=== PATIENT | female | born 1930 ===

== ENCOUNTER 2017-04-09 08:13 | Inpatient (IN) | payer MEDICARE, MEDICAID ==
--- NOTE | 2017-04-09 08:40 | ED PDOC ---
Arrival/HPI - General Historian: Patient, Family - History of Present Illness Time/Duration: 4-6 hours Symptom Course: Unchanged Quality: Aching, Throbbing Severity Level: 7 Activities at Onset: Rest Context: Home <Rocío Abdalla - Last Filed: 04/09/17 11:19> <Haritha Gutierres - Last Filed: 04/23/17 11:28> - General Chief Complaint: Trauma Time Seen by Provider: 04/09/17 08:14 - History of Present Illness Narrative History of Present Illness (Text): 04/09/17 08:38 This is an 86Y F with PMH of HTN, HLD, NIDDM, cardiac pacemaker, gastric ulcer and osteoporosis here for fall. She is accompanied by her daughter. The patient reports at 4am this morning she was walking between the tv and chair when she fell backwards on her head. She reports feeling lightheaded this morning, but denies new vision changes, CP, SOB, n/v/d, numbness/tingling. She complains of bilateral shoulder and hip pain. She is able to raise her arms above her head, but cannot sit up. Her daughter reports she was on the floor for about 3-4 hours. Patient report she was not able to take her morning medications. Patient denies LOC or tongue biting. (Rocío Abdalla) Past Medical History - Provider Review Nursing Documentation Reviewed: Yes - Infectious Disease Hx of Infectious Diseases: None - Tetanus Immunization Tetanus Immunization: Unknown - Cardiac Hx Cardiac Disorders: Yes Hx OR: Yes Hx Hypertension: Yes Hx Pacemaker: Yes - Pulmonary Hx Respiratory Disorders: No - Neurological Hx Neurological Disorder: No Hx Transient Ischemic Attacks (TIA): No - HEENT Hx HEENT Disorder: Yes Hx Cataracts: Yes (bilateral sx) Hx Glaucoma: Yes (laser sx bilateral) - Renal Hx Renal Disorder: No - Endocrine/Metabolic Hx Endocrine Disorders: Yes Hx Diabetes Mellitus Type 2: Yes - Hematological/Oncological Hx Blood Disorders: No - Integumentary Hx Dermatological Disorder: No - Musculoskeletal/Rheumatological Hx Musculoskeletal Disorders: Yes Hx Falls: No Hx Osteoporosis: Yes - Gastrointestinal Hx Gastrointestinal Disorders: Yes (gi bleed) Hx Gastrointestinal Ulcer: Yes - Genitourinary/Gynecological Hx Genitourinary Disorders: Yes Hx Urinary Tract Infection: Yes - Psychiatric Hx Psychophysiologic Disorder: No Hx Depression: No Hx Emotional Abuse: No Hx Physical Abuse: No Hx Substance Use: No - Surgical History Hx Hysterectomy: Yes (partial) Hx Joint Replacement: Yes (bilateral knee) - Anesthesia Hx Anesthesia Reactions: No Hx Malignant Hyperthermia: No - Suicidal Assessment Feels Threatened In Home Enviroment: No <Rocío Abdalla - Last Filed: 04/09/17 11:19> Family/Social History - Physician Review Nursing Documentation Reviewed: Yes Family/Social History: Hypertension Smoking Status: Never Smoked Hx Alcohol Use: No Hx Substance Use: No Hx Substance Use Treatment: No <Rocío Abdalla - Last Filed: 04/09/17 11:19> Allergies/Home Meds <Rocío Abdalla - Last Filed: 04/09/17 11:19> <Haritha Gutierres - Last Filed: 04/23/17 11:28> Allergies/Adverse Reactions: Allergies No Known Allergies Allergy (Verified 04/09/17 08:23) Home Medications: Home Meds Medication Instructions Recorded Confirmed Sitagliptin Phos/Metformin HCl 1 tab PO BID 04/27/16 04/09/17 [Janumet 50-1,000 mg Tablet] Cyanocobalamin [Vitamin B12 1000 1 tab PO DAILY 09/28/16 04/09/17 mcg Tab] Glimepiride 0.5 tab PO BID 09/28/16 04/09/17 Multivitamin [Multivitamins] 1 tab PO DAILY 09/28/16 04/09/17 Vitamin B Complex [Ultra B-100 1 tab PO DAILY 09/28/16 04/09/17 Complex] Vitamin E Acid Succinate [Vitamin 400 units PO DAILY 09/28/16 04/09/17 E] Latanoprost 0.005% Opht [Xalatan 1 drp OU HS 04/09/17 04/09/17 Opht] Levothyroxine [Synthroid] 50 mcg PO DAILY 04/11/17 04/11/17 Pantoprazole Sodium [Protonix] 40 mg PO DAILY 04/11/17 04/11/17 Review of Systems - Physician Review All systems were reviewed & negative as marked: Yes - Review of Systems Constitutional: Normal. absent: Fatigue, Weight Change, Fevers Eyes: Normal. absent: Vision Changes ENT: Normal. absent: Hearing Changes Respiratory: Normal. absent: SOB, Cough Cardiovascular: Normal. absent: Chest Pain, Palpitations, Edema Gastrointestinal: Normal. absent: Abdominal Pain, Diarrhea, Nausea, Vomiting Genitourinary Female: Normal. absent: Dysuria, Frequency, Hematuria Musculoskeletal: Arthralgias, Back Pain Skin: Normal. absent: Rash Neurological: Dizziness, Gait Changes. absent: Headache, Focal Weakness, Speech Changes, Facial Droop Psychiatric: Normal. absent: Anxiety, Depression <SeandoreneRocío - Last Filed: 04/09/17 11:19> Physical Exam Vital Signs Reviewed: Yes Temperature: Afebrile Blood Pressure: Hypertensive Pulse: Tachycardic Respiratory Rate: Normal Appearance: Positive for: Well-Appearing, Non-Toxic, Comfortable Pain Distress: None Mental Status: Positive for: Alert and Oriented X 3 - Systems Exam Head: Present: Atraumatic, Normocephalic. No: Tenderness, Ecchymosis Pupils: Present: PERRL Extroacular Muscles: Present: EOMI Conjunctiva: Present: Normal Mouth: Present: Moist Mucous Membranes Neck: Present: Normal Range of Motion Respiratory/Chest: Present: Clear to Auscultation, Good Air Exchange. No: Respiratory Distress, Accessory Muscle Use Cardiovascular: Present: Regular Rate and Rhythm, Normal S1, S2. No: Murmurs Abdomen: Present: Normal Bowel Sounds. No: Tenderness, Distention, Peritoneal Signs Back: Present: Normal Inspection Upper Extremity: Present: Normal Inspection, Tenderness (to bilateral shoulders ). No: Cyanosis, Edema, Normal ROM (decreased range of motion ) Lower Extremity: Present: Normal Inspection, Tenderness (to bilateral hips ). No: Edema Neurological: Present: GCS=15, CN II-XII Intact, Speech Normal Skin: Present: Warm, Dry, Normal Color. No: Rashes Psychiatric: Present: Alert, Oriented x 3, Normal Insight, Normal Concentration <Rocío Abdalla - Last Filed: 04/09/17 11:19> <Haritha Gutierres - Last Filed: 04/23/17 11:28> Vital Signs Temp Pulse Resp BP Pulse Ox 04/09/17 14:26 85 16 151/65 H 96 04/09/17 13:08 65 18 146/75 96 04/09/17 10:42 83 16 127/86 98 04/09/17 08:13 98.1 F 104 H 18 148/80 96 Medical Decision Making Re-evaluation Time: 10:09 Reassessment Condition: Unchanged - Lab Interpretations I have reviewed the lab results: Yes Interpretation: Abnormal lab values (elevated troponin and elevated glucose) - RAD Interpretation Rn Examiner: Radiologist - EKG Interpretation Interpreted by ED Physician: Yes Type: 12 lead EKG <Rocío Abdalla - Last Filed: 04/09/17 11:19> - EKG Interpretation Interpreted by ED Physician: Yes Type: 12 lead EKG <NenitaHaritha - Last Filed: 04/23/17 11:28> ED Course and Treatment: 04/09/17 08:42 Impression: This is an 86Y F with PMH of HTN, HLD, NIDDM, cardiac pacemaker, gastric ulcer and osteoporosis here for fall. She hit her head, shoulders and hips. DDX: Syncope, CVA, arrhythmia, mechanical fall Plan: -- CT head, CXR, shoulder XR bilateral, Bilateral Hip XR -- CBC, CMP, cardiac iso, pt/ptt -- ASA --Reassess Prior Visits: Notes and results from previous visits were reviewed. Progress Note: Troponin noted to be elevated. CT head showed chronic lacunar infarct with no evidence of acute intracranial abnormalities. Bilateral shoulder and Hip/pelvis XR showed no evidence of fracture. Patient planned to be admitted to telemetry for further monitoring. Patient does have history of GI bleed, but Hgb stable. Spoke with Dr. Hameed who is aware of patient and the consult. Spoke with Dr. Hill who accepts patient. (Rocío Abdalla) Patient seen and examined with resident. Came up with treatment and disposition plan with resident. A 86 year old female with head trauma, bilateral shoulder and hip pain after fall. In agreement with resident note, which includes further HPI details. I interviewed patient with family present. Patient is noted to have no focal neuro deficits on exam. Patient states she believes she slipped and fell. She was unable to get up on her own for several hours reportedly stating she was too weak to stand up and had knee pain. Family states she is uncertain whether she slipped or fell. With multiple questioning she denies any chest pain or shortness of breath. Denies pleuritic pain. Denies back pain or upper back pain. She is not hypoxic. On monitor, patient noted to be in sinus rhythm rate of 90 although she is noted to intermittently to have pauses with rate in 60s associated with PVCs. Patient re-examined during this time and noted to be asymptomatic. Patient with POSITIVE TROPONIN. She continues to deny any history of chest pain or shortness of breath or calf pain or swelling. I discussed troponin and history with Dr. Hameed, her paper rewinder. As she is without any chest pain or shortness of breath with no EKG changes, after discussion with paper rewinder will not anticoagulate as she has history of GI bleeds and anemia in past. No hip fracture noted. Serial exams reveals that she is able to ambulated. Cannot exclude arrhythmia as patient noted to have intermittent rhythm change on monitor, continues to deny any pain or sob or discomfort. (Haritha Gutierres) - Lab Interpretations Lab Results: 04/09/17 08:31 04/09/17 08:31 Lab Results 04/09/17 08:34: APTT 25.5 04/09/17 08:31: Sodium 137, Potassium 4.2, Chloride 101, Carbon Dioxide 24, Anion Gap 16, BUN 22 H, Creatinine 0.8, Est GFR ( Amer) > 60, Est GFR ( Non-Af Amer) > 60, Random Glucose 303 H* D, Calcium 9.9, Total Bilirubin 0.6, AST 24, ALT 27, Alkaline Phosphatase 88, Lactate Dehydrogenase 433, Total Creatine Kinase 147, Troponin I 0.17 H* D, Total Protein 7.5, Albumin 4.2, Globulin 3.4, Albumin/Globulin Ratio 1.2 04/09/17 08:31: WBC 11.2 H D, RBC 4.48, Hgb 12.5, Hct 37.9, MCV 84.6, MCH 27.9, MCHC 33.0, RDW 14.2, Plt Count 254, MPV 10.3 - RAD Interpretation Narrative RAD Interpretations (Text): 04/09/17 10:09 CXR showed no active disease Head CT showed no acute intracranial abnormalities. Old lacunar infarcts. Please see full report for more detail. Bilateral shoulder XR showed no evidence of fracture. Please see full report for more detail. Hip/Pelvis XR showed no evidence of fracture. Please see full report for more detail. (Rocío Abdalla) Radiology Orders: 04/09/17 08:30 HEAD W/O CONTRAST [CT] Stat HIP MIN 2V W/ PELVIS DICK [RAD] Stat SHOULDER LEFT [RAD] Stat SHOULDER RIGHT [RAD] Stat 04/09/17 08:44 CXR [CHEST PORTABLE] [RAD] Stat - EKG Interpretation EKG Interpretation (Text): 04/09/17 08:52 HR 103. intervals within normal limits. Sinus tachycardia with occasional PVCs (Bortcosh,Rocío) - Medication Orders Current Medication Orders: Discontinued Medications Amlodipine Besylate (Norvasc) 5 mg PO DAILY [facility] Last Admin: 04/11/17 10:19 Dose: 5 mg Amlodipine Besylate (Norvasc) 10 mg PO DAILY [facility] Aspirin (Aspirin Chewable) 81 mg PO STAT [facility] Stop: 04/09/17 10:39 Last Admin: 04/09/17 11:00 Dose: Atorvastatin Calcium (Lipitor) 40 mg PO DIN [facility] Last Admin: 04/10/17 16:18 Dose: 40 mg Hydrochlorothiazide (Microzide) 12.5 mg PO DAILY [facility] Last Admin: 04/11/17 10:19 Dose: 12.5 mg Ceftriaxone Sodium (Rocephin 1 Gram Ivpb) 1 gm in 100 mls @ 200 mls/hr IVPB STAT [facility] PRN Reason: Protocol Stop: 04/09/17 12:55 Last Admin: 04/09/17 13:38 Dose: 200 mls/hr Ceftriaxone Sodium (Rocephin 1 Gram Ivpb) 1 gm in 100 mls @ 100 mls/hr IVPB DAILY [facility] PRN Reason: Protocol Last Admin: 04/10/17 23:39 Dose: 100 mls/hr Magnesium Sulfate 2 gm/ Sodium (Chloride) 104 mls @ 102 mls/hr IVPB ONCE ONE Stop: 04/11/17 11:16 Insulin Human Regular (Humulin R Med) 0 units SC ACHS [facility] PRN Reason: Protocol Last Admin: 04/11/17 08:04 Dose: 5 units Latanoprost (Xalatan Opht) 0 ml OU HS [facility] Last Admin: 04/10/17 22:18 Dose: 2.5 ml Levothyroxine Sodium (Synthroid) 50 mcg PO ACB [facility] Last Admin: 04/11/17 08:05 Dose: 50 mcg Losartan Potassium (Cozaar) 50 mg PO DAILY [facility] Last Admin: 04/11/17 10:19 Dose: 50 mg Magnesium Oxide (Mag-Ox) 400 mg PO BID [facility] Tramadol HCl (Ultram) 50 mg PO TID PRN PRN Reason: Pain, moderate (4-7) Last Admin: 04/10/17 16:18 Dose: 50 mg <Rocío Abdalla - Last Filed: 04/09/17 11:19> - PA / TATTOO DESIGNER / Resident Statement MD/DO has reviewed & agrees with the documentation as recorded. MD/DO has examined the patient and agrees with the treatment plan. - Scribe Statement The provider has reviewed the documentation as recorded by the Scribe <Haritha Gutierres - Last Filed: 04/23/17 11:28> - Scribe Statement Sudha Adams Provider Scribe Attestation: All medical record entries made by the Scribe were at my direction and personally dictated by me. I have reviewed the chart and agree that the record accurately reflects my personal performance of the history, physical exam, medical decision making, and the department course for this patient. I have also personally directed, reviewed, and agree with the discharge instructions and disposition. (Haritha Gutierres) Disposition/Present on Arrival - Present on Arrival Any Indicators Present on Arrival: No History of DVT/PE: No History of Uncontrolled Diabetes: No Urinary Catheter: No History of Decub. Ulcer: No History Surgical Site Infection Following: None - Disposition Have Diagnosis and Disposition been Completed?: Yes Disposition Time: 10:40 Patient Plan: Admission <Rocío Abdalla - Last Filed: 04/09/17 11:19> <Haritha Gutierres - Last Filed: 04/23/17 11:28> - Disposition Diagnosis: Elevated troponin, Fall, Dizziness, Arrhythmia, Syncope Disposition: HOSPITALIZED Condition: FAIR
[2017-04-09 09:10] LABS: HEMATOCRIT 37.9 % (36.0-48.0); MEAN CELL VOLUME 84.6 fL (80.0-105.0); MEAN CORPUSCULAR HEMOGLOBIN 27.9 pg (25.0-35.0); MEAN PLATELET VOLUME 10.3 fl (7.0-11.0); RED CELL DISTRIBUTION WIDTH 14.2 % (11.5-14.5); WHITE BLOOD COUNT 11.2 10^3/ul (4.5-11.0)
--- NOTE | 2017-04-09 09:14 | RAD ---
HISTORY: fall COMPARISON: 06/10/2016 FINDINGS: LUNGS: No active pulmonary disease. PLEURA: No significant pleural effusion identified, no pneumothorax apparent. CARDIOVASCULAR: Permanent pacemaker. Normal heart size. OSSEOUS STRUCTURES: No significant abnormalities. VISUALIZED UPPER ABDOMEN: Normal. OTHER FINDINGS: None. IMPRESSION: No active disease.
[2017-04-09 09:16] LABS: ALB/GLOB RATIO 1.2 (1.1-1.8); ALKALINE PHOSPHATASE 88 U/L (38-133); ALT/SGPT 27 U/L (7-56); AST/SGOT 24 U/L (15-39); BILIRUBIN,TOTAL 0.6 mg/dL (0.2-1.3); BLOOD UREA NITROGEN 22 mg/dL (7-21); CALCIUM 9.9 mg/dL (8.4-10.5); CARBON DIOXIDE 24 mmol/L (21-33); CHLORIDE 101 mmol/L (98-107); GFR AFRICAN-AMERICAN > 60; POTASSIUM 4.2 mmol/L (3.6-5.0); SODIUM 137 mmol/L (132-148); TOTAL PROTEIN 7.5 g/dL (5.8-8.3)
--- NOTE | 2017-04-09 09:20 | CT ---
PROCEDURE: CT HEAD WITHOUT CONTRAST. HISTORY: fall COMPARISON: 03/06/2015 TECHNIQUE: Axial computed tomography images were obtained through the head/brain without intravenous contrast. Radiation dose: Total exam DLP = 780.29 mGy-cm. This CT exam was performed using one or more of the following dose reduction techniques: Automated exposure control, adjustment of the mA and/or kV according to patient size, and/or use of iterative reconstruction technique. FINDINGS: HEMORRHAGE: No intracranial hemorrhage. BRAIN: No mass effect or edema. Chronic microvascular ischemic change. Small old lacunar infarct right basal ganglia and left cerebellar hemisphere. No evidence of acute infarct. VENTRICLES: Unremarkable. No hydrocephalus. CALVARIUM: Unremarkable. PARANASAL SINUSES: Unremarkable as visualized. No significant inflammatory changes. MASTOID AIR CELLS: Unremarkable as visualized. No inflammatory changes. OTHER FINDINGS: None. IMPRESSION: No intracranial mass, hemorrhage or evidence of acute infarct. Chronic white matter ischemic change. Old right basal ganglia and left cerebellar hemispheric lacunar infarcts.
[2017-04-09 09:23] LABS: GLUCOSE,RANDOM 303 mg/dL (70-110)
[2017-04-09 10:01] LABS: TROPONIN I 0.17 ng/mL
--- NOTE | 2017-04-09 10:17 | RAD ---
PROCEDURE: Radiographs of the Left Shoulder HISTORY: fall COMPARISON: No prior. FINDINGS: BONES: Normal. No fracture. JOINTS: Minimal acromioclavicular degenerative arthritis. Glenohumeral articulation is intact. SOFT TISSUES: Globular calcification adjacent to greater tuberosity consistent with calcific tendinitis. OTHER FINDINGS: None. 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 No acute fracture.
--- NOTE | 2017-04-09 10:17 | RAD ---
PROCEDURE: Radiographs of the Right Shoulder HISTORY: fall COMPARISON: No prior. FINDINGS: BONES: Normal. No fracture. JOINTS: Mild acromioclavicular degenerative arthritis. Glenohumeral articulation is intact. SOFT TISSUES: Normal. OTHER FINDINGS: None. IMPRESSION: Mild acromioclavicular degenerative arthritis.
--- NOTE | 2017-04-09 10:18 | RAD ---
PROCEDURE: Radiographs of the pelvis and bilateral hips HISTORY: fall COMPARISON: None. FINDINGS: BONES: Pelvis: Unremarkable. Right hip:Unremarkable. Left hip:Unremarkable. JOINTS: Right hip: Unremarkable. Left hip: Unremarkable. Sacroiliac Joints: Unremarkable. Pubic symphysis: Unremarkable. SOFT TISSUES: Normal. OTHER FINDINGS: None. IMPRESSION: Unremarkable radiographs of the hips and pelvis.
[2017-04-09] MEDS ORDERED: Enoxaparin 80 mg Syringe SC STA (10:37)
[2017-04-09 12:08] LABS: URINE BILIRUBIN NEGATIVE (NEGATIVE); URINE BLOOD TRACE-INTACT (NEGATIVE); URINE GLUCOSE (UA) 500 mg/dL (NEGATIVE); URINE KETONE NEGATIVE (NEGATIVE); URINE LEUKOCYTE ESTERASE NEGATIVE Leu/uL (NEGATIVE); URINE PROTEIN TRACE mg/dL (<30 mg/dL); URINE UROBILINOGEN 0.2 E.U./dL (<1 E.U./dL)
[2017-04-09 12:10] LABS: URINE APPEARANCE CLEAR (CLEAR); URINE COLOR YELLOW (YELLOW)
[2017-04-09 12:19] LABS: URINE BACTERIA LARGE (NEG); URINE RBC 0 - 2 /hpf (0-2); URINE WBC 0 - 2 /hpf (0-6)
[2017-04-09] MEDS ORDERED: cefTRIAXone 1 gm 1 GM/100 ML BAG IVPB STA (12:26)
--- NOTE | 2017-04-09 12:27 | CARD ---
APPROVED REPORT EKG Measurement Heart [id number] AR 168P16 [id number] <Conclusion> Normal sinus rhythm Voltage criteria for left ventricular hypertrophy Prolonged QT Abnormal ECG
--- NOTE | 2017-04-09 12:37 | CARD ---
APPROVED REPORT EKG Measurement Heart [id number] PA [id number] [id number] <Conclusion> Sinus tachycardia with occasional premature ventricular complexes Moderate voltage criteria for LVH, may be normal variant Nonspecific ST and T wave abnormality Abnormal ECG
[2017-04-09 13:27] LABS: INR 0.96 (0.93-1.08)
[2017-04-09 15:59] VITALS: BMI 32.2
[2017-04-09] MEDS: Insulin Reg-MEDIUM-Coverage SC SCH ×2 (17:45→23:21)
[2017-04-09] MEDS ORDERED: GLIMEPIRIDE PO SCH (18:00)
[2017-04-09] MEDS ORDERED: Non Formulary Medication (Losartan/Hydrochlorothiazide [Losartan-Hctz 50-12.5 Mg Tab] 1 TA PO SCH (18:00)
[2017-04-09] MEDS: Latanoprost 2.5 ml Opht Soln OU SCH (21:55)
[2017-04-10] MEDS: Insulin Reg-MEDIUM-Coverage SC SCH ×4 (08:09→22:17)
[2017-04-10] MEDS: Levothyroxine 50 MCG TAB PO SCH (10:07)
--- NOTE | 2017-04-10 19:13 | CON ---
DATE: 04/10/2017 REQUESTING PHYSICIAN: Dr. Bowie REASON FOR CONSULTATION: Fall and elevated troponin. HISTORY OF PRESENT ILLNESS: This is an 86-year-old woman, known to us with a history of coronary art fara disease and remote myocardial infarction, who suffered a fall at home yesterday. She was reporte dly on the floor for several hours and was brought to the Emergency Room by her daughter. Radiograph s have shown no evidence of fracture and CT of the head showed no acute abnormalities. She denied an y palpitations or chest pain on admission. She has chronic exertional dyspnea. She does have known coronary disease and suffered a myocardial infarction 5 years ago and underwent PCI of her LAD at [facility] t time. She also has a history of hypertension, hyperlipidemia and diabetes. She has undergone prio r permanent pacemaker implant as well. She has a history of a gastric ulcer, osteoporosis. She has underwent prior colon resection. PAST MEDICAL HISTORY: Notable for the problems mentioned above. She has a history of glaucoma and c ataracts. She has undergone bilateral knee replacement as well as a partial hysterectomy. CURRENT MEDICATIONS: Include Cozaar 50 mg daily, insulin coverage, Lipitor 40 mg daily, hydrochlorot hiazide 12.5 mg daily, Norvasc 5 mg daily, Synthroid 50 mcg daily, tramadol and Xalatan eye drops. ALLERGIES: She has no reported allergies. SOCIAL HISTORY: She does not smoke or drink. FAMILY HISTORY: Both parents are from age-related illness. REVIEW OF SYSTEMS: A 10-point is notable mainly for the problems mentioned above. PHYSICAL EXAMINATION: GENERAL: She is a very elderly woman who appears comfortable at rest. VITAL SIGNS: Her blood pressure is 140/76 with a pulse of 84, in sinus, respirations are 16. She is afebrile. HEENT: Normocephalic, atraumatic. NECK: Supple, no JVD. CHEST: Bilateral scattered rhonchi are heard. HEART: PMI displaced laterally with a systolic murmur at the left sternal border. ABDOMEN: Soft, nontender, normoactive bowel sounds. EXTREMITIES: No edema. SKIN: Warm and dry. PSYCHIATRIC: Normal mood and affect. NEUROLOGIC: Alert and oriented x 3. No gross motor or sensory deficits appreciable. DIAGNOSTIC DATA: White count 11.2, hemoglobin and hematocrit are 12.5 and 37.9 with a platelet count of 254,000. Potassium is 4.2, BUN and creatinine are 22 and 0.8, glucose is 303. Troponin 0.17, re peat 1.33 and followup 0.96. CK is 147. Chest x-ray reveals normal cardiac silhouette with clear austin ng tanner and a pacing system in place. Electrocardiogram reveals sinus tachycardia with PVCs, volta ge criteria for LVH, nonspecific ST-T abnormalities. IMPRESSION: 1. Borderline troponin with no evidence of chest pain and a normal CK, doubt any clinical significan ce. 2. Known coronary artery disease, status post remote myocardial infarction and percutaneous coronary intervention, stable at present. 3. Bradycardia-tachycardia syndrome with permanent pacemaker, stable. 4. Rest of problems as noted. RECOMMENDATIONS: At this time, 24-hour observation on telemetry is reasonable. Assuming no signific ant abnormalities are found, discharge home would be appropriate. Conservative cardiac medication is advised. Thank you for this consultation. Caleb Marti MD cc: [id number] TT: 04/10/2017 19:13:02 Confirmation # [id number] Dictation # [id number]
[2017-04-10] MEDS ORDERED: cefTRIAXone 1 gm 1 GM/100 ML BAG IVPB SCH (22:00)
[2017-04-10] MEDS: Latanoprost 2.5 ml Opht Soln OU SCH (22:18)
--- NOTE | 2017-04-10 23:02 | HP ---
HISTORY OF PRESENT ILLNESS: The patient is an 86-year-old female with past medical history of diabet es mellitus type 2, cardiac pacemaker, gastric ulcer, osteoporosis, hypertension. She fell at home a nd complaining of right shoulder pain. She was lightheaded. No nausea, no vomiting, no tingling. X -ray of the right shoulder did not show any fracture or dislocation. She is unable to raise the arm above the shoulder. As per the daughter, she was on the floor for 3-4 hours. She has a cardiac pace maker. She also has history of myocardial infarction in remote past. Denies any weakness, fatigue n ow. No fever, no dizziness. No headaches. PAST MEDICAL HISTORY: Myocardial infarction, coronary artery disease, hypertension, pacemaker, histo ry of glaucoma, cataracts, diabetes mellitus type 2, osteoporosis, gastric ulcer, history of GI bleed , history of UTI. PAST SURGICAL HISTORY: Hysterectomy, bilateral knee replacement. PERSONAL HISTORY: Nonsmoker. No history of alcohol abuse. SOCIAL HISTORY: Lives at home. FAMILY HISTORY: Noncontributory. No positive history in mother and father. ALLERGIES: No known drug allergies. HOME MEDICATIONS: Losartan 1 tablet p.o. b.i.d., Janumet 1 tablet p.o. b.i.d., B12 one tablet daily, glimepiride 0.5 mg p.o. b.i.d., Protonix 40 mg daily, B12 one tablet daily, vitamin E daily, Norvasc 5 mg daily. REVIEW OF SYSTEMS: As per HPI. Rest of 12-point review of systems reviewed and negative. PHYSICAL EXAMINATION: GENERAL: Comfortable, sitting in chair, in no acute distress. VITAL SIGNS: Temperature 98.1, heart rate 83 per minute, respiratory 18 per minute, blood pressure 1 48/80, pulse ox is 96 per minute on room air. HEENT: Normal. NECK: No lymphadenopathy. CHEST: Air entry present, equal bilateral. No added sound. CARDIOVASCULAR: S1, S2 normal. No murmur, no gallop. ABDOMEN: Soft, nontender, no hepatosplenomegaly. SKIN: No petechia, no rash. CENTRAL NERVOUS SYSTEM: Alert, oriented x 3, no focal sensorimotor deficit. LYMPHADENOPATHY: None. SPINE: Nontender. EXTREMITIES: Unable to raise the right arm above the head. LABORATORY DATA: White count 11.2, hemoglobin 12.5, hematocrit 37.9, platelet count 254. INR 0.96. PT 10.4, PTT is 25.5. Sodium 137, potassium 4.2, BUN 22, creatinine 0.8, glucose 303. Troponin 0.1 7. is 0.96. UA positive. ASSESSMENT: 1. Syncope, status post fall. 2. Elevated troponin. 3. Leukocytosis. 4. Urinary tract infection, urinalysis positive. 5. Pacemaker. PLAN: She will be admitted to tele monitoring. Cardiology consultation with Dr. Hameed requested. Cardiology assessment reviewed. We will monitor troponins serially. Tele monitoring for the next 24 hours. No problem with pacemaker as per Dr. Hameed's note. UA positive with leukocytosis. We will wait for urine culture. I will give ceftriaxone 1 gram daily, antibiotic for presumed UTI. We will continue antihypertensive, Norvasc 5 mg daily. We will continue Cozaar 50 mg daily. Continue Lipit or 40 mg daily, sliding scale insulin, hydrochlorothiazide 12.5 mg daily, tramadol 50 mg p.o. t.i.d. for right shoulder pain, Synthroid 50 mcg daily. Orthopedic consult with Dr. Llamas for right shoulder pain. Discussed with the daughter at bedside. Discussed with the patient. She is franniei brenda orthopedic consultation for right shoulder pain. Discussed with the staff nurse. Neelima Carbajal MD cc: [id number] TT: 04/10/2017 23:02:03 ut
[2017-04-11 03:59] VITALS: RESP 20
[2017-04-11 06:38] VITALS: O2SAT 93
[2017-04-11 06:55] LABS: MEAN CELL VOLUME 83.7 fL (80.0-105.0); MEAN CORPUSCULAR HEMOGLOBIN 27.6 pg (25.0-35.0); MEAN PLATELET VOLUME 10.6 fl (7.0-11.0); RED CELL DISTRIBUTION WIDTH 14.5 % (11.5-14.5); WHITE BLOOD COUNT 8.4 10^3/ul (4.5-11.0)
[2017-04-11 07:20] LABS: ALB/GLOB RATIO 1.1 (1.1-1.8); ALKALINE PHOSPHATASE 74 U/L (38-133); ALT/SGPT 32 U/L (7-56); AST/SGOT 32 U/L (15-39); BILIRUBIN,TOTAL 0.6 mg/dL (0.2-1.3); BLOOD UREA NITROGEN 21 mg/dL (7-21); CALCIUM 9.2 mg/dL (8.4-10.5); CARBON DIOXIDE 26 mmol/L (21-33); CHLORIDE 94 mmol/L (98-107); GFR AFRICAN-AMERICAN > 60; GLUCOSE,RANDOM 239 mg/dL (70-110); MAGNESIUM 1.4 mg/dL (1.7-2.2); POTASSIUM 4.1 mmol/L (3.6-5.0); SODIUM 130 mmol/L (132-148); TOTAL PROTEIN 7.4 g/dL (5.8-8.3)
[2017-04-11] MEDS: Insulin Reg-MEDIUM-Coverage SC SCH (08:04)
[2017-04-11] MEDS: Levothyroxine 50 MCG TAB PO SCH (08:05)
--- NOTE | 2017-04-11 08:22 | CP.PCM.PN ---
Subjective - Date & Time of Evaluation Date of Evaluation: 04/11/17 Time of Evaluation: 07:00 - Subjective Subjective: Stable on 2R. No CP or SOB. V/S noted. RSR. Non captures noted last night. PE: Lungs: clear cor.: S1S2 Abd.: soft Ext.: no edema Neuro.: alert Labs noted: + trops. Infinit: down this AM. Objective - Vital Signs/Intake and Output Vital Signs (last 24 hours): Temp Pulse Resp BP Pulse Ox 97.2 F L 78 20 139/82 93 L 04/11/17 06:00 04/11/17 06:00 04/11/17 06:00 04/11/17 06:00 04/11/17 06:00 Intake and Output: 04/11/17 04/11/17 06:59 18:59 Output Total 600 Balance -600 - Medications Medications: Current Medications Amlodipine Besylate (Norvasc) 5 mg PO DAILY [facility] Last Admin: 04/10/17 10:05 Dose: 5 mg Atorvastatin Calcium (Lipitor) 40 mg PO DIN [facility] Last Admin: 04/10/17 16:18 Dose: 40 mg Hydrochlorothiazide (Microzide) 12.5 mg PO DAILY [facility] Last Admin: 04/10/17 10:05 Dose: 12.5 mg Ceftriaxone Sodium (Rocephin 1 Gram Ivpb) 1 gm in 100 mls @ 100 mls/hr IVPB DAILY [facility] PRN Reason: Protocol Last Admin: 04/10/17 23:39 Dose: 100 mls/hr Insulin Human Regular (Humulin R Med) 0 units SC ACHS [facility] PRN Reason: Protocol Last Admin: 04/11/17 08:04 Dose: 5 units Latanoprost (Xalatan Opht) 0 ml OU HS [facility] Last Admin: 04/10/17 22:18 Dose: 2.5 ml Levothyroxine Sodium (Synthroid) 50 mcg PO ACB [facility] Last Admin: 04/11/17 08:05 Dose: 50 mcg Losartan Potassium (Cozaar) 50 mg PO DAILY [facility] Last Admin: 04/10/17 10:05 Dose: 50 mg Tramadol HCl (Ultram) 50 mg PO TID PRN PRN Reason: Pain, moderate (4-7) Last Admin: 04/10/17 16:18 Dose: 50 mg - Labs Labs: 04/11/17 05:30 04/11/17 05:30 PT 10.4 Seconds (9.9-11.8) 04/09/17 13:13 INR 0.96 (0.93-1.08) 04/09/17 13:13 APTT 25.5 Seconds (23.7-30.8) 04/09/17 08:34 Assessment and Plan - Assessment and Plan (Free Text) Plan: Assessment: Fall at home R/O PPM malfunction. + trops. CAD/Remote AL and PCI LAD Diabetes HB HLD PPM Lacune Hypothyroidism Osteoporosis Colon resection. Plan: Will interrogate PPM.
--- NOTE | 2017-04-11 09:06 | PN ---
DATE: 04/11/2017 SUBJECTIVE: The patient has no complaints of any chest pain. No shortness of breath, no headaches. PHYSICAL EXAMINATION: VITAL SIGNS: Temperature is 97.2, pulse is 78, blood pressure 139/82, respirations 20, O2 saturation 93%. GENERAL: The patient comfortable, in no acute distress. HEENT: Anicteric sclerae. Moist mucosa. NECK: No JVD or adenopathy. CARDIAC: S1/S2. No murmurs. No rubs. Regular. RESPIRATORY: Clear to auscultation bilaterally. No wheezes, rales, or rhonchi. Good air entry. ABDOMEN: Bowel sounds are positive, soft, nontender, and nondistended. EXTREMITIES: No edema. Has 1+ pulses. ASSESSMENT: 1. Syncope. 2. Coronary artery disease. 3. Hypertension. 4. Pacemaker. 5. Diabetes type 2. 6. Osteoporosis. 7. Hypothyroidism. PLAN: The patient is currently comfortable. She is waiting for an interrogation of her pacemaker. The patient is on Lipitor for dyslipidemia. She is on Norvasc for hypertension as well as hydrochlor othiazide is receiving Rocephin for antibiotics. The patient has multiple species in her urine, unli demetra that the patient has an infection. She has no fevers. This morning, her white count is normal. She denies any dysuria. I will discontinue her Rocephin. The patient is on tramadol for pain, is on insulin sliding scale. She is on latanoprost 0.05% for her eyes. She is on a heart healthy diet. She had an x-ray done of her shoulder that shows mild acromioclavicular degenerative arthritis. Judd Bowie MD cc: [phone] TT: 04/11/2017 09:06:02 Confirmation # [id number] Dictation # [id number]
--- NOTE | 2017-04-11 09:12 | CP.PCM.PN ---
Subjective - Date & Time of Evaluation Date of Evaluation: 04/11/17 Time of Evaluation: 09:00 - Subjective Subjective: Pacemaker Interrogation done: Normal Pacemaker Function. Objective - Vital Signs/Intake and Output Vital Signs (last 24 hours): Temp Pulse Resp BP Pulse Ox 97.2 F L 78 20 139/82 93 L 04/11/17 06:00 04/11/17 06:00 04/11/17 06:00 04/11/17 06:00 04/11/17 06:00 Intake and Output: 04/11/17 04/11/17 06:59 18:59 Output Total 600 Balance -600 - Medications Medications: Current Medications Amlodipine Besylate (Norvasc) 5 mg PO DAILY [facility] Last Admin: 04/10/17 10:05 Dose: 5 mg Atorvastatin Calcium (Lipitor) 40 mg PO DIN [facility] Last Admin: 04/10/17 16:18 Dose: 40 mg Hydrochlorothiazide (Microzide) 12.5 mg PO DAILY [facility] Last Admin: 04/10/17 10:05 Dose: 12.5 mg Insulin Human Regular (Humulin R Med) 0 units SC ACHS [facility] PRN Reason: Protocol Last Admin: 04/11/17 08:04 Dose: 5 units Latanoprost (Xalatan Opht) 0 ml OU HS [facility] Last Admin: 04/10/17 22:18 Dose: 2.5 ml Levothyroxine Sodium (Synthroid) 50 mcg PO ACB [facility] Last Admin: 04/11/17 08:05 Dose: 50 mcg Losartan Potassium (Cozaar) 50 mg PO DAILY [facility] Last Admin: 04/10/17 10:05 Dose: 50 mg Tramadol HCl (Ultram) 50 mg PO TID PRN PRN Reason: Pain, moderate (4-7) Last Admin: 04/10/17 16:18 Dose: 50 mg - Labs Labs: 04/11/17 05:30 04/11/17 05:30 PT 10.4 Seconds (9.9-11.8) 04/09/17 13:13 INR 0.96 (0.93-1.08) 04/09/17 13:13 APTT 25.5 Seconds (23.7-30.8) 04/09/17 08:34
[2017-04-11] MEDS ORDERED: Magnesium Sulfate 2 GM in Sodium Chloride 0.9% 100 ML IVPB ONE (10:15)
[2017-04-11] MEDS ORDERED: Magnesium Oxide 400 mg Tab UD PO SCH (10:15)
--- NOTE | 2017-04-11 10:58 | PQF GENQUE ---
This form is a permanent part of the medical record Clarification of your documentation is requested to better reflect the severity of illness and intensity of treatment of your patient. Indicators present Syncope should not be used as principle DX if a related definitive dx has been established. Pacemaker interrogation was normal. Can you identify as possible reason? Pt c/o lightheadness the morning of fall, no LOC. unable to identify the cause of the episode [] Specify: [] [] Specify: [] [] Specify: [] [] Specify: [] Location in the medical record that reflects the above clinical findings: [] Treatment Provided: [] PHYSICIAN'S RESPONSE Based on your medical judgment of the clinical indicators outlined above please clarify the following: [] Practitioner response [] If unable to determine, please check the box, sign and date. Present On Admission (POA) Indicator: [] Present at the time of admission [] Not present at the time of admission [] Clinically Undetermined In responding to this query, please exercise your independent professional judgment. The fact that a question is asked does not imply that any particular answer is desired or expected. Thank you for your clarification on this documentation. If you have any questions please call:[ ] * Thank you, [ ]Juana Villagomez RN CDS oxyacetylene cutter [facility]
[2017-04-11 14:15] VITALS: BP 133/70; TEMP 98
[2017-04-11 20:54] VITALS: PULSE 62
--- NOTE | 2017-06-13 09:01 | DS ---
NOTE: This is an 86-year-old female who came to the hospital with syncopal episode. She was evaluated and she had interrogation of her pacemaker. She was discharged home. Please see the note that was dictated on 04/11/2017 for details. Judd Bowie MD
== END 2017-04-11 17:00 | disposition home or self-care (01) | DRG 312 ==
LOC: ED 08:13 → ERH 11:29 → 2RNO 14:48
PROVIDERS: ADMIT Internal Medicine Nephrology; ATTEND Internal Medicine Nephrology
DX: R55 Syncope and collapse (principal); I49.5 Sick sinus syndrome; N39.0 Urinary tract infection, site not specified; E11.9 Type 2 diabetes mellitus without complications; D72.829 Elevated white blood cell count, unspecified; I10 Essential (primary) hypertension; W19.XXXA Unspecified fall, initial encounter; E03.9 Hypothyroidism, unspecified; E78.5 Hyperlipidemia, unspecified; H40.9 Unspecified glaucoma; I25.10 Atherosclerotic heart disease of native coronary artery without angina pectoris; I25.2 Old myocardial infarction; M81.0 Age-related osteoporosis without current pathological fracture; Y92.009 Unspecified place in unspecified non-institutional (private) residence as the place of occurrence of the external cause; Z79.899 Other long term (current) drug therapy; Z87.11 Personal history of peptic ulcer disease; Z87.440 Personal history of urinary (tract) infections; Z90.49 Acquired absence of other specified parts of digestive tract; Z90.710 Acquired absence of both cervix and uterus; Z95.0 Presence of cardiac pacemaker; Z96.653 Presence of artificial knee joint, bilateral

== ENCOUNTER 2017-06-11 12:15 | Inpatient (IN) | payer MEDICARE, MEDICAID ==
[2017-06-11 12:19] VITALS: BMI 33.3
--- NOTE | 2017-06-11 12:48 | ED PDOC ---
Arrival/HPI - General Historian: Patient, Family - History of Present Illness Time/Duration: Other (1 day) Context: Home - General Chief Complaint: Dizziness/Lightheaded Time Seen by Provider: 06/11/17 12:48 - History of Present Illness Narrative History of Present Illness (Text): 06/11/17 12:48 This 86 yo female with pmh htn, hyperlipedemia, dm, presents to this ED c/o unsteady gait, dizziness, and urinary symptoms x 1 day. Patient feels she is about to faint. Patient is feeling nauseous, but denies vomiting. Patient denies fever, sob, cp, hearing loss, weakness, paresthesias, rash, recent travel , sick contact, calf pain, leg swelling, or abnormal gait. (Chris Eric) Past Medical History - Provider Review Nursing Documentation Reviewed: Yes - Infectious Disease Hx of Infectious Diseases: None - Tetanus Immunization Tetanus Immunization: Unknown - Cardiac Hx Cardiac Disorders: Yes Hx Angina: Yes Hx Cardiac Arrhythmia: Yes Hx Hypertension: Yes Hx Pacemaker: Yes - Pulmonary Hx Respiratory Disorders: No - Neurological Hx Dizziness: Yes - HEENT Hx Cataracts: Yes (B/L repair) Hx Glaucoma: Yes - Renal Hx Renal Disorder: No - Endocrine/Metabolic Hx Diabetes Mellitus Type 2: Yes Hx Hypothyroidism: Yes - Hematological/Oncological Hx Blood Disorders: No - Integumentary Hx Dermatological Disorder: No - Musculoskeletal/Rheumatological Hx Musculoskeletal Disorders: Yes Hx Arthritis: Yes Hx Falls: Yes Hx Fractures: Yes Hx Osteoporosis: Yes Hx Unsteady Gait: Yes (cane) Other/Comment: bilateral knee replacements - Gastrointestinal Hx Diverticulitis: Yes - Genitourinary/Gynecological Hx Urinary Tract Infection: Yes Other/Comment: hysterectomy - Psychiatric Hx Psychophysiologic Disorder: No Hx Depression: No Hx Emotional Abuse: No Hx Physical Abuse: No Hx Substance Use: No - Surgical History Hx Appendectomy: Yes Hx Cardiac Catheterization: Yes Hx Coronary Stent: Yes Hx Joint Replacement: Yes (b/l knee replacements) Hx Musculoskeletal Surgery: Yes Hx Orthopedic Surgery: Yes - Anesthesia Hx Anesthesia: Yes Hx Anesthesia Reactions: No Hx Malignant Hyperthermia: No - Suicidal Assessment Feels Threatened In Home Enviroment: No Family/Social History - Physician Review Nursing Documentation Reviewed: Yes Family/Social History: No Known Family HX Smoking Status: Never Smoked Hx Alcohol Use: No Hx Substance Use: No Hx Substance Use Treatment: No Allergies/Home Meds Allergies/Adverse Reactions: Allergies No Known Allergies Allergy (Verified 04/09/17 08:23) Home Medications: Home Meds Medication Instructions Recorded Confirmed Sitagliptin Phos/Metformin HCl 1 tab PO BID 04/27/16 06/11/17 [Janumet 50-1,000 mg Tablet] Cyanocobalamin [Vitamin B12 1000 1 tab PO DAILY 09/28/16 06/11/17 mcg Tab] Glimepiride 0.5 tab PO BID 09/28/16 06/11/17 Multivitamin [Multivitamins] 1 tab PO DAILY 09/28/16 06/11/17 Vitamin B Complex [Ultra B-100 1 tab PO DAILY 09/28/16 06/11/17 Complex] Vitamin E Acid Succinate [Vitamin 400 units PO DAILY 09/28/16 06/11/17 E] Latanoprost 0.005% Opht [Xalatan 1 drp OU HS 04/09/17 06/11/17 Opht] Levothyroxine [Synthroid] 50 mcg PO DAILY 04/11/17 06/11/17 Pantoprazole Sodium [Protonix] 40 mg PO DAILY 04/11/17 06/11/17 Bimatoprost [Lumigan] 1 drop BOTHEYES DAILY 06/11/17 06/11/17 Losartan/Hydrochlorothiazide 1 tab PO BID 06/11/17 06/11/17 [Losartan-Hctz 50-12.5 mg Tab] Uyfam-3-Osbu Ethyl Esters [OMEGA 3] 1 tab PO DAILY 06/11/17 06/11/17 amLODIPine [Norvasc] 5 mg PO DAILY 06/11/17 06/11/17 Review of Systems - Review of Systems Constitutional: Normal. absent: Fatigue, Weight Change, Fevers Eyes: Normal. absent: Vision Changes ENT: Normal. absent: Hearing Changes Respiratory: Normal. absent: SOB, Cough, Sputum, Wheezing Cardiovascular: Syncope (near syncope). absent: Chest Pain, Palpitations Gastrointestinal: Nausea. absent: Abdominal Pain, Vomiting Genitourinary Female: Frequency. absent: Vaginal Bleeding, Vaginal Discharge Musculoskeletal: Normal. absent: Back Pain Skin: Normal. absent: Rash Neurological: Dizziness. absent: Headache, Focal Weakness, Gait Changes, Speech Changes, Facial Droop, Disequilibrium, Seizure Endocrine: Normal Hemo/Lymphatic: Normal Psychiatric: Normal Physical Exam Temperature: Afebrile Blood Pressure: Normal Pulse: Regular Respiratory Rate: Normal Appearance: Positive for: Well-Appearing, Non-Toxic, Comfortable Pain Distress: None Mental Status: Positive for: Alert and Oriented X 3 Finger Stick Blood Glucose: 117 - Systems Exam Head: Present: Atraumatic, Normocephalic Pupils: Present: PERRL Extroacular Muscles: Present: EOMI Conjunctiva: Present: Normal Mouth: Present: Moist Mucous Membranes Neck: Present: Normal Range of Motion Respiratory/Chest: Present: Clear to Auscultation, Good Air Exchange. No: Respiratory Distress, Accessory Muscle Use, Wheezes, Retracting, Rhonchi Cardiovascular: Present: Regular Rate and Rhythm, Normal S1, S2. No: Murmurs Abdomen: Present: Normal Bowel Sounds. No: Tenderness, Distention, Peritoneal Signs, Rebound, Guarding Back: Present: Normal Inspection. No: CVA Tenderness, Paraspinal Tenderness, Pain with Leg Raise Upper Extremity: Present: Normal Inspection, Normal ROM, NORMAL PULSES, Neurovascularly Intact, Capillary Refill < 2s. No: Cyanosis, Edema Lower Extremity: Present: Normal Inspection, NORMAL PULSES, Normal ROM, Neurovascularly Intact, Capillary Refill < 2 s. No: Edema Neurological: Present: GCS=15, CN II-XII Intact, Speech Normal, Motor Func Grossly Intact, Normal Sensory Function, Normal Cerebellar Funct, Memory Normal Skin: Present: Warm, Dry, Normal Color. No: Rashes Psychiatric: Present: Alert, Oriented x 3, Normal Insight, Normal Concentration Vital Signs Temp Pulse Resp BP Pulse Ox 06/11/17 16:47 67 18 155/79 H 98 06/11/17 15:14 69 18 158/89 H 98 06/11/17 12:30 165/97 H 06/11/17 12:20 97.8 F 73 18 178/82 H 98 Medical Decision Making Re-evaluation Time: 16:55 Reassessment Condition: Re-examined, Improved ED Course and Treatment: I was available for consultation during PA evaluation. The chart was reviewed by me, and I agree with disposition. The documented history was done by the physician campus ambassador. The documented physical exam was done by the physician campus ambassador. The documented procedures were done by the physician campus ambassador. (Raj Brandt) 06/11/17 16:[address] Thompson regarding patient symptoms, and he agrees with observation (Chris Eric) - Lab Interpretations Lab Results: 06/11/17 13:15 06/11/17 13:15 Lab Results 06/11/17 13:15: Sodium 141, Chloride 99, Potassium 3.9, Carbon Dioxide 28, Anion Gap 18, BUN 24 H, Creatinine 0.7, Est GFR ( Amer) > 60, Est GFR ( Non-Af Amer) > 60, Random Glucose 106, Calcium 10.7 H, Total Bilirubin 0.6, AST 27, ALT 26, Alkaline Phosphatase 88, Lactate Dehydrogenase 428, Total Creatine Kinase 45, Troponin I < 0.01 D, NT-Pro-B Natriuret Pep 240, Total Protein 8.5 H , Albumin 4.6, Globulin 3.9, Albumin/Globulin Ratio 1.2 06/11/17 13:15: pO2 33, VBG pH 7.35, VBG pCO2 54.0, VBG HCO3 29.8 H, VBG Total CO2 31.5 H, VBG O2 Sat (Calc) 68.4 H, VBG Base Excess 3.0 H, VBG Potassium 3.9, Sodium 139.0, Chloride 103.0, Glucose 110 H, Lactate 2.2 H, FiO2 21.0, Venous Blood Potassium 3.9 06/11/17 13:15: PT 10.7, INR 0.99, APTT 25.4 06/11/17 13:15: WBC 8.8, RBC 4.52, Hgb 12.8, Hct 38.6, MCV 85.4, MCH 28.3, MCHC 33.2, RDW 14.5, Plt Count 249, MPV 10.3, Gran % 62.8, Lymph % (Auto) 28.8, Payette % (Auto) 6.7 H, Eos % (Auto) 1.5, Baso % (Auto) 0.2, Gran # 5.53, Lymph # 2.5, Payette # 0.6, Eos # 0.1, Baso # 0.02 06/11/17 13:00: Urine Color Yellow, Urine Appearance Clear, Urine pH 8.0, Ur Specific [place] 1.015, Urine Protein Negative, Urine Glucose (UA) Negative, Urine Ketones Negative, Urine Blood Negative, Urine Nitrate Negative, Urine Bilirubin Negative, Urine Urobilinogen 0.2, Ur Leukocyte Esterase Negative - RAD Interpretation Narrative RAD Interpretations (Text): 06/11/17 14:17 Accession No. : [id number] Patient Name / ID : LUIS ANTONIO GUADALUPE / [id number] Exam Date : 06/11/2017 13:20:33 ( Approved ) Study Comment : Sex / Age : F / 86Y Creator : Radha Tyler MD Dictator : Radha Tyler MD Curriculum Assistant Principal : Senior Talent Acquisition Specialist : Radha Tyler MD Approver2 : Report Date : 06/11/2017 13:49:08 My Comment : PROCEDURE: CT HEAD WITHOUT CONTRAST. HISTORY: Dizziness COMPARISON: 04/09/2017. TECHNIQUE: Axial computed tomography images were obtained through the head/brain without intravenous contrast. This CT exam was performed using one or more of the following dose reduction techniques: Automated exposure control, adjustment of the mA and/or kV according to patient size, and/or use of iterative reconstruction technique. FINDINGS: HEMORRHAGE: No intracranial hemorrhage. BRAIN: There are severe chronic microangiopathic changes. There is an old lacunar infarction in the right basal ganglia. Also noted is old infarction in the left cerebellar hemisphere. There is no mass, mass effect or abnormal extra-axial fluid collection. There are coarse atherosclerotic calcifications in the right vertebral artery. VENTRICLES: There is moderate age-related global parenchymal volume loss and proportionate enlargement of the ventricles and cortical sulci. CALVARIUM: The skull base and calvarium are normal. PARANASAL SINUSES: Predominantly clear. MASTOID AIR CELLS: Predominantly clear. OTHER FINDINGS: None. IMPRESSION: No acute intracranial abnormality. 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 Moderate chronic microangiopathic changes and mild age-related global parenchymal volume loss. 06/11/17 14:18 Accession No. : [id number] Patient Name / ID : LUIS ANTONIO GUADALUPE / [id number] Exam Date : 06/11/2017 13:30:48 ( Approved ) Study Comment : Sex / Age : F / 86Y Creator : Radha Tyler MD Dictator : Radha Tyler MD Curriculum Assistant Principal : Senior Talent Acquisition Specialist : Radha Tyler MD Approver2 : Report Date : 06/11/2017 13:50:30 My Comment : PROCEDURE: CHEST RADIOGRAPH, 1 VIEW HISTORY: Dizziness COMPARISON: 04/09/2017. FINDINGS: LUNGS: The lungs are clear. There is bibasilar atelectasis. PLEURA: No pneumothorax or pleural fluid seen. CARDIOVASCULAR: The heart is normal in size. There is stable position of a left-sided dual lead transvenous permanent pacing device. OSSEOUS STRUCTURES: Within normal limits for the patient's age. VISUALIZED UPPER ABDOMEN: Normal. OTHER FINDINGS: None. IMPRESSION: No active pulmonary disease. (Chris Eric) Radiology Orders: 06/11/17 12:49 CHEST ONE VIEW [RAD] Stat 06/11/17 12:50 HEAD W/O CONTRAST [CT] Stat - Medication Orders Current Medication Orders: Discontinued Medications Sodium Chloride (Sodium Chloride 0.9%) 500 mls @ 500 mls/hr IV .Q1H STA Stop: 06/11/17 15:17 Last Admin: 06/11/17 14:30 Dose: 500 mls/hr Ceftriaxone Sodium (Rocephin 1 Gram Ivpb) 1 gm in 100 mls @ 200 mls/hr IVPB STAT [facility] PRN Reason: Protocol Stop: 06/11/17 15:54 Last Admin: 06/11/17 16:30 Dose: 200 mls/hr Disposition/Present on Arrival - Present on Arrival Any Indicators Present on Arrival: No History of DVT/PE: No History of Uncontrolled Diabetes: No Urinary Catheter: No History of Decub. Ulcer: No History Surgical Site Infection Following: None - Disposition Have Diagnosis and Disposition been Completed?: Yes Disposition Time: 16:26 Patient Plan: Admission - Disposition Diagnosis: Unsteady, Bradycardia, General weakness, Near syncope Disposition: HOSPITALIZED Condition: STABLE Discharge Instructions (ExitCare): Weakness (ED) Referrals: Larissa Melton MD [Primary Care Provider] - Follow up with primary
[2017-06-11 13:30] LABS: URINE BILIRUBIN NEGATIVE (NEGATIVE); URINE BLOOD NEGATIVE (NEGATIVE); URINE GLUCOSE (UA) NEGATIVE (NEGATIVE); URINE LEUKOCYTE ESTERASE NEGATIVE Leu/uL (NEGATIVE); URINE NITRATE NEGATIVE (NEGATIVE); URINE PROTEIN NEGATIVE mg/dL (<30 mg/dL); URINE UROBILINOGEN 0.2 E.U./dL (<1 E.U./dL)
[2017-06-11 13:32] LABS: URINE APPEARANCE CLEAR (CLEAR); URINE COLOR YELLOW (YELLOW)
[2017-06-11 13:43] LABS: VENOUS BLOOD GAS PO2 33 mm/Hg (30-55); VENOUS BLOOD PH 7.35 (7.32-7.43)
[2017-06-11 13:46] LABS: BASO # 0.02 K/mm3 (0.0-2.0); BASO % 0.2 % (0.0-3.0); EOS # 0.1 (0.0-0.7); EOS % 1.5 % (1.5-5.0); GRAN # 5.53 (1.4-6.5); GRAN % 62.8 % (50.0-68.0); HEMOGLOBIN 12.8 gm/dL (12.0-16.0); LYMPH # 2.5 (1.2-3.4); LYMPH % 28.8 % (22.0-35.0); MEAN CELL VOLUME 85.4 fL (80.0-105.0); MEAN CORPUSCULAR HEMOGLOBIN 28.3 pg (25.0-35.0); MEAN CORPUSCULAR HGB CONC 33.2 g/dl (31.0-37.0); MEAN PLATELET VOLUME 10.3 fl (7.0-11.0); MONO # 0.6 (0.1-0.6); MONO % 6.7 % (1.0-6.0); PLATELET COUNT 249 10^3/uL (120.0-450.0); RBC 4.52 10^6/uL (3.5-6.1); RED CELL DISTRIBUTION WIDTH 14.5 % (11.5-14.5); WHITE BLOOD COUNT 8.8 10^3/ul (4.5-11.0)
[2017-06-11 13:47] LABS: ALB/GLOB RATIO 1.2 (1.1-1.8); ALBUMIN 4.6 g/dL (3.0-4.8); BLOOD UREA NITROGEN 24 mg/dL (7-21); GFR AFRICAN-AMERICAN > 60; GFR NON-AFRICAN AMERICAN > 60
[2017-06-11 13:49] LABS: INR 0.99 (0.93-1.08); PARTIAL THROMBOPLASTIN TIME 25.4 Seconds (23.7-30.8); PROTHROMBIN TIME 10.7 Seconds (9.9-11.8)
[2017-06-11 13:50] LABS: ALT/SGPT 26 U/L (7-56); AST/SGOT 27 U/L (15-39); CALCIUM 10.7 mg/dL (8.4-10.5)
--- NOTE | 2017-06-11 13:51 | CT ---
PROCEDURE: CT HEAD WITHOUT CONTRAST. HISTORY: Dizziness COMPARISON: 04/09/2017. TECHNIQUE: Axial computed tomography images were obtained through the head/brain without intravenous contrast. This CT exam was performed using one or more of the following dose reduction techniques: Automated exposure control, adjustment of the mA and/or kV according to patient size, and/or use of iterative reconstruction technique. FINDINGS: HEMORRHAGE: No intracranial hemorrhage. BRAIN: There are severe chronic microangiopathic changes. There is an old lacunar infarction in the right basal ganglia. Also noted is old infarction in the left cerebellar hemisphere. There is no mass, mass effect or abnormal extra-axial fluid collection. There are coarse atherosclerotic calcifications in the right vertebral artery. VENTRICLES: There is moderate age-related global parenchymal volume loss and proportionate enlargement of the ventricles and cortical sulci. CALVARIUM: The skull base and calvarium are normal. PARANASAL SINUSES: Predominantly clear. MASTOID AIR CELLS: Predominantly clear. OTHER FINDINGS: None. IMPRESSION: No acute intracranial abnormality. 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 Moderate chronic microangiopathic changes and mild age-related global parenchymal volume loss.
--- NOTE | 2017-06-11 13:52 | RAD ---
PROCEDURE: CHEST RADIOGRAPH, 1 VIEW HISTORY: Dizziness COMPARISON: 04/09/2017. FINDINGS: LUNGS: The lungs are clear. There is bibasilar atelectasis. PLEURA: No pneumothorax or pleural fluid seen. CARDIOVASCULAR: The heart is normal in size. There is stable position of a left-sided dual lead transvenous permanent pacing device. OSSEOUS STRUCTURES: Within normal limits for the patient's age. VISUALIZED UPPER ABDOMEN: Normal. OTHER FINDINGS: None. IMPRESSION: No active pulmonary disease.
[2017-06-11 13:59] LABS: B-TYPE NATRIURETIC PEPTIDE 240 pg/mL (0-450)
[2017-06-11 14:02] LABS: TROPONIN I < 0.01 ng/mL
[2017-06-11] MEDS ORDERED: Sodium Chloride 0.9% 500 ML IV STA (14:18)
[2017-06-11] MEDS ORDERED: cefTRIAXone 1 gm 1 GM/100 ML BAG IVPB STA (15:25)
--- NOTE | 2017-06-11 16:27 | CARD ---
APPROVED REPORT EKG Measurement Heart [id number] <Conclusion> Electronic atrial pacemaker Left ventricular hypertrophy with repolarization abnormality Abnormal ECG
[2017-06-11 17:08] LABS: VENOUS BLOOD GAS BASE EXCESS 0.5 mmol/L (0.0-2.0); VENOUS BLOOD GAS PO2 43 mm/Hg (30-55); VENOUS BLOOD PH 7.31 (7.32-7.43)
--- NOTE | 2017-06-11 18:33 | CP.PCM.HP ---
<Mary Pond - Last Filed: 06/11/17 18:30> History of Present Illness - History of Present Illness History of Present Illness: This is 86 year old female with a past medical history of DM II, cardiac pacemaker, gastric ulcer, osteoporosis, and hypertension who presented to the ED due to a near-syncopal episode. Patient states that this morning while she was getting up from a seated position, she began to feel dizzy and felt herself beginning to lose her balance. She was able sit back down down before falling. This event was after she took her medications. ROS Denies: Headache, changes in vision, vomiting, difficulty breathing, palpitations, abdominal pain, diarrhea, dysuria, polydipsia, muscle weakness, or constipation Complains of: Urinary frequency (began last night) and Nausea. PMHx: [place], CAD, HTN, pacemaker, Glaucoma, cataracts, DMII, osteoporosis, gastric ulcers, hx of GI bleed, and hx of UTI. PSHx: Hysterectomy, B/L knee replacement Allergies: NKDA Social: Lives at home. Denies, smoking, alcohol use, illicit drug use. Drinks Coffee in the mornings. FamHx: Denies Present on Admission - Present on Admission Any Indicators Present on Admission: No Review of Systems - Constitutional Constitutional: As Per HPI - EENT Eyes: As Per HPI - Breasts Breasts: As Per HPI - Cardiovascular Cardiovascular: As Per HPI - Respiratory Respiratory: As Per HPI - Gastrointestinal Gastrointestinal: As Per HPI - Genitourinary Genitourinary: As Per HPI - Musculoskeletal Musculoskeletal: As Per HPI - Neurological Neurological: As Per HPI - Psychiatric Psychiatric: As Per HPI - Endocrine Endocrine: As Per HPI Past Patient History - Infectious Disease Hx of Infectious Diseases: None - Tetanus Immunizations Tetanus Immunization: Unknown - Past Social History Smoking Status: Never Smoked - CARDIAC Hx Cardiac Disorders: Yes Hx Angina: Yes Hx Cardia Arrhythmia: Yes Hx Hypertension: Yes Hx Pacemaker: Yes - PULMONARY Hx Respiratory Disorders: No - NEUROLOGICAL Hx Dizziness: Yes - HEENT Hx Cataracts: Yes (B/L repair) Hx Glaucoma: Yes - RENAL Hx Chronic Kidney Disease: No - ENDOCRINE/METABOLIC Hx Diabetes Mellitus Type 2: Yes Hx Hypothyroidism: Yes - HEMATOLOGICAL/ONCOLOGICAL Hx Blood Disorders: No - INTEGUMENTARY Hx Dermatological Problems: No - MUSCULOSKELETAL/RHEUMATOLOGICAL Hx Musculoskeletal Disorders: Yes Hx Arthritis: Yes Hx Falls: Yes Hx Fractures: Yes Hx Osteoporosis: Yes Hx Unsteady Gait: Yes (cane) Other/Comment: bilateral knee replacements - GASTROINTESTINAL Hx Diverticulitis: Yes - GENITOURINARY/GYNECOLOGICAL Hx Urinary Tract Infection: Yes Other/Comment: hysterectomy - PSYCHIATRIC Hx Psychophysiologic Disorder: No Hx Depression: No Hx Emotional Abuse: No Hx Physical Abuse: No Hx Substance Use: No - SURGICAL HISTORY Hx Appendectomy: Yes Hx Cardiac Catheterization: Yes Hx Coronary Stent: Yes Hx Joint Replacement: Yes (b/l knee replacements) Hx Musculoskeletal Surgery: Yes Hx Orthopedic Surgery: Yes - ANESTHESIA Hx Anesthesia: Yes Hx Anesthesia Reactions: No Hx Malignant Hyperthermia: No Meds Allergies/Adverse Reactions: Allergies Allergy/AdvReac Type Severity Reaction Status Date / Time No Known Allergies Allergy Verified 04/09/17 08:23 Physical Exam - Constitutional Appears: No Acute Distress - Head Exam Head Exam: ATRAUMATIC, NORMOCEPHALIC - Eye Exam Eye Exam: EOMI, Normal appearance - ENT Exam Additional comments: Negative Kell-hallpike - Neck Exam Neck exam: Positive for: Normal Inspection. Negative for: Thyromegaly - Respiratory Exam Respiratory Exam: Clear to Auscultation Bilateral. absent: Rales, Rhonchi, Wheezes, Stridor - Cardiovascular Exam Cardiovascular Exam: REGULAR RHYTHM, +S1, +S2, Systolic Murmur. absent: Bradycardia, Tachycardia, JVD Additional comments: No Carotid Bruit, No KVD Orthostatic Pressures: Laying - 164/94, Sitting 160/87 , Standing, 170/101 - GI/Abdominal Exam GI & Abdominal Exam: Normal Bowel Sounds, Soft. absent: Organomegaly, Tenderness - Extremities Exam Extremities exam: Negative for: pedal edema - Neurological Exam Neurological exam: Alert, CN II-XII Intact, Oriented x3 - Psychiatric Exam Psychiatric exam: Normal Affect, Normal Mood - Skin Skin Exam: Dry, Intact, Normal Color, Warm Results - Vital Signs Recent Vital Signs: Last Vital Signs Temp 97.8 F 06/11/17 12:20 Pulse 69 06/11/17 17:50 Resp 18 06/11/17 17:50 BP 152/75 H 06/11/17 17:50 Pulse Ox 98 06/11/17 17:50 - Labs Result Diagrams: 06/11/17 13:15 06/11/17 13:15 Labs: Laboratory Results - last 24 hr 06/11/17 16:55 pO2 43 VBG pH 7.31 L VBG pCO2 55.0 VBG HCO3 27.7 VBG Total CO2 29.4 H VBG O2 Sat (Calc) 80.7 H VBG Base Excess 0.5 VBG Potassium 4.4 Sodium 140.0 Chloride 108.0 H Glucose 136 H Lactate 2.8 H FiO2 21.0 Venous Blood Potassium 4.4 Assessment & Plan - Assessment and Plan (Free Text) Assessment: 86 year old admitted to OBS for near syncopal episode 2/2 to Orthostatic Hypotension vs Hypovolemia vs hypoglycemia vs infectious etiology. Head CT showed no Acute findings. Unlikely infectious etiology due to negative UA. EKG read electronic pacemaker, and LVH. Patient on multiple medications that could potentially cause orthostatic hypotension. We will hold her HCTZ today, and her antidiabetic mediation and put her on ISS. Orthostatics were negative on exam but this was post 600ml of fluids. 500ml from bolus and 100mg from Rocephin. Hypovolemia is likely due to increase in urinary frequency which is new per patient's daughter. Plan: 1. Near Syncopal Episode. Likely Hypovolemia vs orthostatic hypotension ( possibly medication induced) -UA (negative) -EKG - no arrhythmia or heart block -Head CT (no acute findings) -Troponins x 3 -Tele monitoring -High Fall risk protocol -Neuro Checks Q4 -Hold Diuretics. -CBC w/ diff & CMP -Urine/Blood Cultures -We will not continue ABs. Patient is afebrile with no leukocytosis. -High Fall Risk Protocol 2. Urinary frequency 2/2 Urinary incontinence (Stress vs Urge vs Mixed vs functional vs neuropathic Bladder) -UA (negative) -Urine Culture pending -Bladder Scan -HgbA1C -Consider Uro consult post Bladder Scan results. 3. DMII -Lispro low ISS -Hold home antidiabetic medications. -HgbAIC 4. HTN -Cont. Home medications of Losartan, and amlodipine -Hold HCTZ 5. HLD -Cont. home medications of [place] 3, Lipitor 6. Glaucoma -Cont. Home medication of lantaprost 7. Hypothyroidism -Cont. Home Medication of Synthroid. 8. GI prophylaxis -protonix Patient seen, reviewed, and discussed with Attending Mary Pond PGY-1 - Date & Time Date: 06/11/17 Time: 19:19 <Tiffanie Vera MD - Last Filed: 06/12/17 12:23> Results - Vital Signs Recent Vital Signs: Last Vital Signs Temp 98 F 06/12/17 07:36 Pulse 80 06/12/17 09:07 Resp 20 06/12/17 07:36 BP 162/97 H 06/12/17 09:07 Pulse Ox 98 06/12/17 07:36 - Labs Result Diagrams: 06/12/17 06:00 06/12/17 06:00 Labs: Laboratory Results - last 24 hr 06/11/17 06/11/17 06/11/17 16:55 19:38 21:09 WBC RBC Hgb Hct MCV MCH MCHC RDW Plt Count MPV Gran % Lymph % (Auto) [place] % (Auto) Eos % (Auto) Baso % (Auto) Gran # Lymph # [place] # Eos # Baso # pO2 43 VBG pH 7.31 L VBG pCO2 55.0 VBG HCO3 27.7 VBG Total CO2 29.4 H VBG O2 Sat (Calc) 80.7 H VBG Base Excess 0.5 VBG Potassium 4.4 Sodium 140.0 Chloride 108.0 H Glucose 136 H Lactate 2.8 H FiO2 21.0 Potassium Carbon Dioxide Anion Gap BUN Creatinine Est GFR ( Amer) Est GFR (Non-Af Amer) POC Glucose (mg/dL) 275 H 282 H Random Glucose Hemoglobin A1c Calcium Phosphorus Magnesium Total Bilirubin AST ALT Alkaline Phosphatase Total Protein Albumin Globulin Albumin/Globulin Ratio Venous Blood Potassium 4.4 06/12/17 06/12/17 06/12/17 06:00 06:00 06:00 WBC 7.2 RBC 4.08 Hgb 11.4 L Hct 34.9 L MCV 85.5 MCH 27.9 MCHC 32.7 RDW 14.7 H Plt Count 233 MPV 10.2 Gran % 52.9 Lymph % (Auto) 36.6 H [place] % (Auto) 8.2 H Eos % (Auto) 1.9 Baso % (Auto) 0.4 Gran # 3.79 Lymph # 2.6 [place] # 0.6 Eos # 0.1 Baso # 0.03 pO2 VBG pH VBG pCO2 VBG HCO3 VBG Total CO2 VBG O2 Sat (Calc) VBG Base Excess VBG Potassium Sodium 139 Chloride 103 Glucose Lactate FiO2 Potassium 4.1 Carbon Dioxide 28 Anion Gap 12 BUN 21 Creatinine 0.8 Est GFR ( Amer) > 60 Est GFR (Non-Af Amer) > 60 POC Glucose (mg/dL) Random Glucose 149 H Hemoglobin A1c 8.2 H Calcium 9.3 Phosphorus 4.1 Magnesium 1.6 L Total Bilirubin 0.4 AST 24 ALT 22 Alkaline Phosphatase 70 Total Protein 7.2 Albumin 3.8 Globulin 3.5 Albumin/Globulin Ratio 1.1 Venous Blood Potassium 06/12/17 07:30 WBC RBC Hgb Hct MCV MCH MCHC RDW Plt Count MPV Gran % Lymph % (Auto) [place] % (Auto) Eos % (Auto) Baso % (Auto) Gran # Lymph # [place] # Eos # Baso # pO2 VBG pH VBG pCO2 VBG HCO3 VBG Total CO2 VBG O2 Sat (Calc) VBG Base Excess VBG Potassium Sodium Chloride Glucose Lactate FiO2 Potassium Carbon Dioxide Anion Gap BUN Creatinine Est GFR ( Amer) Est GFR (Non-Af Amer) POC Glucose (mg/dL) 185 H Random Glucose Hemoglobin A1c Calcium Phosphorus Magnesium Total Bilirubin AST ALT Alkaline Phosphatase Total Protein Albumin Globulin Albumin/Globulin Ratio Venous Blood Potassium Attending/Attestation - Attestation I have personally seen and examined this patient.: Yes I have fully participated in the care of the patient.: Yes I have reviewed all pertinent clinical information: Yes Notes (Text): 06/12/17 12:16 Patient was seen and examined with medical apparatus model maker. 86 year old female with PMH of CAD, sp pacemekaer, DM II, HTN, and osteoporosis , is admitted with history of dizziness and pre syncope while standing from sitting position, there is no focal deficit.There is no history of fall, there is no chest pain or palpitation.We will monitor orthostatic, discontinue HCTZ and monitor patient in telemetry.We will also get PT evaluation. Patient also gave history of dribbling of urine likely due to over floow incontinence in setting of possible diabetic autonomic neuropathy and HCTZ.Patient also has mild hypercalcemia likely due to dehydration,HCTZ and calcium supplement.We will discontinue HCTZ, we will give IV hydration and repeat calcium level. Management plan was discussed in detail with patient and family who was at bed side. Education was provided.
[2017-06-11] MEDS: Magnesium Oxide 400 mg Tab UD PO SCH (19:04)
[2017-06-11] MEDS ORDERED: Pneumococcal 23-Valent Vaccine IM ONE (20:54)
[2017-06-11] MEDS: Insulin Lispro (humaLOG) LOW Coverage SC SCH (21:13)
[2017-06-11] MEDS: Latanoprost 2.5 ml Opht Soln OU SCH (21:26)
[2017-06-12 06:45] LABS: BASO # 0.03 K/mm3 (0.0-2.0); BASO % 0.4 % (0.0-3.0); EOS # 0.1 (0.0-0.7); EOS % 1.9 % (1.5-5.0); GRAN # 3.79 (1.4-6.5); GRAN % 52.9 % (50.0-68.0); HEMOGLOBIN 11.4 gm/dL (12.0-16.0); LYMPH # 2.6 (1.2-3.4); LYMPH % 36.6 % (22.0-35.0); MEAN CELL VOLUME 85.5 fL (80.0-105.0); MEAN CORPUSCULAR HEMOGLOBIN 27.9 pg (25.0-35.0); MEAN CORPUSCULAR HGB CONC 32.7 g/dl (31.0-37.0); MEAN PLATELET VOLUME 10.2 fl (7.0-11.0); MONO # 0.6 (0.1-0.6); MONO % 8.2 % (1.0-6.0); PLATELET COUNT 233 10^3/uL (120.0-450.0); RBC 4.08 10^6/uL (3.5-6.1); RED CELL DISTRIBUTION WIDTH 14.7 % (11.5-14.5); WHITE BLOOD COUNT 7.2 10^3/ul (4.5-11.0)
[2017-06-12 06:56] LABS: ALB/GLOB RATIO 1.1 (1.1-1.8); ALBUMIN 3.8 g/dL (3.0-4.8); ALT/SGPT 22 U/L (7-56); AST/SGOT 24 U/L (15-39); BLOOD UREA NITROGEN 21 mg/dL (7-21); CALCIUM 9.3 mg/dL (8.4-10.5); GFR AFRICAN-AMERICAN > 60; GFR NON-AFRICAN AMERICAN > 60; MAGNESIUM 1.6 mg/dL (1.7-2.2)
[2017-06-12] MEDS: Insulin Lispro (humaLOG) LOW Coverage SC SCH ×4 (08:41→22:06)
--- NOTE | 2017-06-12 08:59 | US ---
PROCEDURE: HISTORY: assess for retention vs distention/overflow incont COMPARISON: None TECHNIQUE: Transabdominal scanning of the bladder FINDINGS: Prevoid urine volume 168 mL. No bladder wall thickening or intraluminal mass seen. Bilateral ureteral jets noted. The uterus not visualize consistent with its prior surgical removal Postvoid residual urine by 168 mL IMPRESSION: Large postvoid residual urine volume. Status post hysterectomy
[2017-06-12] MEDS: Omega-3-Acid Ethyl Esters 1 GM Cap PO SCH ×2 (09:06→17:44)
[2017-06-12] MEDS: Multivitamin Vitamin B Complex (Nephro-Vite) Tab PO SCH (09:06)
[2017-06-12] MEDS: Levothyroxine 50 MCG TAB PO SCH (09:07)
[2017-06-12] MEDS: Multivitamin Therapeutic Tab PO SCH (09:07)
[2017-06-12] MEDS: Pantoprazole 40 mg EC Tab PO SCH (09:07)
[2017-06-12] MEDS: Magnesium Oxide 400 mg Tab UD PO SCH ×2 (09:09→17:33)
[2017-06-12] MEDS ORDERED: Non Formulary Medication (Bimatoprost [Lumigan] 1 DROP) BOTHEYES SCH (10:00)
--- NOTE | 2017-06-12 16:14 | CP.PCM.PN ---
<JorgenildaEveyg - Last Filed: 06/12/17 16:11> Subjective - Date & Time of Evaluation Date of Evaluation: 06/12/17 Time of Evaluation: 16:11 - Subjective Subjective: Patient has been seen and examined. She stated that she has had to urinate every 3 hours overnight. She states that her dizziness has completely resolved. She denies any Lightheadedness, Chest Pain, Headache, palpitations, Abd Pain, N/V/D Constipation, or SOB. Objective - Vital Signs/Intake and Output Vital Signs (last 24 hours): Temp Pulse Resp BP Pulse Ox 98 F 80 20 162/97 H 98 06/12/17 07:36 06/12/17 13:01 06/12/17 07:36 06/12/17 13:01 06/12/17 07:36 - Medications Medications: Current Medications Amlodipine Besylate (Norvasc) 10 mg PO DAILY [facility] Atorvastatin Calcium (Lipitor) 40 mg PO DIN [facility] Cyanocobalamin (Vitamin B12 1000 Mcg Tab) 1,000 mcg PO DAILY [facility] Last Admin: 06/12/17 09:09 Dose: 1,000 mcg Insulin Human Lispro (Humalog Low) 0 units SC ACHS [facility] PRN Reason: Protocol Last Admin: 06/12/17 11:30 Dose: 1 units Latanoprost (Xalatan Opht) 0 ml OU HS [facility] Last Admin: 06/11/17 21:26 Dose: 2.5 ml Levothyroxine Sodium (Synthroid) 50 mcg PO DAILY [facility] Last Admin: 06/12/17 09:07 Dose: 50 mcg Losartan Potassium (Cozaar) 50 mg PO DAILY [facility] Last Admin: 06/12/17 09:09 Dose: 50 mg Magnesium Oxide (Mag-Ox) 400 mg PO BID [facility] Last Admin: 06/12/17 09:09 Dose: 400 mg Multivitamins (Thera Tab) 1 tab PO DAILY [facility] Last Admin: 06/12/17 09:07 Dose: 1 tab [id number]-3-[id number] Ethyl Esters (Lovaza) 1 gm PO BID [facility] Last Admin: 06/12/17 09:06 Dose: 1 gm Pantoprazole Sodium (Protonix Ec Tab) 40 mg PO DAILY [facility] Last Admin: 06/12/17 09:07 Dose: 40 mg Vitamin B Complex/Vit C/Folic Acid (Nephro-Dada) 1 tab PO DAILY [facility] Last Admin: 06/12/17 09:06 Dose: 1 tab Vitamin E (Vitamin E 400 Units Cap) 400 intlu PO DAILY [facility] Last Admin: 06/12/17 09:07 Dose: 400 intlu - Labs Labs: PT 10.7 Seconds (9.9-11.8) 06/11/17 13:15 INR 0.99 (0.93-1.08) 06/11/17 13:15 APTT 25.4 Seconds (23.7-30.8) 06/11/17 13:15 - Constitutional Appears: Well, No Acute Distress - Head Exam Head Exam: ATRAUMATIC, NORMAL INSPECTION, NORMOCEPHALIC - Eye Exam Eye Exam: EOMI, Normal appearance - Respiratory Exam Respiratory Exam: Clear to Ausculation Bilateral. absent: Rales, Rhonchi, Wheezes, Respiratory Distress, Stridor - Cardiovascular Exam Cardiovascular Exam: +S1, +S2, Murmur - GI/Abdominal Exam GI & Abdominal Exam: Soft, Normal Bowel Sounds. absent: Tenderness - Exam Additional comments: NO suprapubic tenderness - Extremities Exam Extremities Exam: absent: Pedal Edema - Neurological Exam Neurological Exam: Alert, Awake, Oriented x3 - Psychiatric Exam Psychiatric exam: Normal Affect, Normal Mood Assessment and Plan - Assessment and Plan (Free Text) Assessment: 86 year old admitted for near syncopal episode and mixed vs overflow incontinence. Head CT showed no Acute findings. Unlikely infectious etiology due to negative UA. Urine culture pending. EKG read electronic pacemaker, and LVH. Patient on multiple medications that could potentially cause orthostatic hypotension. Plan: 1. Overflow vs Mixed inconstinence Bladder 2/2 HCTZ vs Diabetic nueropathic bladder or both. -Brambila catheter placed. Drained over 500ml of urine. -Urology Consult. -UA (negative) -Urine Culture pending -Bladder Scan on Admission - large post void urine volume (168ml) -Repeat bladder scan showed 59ml pre and post void; Results Questionable. -HgbA1C -8.2 2. Near Syncopal Episode likely 2/2 to Plan 1 -UA (negative) -EKG - no arrhythmia or heart block -Head CT (no acute findings) -Troponins x 3 (negative) -Tele monitoring -High Fall risk protocol -Neuro Checks Q4 -Hold HCTZ -Urine/Blood Cultures (pending) -High Fall Risk Protocol 3. DMII -Lispro low ISS -Hold home antidiabetic medications. -HgbAIC - 8.2 4. HTN -Cont. Home medication of Losartan -Changed from Norvasc 5 to Norvasc 10 -Hold HCTZ 5. HLD -Cont. home medications of [place] 3, Lipitor 6. Glaucoma -Cont. Home medication of lantaprost 7. Hypothyroidism -Cont. Home Medication of Synthroid. 8. GI prophylaxis -protonix Patient seen, reviewed, and discussed with Attending Mary Pond PGY-1 <Kulwinder Mijares B - Last Filed: 06/12/17 16:37> Objective - Vital Signs/Intake and Output Vital Signs (last 24 hours): Temp Pulse Resp BP Pulse Ox 98 F 80 20 162/97 H 98 06/12/17 07:36 06/12/17 13:01 06/12/17 07:36 06/12/17 13:01 06/12/17 07:36 - Medications Medications: Current Medications Amlodipine Besylate (Norvasc) 10 mg PO DAILY [facility] Atorvastatin Calcium (Lipitor) 40 mg PO DIN [facility] Cyanocobalamin (Vitamin B12 1000 Mcg Tab) 1,000 mcg PO DAILY [facility] Last Admin: 06/12/17 09:09 Dose: 1,000 mcg Insulin Human Lispro (Humalog Low) 0 units SC ACHS [facility] PRN Reason: Protocol Last Admin: 06/12/17 11:30 Dose: 1 units Latanoprost (Xalatan Opht) 0 ml OU HS [facility] Last Admin: 06/11/17 21:26 Dose: 2.5 ml Levothyroxine Sodium (Synthroid) 50 mcg PO DAILY [facility] Last Admin: 06/12/17 09:07 Dose: 50 mcg Losartan Potassium (Cozaar) 50 mg PO DAILY [facility] Last Admin: 06/12/17 09:09 Dose: 50 mg Magnesium Oxide (Mag-Ox) 400 mg PO BID [facility] Last Admin: 06/12/17 09:09 Dose: 400 mg Multivitamins (Thera Tab) 1 tab PO DAILY [facility] Last Admin: 06/12/17 09:07 Dose: 1 tab Sykok-5-Ekoc Ethyl Esters (Lovaza) 1 gm PO BID [facility] Last Admin: 06/12/17 09:06 Dose: 1 gm Pantoprazole Sodium (Protonix Ec Tab) 40 mg PO DAILY [facility] Last Admin: 06/12/17 09:07 Dose: 40 mg Vitamin B Complex/Vit C/Folic Acid (Nephro-Dada) 1 tab PO DAILY [facility] Last Admin: 06/12/17 09:06 Dose: 1 tab Vitamin E (Vitamin E 400 Units Cap) 400 intlu PO DAILY [facility] Last Admin: 06/12/17 09:07 Dose: 400 intlu - Labs Labs: PT 10.7 Seconds (9.9-11.8) 06/11/17 13:15 INR 0.99 (0.93-1.08) 06/11/17 13:15 APTT 25.4 Seconds (23.7-30.8) 06/11/17 13:15 Attending/Attestation - Attestation I have personally seen and examined this patient.: Yes I have fully participated in the care of the patient.: Yes I have reviewed all pertinent clinical information, including history, physical exam and plan: Yes Notes (Text): I have seen and examined patient at bedside. Agree with the above note with the following additions/ exceptions: Briefly this is 86 year old female with history of DM-2, HTN, dyslipidemia, HTN, glaucoma, hypothyroidism who was admitted for near syncope most likely secondary to orthostatic hypotension. HCTZ was stopped. She also complains of urinary retention. Her pre and post void urine volume was about the same. Barmbila catheter was placed and 500 cc was drained. Discussed with Dr Bruce who will see the patient. Possible dc tomorrow after urology evaluation. Upon discharge patient will follow up with Dr Larissa Melton. Dr Kulwinder Mijares
[2017-06-12] MEDS: Latanoprost 2.5 ml Opht Soln OU SCH (22:06)
[2017-06-13 07:11] LABS: HEMOGLOBIN 12.1 gm/dL (12.0-16.0); MEAN CELL VOLUME 85.1 fL (80.0-105.0); MEAN CORPUSCULAR HEMOGLOBIN 27.7 pg (25.0-35.0); MEAN CORPUSCULAR HGB CONC 32.5 g/dl (31.0-37.0); MEAN PLATELET VOLUME 10.1 fl (7.0-11.0); RBC 4.37 10^6/uL (3.5-6.1); RED CELL DISTRIBUTION WIDTH 14.5 % (11.5-14.5); WHITE BLOOD COUNT 8.4 10^3/ul (4.5-11.0)
[2017-06-13 07:42] LABS: ALB/GLOB RATIO 1.2 (1.1-1.8); ALBUMIN 4.1 g/dL (3.0-4.8); ALT/SGPT 21 U/L (7-56); AST/SGOT 22 U/L (15-39); BLOOD UREA NITROGEN 21 mg/dL (7-21); CALCIUM 9.8 mg/dL (8.4-10.5); GFR AFRICAN-AMERICAN > 60; GFR NON-AFRICAN AMERICAN > 60
[2017-06-13 08:27] VITALS: RESP 18
[2017-06-13] MEDS: Magnesium Oxide 400 mg Tab UD PO SCH (09:52)
[2017-06-13] MEDS: Pantoprazole 40 mg EC Tab PO SCH (09:53)
[2017-06-13] MEDS: Multivitamin Therapeutic Tab PO SCH (09:53)
[2017-06-13] MEDS: Levothyroxine 50 MCG TAB PO SCH (09:53)
[2017-06-13] MEDS: Multivitamin Vitamin B Complex (Nephro-Vite) Tab PO SCH (09:53)
[2017-06-13] MEDS: Omega-3-Acid Ethyl Esters 1 GM Cap PO SCH (09:53)
[2017-06-13] MEDS: Insulin Lispro (humaLOG) LOW Coverage SC SCH ×2 (10:12→13:41)
[2017-06-13 15:35] VITALS: BP 163/74; PULSE 55; TEMP 98.4
[2017-06-13 16:27] VITALS: O2SAT 97
--- NOTE | 2017-06-13 17:47 | CP.PCM.DIS ---
<JorgenildaMary - Last Filed: 06/13/17 17:58> Provider - Provider Date of Admission: 06/12/17 13:47 Attending physician: Marci Mercedes MD Primary care physician: Larissa Melton MD Consults: Urology - Dr. Bruce Time Spent in preparation of Discharge (in minutes): 40 Hospital Course - Lab Results Lab Results: Most Recent Lab Values WBC 8.4 10^3/ul (4.5-11.0) 06/13/17 06:30 RBC 4.37 10^6/uL (3.5-6.1) 06/13/17 06:30 Hgb 12.1 gm/dL (12.0-16.0) 06/13/17 06:30 Hct 37.2 % (36.0-48.0) 06/13/17 06:30 MCV 85.1 fL (80.0-105.0) 06/13/17 06:30 MCH 27.7 pg (25.0-35.0) 06/13/17 06:30 MCHC 32.5 g/dl (31.0-37.0) 06/13/17 06:30 RDW 14.5 % (11.5-14.5) 06/13/17 06:30 Plt Count 266 10^3/uL (120.0-450.0) 06/13/17 06:30 MPV 10.1 fl (7.0-11.0) 06/13/17 06:30 Gran % 52.9 % (50.0-68.0) 06/12/17 06:00 Lymph % (Auto) 36.6 % (22.0-35.0) H 06/12/17 06:00 [place] % (Auto) 8.2 % (1.0-6.0) H 06/12/17 06:00 Eos % (Auto) 1.9 % (1.5-5.0) 06/12/17 06:00 Baso % (Auto) 0.4 % (0.0-3.0) 06/12/17 06:00 Gran # 3.79 (1.4-6.5) 06/12/17 06:00 Lymph # 2.6 (1.2-3.4) 06/12/17 06:00 [place] # 0.6 (0.1-0.6) 06/12/17 06:00 Eos # 0.1 (0.0-0.7) 06/12/17 06:00 Baso # 0.03 K/mm3 (0.0-2.0) 06/12/17 06:00 PT 10.7 Seconds (9.9-11.8) 06/11/17 13:15 INR 0.99 (0.93-1.08) 06/11/17 13:15 APTT 25.4 Seconds (23.7-30.8) 06/11/17 13:15 pO2 43 mm/Hg (30-55) 06/11/17 16:55 VBG pH 7.31 (7.32-7.43) L 06/11/17 16:55 VBG pCO2 55.0 (40-60) 06/11/17 16:55 VBG HCO3 27.7 mmol/l (21-28) 06/11/17 16:55 VBG Total CO2 29.4 mmol.L (22-28) H 06/11/17 16:55 VBG O2 Sat (Calc) 80.7 % (40-65) H 06/11/17 16:55 VBG Base Excess 0.5 mmol/L (0.0-2.0) 06/11/17 16:55 VBG Potassium 4.4 mmol/L (3.6-5.2) 06/11/17 16:55 Sodium 140.0 mmol/L (132-148) 06/11/17 16:55 Chloride 108.0 mmol/L (98-107) H 06/11/17 16:55 Glucose 136 mg/dl (65-105) H 06/11/17 16:55 Lactate 2.8 mmol/L (0.7-2.1) H 06/11/17 16:55 FiO2 21.0 % 06/11/17 16:55 Sodium 138 mmol/L (132-148) 06/13/17 06:30 Potassium 4.4 mmol/L (3.6-5.0) 06/13/17 06:30 Chloride 100 mmol/L (95-110) 06/13/17 06:30 Carbon Dioxide 25 mmol/L (21-33) 06/13/17 06:30 Anion Gap 17 (10-20) 06/13/17 06:30 BUN 21 mg/dL (7-21) 06/13/17 06:30 Creatinine 0.8 mg/dL (0.5-1.4) 06/13/17 06:30 Est GFR ( Amer) > 60 06/13/17 06:30 Est GFR (Non-Af Amer) > 60 06/13/17 06:30 POC Glucose (mg/dL) 228 mg/dL (65-110) H 06/13/17 11:38 Random Glucose 223 mg/dL (70-110) H 06/13/17 06:30 Hemoglobin A1c 8.2 % (4.2-6.5) H 06/12/17 06:00 Calcium 9.8 mg/dL (8.4-10.5) 06/13/17 06:30 Phosphorus 4.1 mg/dL (2.5-4.5) 06/12/17 06:00 Magnesium 1.6 mg/dL (1.7-2.2) L 06/12/17 06:00 Total Bilirubin 0.5 mg/dL (0.2-1.3) 06/13/17 06:30 AST 22 U/L (15-39) 06/13/17 06:30 ALT 21 U/L (7-56) 06/13/17 06:30 Alkaline Phosphatase 75 U/L (38-133) 06/13/17 06:30 Lactate Dehydrogenase 428 U/L (333-699) 06/11/17 13:15 Total Creatine Kinase 45 U/L (35-230) 06/11/17 13:15 Troponin I < 0.01 ng/mL D 06/11/17 13:15 NT-Pro-B Natriuret Pep 240 pg/mL (0-450) 06/11/17 13:15 Total Protein 7.5 g/dL (5.8-8.3) 06/13/17 06:30 Albumin 4.1 g/dL (3.0-4.8) 06/13/17 06:30 Globulin 3.4 gm/dL 06/13/17 06:30 Albumin/Globulin Ratio 1.2 (1.1-1.8) 06/13/17 06:30 Venous Blood Potassium 4.4 mmol/L (3.6-5.2) 06/11/17 16:55 Urine Color Yellow (YELLOW) 06/11/17 13:00 Urine Appearance Clear (CLEAR) 06/11/17 13:00 Urine pH 8.0 (4.7-8.0) 06/11/17 13:00 Ur Specific [place] 1.015 (1.005-1.035) 06/11/17 13:00 Urine Protein Negative mg/dL (<30 mg/dL) 06/11/17 13:00 Urine Glucose (UA) Negative mg/dL (NEGATIVE) 06/11/17 13:00 Urine Ketones Negative mg/dL (NEGATIVE) 06/11/17 13:00 Urine Blood Negative (NEGATIVE) 06/11/17 13:00 Urine Nitrate Negative (NEGATIVE) 06/11/17 13:00 Urine Bilirubin Negative (NEGATIVE) 06/11/17 13:00 Urine Urobilinogen 0.2 E.U./dL (<1 E.U./dL) 06/11/17 13:00 Ur Leukocyte Esterase Negative Santos/uL (NEGATIVE) 06/11/17 13:00 - Hospital Course Hospital Course: Patient is an 86 year old female with history of DM-2, HTN, dyslipidemia, HTN, glaucoma, hypothyroidism who was admitted for near syncope most likely secondary to orthostatic hypotension. HCTZ was stopped. She also complains of urinary retention. Her pre and post void urine volume was about the same. Brambila catheter was placed and 500 cc was drained. Urology was consulted on the case. Patient has had resolution of all symptoms. She passed 2nd voiding trial and was cleared by PT. Upon discharge patient will follow up with Dr Larissa Melton ( PMD) and Dr. Bruce (Urology) within 1 week. Relevant studies below. Patient is agreeable to plan. We will make no changes to medication. UA Negative Head CT No Acute intracranial abnormality EKG Left Ventricular Hypertrophy with repolarization abnormality; Pacemaker Troponins Negative x 3 Discharge Exam - Head Exam Head Exam: ATRAUMATIC, NORMAL INSPECTION, NORMOCEPHALIC - Eye Exam Eye Exam: EOMI, Normal appearance - ENT Exam ENT Exam: Mucous Membranes Moist - Respiratory Exam Respiratory Exam: Clear to PA & Lateral. absent: Rales, Rhonchi, Wheezes, Stridor - Cardiovascular Exam Cardiovascular Exam: +S1, +S2. absent: Bradycardia, Tachycardia - GI/Abdominal Exam GI & Abdominal Exam: Normal Bowel Sounds, Soft. absent: Tenderness - Extremities Exam Additional comments: NO Pedal Edema - Neurological Exam Neurological exam: Alert, Oriented x3 - Psychiatric Exam Psychiatric exam: Normal Affect, Normal Mood - Skin Skin Exam: Dry, Intact, Normal Color, Warm Discharge Plan - Follow Up Plan Condition: STABLE Disposition: HOME/ ROUTINE Instructions: Acute Urinary Retention in Women (GEN) Additional Instructions: If you experience difficulty urinating, fever, chills, shortness of breath or chest pain contact your doctor or come back to the emergency room. Continue to take your medications as usual. Follow up with your Primary Physician within 1 week. Follow up with Dr. Italo Bruce (Urologist) within one week. Dr Italo Bruce Referrals: Larissa Melton MD [Primary Care Provider] - Jacky Bruce MD [Staff Provider] - <Marci Mercedes - Last Filed: 06/14/17 15:50> Provider - Provider Date of Admission: 06/12/17 13:47 Attending physician: Marci Mercedes MD Primary care physician: Larissa Melton MD Hospital Course - Lab Results Lab Results: Most Recent Lab Values WBC 8.4 10^3/ul (4.5-11.0) 06/13/17 06:30 RBC 4.37 10^6/uL (3.5-6.1) 06/13/17 06:30 Hgb 12.1 gm/dL (12.0-16.0) 06/13/17 06:30 Hct 37.2 % (36.0-48.0) 06/13/17 06:30 MCV 85.1 fL (80.0-105.0) 06/13/17 06:30 MCH 27.7 pg (25.0-35.0) 06/13/17 06:30 MCHC 32.5 g/dl (31.0-37.0) 06/13/17 06:30 RDW 14.5 % (11.5-14.5) 06/13/17 06:30 Plt Count 266 10^3/uL (120.0-450.0) 06/13/17 06:30 MPV 10.1 fl (7.0-11.0) 06/13/17 06:30 Gran % 52.9 % (50.0-68.0) 06/12/17 06:00 Lymph % (Auto) 36.6 % (22.0-35.0) H 06/12/17 06:00 [place] % (Auto) 8.2 % (1.0-6.0) H 06/12/17 06:00 Eos % (Auto) 1.9 % (1.5-5.0) 06/12/17 06:00 Baso % (Auto) 0.4 % (0.0-3.0) 06/12/17 06:00 Gran # 3.79 (1.4-6.5) 06/12/17 06:00 Lymph # 2.6 (1.2-3.4) 06/12/17 06:00 [place] # 0.6 (0.1-0.6) 06/12/17 06:00 Eos # 0.1 (0.0-0.7) 06/12/17 06:00 Baso # 0.03 K/mm3 (0.0-2.0) 06/12/17 06:00 PT 10.7 Seconds (9.9-11.8) 06/11/17 13:15 INR 0.99 (0.93-1.08) 06/11/17 13:15 APTT 25.4 Seconds (23.7-30.8) 06/11/17 13:15 pO2 43 mm/Hg (30-55) 06/11/17 16:55 VBG pH 7.31 (7.32-7.43) L 06/11/17 16:55 VBG pCO2 55.0 (40-60) 06/11/17 16:55 VBG HCO3 27.7 mmol/l (21-28) 06/11/17 16:55 VBG Total CO2 29.4 mmol.L (22-28) H 06/11/17 16:55 VBG O2 Sat (Calc) 80.7 % (40-65) H 06/11/17 16:55 VBG Base Excess 0.5 mmol/L (0.0-2.0) 06/11/17 16:55 VBG Potassium 4.4 mmol/L (3.6-5.2) 06/11/17 16:55 Sodium 140.0 mmol/L (132-148) 06/11/17 16:55 Chloride 108.0 mmol/L (98-107) H 06/11/17 16:55 Glucose 136 mg/dl (65-105) H 06/11/17 16:55 Lactate 2.8 mmol/L (0.7-2.1) H 06/11/17 16:55 FiO2 21.0 % 06/11/17 16:55 Sodium 138 mmol/L (132-148) 06/13/17 06:30 Potassium 4.4 mmol/L (3.6-5.0) 06/13/17 06:30 Chloride 100 mmol/L (95-110) 06/13/17 06:30 Carbon Dioxide 25 mmol/L (21-33) 06/13/17 06:30 Anion Gap 17 (10-20) 06/13/17 06:30 BUN 21 mg/dL (7-21) 06/13/17 06:30 Creatinine 0.8 mg/dL (0.5-1.4) 06/13/17 06:30 Est GFR ( Amer) > 60 06/13/17 06:30 Est GFR (Non-Af Amer) > 60 06/13/17 06:30 POC Glucose (mg/dL) 228 mg/dL (65-110) H 06/13/17 11:38 Random Glucose 223 mg/dL (70-110) H 06/13/17 06:30 Hemoglobin A1c 8.2 % (4.2-6.5) H 06/12/17 06:00 Calcium 9.8 mg/dL (8.4-10.5) 06/13/17 06:30 Phosphorus 4.1 mg/dL (2.5-4.5) 06/12/17 06:00 Magnesium 1.6 mg/dL (1.7-2.2) L 06/12/17 06:00 Total Bilirubin 0.5 mg/dL (0.2-1.3) 06/13/17 06:30 AST 22 U/L (15-39) 06/13/17 06:30 ALT 21 U/L (7-56) 06/13/17 06:30 Alkaline Phosphatase 75 U/L (38-133) 06/13/17 06:30 Lactate Dehydrogenase 428 U/L (333-699) 06/11/17 13:15 Total Creatine Kinase 45 U/L (35-230) 06/11/17 13:15 Troponin I < 0.01 ng/mL D 06/11/17 13:15 NT-Pro-B Natriuret Pep 240 pg/mL (0-450) 06/11/17 13:15 Total Protein 7.5 g/dL (5.8-8.3) 06/13/17 06:30 Albumin 4.1 g/dL (3.0-4.8) 06/13/17 06:30 Globulin 3.4 gm/dL 06/13/17 06:30 Albumin/Globulin Ratio 1.2 (1.1-1.8) 06/13/17 06:30 Venous Blood Potassium 4.4 mmol/L (3.6-5.2) 06/11/17 16:55 Urine Color Yellow (YELLOW) 06/11/17 13:00 Urine Appearance Clear (CLEAR) 06/11/17 13:00 Urine pH 8.0 (4.7-8.0) 06/11/17 13:00 Ur Specific [place] 1.015 (1.005-1.035) 06/11/17 13:00 Urine Protein Negative mg/dL (<30 mg/dL) 06/11/17 13:00 Urine Glucose (UA) Negative mg/dL (NEGATIVE) 06/11/17 13:00 Urine Ketones Negative mg/dL (NEGATIVE) 06/11/17 13:00 Urine Blood Negative (NEGATIVE) 06/11/17 13:00 Urine Nitrate Negative (NEGATIVE) 06/11/17 13:00 Urine Bilirubin Negative (NEGATIVE) 06/11/17 13:00 Urine Urobilinogen 0.2 E.U./dL (<1 E.U./dL) 06/11/17 13:00 Ur Leukocyte Esterase Negative Santos/uL (NEGATIVE) 06/11/17 13:00 Attending/Attestation - Attestation I have personally seen and examined this patient.: Yes I have fully participated in the care of the patient.: Yes I have reviewed all pertinent clinical information, including history, physical exam and plan: Yes Notes (Text): 06/14/17 15:48 attending note; Patient seen and examined with resident. Patient is a 86 year old female with history of DM-2, HTN, dyslipidemia, HTN, glaucoma, hypothyroidism who was admitted for near syncope most likely secondary to orthostatic hypotension. HCTZ was stopped. She also complains of urinary retention. Had a Brambila catheter placed. Voiding trial completed. Patient was able to void today without any residual urine. Patient will be discharged home today. Upon discharge patient will follow up with Dr Larissa Melton. Diagnosis; Near syncope Dehydration Urinary retention Status post Brambila removal
== END 2017-06-13 17:29 | disposition home or self-care (01) | DRG 312 ==
LOC: ED 12:15 → ERH 16:20 → 3RNO 19:22 → OBSVTOIN 06-12 13:47
PROVIDERS: ADMIT Hospitalist; ATTEND Internal Medicine
DX: I95.1 Orthostatic hypotension (principal); E11.43 Type 2 diabetes mellitus with diabetic autonomic (poly)neuropathy; I11.9 Hypertensive heart disease without heart failure; R00.1 Bradycardia, unspecified; N31.9 Neuromuscular dysfunction of bladder, unspecified; E86.1 Hypovolemia; E03.9 Hypothyroidism, unspecified; R33.9 Retention of urine, unspecified; Z95.0 Presence of cardiac pacemaker; E78.5 Hyperlipidemia, unspecified; H40.9 Unspecified glaucoma; M81.0 Age-related osteoporosis without current pathological fracture; Z79.899 Other long term (current) drug therapy; Z86.73 Personal history of transient ischemic attack (TIA), and cerebral infarction without residual deficits; Z87.11 Personal history of peptic ulcer disease; Z87.440 Personal history of urinary (tract) infections; Z90.49 Acquired absence of other specified parts of digestive tract; Z95.5 Presence of coronary angioplasty implant and graft; Z96.653 Presence of artificial knee joint, bilateral; I25.119 Atherosclerotic heart disease of native coronary artery with unspecified angina pectoris; Z98.42 Cataract extraction status, left eye; Z98.41 Cataract extraction status, right eye; R26.81 Unsteadiness on feet; M19.90 Unspecified osteoarthritis, unspecified site; Z87.19 Personal history of other diseases of the digestive system; Z90.710 Acquired absence of both cervix and uterus; Z87.81 Personal history of (healed) traumatic fracture; R35.0 Frequency of micturition; N39.3 Stress incontinence (female) (male); N39.46 Mixed incontinence; N39.41 Urge incontinence; E83.52 Hypercalcemia; E86.0 Dehydration

== ENCOUNTER 2017-09-25 15:42 | Inpatient (IN) | payer OTHER, MEDICAID ==
[2017-09-25] MEDS: Insulin Reg-MEDIUM-Coverage SC SCH ×2 (17:26→22:25)
[2017-09-25] MEDS: Pantoprazole 40 mg EC Tab PO SCH (17:28)
[2017-09-25 20:02] VITALS: BMI 31.1
[2017-09-25] MEDS: Latanoprost 2.5 ml Opht Soln OD SCH (22:01)
[2017-09-26] MEDS: Pantoprazole 40 mg EC Tab PO SCH ×2 (05:29→17:00)
[2017-09-26] MEDS: Levothyroxine 50 MCG TAB PO SCH (05:29)
[2017-09-26] MEDS: Insulin Reg-MEDIUM-Coverage SC SCH ×4 (06:48→21:34)
--- NOTE | 2017-09-26 11:12 | CP.PCM.HP ---
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 Patient was evaluated in the ED on admission and noted to have a blood glucose of 30. Patient was given D50 with improvement of symptoms. In the ED, labs and imaging were obtained. After receiving D50, blood glucose was 390. Lipids were elevated. BP was elevated. Pt was admitted for evaluation and treatment due to symptomatic hypoglycemia. During hospital course, hypoglycemia resolved. Home DM meds were held and patient was placed on insulin sliding scale and D50 prn for hypoglycemia. HTN was managed with home medications. On second day of admission, pt complained of dizziness and blurred vision. Neuro was consulted. Further studies revealed: negative carotid US, negative head CT, and negative orthostatics. 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 Persistent orgin distal left vertebral artery is favored over congenital absence. MRI was not performed due to patient's pacemaker. Due to these findings, the patient was cleared by neurology and recommended statin, ASA, and consistent hydration to avoid vertebrobasilar insufficiency. Patient was discharged to the TCU for which she will continue to work with physical therapy for reconditioing. PMH: Other than mentioned in HPI, osteoporosis, gastric ulcers PSH: bilateral knee replacement SH: Denies tobacco, etoh, illicit drug usage ALL: NKDA Meds: See JAN Pharmacy: [facility] in [facility] PMD: Larissa Melton Crotch Breaker: Dr. Hameed Present on Admission - Present on Admission Any Indicators Present on Admission: No Review of Systems - Constitutional Constitutional: absent: Anorexia, Chills, Fever - EENT Eyes: absent: Blind Spots, Blurred Vision, Diplopia Ears: absent: Decreased Hearing Nose/Mouth/Throat: absent: Nasal Congestion, Nasal Discharge - Cardiovascular Cardiovascular: absent: Chest Pain, Chest Pain at Rest, Dyspnea, Edema, Leg Edema - Respiratory Respiratory: absent: Cough, Dyspnea, Hemoptysis, Wheezing - Gastrointestinal Gastrointestinal: absent: Bloating, Dysphagia, Nausea, Vomiting - Genitourinary Genitourinary: absent: Change in Urinary Stream, Difficulty Urinating, Dysuria - Musculoskeletal Musculoskeletal: absent: Arthralgias, Numbness - Integumentary Integumentary: absent: Rash, Sores, Wounds - Neurological Neurological: Dizziness. absent: Abnormal Gait, Abnormal Hearing, Confusion, Numbness, Focal Weakness, Headaches - Psychiatric Psychiatric: absent: Anxiety, Depression - Endocrine Endocrine: absent: Cold Intolorance, Fatigue - Hematologic/Lymphatic Hematologic: absent: Easy Bleeding, Easy Bruising Past Patient History - Infectious Disease Hx of Infectious Diseases: None - Tetanus Immunizations Tetanus Immunization: Unknown - Past Social History Smoking Status: Never Smoked Alcohol: None Drugs: Denies - CARDIAC Hx Cardiac Disorders: Yes (AR) Hx Hypertension: Yes - PULMONARY Hx Respiratory Disorders: No - NEUROLOGICAL Hx Dizziness: Yes - HEENT Hx Cataracts: Yes (B/L repair) Hx Glaucoma: Yes - RENAL Hx Chronic Kidney Disease: No - ENDOCRINE/METABOLIC Hx Diabetes Mellitus Type 2: Yes Hx Hypothyroidism: Yes - HEMATOLOGICAL/ONCOLOGICAL Hx Blood Disorders: No - INTEGUMENTARY Hx Dermatological Problems: No - MUSCULOSKELETAL/RHEUMATOLOGICAL Hx Falls: Yes (past) - GASTROINTESTINAL Hx Gastrointestinal Disorders: (hx esophageal ulcer/diverticulitis/no bm x 6 days) - GENITOURINARY/GYNECOLOGICAL Hx Reproductive Disorders: Yes (hx partial hyst) - PSYCHIATRIC Hx Psychophysiologic Disorder: No Hx Depression: No Hx Emotional Abuse: No Hx Physical Abuse: No - SURGICAL HISTORY Hx Appendectomy: Yes Hx Cardiac Catheterization: Yes Hx Coronary Stent: Yes (x2) Hx Joint Replacement: Yes (b/l knee replacements) Hx Musculoskeletal Surgery: Yes Hx Orthopedic Surgery: Yes Other/Comment: b/l knee replacements - ANESTHESIA Hx Anesthesia: Yes Hx Anesthesia Reactions: No Hx Malignant Hyperthermia: No Meds Allergies/Adverse Reactions: Allergies Allergy/AdvReac Type Severity Reaction Status Date / Time No Known Allergies Allergy Verified 09/26/17 08:36 Physical Exam - Constitutional Appears: Well, No Acute Distress - Head Exam Head Exam: ATRAUMATIC, NORMAL INSPECTION, NORMOCEPHALIC - Eye Exam Eye Exam: EOMI, PERRL Pupil Exam: PERRL - ENT Exam ENT Exam: Mucous Membranes Moist - Neck Exam Neck exam: Positive for: Full Rom. Negative for: Lymphadenopathy, Thyromegaly - Respiratory Exam Respiratory Exam: Clear to Auscultation Bilateral, NORMAL BREATHING PATTERN. absent: Rales, Wheezes - Cardiovascular Exam Cardiovascular Exam: REGULAR RHYTHM, +S1, +S2 - GI/Abdominal Exam GI & Abdominal Exam: Normal Bowel Sounds, Soft. absent: Tenderness - Extremities Exam Extremities exam: Positive for: calf tenderness. Negative for: normal inspection - Back Exam Back exam: NORMAL INSPECTION. absent: CVA tenderness (L), CVA tenderness (R) - Neurological Exam Neurological exam: Alert, Normal Gait, Oriented x3 - Psychiatric Exam Psychiatric exam: Normal Affect, Normal Mood - Skin Skin Exam: Dry, Intact, Normal Color, Warm Results - Vital Signs Recent Vital Signs: Last Vital Signs Temp 97.9 F 09/26/17 10:00 Pulse 61 09/26/17 10:27 Resp 14 09/26/17 10:00 BP 140/76 09/26/17 10:27 Pulse Ox 99 09/26/17 10:00 - Labs Labs: Laboratory Results - last 24 hr 09/26/17 04:41 POC Glucose (mg/dL) 260 H Assessment & Plan - Assessment and Plan (Free Text) Assessment: Pt is a 87 year old female with PMH of DM2, HTN, 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 Patient initially admitted for hypoglycemia, which as resolved. Patient is currently in TCU for continued physical therapy secondary to symptoms of dizziness and blurry vision. Plan: 1. Potential vertebrobasilar Insufficiency - Patient reportedly with slurred speech and blurred vision by daughter during admission - PE today showing no focal deficits - CTA head/neck showed mod b/l ICA atherosclerotic changes, no occlusion. 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 Persistent origin distal left vertebral artery is favored over congenital absence. - CT head negative - F/u orthostatics and carotid US - Cont ASA, recommend with food and PPI due to h/o gastric ulcers and esophagitis - Recommend outpatient vascular follow up - Neuro recommendations Rec statin, ASA, hydration - Patient currently in TCU receiving continued work with Physical therapy 2. Hypoglycemia - resolved - Etiology: Infectious process vs. medications vs. poor oral intake secondary to GI ulcer history, most likely secondary to poor oral intake in account of D50 resolving hypoglycemia and symptoms - No sick contacts reported, afebrile, UA nml, CXR nml - No recent changes in medication, compliant with regiment - 2 amp D50 given in ED with correction of hypoglycemia - cover with ISS, holding anti-glycemic meds, plan to restart tomorrow - ACHS - Carb consistent diet - Weakness and fatigue, hx of bilateral knee replacement, ambulates at home with walker, PT/OT - In case of hypoglycemia D50 prn 3. HTN - Continue losartan 50 mg and amlodipine 5mg 4. DM2 - Elevated bg during admission - Patient noted to have bg of 150s at home - holding current DM2 medication, will plan to restart home Janumet tomorrow - On ISS - Carb consistent diet 5. Pacemaker for Bradyarrhthymia - HR stable 6. Hypothyroidism - Continue home medications - TSH WNL 7. HLD - Continue Atorvastatin 20mg 8. Glaucoma - Lantoprost 9. Hypomagnesium - MagOx 400 mg BID GI PPX: Protonix DVT PPX: SCDS Case and plan discussed with attending - Date & Time Date: 09/26/17 Time: 11:13 <Alcides Mccoy - Last Filed: 09/26/17 15:13> Results - Vital Signs Recent Vital Signs: Last Vital Signs Temp 97.9 F 09/26/17 10:00 Pulse 61 09/26/17 10:27 Resp 14 09/26/17 10:00 BP 140/76 09/26/17 10:27 Pulse Ox 99 09/26/17 10:00 - Labs Labs: Laboratory Results - last 24 hr 09/26/17 04:41 POC Glucose (mg/dL) 260 H Attending/Attestation - Attestation I have personally seen and examined this patient.: Yes I have fully participated in the care of the patient.: Yes I have reviewed all pertinent clinical information: Yes Notes (Text): 09/26/17 15:03 86 year old female with past medical history of CAD s/p pacemaker, diabetes, hypertension and ?TIA/CVA who was admitted for symptomatic hypoglycemia which improved with D50 without any further hypoglycemic episodes. Continue with insulin ss. Can resume janumet tomorrow. During hospital stay she complained of episodes of dizziness, blurred vision and ?slurred speech prior as well. CT head was negative for acute findings. 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 MRI was not performed due to history of pacemaker. Patient was seen by neurology who recommended aspirin and statin and outpatient IR or vascular evaluation. Patient is now in TCU for physical therapy rehabilitation. Alcides Mccoy MD Hospitalist.
[2017-09-26] MEDS: Latanoprost 2.5 ml Opht Soln OD SCH (21:07)
[2017-09-27] MEDS: Levothyroxine 50 MCG TAB PO SCH (06:10)
[2017-09-27] MEDS: Pantoprazole 40 mg EC Tab PO SCH ×2 (06:10→18:14)
[2017-09-27] MEDS: Insulin Reg-MEDIUM-Coverage SC SCH ×4 (06:43→21:46)
[2017-09-27] MEDS ORDERED: Non Formulary Medication (Sitagliptin Phos/Metformin Hcl [Janumet 50-1,000 Mg Tablet] 1 EA PO SCH ×2 (10:00)
[2017-09-27] MEDS: Latanoprost 2.5 ml Opht Soln OD SCH (21:47)
[2017-09-28] MEDS: Pantoprazole 40 mg EC Tab PO SCH ×2 (05:09→17:13)
[2017-09-28] MEDS: Levothyroxine 50 MCG TAB PO SCH (05:31)
[2017-09-28] MEDS: Insulin Reg-MEDIUM-Coverage SC SCH ×4 (06:30→22:07)
[2017-09-28 09:20] LABS: BASO # 0.04 K/mm3 (0.0-2.0); BASO % 0.4 % (0.0-3.0); EOS # 0.2 (0.0-0.7); EOS % 2.1 % (1.5-5.0); GRAN # 5.41 (1.4-6.5); GRAN % 60.6 % (50.0-68.0); HEMATOCRIT 38.4 % (36.0-48.0); LYMPH # 2.6 (1.2-3.4); LYMPH % 28.9 % (22.0-35.0); MEAN CELL VOLUME 87.3 fl (80.0-105.0); MEAN CORPUSCULAR HEMOGLOBIN 28.4 pg (25.0-35.0); MEAN CORPUSCULAR HGB CONC 32.6 g/dl (31.0-37.0); MEAN PLATELET VOLUME 10.4 fl (7.0-11.0); MONO # 0.7 (0.1-0.6); RED CELL DISTRIBUTION WIDTH 14.5 % (11.5-14.5)
[2017-09-28 09:30] LABS: ALB/GLOB RATIO 1.1 (1.1-1.8); ALKALINE PHOSPHATASE 77 U/L (38-126); ALT/SGPT 30 U/L (7-56); AST/SGOT 20 U/L (14-36); BILIRUBIN,TOTAL 0.8 mg/dL (0.2-1.3); BLOOD UREA NITROGEN 24 mg/dL (7-21); CALCIUM 9.5 mg/dL (8.4-10.5); CARBON DIOXIDE 23 mmol/L (21-33); CHLORIDE 102 mmol/L (98-107); GFR AFRICAN-AMERICAN > 60; POTASSIUM 4.9 mmol/L (3.6-5.0); SODIUM 135 mmol/L (132-148); TOTAL PROTEIN 7.6 g/dL (5.8-8.3)
[2017-09-28 09:38] LABS: GLUCOSE,RANDOM 438 mg/dL (70-110)
[2017-09-28] MEDS ORDERED: GLIMEPIRIDE 1 MG PO SCH (10:45)
--- NOTE | 2017-09-28 12:44 | CP.PCM.PN ---
<Rajinder Marrero - Last Filed: 09/28/17 12:38> Subjective - Date & Time of Evaluation Date of Evaluation: 09/28/17 Time of Evaluation: 12:38 - Subjective Subjective: Medicine Progress Note: Pt seen and examined at bedside. Pt denied any acute overnight events. Pt states that she tolerates PT well. Pt states that she still feels dizzy. Pt denied CP, SOB, nausea, vomiting, abdominal pain, constipation, diarrhea, PALACIO, fatigue, or dysuria. Objective - Vital Signs/Intake and Output Vital Signs (last 24 hours): Temp Pulse Resp BP Pulse Ox 97.1 F L 94 H 20 133/79 96 09/28/17 10:05 09/28/17 10:29 09/28/17 10:05 09/28/17 10:29 09/28/17 10:05 - Medications Medications: Current Medications Acetaminophen (Tylenol 325mg Tab) 325 mg PO Q6H PRN PRN Reason: Pain, moderate (4-7) Last Admin: 09/26/17 19:48 Dose: 325 mg Amlodipine Besylate (Norvasc) 5 mg PO DAILY [facility] PRN Reason: Protocol Last Admin: 09/28/17 10:29 Dose: 5 mg Aspirin (Ecotrin) 81 mg PO 0800 [facility] PRN Reason: Protocol Last Admin: 09/28/17 08:06 Dose: 81 mg Atorvastatin Calcium (Lipitor) 40 mg PO HS [facility] PRN Reason: Protocol Last Admin: 09/27/17 21:46 Dose: 40 mg Glimepiride (Amaryl) 1 mg PO BRK [facility] Insulin Human Regular (Humulin R Med) 0 units SC ACHS [facility] PRN Reason: Protocol Last Admin: 09/28/17 11:22 Dose: 7 units Latanoprost (Xalatan Opht) 0 ml OD HS [facility] PRN Reason: Protocol Last Admin: 09/27/17 21:47 Dose: 2.5 ml Levothyroxine Sodium (Synthroid) 50 mcg PO 0630 [facility] PRN Reason: Protocol Last Admin: 09/28/17 05:31 Dose: 50 mcg Losartan Potassium (Cozaar) 50 mg PO DAILY [facility] PRN Reason: Protocol Last Admin: 09/28/17 10:28 Dose: 50 mg Meclizine HCl (Antivert) 25 mg PO BID PRN; Protocol PRN Reason: Dizziness Metformin HCl (Glucophage) 1,000 mg PO BID [facility] Last Admin: 09/28/17 10:29 Dose: 1,000 mg Pantoprazole Sodium (Protonix Ec Tab) 40 mg PO 0600,1600 [facility] PRN Reason: Protocol Last Admin: 09/28/17 05:09 Dose: 40 mg Sitagliptin Phosphate (Januvia) 50 mg PO BID [facility] Last Admin: 09/28/17 10:29 Dose: 50 mg - Labs Labs: 09/28/17 09:00 09/28/17 09:00 - Constitutional Appears: No Acute Distress - Head Exam Head Exam: ATRAUMATIC, NORMOCEPHALIC - Eye Exam Eye Exam: EOMI, Normal appearance, PERRL - ENT Exam ENT Exam: Mucous Membranes Moist - Neck Exam Neck Exam: Full ROM. absent: Lymphadenopathy, Tenderness, Thyromegaly - Respiratory Exam Respiratory Exam: Clear to Ausculation Bilateral. absent: Accessory Muscle Use , Rales, Rhonchi, Wheezes, Respiratory Distress - Cardiovascular Exam Cardiovascular Exam: RRR, +S1, +S2. absent: Diastolic murmur, Gallop, Rubs, Murmur - GI/Abdominal Exam GI & Abdominal Exam: Soft, Normal Bowel Sounds. 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 Patient initially admitted for hypoglycemia, which as resolved. Patient is currently in TCU for continued physical therapy secondary to symptoms of dizziness and blurry vision. Plan: 1. Potential vertebrobasilar Insufficiency - Changed Meclizine to prn as it can cause dizziness - PE today showing no focal deficits - CTA head/neck showed mod b/l ICA atherosclerotic changes, no occlusion. 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 Persistent origin distal left vertebral artery is favored over congenital absence. - CT head negative - F/u orthostatics and carotid US - Cont ASA, recommend with food and PPI due to h/o gastric ulcers and esophagitis - Recommend outpatient vascular follow up - Neuro recommendations Rec statin, ASA, hydration - Patient currently in TCU receiving continued work with Physical therapy 2. Hypoglycemia - resolved - Etiology: Infectious process vs. medications vs. poor oral intake secondary to GI ulcer history, most likely secondary to poor oral intake in account of D50 resolving hypoglycemia and symptoms - No sick contacts reported, afebrile, UA nml, CXR nml - No recent changes in medication, compliant with regiment - 2 amp D50 given in ED with correction of hypoglycemia - cover with ISS, holding anti-glycemic meds, plan to restart tomorrow - ACHS - Carb consistent diet - Weakness and fatigue, hx of bilateral knee replacement, ambulates at home with walker, PT/OT - In case of hypoglycemia D50 prn 3. HTN - Continue losartan 50 mg and amlodipine 5mg 4. DM2 - Cont home med: Janumet - Cont home med: Amaryl, started pt on 1 mg daily (instead of BID) - On ISS - Carb consistent diet 5. Pacemaker for Bradyarrhthymia - HR stable 6. Hypothyroidism - Continue home medications - TSH WNL 7. HLD - Continue Atorvastatin 20mg 8. Glaucoma - Lantoprost 9. Hypomagnesium - MagOx 400 mg BID GI PPX: Protonix DVT PPX: SCDS Case and plan discussed with attending <Alcides Mccoy - Last Filed: 09/28/17 13:37> Objective - Vital Signs/Intake and Output Vital Signs (last 24 hours): Temp Pulse Resp BP Pulse Ox 97.1 F L 94 H 20 133/79 96 09/28/17 10:05 09/28/17 10:29 09/28/17 10:05 09/28/17 10:29 09/28/17 10:05 - Medications Medications: Current Medications Acetaminophen (Tylenol 325mg Tab) 325 mg PO Q6H PRN PRN Reason: Pain, moderate (4-7) Last Admin: 09/26/17 19:48 Dose: 325 mg Amlodipine Besylate (Norvasc) 5 mg PO DAILY [facility] PRN Reason: Protocol Last Admin: 09/28/17 10:29 Dose: 5 mg Aspirin (Ecotrin) 81 mg PO 0800 [facility] PRN Reason: Protocol Last Admin: 09/28/17 08:06 Dose: 81 mg Atorvastatin Calcium (Lipitor) 40 mg PO HS [facility] PRN Reason: Protocol Last Admin: 09/27/17 21:46 Dose: 40 mg Glimepiride (Amaryl) 1 mg PO BRK [facility] Insulin Human Regular (Humulin R Med) 0 units SC ACHS [facility] PRN Reason: Protocol Last Admin: 09/28/17 11:22 Dose: 7 units Latanoprost (Xalatan Opht) 0 ml OD HS [facility] PRN Reason: Protocol Last Admin: 09/27/17 21:47 Dose: 2.5 ml Levothyroxine Sodium (Synthroid) 50 mcg PO 0630 [facility] PRN Reason: Protocol Last Admin: 09/28/17 05:31 Dose: 50 mcg Losartan Potassium (Cozaar) 50 mg PO DAILY [facility] PRN Reason: Protocol Last Admin: 09/28/17 10:28 Dose: 50 mg Meclizine HCl (Antivert) 25 mg PO BID PRN; Protocol PRN Reason: Dizziness Metformin HCl (Glucophage) 1,000 mg PO BID [facility] Last Admin: 09/28/17 10:29 Dose: 1,000 mg Pantoprazole Sodium (Protonix Ec Tab) 40 mg PO 0600,1600 [facility] PRN Reason: Protocol Last Admin: 09/28/17 05:09 Dose: 40 mg Sitagliptin Phosphate (Januvia) 50 mg PO BID [facility] Last Admin: 09/28/17 10:29 Dose: 50 mg - Labs Labs: 09/28/17 09:00 09/28/17 09:00 Attending/Attestation - Attestation I have personally seen and examined this patient.: Yes I have fully participated in the care of the patient.: Yes I have reviewed all pertinent clinical information, including history, physical exam and plan: Yes Notes (Text): 09/28/17 13:34 86 year old female with past medical history of CAD s/p pacemaker, diabetes, hypertension and ?TIA/CVA who was admitted for symptomatic hypoglycemia which improved with D50 without any further hypoglycemic episodes. Continue with insulin ss, metformin and januvia. She is hyperglycemic this morning and amaryl will be resumed. During hospital stay she complained of episodes of dizziness, blurred vision and ?slurred speech prior as well. CT head was negative for acute findings. 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 MRI was not performed due to history of pacemaker. Patient was seen by neurology who recommended aspirin and statin and outpatient IR or vascular evaluation. Continue with physical therapy while in TCU. She is on meclizine prn for dizziness. Daughter is at bedside this morning and questions were answered. Alcides Mccoy MD Hospitalist.
[2017-09-28] MEDS: Latanoprost 2.5 ml Opht Soln OD SCH (21:36)
[2017-09-29] MEDS: Levothyroxine 50 MCG TAB PO SCH (06:00)
[2017-09-29] MEDS: Pantoprazole 40 mg EC Tab PO SCH ×2 (06:00→16:42)
[2017-09-29] MEDS: Insulin Reg-MEDIUM-Coverage SC SCH ×4 (06:43→22:32)
[2017-09-29] MEDS: Latanoprost 2.5 ml Opht Soln OD SCH (22:33)
[2017-09-30] MEDS: Levothyroxine 50 MCG TAB PO SCH (05:32)
[2017-09-30] MEDS: Pantoprazole 40 mg EC Tab PO SCH ×2 (05:32→17:00)
[2017-09-30 06:50] LABS: BASO # 0.04 K/mm3 (0.0-2.0); BASO % 0.5 % (0.0-3.0); EOS # 0.2 (0.0-0.7); GRAN # 4.57 (1.4-6.5); GRAN % 57.7 % (50.0-68.0); HEMATOCRIT 35.7 % (36.0-48.0); LYMPH # 2.4 (1.2-3.4); LYMPH % 30.6 % (22.0-35.0); MEAN CELL VOLUME 86.2 fl (80.0-105.0); MEAN CORPUSCULAR HEMOGLOBIN 27.8 pg (25.0-35.0); MEAN CORPUSCULAR HGB CONC 32.2 g/dl (31.0-37.0); MEAN PLATELET VOLUME 10.5 fl (7.0-11.0); MONO # 0.7 (0.1-0.6); MONO % 8.2 % (1.0-6.0); RED CELL DISTRIBUTION WIDTH 14.4 % (11.5-14.5); WHITE BLOOD COUNT 7.9 10^3/ul (4.5-11.0)
[2017-09-30] MEDS: Insulin Reg-MEDIUM-Coverage SC SCH ×4 (06:58→22:31)
[2017-09-30 07:17] LABS: ALB/GLOB RATIO 1.1 (1.1-1.8); ALKALINE PHOSPHATASE 79 U/L (38-126); ALT/SGPT 26 U/L (7-56); AST/SGOT 23 U/L (14-36); BILIRUBIN,TOTAL 0.8 mg/dL (0.2-1.3); BLOOD UREA NITROGEN 21 mg/dL (7-21); CALCIUM 9.8 mg/dL (8.4-10.5); CARBON DIOXIDE 26 mmol/L (21-33); CHLORIDE 105 mmol/L (98-107); GFR AFRICAN-AMERICAN > 60; GLUCOSE,RANDOM 178 mg/dL (70-110); POTASSIUM 4.6 mmol/L (3.6-5.0); SODIUM 139 mmol/L (132-148); TOTAL PROTEIN 7.1 g/dL (5.8-8.3)
--- NOTE | 2017-09-30 10:32 | CP.PCM.PN ---
<Rajinder Jay - Last Filed: 09/30/17 15:09> Subjective - Date & Time of Evaluation Date of Evaluation: 09/30/17 Time of Evaluation: 09:25 - Subjective Subjective: Patient seen and examined in TCU resting comfortably in chair. No acute events overnight. Patient complains of dizziness, fatigue and weakness. Patient reports working with PT has proven to be difficult due to her dizziness and fatigue. Patient denies any falls during stay. Patient is tolerating diet and denies chest pain, shortness of breath, abdominal discomfort, fever, chills, nausea, vomiting. Patient continues to be in TCU for rehabilitation. Objective - Vital Signs/Intake and Output Vital Signs (last 24 hours): Temp Pulse Resp BP Pulse Ox 98.2 F 81 18 138/79 98 09/30/17 05:54 09/30/17 05:54 09/30/17 05:54 09/30/17 05:54 09/30/17 05:54 - Medications Medications: Current Medications Acetaminophen (Tylenol 325mg Tab) 325 mg PO Q6H PRN PRN Reason: Pain, moderate (4-7) Last Admin: 09/28/17 14:13 Dose: 325 mg Amlodipine Besylate (Norvasc) 5 mg PO DAILY [facility] PRN Reason: Protocol Last Admin: 09/30/17 10:25 Dose: 5 mg Aspirin (Ecotrin) 81 mg PO 0800 [facility] PRN Reason: Protocol Last Admin: 09/30/17 08:09 Dose: 81 mg Atorvastatin Calcium (Lipitor) 40 mg PO HS [facility] PRN Reason: Protocol Last Admin: 09/29/17 22:33 Dose: 40 mg Glimepiride (Amaryl) 1 mg PO BRK [facility] Last Admin: 09/30/17 08:09 Dose: 1 mg Insulin Human Regular (Humulin R Med) 0 units SC ACHS [facility] PRN Reason: Protocol Last Admin: 09/30/17 06:58 Dose: 1 units Latanoprost (Xalatan Opht) 0 ml OD HS [facility] PRN Reason: Protocol Last Admin: 09/29/17 22:33 Dose: 2.5 ml Levothyroxine Sodium (Synthroid) 50 mcg PO 0630 [facility] PRN Reason: Protocol Last Admin: 09/30/17 05:32 Dose: 50 mcg Losartan Potassium (Cozaar) 50 mg PO DAILY [facility] PRN Reason: Protocol Last Admin: 09/30/17 10:25 Dose: 50 mg Meclizine HCl (Antivert) 25 mg PO BID PRN; Protocol PRN Reason: Dizziness Last Admin: 09/28/17 21:36 Dose: 25 mg Metformin HCl (Glucophage) 1,000 mg PO BID [facility] Last Admin: 09/30/17 10:25 Dose: 1,000 mg Pantoprazole Sodium (Protonix Ec Tab) 40 mg PO 0600,1600 [facility] PRN Reason: Protocol Last Admin: 09/30/17 05:32 Dose: 40 mg Sitagliptin Phosphate (Januvia) 50 mg PO BID [facility] Last Admin: 09/30/17 10:26 Dose: 50 mg - Labs Labs: 09/30/17 06:40 09/30/17 06:40 - Constitutional Appears: Well, No Acute Distress - Head Exam Head Exam: ATRAUMATIC, NORMAL INSPECTION, NORMOCEPHALIC - Eye Exam Eye Exam: EOMI, PERRL Pupil Exam: PERRL - ENT Exam ENT Exam: Mucous Membranes Moist - Neck Exam Neck Exam: Full ROM. absent: Lymphadenopathy, Tenderness - Respiratory Exam Respiratory Exam: Clear to Ausculation Bilateral, NORMAL BREATHING PATTERN. absent: Accessory Muscle Use, Rales, Rhonchi, Wheezes - Cardiovascular Exam Cardiovascular Exam: REGULAR RHYTHM, +S1, +S2 - GI/Abdominal Exam GI & Abdominal Exam: Soft, Normal Bowel Sounds. absent: Guarding, Tenderness - Extremities Exam Extremities Exam: Full ROM, Normal Inspection. absent: Calf Tenderness, Pedal Edema - Back Exam Back Exam: NORMAL INSPECTION. absent: CVA tenderness (L), CVA tenderness (R) - Neurological Exam Neurological Exam: Alert, Awake, CN II-XII Intact, Oriented x3 Additional comments: motor and sensory grossly intact - Psychiatric Exam Psychiatric exam: Normal Affect, Normal Mood - Skin Skin Exam: Dry, Normal Color, Warm. 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 Patient initially admitted for hypoglycemia, which as resolved. Patient continues to work with PT for rehabilitation in TCU. Plan: 1. Potential vertebrobasilar Insufficiency - Meclizine PRN - PE today showing no focal deficits - CTA head/neck showed mod b/l ICA atherosclerotic changes, no occlusion. 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 Persistent origin distal left vertebral artery is favored over congenital absence. - CT head negative - Cont ASA, recommend with food and PPI due to h/o gastric ulcers and esophagitis - Recommend outpatient vascular follow up - Neuro recommendations, statin, ASA, hydration, adequate blood glucose control - Patient currently in TCU receiving continued work with Physical therapy 2. Hypoglycemia - resolved - Etiology: Infectious process vs. medications vs. poor oral intake secondary to GI ulcer history, most likely secondary to poor oral intake in account of D50 resolving hypoglycemia and symptoms - No sick contacts reported, afebrile, UA nml, CXR nml - No recent changes in medication, compliant with regiment - 2 amp D50 given in ED with correction of hypoglycemia - cover with ISS, holding anti-glycemic meds, plan to restart tomorrow - ACHS - Carb consistent diet - Weakness and fatigue, hx of bilateral knee replacement, ambulates at home with walker, PT/OT - In case of hypoglycemia D50 prn 3. HTN - Continue losartan 50 mg and amlodipine 5mg 4. DM2 - Cont home med: Janumet - Cont home med: Amaryl to BID - On ISS - Carb consistent diet 5. Pacemaker for Bradyarrhthymia - HR stable 6. Hypothyroidism - Continue home medications - TSH WNL 7. HLD - Continue Atorvastatin 20mg 8. Glaucoma - Lantoprost 9. Hypomagnesium - MagOx 400 mg BID GI PPX: Protonix DVT PPX: SCDS Case and plan discussed with attending <Tiffanie Vera - Last Filed: 09/30/17 16:37> Objective - Vital Signs/Intake and Output Vital Signs (last 24 hours): Temp Pulse Resp BP Pulse Ox 98.2 F 88 18 138/79 97 09/30/17 05:54 09/30/17 11:43 09/30/17 05:54 09/30/17 05:54 09/30/17 11:43 - Medications Medications: Current Medications Acetaminophen (Tylenol 325mg Tab) 325 mg PO Q6H PRN PRN Reason: Pain, moderate (4-7) Last Admin: 09/28/17 14:13 Dose: 325 mg Amlodipine Besylate (Norvasc) 5 mg PO DAILY [facility] PRN Reason: Protocol Last Admin: 09/30/17 10:25 Dose: 5 mg Aspirin (Ecotrin) 81 mg PO 0800 [facility] PRN Reason: Protocol Last Admin: 09/30/17 08:09 Dose: 81 mg Atorvastatin Calcium (Lipitor) 40 mg PO HS [facility] PRN Reason: Protocol Last Admin: 09/29/17 22:33 Dose: 40 mg Glimepiride (Amaryl) 1 mg PO BID [facility] Insulin Human Regular (Humulin R Med) 0 units SC ACHS [facility] PRN Reason: Protocol Last Admin: 09/30/17 12:30 Dose: 5 units Latanoprost (Xalatan Opht) 0 ml OD HS [facility] PRN Reason: Protocol Last Admin: 09/29/17 22:33 Dose: 2.5 ml Levothyroxine Sodium (Synthroid) 50 mcg PO 0630 [facility] PRN Reason: Protocol Last Admin: 09/30/17 05:32 Dose: 50 mcg Losartan Potassium (Cozaar) 50 mg PO DAILY [facility] PRN Reason: Protocol Last Admin: 09/30/17 10:25 Dose: 50 mg Meclizine HCl (Antivert) 25 mg PO BID PRN; Protocol PRN Reason: Dizziness Last Admin: 09/30/17 14:53 Dose: 25 mg Metformin HCl (Glucophage) 1,000 mg PO BID [facility] Last Admin: 09/30/17 10:25 Dose: 1,000 mg Pantoprazole Sodium (Protonix Ec Tab) 40 mg PO 0600,1600 [facility] PRN Reason: Protocol Last Admin: 09/30/17 05:32 Dose: 40 mg Sitagliptin Phosphate (Januvia) 50 mg PO BID [facility] Last Admin: 09/30/17 10:26 Dose: 50 mg - Labs Labs: 09/30/17 06:40 09/30/17 06:40 Attending/Attestation - Attestation I have personally seen and examined this patient.: Yes I have fully participated in the care of the patient.: Yes I have reviewed all pertinent clinical information, including history, physical exam and plan: Yes Notes (Text): 09/30/17 16:37 Patient was seen and examined with director medical economics. Agreed with resident assessment and plan. Management plan was discussed in detail with patient Education was provided.
[2017-09-30] MEDS: Latanoprost 2.5 ml Opht Soln OD SCH (21:38)
[2017-10-01] MEDS: Pantoprazole 40 mg EC Tab PO SCH ×2 (06:25→17:02)
[2017-10-01] MEDS: Levothyroxine 50 MCG TAB PO SCH (06:25)
[2017-10-01] MEDS: Insulin Reg-MEDIUM-Coverage SC SCH ×4 (06:55→22:34)
[2017-10-01] MEDS: Latanoprost 2.5 ml Opht Soln OD SCH (21:37)
[2017-10-02] MEDS: Levothyroxine 50 MCG TAB PO SCH (05:40)
[2017-10-02] MEDS: Pantoprazole 40 mg EC Tab PO SCH ×2 (05:40→17:04)
[2017-10-02 06:45] LABS: BASO # 0.05 K/mm3 (0.0-2.0); BASO % 0.5 % (0.0-3.0); EOS # 0.3 (0.0-0.7); EOS % 2.7 % (1.5-5.0); GRAN # 5.11 (1.4-6.5); GRAN % 53.9 % (50.0-68.0); HEMATOCRIT 39.6 % (36.0-48.0); LYMPH # 3.2 (1.2-3.4); MEAN CELL VOLUME 86.5 fl (80.0-105.0); MEAN CORPUSCULAR HEMOGLOBIN 27.9 pg (25.0-35.0); MEAN CORPUSCULAR HGB CONC 32.3 g/dl (31.0-37.0); MEAN PLATELET VOLUME 10.5 fl (7.0-11.0); MONO # 0.8 (0.1-0.6); MONO % 8.9 % (1.0-6.0); RED CELL DISTRIBUTION WIDTH 14.5 % (11.5-14.5); WHITE BLOOD COUNT 9.5 10^3/ul (4.5-11.0)
[2017-10-02 07:04] LABS: ALB/GLOB RATIO 1.1 (1.1-1.8); ALKALINE PHOSPHATASE 85 U/L (38-126); ALT/SGPT 29 U/L (7-56); AST/SGOT 22 U/L (14-36); BILIRUBIN,TOTAL 0.6 mg/dL (0.2-1.3); BLOOD UREA NITROGEN 15 mg/dL (7-21); CALCIUM 10.3 mg/dL (8.4-10.5); CARBON DIOXIDE 28 mmol/L (21-33); CHLORIDE 102 mmol/L (98-107); GFR AFRICAN-AMERICAN > 60; GLUCOSE,RANDOM 151 mg/dL (70-110); POTASSIUM 5.2 mmol/L (3.6-5.0); SODIUM 140 mmol/L (132-148); TOTAL PROTEIN 8.3 g/dL (5.8-8.3)
[2017-10-02] MEDS: Insulin Reg-MEDIUM-Coverage SC SCH ×4 (07:07→21:27)
--- NOTE | 2017-10-02 13:49 | CP.PCM.PN ---
<Rajinder Jay - Last Filed: 10/02/17 13:46> Subjective - Date & Time of Evaluation Date of Evaluation: 10/02/17 Time of Evaluation: 07:00 - Subjective Subjective: Patient seen and examined at bedside in TCU. Patient resting comfortably. No acute events reported overnight. Patient indicates she is feeling better. She reports continued intermittent dizzy symptoms and headache. She denies chest pain, shortness of breath, syncope, falls, fever, chills, nausea, focal weakness , or numbness. Objective - Vital Signs/Intake and Output Vital Signs (last 24 hours): Temp Pulse Resp BP Pulse Ox 97.4 F L 50 L 20 169/89 H 99 10/01/17 17:16 10/02/17 13:10 10/01/17 17:16 10/02/17 10:45 10/01/17 17:16 - Medications Medications: Current Medications Acetaminophen (Tylenol 325mg Tab) 325 mg PO Q6H PRN PRN Reason: Pain, moderate (4-7) Last Admin: 09/28/17 14:13 Dose: 325 mg Amlodipine Besylate (Norvasc) 10 mg PO DAILY [facility] PRN Reason: Protocol Aspirin (Ecotrin) 81 mg PO 0800 [facility] PRN Reason: Protocol Last Admin: 10/02/17 08:17 Dose: 81 mg Atorvastatin Calcium (Lipitor) 40 mg PO HS [facility] PRN Reason: Protocol Last Admin: 10/01/17 21:37 Dose: 40 mg Glimepiride (Amaryl) 1 mg PO BID [facility] Last Admin: 10/02/17 10:43 Dose: 1 mg Insulin Human Regular (Humulin R Med) 0 units SC ACHS [facility] PRN Reason: Protocol Last Admin: 10/02/17 12:18 Dose: 1 units Latanoprost (Xalatan Opht) 0 ml OD HS [facility] PRN Reason: Protocol Last Admin: 10/01/17 21:37 Dose: 2.5 ml Levothyroxine Sodium (Synthroid) 50 mcg PO 0630 [facility] PRN Reason: Protocol Last Admin: 10/02/17 05:40 Dose: 50 mcg Losartan Potassium (Cozaar) 50 mg PO DAILY [facility] PRN Reason: Protocol Last Admin: 10/02/17 10:44 Dose: 50 mg Meclizine HCl (Antivert) 25 mg PO BID PRN; Protocol PRN Reason: Dizziness Last Admin: 09/30/17 14:53 Dose: 25 mg Metformin HCl (Glucophage) 1,000 mg PO BID [facility] Last Admin: 10/02/17 10:44 Dose: 1,000 mg Pantoprazole Sodium (Protonix Ec Tab) 40 mg PO 0600,1600 [facility] PRN Reason: Protocol Last Admin: 10/02/17 05:40 Dose: 40 mg Sitagliptin Phosphate (Januvia) 50 mg PO BID [facility] Last Admin: 10/02/17 10:44 Dose: 50 mg - Labs Labs: 10/02/17 06:30 10/02/17 06:30 - Constitutional Appears: Well, No Acute Distress - Head Exam Head Exam: ATRAUMATIC, NORMAL INSPECTION, NORMOCEPHALIC - Eye Exam Eye Exam: EOMI, PERRL Pupil Exam: PERRL - ENT Exam ENT Exam: Mucous Membranes Moist - Neck Exam Neck Exam: Full ROM. absent: Lymphadenopathy - Respiratory Exam Respiratory Exam: Clear to Ausculation Bilateral, NORMAL BREATHING PATTERN. absent: Rhonchi, Wheezes - Cardiovascular Exam Cardiovascular Exam: REGULAR RHYTHM, +S1, +S2 - GI/Abdominal Exam GI & Abdominal Exam: Soft, Normal Bowel Sounds - Extremities Exam Extremities Exam: Full ROM, Normal Inspection. absent: Calf Tenderness, Tenderness - Back Exam Back Exam: NORMAL INSPECTION. 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 Patient initially admitted for hypoglycemia, which as resolved. Patient continues to work with PT for rehabilitation in TCU. Plan: 1. Potential vertebrobasilar Insufficiency - Meclizine PRN - PE today showing no focal deficits - CTA head/neck showed mod b/l ICA atherosclerotic changes, no occlusion. 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 Persistent origin distal left vertebral artery is favored over congenital absence. - CT head negative - Cont ASA, recommend with food and PPI due to h/o gastric ulcers and esophagitis - Neuro recommendations, - Statin, ASA, hydration, adequate blood glucose control - Patient currently in TCU receiving continued work with Physical therapy, continued work recommended 2. Hypoglycemia - resolved - Etiology: Infectious process vs. medications vs. poor oral intake secondary to GI ulcer history, most likely secondary to poor oral intake in account of D50 resolving hypoglycemia and symptoms - No recent changes in medication, compliant with regiment - cover with ISS, ACHS - Carb consistent diet - Weakness and fatigue, hx of bilateral knee replacement, ambulates at home with walker, PT/OT - In case of hypoglycemia D50 prn 3. HTN - Continue losartan 50 mg and amlodipine 10mg 4. DM2 - Cont home med: Janumet - Cont home med: Amaryl to BID - On ISS - Carb consistent diet 5. Pacemaker for Bradyarrhthymia - HR stable 6. Hypothyroidism - Continue home medications - TSH WNL 7. HLD - Continue Atorvastatin 20mg 8. Glaucoma - Lantoprost GI PPX: Protonix DVT PPX: SCDS Case and plan discussed with attending <Tiffanie Vera - Last Filed: 10/03/17 15:42> Objective - Vital Signs/Intake and Output Vital Signs (last 24 hours): Temp Pulse Resp BP Pulse Ox 97.8 F 60 18 143/67 98 10/03/17 10:00 10/03/17 10:58 10/03/17 10:00 10/03/17 10:59 10/03/17 10:00 - Labs Labs: 10/02/17 06:30 10/02/17 06:30 Attending/Attestation - Attestation I have personally seen and examined this patient.: Yes I have fully participated in the care of the patient.: Yes I have reviewed all pertinent clinical information, including history, physical exam and plan: Yes Notes (Text): 10/03/17 15:40 Patient was seen and examined with biomedical service engineer. Agreed with resident assessment and plan. Patient is feeling better.Dizziness has improved.Patient is participating in physical therapy. Blood pressure is running on higher side, we will increase dose of Amlodipine to 10 mg po daily. and will monitor blood pressure. Management plan was discussed in detail with patient Education was provided.
[2017-10-02 16:46] VITALS: RESP 18
[2017-10-02] MEDS: Latanoprost 2.5 ml Opht Soln OD SCH ×2 (20:13→21:29)
[2017-10-03] MEDS: Pantoprazole 40 mg EC Tab PO SCH (05:09)
[2017-10-03] MEDS: Levothyroxine 50 MCG TAB PO SCH (05:37)
[2017-10-03] MEDS: Insulin Reg-MEDIUM-Coverage SC SCH ×2 (06:59→11:58)
[2017-10-03 11:05] VITALS: BP 143/67; PULSE 60
[2017-10-03 12:17] VITALS: TEMP 97.8; O2SAT 98
--- NOTE | 2017-10-03 12:31 | CP.PCM.DIS ---
Provider - Provider Date of Admission: 09/25/17 15:42 Attending physician: Tiffanie Vera MD Primary care physician: MARY BETHD: Larissa Melton Time Spent in preparation of Discharge (in minutes): 25 Diagnosis - Discharge Diagnosis (1) Physical deconditioning Status: Acute (2) Dizziness Status: Acute Hospital Course - Lab Results Lab Results: Most Recent Lab Values WBC 9.5 10^3/ul (4.5-11.0) D 10/02/17 06:30 RBC 4.58 10^6/uL (3.5-6.1) 10/02/17 06:30 Hgb 12.8 g/dL (12.0-16.0) 10/02/17 06:30 Hct 39.6 % (36.0-48.0) 10/02/17 06:30 MCV 86.5 fl (80.0-105.0) 10/02/17 06:30 MCH 27.9 pg (25.0-35.0) 10/02/17 06:30 MCHC 32.3 g/dl (31.0-37.0) 10/02/17 06:30 RDW 14.5 % (11.5-14.5) 10/02/17 06:30 Plt Count 288 10^3/uL (120.0-450.0) 10/02/17 06:30 MPV 10.5 fl (7.0-11.0) 10/02/17 06:30 Gran % 53.9 % (50.0-68.0) 10/02/17 06:30 Lymph % (Auto) 34.0 % (22.0-35.0) 10/02/17 06:30 [place] % (Auto) 8.9 % (1.0-6.0) H 10/02/17 06:30 Eos % (Auto) 2.7 % (1.5-5.0) 10/02/17 06:30 Baso % (Auto) 0.5 % (0.0-3.0) 10/02/17 06:30 Gran # 5.11 (1.4-6.5) 10/02/17 06:30 Lymph # 3.2 (1.2-3.4) 10/02/17 06:30 [place] # 0.8 (0.1-0.6) H 10/02/17 06:30 Eos # 0.3 (0.0-0.7) 10/02/17 06:30 Baso # 0.05 K/mm3 (0.0-2.0) 10/02/17 06:30 Sodium 140 mmol/L (132-148) 10/02/17 06:30 Potassium 5.2 mmol/L (3.6-5.0) H 10/02/17 06:30 Chloride 102 mmol/L (98-107) 10/02/17 06:30 Carbon Dioxide 28 mmol/L (21-33) 10/02/17 06:30 Anion Gap 15 (10-20) 10/02/17 06:30 BUN 15 mg/dL (7-21) 10/02/17 06:30 Creatinine 0.8 mg/dl (0.7-1.2) 10/02/17 06:30 Est GFR ( Amer) > 60 10/02/17 06:30 Est GFR (Non-Af Amer) > 60 10/02/17 06:30 POC Glucose (mg/dL) 110 mg/dL (65-110) 10/02/17 16:46 Random Glucose 151 mg/dL (70-110) H 10/02/17 06:30 Calcium 10.3 mg/dL (8.4-10.5) 10/02/17 06:30 Total Bilirubin 0.6 mg/dL (0.2-1.3) 10/02/17 06:30 AST 22 U/L (14-36) 10/02/17 06:30 ALT 29 U/L (7-56) 10/02/17 06:30 Alkaline Phosphatase 85 U/L (38-126) 10/02/17 06:30 Total Protein 8.3 g/dL (5.8-8.3) 10/02/17 06:30 Albumin 4.4 g/dL (3.0-4.8) 10/02/17 06:30 Globulin 3.9 gm/dL 10/02/17 06:30 Albumin/Globulin Ratio 1.1 (1.1-1.8) 10/02/17 06:30 - Hospital Course Hospital Course: Patient is an 87 year old female with past medical history of DM2, HTN, hypothyroidism, HLD, CAD s/p stents, 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 Patient was evaluated in the ED on admission and noted to have a blood glucose of 30. Patient was given D50 with improvement of symptoms. In the ED, labs and imaging were obtained. After receiving D50, blood glucose was 390. Lipids were elevated. BP was elevated. Pt was admitted for evaluation and treatment due to symptomatic hypoglycemia. During most recent hospital course, hypoglycemia resolved. Home DM meds were held and patient was placed on insulin sliding scale and D50 prn for hypoglycemia. HTN was managed with home medications. On second day of said admission, pt complained of dizziness and blurred vision. Neuro was consulted. Further studies revealed: negative carotid US, negative head CT, and negative orthostatics. 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 Persistent orgin distal left vertebral artery is favored over congenital absence. MRI was not performed due to patient's pacemaker. Due to these findings, the patient was cleared by neurology and recommended statin, ASA, and consistent hydration to avoid vertebrobasilar insufficiency. Patient was evaluated at discharge to show signs of physical deconditioning and recommended for discharge to TCU for physical therapy and re-conditioning. The patient received physical therapy while in TCU and was assessed by PT to be suitable for home discharge with continued at home exercises and at home services. The patient reported improvement in her dizziness symptoms and strength during her stay. Discharge Exam - Head Exam Head Exam: ATRAUMATIC, NORMAL INSPECTION, NORMOCEPHALIC Discharge Plan - Discharge Medications Prescriptions: amLODIPine [Norvasc] 10 mg PO DAILY 30 Days #30 tab Atorvastatin [Lipitor] 40 mg PO HS 30 Days #30 tab Latanoprost 0.005% Opht [Xalatan Opht] 1 p GOVIND HS #1 bottle Meclizine [Meclizine*] 25 mg PO PRN PRN #14 tab PRN Reason: Dizziness - Follow Up Plan Condition: GOOD Disposition: HOME/ ROUTINE Instructions: Diabetic Hypoglycemia (DC), Dizziness (GEN), Fall Prevention (DC) Additional Instructions: - Follow up with PMD with in one week of discharge from TCU - Follow up with neurology outpatient within 1-2 weeks after being discharged - Follow a heart healthy and carb consistent diet - Return to the hospital or nearest emergency room if your symptoms worsen or return - Make sure to have glucose tabs or snacks on hand when feeling symptoms of hypoglycemia - Keep a log of Blood pressure AM and PM to bring to your PMD at next office visit - Keep a log of blood glucose levels before meals and at night to bring to your PMD - Take medications as follows: - Meclizine 25mg PO PRN for dizziness - Lipitor 40mg PO at night - Losartan 50mg PO Daily - Amlodipine 10mg PO Daily - Janumet 50-1000mg PO BID - Aspirin 81 mg PO Daily - Glimepiride 1mg PO Twice Daily - Lantoprost 0.005% Opth drops - Levothyroxine 50 mcg PO 0630am Daily Referrals: Wayne Dubon MD [Staff Provider] - Larissa Melton MD [Medical Doctor] -
== END 2017-10-03 14:25 | disposition home or self-care (01) | DRG 946 ==
LOC: TRCU 15:42
PROVIDERS: ADMIT Internal Medicine; ATTEND Internal Medicine
PROC: F07Z9FZ Gait Training/Functional Ambulation Treatment using Assistive, Adaptive, Supportive or Protective Equipment (ICD-10-PCS; principal; 2017-09-26)
PROC: F08Z4FZ Home Management Treatment using Assistive, Adaptive, Supportive or Protective Equipment (ICD-10-PCS; 2017-09-26)
DX: R53.1 Weakness (principal); E11.649 Type 2 diabetes mellitus with hypoglycemia without coma; E11.65 Type 2 diabetes mellitus with hyperglycemia; I10 Essential (primary) hypertension; I25.10 Atherosclerotic heart disease of native coronary artery without angina pectoris; H40.9 Unspecified glaucoma; E78.5 Hyperlipidemia, unspecified; M81.0 Age-related osteoporosis without current pathological fracture; Z96.653 Presence of artificial knee joint, bilateral; E03.9 Hypothyroidism, unspecified; E83.42 Hypomagnesemia; R42 Dizziness and giddiness; Z95.0 Presence of cardiac pacemaker; Z87.11 Personal history of peptic ulcer disease; Z95.5 Presence of coronary angioplasty implant and graft

== ENCOUNTER 2018-01-04 10:37 | Inpatient (IN) | payer MEDICARE, MEDICAID ==
[2018-01-04] MEDS ORDERED: Albuterol-Ipratrop 3 mg / 0.5 (3 ml) UD IH STA ×2 (11:34→13:53)
--- NOTE | 2018-01-04 12:24 | ED PDOC ---
Arrival/HPI - General Chief Complaint: Shortness Of Breath Time Seen by Provider: 01/04/18 11:33 Historian: Patient - History of Present Illness Narrative History of Present Illness (Text): 01/04/18 12:21 Patient is an 87 yo female presents with family with history of cough for three weeks. Patient sent by PMD as she has had persistent symptoms, has had decreased appetite, and has been vomiting after coughing episodes. Denies fever. Denies chest pain or leg swelling. Denies abdominal pain. Past Medical History - Provider Review Nursing Documentation Reviewed: Yes - Infectious Disease Hx of Infectious Diseases: None - Tetanus Immunization Tetanus Immunization: Unknown - Reproductive Menopause: Yes - Cardiac Hx Cardiac Disorders: Yes ([place]) Hx Hypertension: Yes - Pulmonary Hx Respiratory Disorders: No - Neurological Hx Dizziness: Yes - HEENT Hx Cataracts: Yes (B/L repair) Hx Glaucoma: Yes - Renal Hx Renal Disorder: No - Endocrine/Metabolic Hx Diabetes Mellitus Type 2: Yes Hx Hypothyroidism: Yes - Hematological/Oncological Hx Blood Disorders: No - Integumentary Hx Dermatological Disorder: No - Musculoskeletal/Rheumatological Hx Arthritis: Yes - Gastrointestinal Hx Gastrointestinal Disorders: (hx esophageal ulcer/diverticulitis/no bm x 6 days) - Genitourinary/Gynecological Hx Genitourinary Disorders: (frequency) Hx Incontinence: Yes (at times) Hx Urinary Tract Infection: Yes Other/Comment: hysterectomy - Psychiatric Hx Psychophysiologic Disorder: No Hx Depression: No Hx Emotional Abuse: No Hx Physical Abuse: No Hx Substance Use: No - Surgical History Hx Appendectomy: Yes Hx Cardiac Catheterization: Yes Hx Coronary Stent: Yes (x2) Hx Joint Replacement: Yes (b/l knee replacements) Hx Musculoskeletal Surgery: Yes Hx Orthopedic Surgery: Yes Other/Comment: b/l knee replacements - Anesthesia Hx Anesthesia: Yes Hx Anesthesia Reactions: No Hx Malignant Hyperthermia: No - Suicidal Assessment Feels Threatened In Home Enviroment: No Family/Social History - Physician Review Nursing Documentation Reviewed: Yes Family/Social History: No Known Family HX Smoking Status: Never Smoked Hx Alcohol Use: No Hx Substance Use: No Hx Substance Use Treatment: No Allergies/Home Meds Allergies/Adverse Reactions: Allergies No Known Allergies Allergy (Verified 01/04/18 10:54) Home Medications: Home Meds Medication Instructions Recorded Confirmed Glimepiride [Amaryl] 1 mg PO BID 09/23/17 09/25/17 Levothyroxine [Synthroid] 50 mcg PO DAILY 09/23/17 09/25/17 Losartan [Cozaar] 50 mg PO DAILY 09/23/17 09/25/17 Sitagliptin Phos/Metformin HCl 1 each PO BID 09/23/17 09/25/17 [Janumet 50-1,000 mg Tablet] Pantoprazole [Protonix EC Tab] 40 mg PO DAILY 09/25/17 09/25/17 Review of Systems - Review of Systems Constitutional: Fatigue. absent: Fevers Eyes: absent: Vision Changes ENT: absent: Hearing Changes Respiratory: Cough, Wheezing. absent: SOB, Sputum Cardiovascular: SALMON. absent: Chest Pain, Palpitations, Edema, Calf Pain Gastrointestinal: absent: Abdominal Pain, Nausea, Vomiting Genitourinary Female: absent: Dysuria, Frequency Musculoskeletal: absent: Back Pain, Neck Pain Skin: absent: Rash Neurological: absent: Headache, Dizziness, Focal Weakness Hemo/Lymphatic: absent: Easy Bleeding Physical Exam - Physical Exam Narrative Physical Exam (Text): 01/04/18 12:27 Head: Atraumatic. Normocephalic. Eyes: PERRL. EOMI. Conjunctivae are not pale. ENT: Mucous membranes are moist and intact. Oropharynx is clear and symmetric. Neck: Supple. Full ROM. No JVD. No lymphadenopathy. Cardiovascular: Regular rate. Regular rhythm. No murmurs, rubs, or gallops. Distal pulses are 2+ and symmetric. Pulmonary/Chest: No evidence of respiratory distress. Mild expiratory wheezing. Abdominal: Soft and non-distended. There is no tenderness. No rebound, guarding, or rigidity. No organomegaly. Good bowel sounds. Back: No CVA tenderness. Extremities: No edema. No cyanosis. No clubbing. Full range of motion in all extremities. No calf tenderness. Skin: Skin is warm and dry. No petechiae. No purpura. Neurological: Alert, awake, and oriented to person, place, time, and situation. Normal speech. Motor and sensory exam intact. Psychiatric: Good eye contact. Normal interaction, affect, and behavior. 01/04/18 12:31 Vital Signs Reviewed: Yes Vital Signs Temp Pulse Resp BP Pulse Ox 01/04/18 12:06 86 18 175/86 H 98 01/04/18 10:51 98.2 F 94 H 20 181/97 H 97 Temperature: Afebrile Appearance: Positive for: Non-Toxic Pain Distress: Mild Mental Status: Positive for: Alert and Oriented X 3 Medical Decision Making ED Course and Treatment: 01/04/18 16:51 Patient is an 87 yo female, diabetic, complaining of cough for three weeks. On exam, no wheezing, no hypoxia after nebulizer. She initially denies chest discomfort, but family states that she is very weak and may have intermittent discomfort with exertion, although patient currently denies. Family states that they have concerns because she is "very weak" and "lives by herself" and expresses concern for outpatient treatment. I have discussed with patient and family the risks of inpatient hospitalization including nosocomial infection, they again express deep concern that she has been short of breath and having vomiting and chest discomfort with exertion and coughing on reassessment. Given history of diabetes and no recent cardiac evaluation, I discussed case with on-call physician Dr. Yanez, and patient admitted to telemetry observation given complaints of persistent cough and sob, to exclude acute cardiac etiology. Initial EKG with nonspecific st abnormality, noted on prior EKG as well, and initial card isos unremarkable. I discussed nosocomial risks with patient and family they express awareness. 01/04/18 16:58 01/04/18 17:00 Given elevated WBC and respiratory symptoms will initiate IV antibiotics, cultures. Currently afebrile. - Lab Interpretations Lab Results: 01/04/18 12:18 01/04/18 12:18 Lab Results 01/04/18 13:00: Urine Color Yellow, Urine Appearance Clear, Urine pH 6.0, Ur Specific [place] 1.020, Urine Protein 30 H, Urine Glucose (UA) 500 H, Urine Ketones Trace H, Urine Blood Negative, Urine Nitrate Negative, Urine Bilirubin Negative, Urine Urobilinogen 0.2, Ur Leukocyte Esterase Negative, Urine RBC 0 - 2, Urine WBC 0 - 2, Ur Epithelial Cells 3 - 4, Urine Bacteria Few 01/04/18 12:18: Sodium 139, Potassium 4.3, Chloride 103, Carbon Dioxide 23, Anion Gap 17, BUN 18, Creatinine 0.7, Est GFR ( Amer) > 60, Est GFR (Non- Af Amer) > 60, Random Glucose 255 H, Calcium 9.7, Total Bilirubin 0.3, AST 20, ALT 24, Alkaline Phosphatase 79, Lactate Dehydrogenase 423, Total Creatine Kinase 33 L, Troponin I < 0.01, NT-Pro-B Natriuret Pep 377, Total Protein 7.4, Albumin 3.8, Globulin 3.6, Albumin/Globulin Ratio 1.1 01/04/18 12:18: PT 11.4, INR 0.99, APTT 27.6 01/04/18 12:18: Influenza Typ A,B (EIA) Negative for flu a/b 01/04/18 12:18: WBC 12.8 H D, RBC 4.26, Hgb 11.8 L, Hct 37.0, MCV 86.9, MCH 27.7 , MCHC 31.9, RDW 14.5, Plt Count 263, MPV 10.4, Gran % 63.7, Lymph % (Auto) 29.2 , [place] % (Auto) 5.0, Eos % (Auto) 1.9, Baso % (Auto) 0.2, Gran # 8.12 H, Lymph # (Auto) 3.7 H, [place] # (Auto) 0.6, Eos # (Auto) 0.2, Baso # (Auto) 0.03 - RAD Interpretation Radiology Orders: 01/04/18 11:33 CHEST PORTABLE [RAD] Stat - Medication Orders Current Medication Orders: Sodium Chloride (Sodium Chloride 0.9%) 1,000 mls @ 100 mls/hr IV .Q10H [facility] Last Admin: 01/04/18 14:09 Dose: 100 mls/hr eMAR Start Stop Document 01/04/18 14:09 NIMISHA (Rec: 01/04/18 14:11 [facility]-[id number]) Intravenous Solution Start Date 01/04/18 Start Time 14:09 Discontinued Medications Albuterol/Ipratropium (Duoneb 3 Mg/0.5 Mg (3 Ml) Ud) 3 ml IH STAT STA Stop: 01/04/18 11:35 Last Admin: 01/04/18 11:55 Dose: 3 ml Albuterol/Ipratropium (Duoneb 3 Mg/0.5 Mg (3 Ml) Ud) 3 ml IH STAT STA Stop: 01/04/18 13:54 Last Admin: 01/04/18 14:11 Dose: 3 ml Aspirin (Aspirin Chewable) 81 mg PO STAT STA Stop: 01/04/18 14:40 Last Admin: 02/17/18 14:57 Dose: 81 mg - Scribe Statement The provider has reviewed the documentation as recorded by the Vinicius Riggs Provider Vinicius Attestation: All medical record entries made by the Vinicius were at my direction and personally dictated by me. I have reviewed the chart and agree that the record accurately reflects my personal performance of the history, physical exam, medical decision making, and the department course for this patient. I have also personally directed, reviewed, and agree with the discharge instructions and disposition. Disposition/Present on Arrival - Present on Arrival Any Indicators Present on Arrival: No History of DVT/PE: No History of Uncontrolled Diabetes: No Urinary Catheter: No History of Decub. Ulcer: No History Surgical Site Infection Following: None - Disposition Have Diagnosis and Disposition been Completed?: Yes Diagnosis: Wheezing, Chest discomfort Disposition: HOSPITALIZED Disposition Time: 13:30 Patient Plan: Admission, Telemetry Patient Problems: Current Active Problems Problem Status Onset Chest discomfort Acute Wheezing Acute Condition: FAIR
[2018-01-04 12:34] LABS: BASO # 0.03 K/mm3 (0.0-2.0); BASO % 0.2 % (0.0-3.0); EOS # 0.2 (0.0-0.7); EOS % 1.9 % (1.5-5.0); GRAN # 8.12 (1.4-6.5); GRAN % 63.7 % (50.0-68.0); HEMOGLOBIN 11.8 g/dL (12.0-16.0); LYMPH # 3.7 (1.2-3.4); LYMPH % 29.2 % (22.0-35.0); MEAN CELL VOLUME 86.9 fl (80.0-105.0); MEAN CORPUSCULAR HEMOGLOBIN 27.7 pg (25.0-35.0); MEAN CORPUSCULAR HGB CONC 31.9 g/dl (31.0-37.0); MEAN PLATELET VOLUME 10.4 fl (7.0-11.0); MONO # 0.6 (0.1-0.6); RBC 4.26 10^6/uL (3.5-6.1); RED CELL DISTRIBUTION WIDTH 14.5 % (11.5-14.5); WHITE BLOOD COUNT 12.8 10^3/ul (4.5-11.0)
[2018-01-04 12:40] LABS: ALB/GLOB RATIO 1.1 (1.1-1.8); ALBUMIN 3.8 g/dL (3.0-4.8); ALT/SGPT 24 U/L (7-56); AST/SGOT 20 U/L (14-36); BLOOD UREA NITROGEN 18 mg/dL (7-21); CALCIUM 9.7 mg/dL (8.4-10.5); GFR AFRICAN-AMERICAN > 60; GFR NON-AFRICAN AMERICAN > 60
--- NOTE | 2018-01-04 12:47 | RAD ---
HISTORY: sob COMPARISON: 09/22/2017 FINDINGS: LUNGS: No active pulmonary disease. PLEURA: No significant pleural effusion identified, no pneumothorax apparent. CARDIOVASCULAR: Permanent pacemaker OSSEOUS STRUCTURES: No significant abnormalities. VISUALIZED UPPER ABDOMEN: Normal. OTHER FINDINGS: None. IMPRESSION: No active disease.
[2018-01-04 12:53] LABS: B-TYPE NATRIURETIC PEPTIDE 377 pg/mL (0-450); TROPONIN I < 0.01 ng/mL
[2018-01-04 12:58] LABS: INR 0.99 (0.93-1.08); PARTIAL THROMBOPLASTIN TIME 27.6 Seconds (25.1-36.5); PROTHROMBIN TIME 11.4 SECONDS (9.4-12.5)
[2018-01-04 13:42] LABS: URINE APPEARANCE CLEAR (CLEAR); URINE BILIRUBIN NEGATIVE (NEGATIVE); URINE BLOOD NEGATIVE (NEGATIVE); URINE COLOR YELLOW (YELLOW); URINE GLUCOSE (UA) 500 mg/dL (NEGATIVE); URINE LEUKOCYTE ESTERASE NEGATIVE Leu/uL (NEGATIVE); URINE NITRATE NEGATIVE (NEGATIVE); URINE PROTEIN 30 mg/dL (<30 mg/dL); URINE UROBILINOGEN 0.2 E.U./dL (<1 E.U./dL)
[2018-01-04 13:59] LABS: URINE BACTERIA FEW (NEG)
[2018-01-04 14:00] LABS: URINE RBC 0 - 2 /hpf (0-2); URINE WBC 0 - 2 /hpf (0-6)
[2018-01-04] MEDS ORDERED: Sodium Chloride 0.9% 1,000 ML IV SCH (14:00)
[2018-01-04] MEDS ORDERED: cefTRIAXone 1 gm 1 GM/100 ML BAG IVPB STA (16:59)
[2018-01-04] MEDS ORDERED: Amoxicillin-Clav 875-125 mg Tab PO STA (17:18)
[2018-01-04] MEDS: Amoxicillin-Clav 875-125 mg Tab PO SCH (17:52)
[2018-01-04] MEDS: Pantoprazole 40 mg EC Tab PO SCH (17:56)
[2018-01-04] MEDS: Levothyroxine 50 MCG TAB PO SCH (17:57)
[2018-01-04] MEDS: MethylPREDNISolone 40 mg Vial IVP SCH (21:22)
[2018-01-04] MEDS: Latanoprost 2.5 ml Opht Soln OD SCH (21:46)
[2018-01-04] MEDS: Promethazine DM 6.25 mg-15 mg/5 ml Syrup PO PRN (21:46)
[2018-01-04] MEDS ORDERED: Influenza Vaccine 60 mcg/0.5 mL SYR (4YR UP) IM ONE (23:30)
[2018-01-04] MEDS ORDERED: Pneumococcal 23-Valent Vaccine IM ONE (23:30)
[2018-01-04 23:31] VITALS: BMI 31.2
--- NOTE | 2018-01-05 04:25 | CON ---
DATE: 01/04/2018 PULMONARY CONSULTATION REFERRING PHYSICIAN: Dr. Mirian Yanez. REASON FOR CONSULTATION: Cough and shortness of breath. HISTORY OF PRESENT ILLNESS: This is an 87-year-old female with a past medical history significant for coronary artery disease, history of [place], history of hypertension, diabetes, hypothyroidism, arthritis, history of esophageal ulcer, diverticulitis in the past, has a coronary stent, who has been having cough, shortness of breath, and rhinitis for the last few days. No hemoptysis. No hematemesis. Denying any chills. No headache. PAST MEDICAL HISTORY: As per the history of present illness. ALLERGIES: NONE KNOWN. FAMILY HISTORY: No significant cardiopulmonary disease reported. SOCIAL HISTORY: Nonsmoker, nondrinker. Lives by herself. MEDICATIONS: She was given Rocephin 1 g dose, and IV fluid normal saline 100 mL is started. HOME MEDICATIONS: Include Norvasc 10 mg daily, Januvia with metformin one tablet twice a day, meclizine 25 mg on a p.r.n. basis, Synthroid 50 mcg p.o. daily, Amaryl 1 mg twice a day, atorvastatin 40 mg daily, and aspirin daily. REVIEW OF SYSTEMS: Denying any headache. Has some rhinitis, postnasal drip, and cough with discolored sputum production. No chest pain, no nausea, no vomiting, no diarrhea, leg pain, or leg swelling. Denying any body aches. No headache. PHYSICAL EXAMINATION: GENERAL: Lying in the bed. Family is at bedside. VITAL SIGNS: Temperature is 98, heart rate 86, respiratory rate is 20, blood pressure 175/86, and pulse ox 98% on nasal cannula. HEENT: Moist mucous membranes. Crowded airway. Mallampati score is IV. Has bilateral maxillary area tenderness. LUNGS: Have scattered rhonchi. There is no wheezing. HEART: S1 and S2. ABDOMEN: Soft, nontender. No organomegaly. EXTREMITIES: There is no edema. NEUROLOGIC: Awake and alert. Follows simple commands. LABORATORY DATA: Show that influenza A and B are negative. Hemoglobin 11.8, hematocrit 37.0, and WBC 12.8. INR 0.9, PTT is 28. Sodium 139, potassium 4.3, chloride 103, bicarbonate 23, BUN 18, creatinine 0.7, glucose 255, calcium 9.7. AST 20, ALT 24, alkaline phosphatase is 979. Troponin is less than 0.01, proBNP 377, and albumin is 3.8. Urinalysis shows wbc's 0-2 and rbc's 0-2. Microbiology: No culture is back. A chest x-ray was done in the ER shows no infiltrates or effusion. An echocardiogram was done last year, which shows that right ventricular systolic pressure is 47, left ventricular ejection fraction is 55%, and moderate to severe aortic stenosis. IMPRESSION AND PLAN: Sinusitis with acute bronchitis, diabetes, hypertension, cardiac arrhythmia, history of cardiac pacemaker, osteoporosis, hypothyroidism, coronary artery disease, history of coronary stent. Agree with the present management. We will continue antibiotics, may add Solu-Medrol 20 mg q.8 hours, inhaled bronchodilators, and continue home medication. Gastric and deep venous thrombosis prophylaxis. Thank you and we will follow with you. Tiffanie Castrejon MD
[2018-01-05 07:56] LABS: HEMOGLOBIN 12.4 g/dL (12.0-16.0); MEAN CELL VOLUME 85.8 fl (80.0-105.0); MEAN CORPUSCULAR HEMOGLOBIN 27.4 pg (25.0-35.0); MEAN PLATELET VOLUME 10.5 fl (7.0-11.0); RBC 4.52 10^6/uL (3.5-6.1); RED CELL DISTRIBUTION WIDTH 14.4 % (11.5-14.5)
--- NOTE | 2018-01-05 08:12 | CARD ---
APPROVED REPORT EKG Measurement Heart [id number] <Conclusion> Normal sinus rhythm NSSTW changes Prolonged QTc
[2018-01-05 08:23] LABS: ALBUMIN 3.8 g/dL (3.0-4.8); ALT/SGPT 19 U/L (7-56); AST/SGOT 21 U/L (14-36); BLOOD UREA NITROGEN 16 mg/dL (7-21); GFR AFRICAN-AMERICAN > 60; GFR NON-AFRICAN AMERICAN > 60
--- NOTE | 2018-01-05 09:25 | HP ---
CHIEF COMPLAINT: Shortness of breath and coughing. HISTORY OF PRESENT ILLNESS: Ms. April Fabina is an 87-year-old female with past medical history of NH, hypertension, dizziness, came with family with coughing for 3 weeks. The patient was sent by the PMD as she has persistent symptoms, has had decreased appetite and has been vomiting after the coughing episode. No fever or chills. No abdominal pain. No swelling of the leg. No hematuria or hematochezia. PAST MEDICAL HISTORY: History of hypertension, [place], dizziness, bilateral cataracts repair, glaucoma, diabetes mellitus type 2, hypothyroidism, arthritis, history of esophageal ulcer, diverticulosis, no bowel movement in 6 days, urinary incontinence, history of hysterectomy, appendectomy, cardiac catheterization, coronary artery stents x2, and bilateral knee replacement. FAMILY HISTORY: Father and mother, noncontributory. HABITS: Never smoked, no drugs, no ethanol. ALLERGIES: THE PATIENT IS NOT ALLERGIC TO ANY MEDICATIONS. HOME MEDICATIONS: Amaryl, Synthroid, Cozaar, and Protonix. REVIEW OF SYSTEMS: The patient is seen and examined at the beside in the emergency room, daughter was sitting on the bedside also. The patient is feeling fatigue. No fever. No vision changes. No hearing changes. She is coughing, wheezing. No sputum production. No chest pain or palpitations. tenderness. No abdominal pain, nausea, or vomiting. No dysuria or frequency. No back pain or neck pain. Skin has rash. The patient has no history of headache, dizziness, or focal weakness.. PHYSICAL EXAMINATION: VITAL SIGNS: Temperature 98.2, pulse 94, respiratory rate 20, blood pressure 181/97, pulse oximetry 97. HEENT: Head is normocephalic and atraumatic. Eyes: PERRLA. Extraocular muscles are intact. Conjunctivae are clear. Nose is patent. Mucous membranes are moist. NECK: Supple. No carotid bruits. No JVD or thyromegaly. CHEST: Bilaterally symmetrical. HEART: S1 and S2 positive. LUNGS: Wheezing bilaterally. ABDOMEN: Soft. Bowel sounds are present. No organomegaly. EXTREMITIES: No edema. No cyanosis. NEUROLOGIC: The patient is awake and alert. Moving all four extremities. No focal deficits. LABORATORY DATA: White blood cell is 12.8, hemoglobin 11.8, hematocrit 37.0, and platelets 253. Sodium 139, potassium 4.3, BUN 18, creatinine 0.7, and glucose 255. ASSESSMENT AND PLAN: Ms. April Fabian is an 87-year-old lady with leukocytosis, anemia, hyperglycemia, came with coughing, failed outpatient treatment, chest discomfort, wheezing. The patient has history of hypertension, history of cataract and glaucoma, diabetes mellitus type 2, hypothyroidism, arthritis, history of esophageal ulcer, diverticulosis. We admitted the patient. Called consult with Pulmonary, Dr. Castrejon. Started the patient on old medications given by Dr. Castrejon; aspirin, antibiotics, albuterol, sliding scale. Lovenox for deep venous thrombosis prophylaxis. Protonix for gastrointestinal prophylaxis. Discussion done with the patient's daughter. All questions answered. We will follow up. Mirian Yanez MD MTDD
[2018-01-05] MEDS: Insulin Reg-LOW-Coverage SC SCH ×4 (09:42→21:56)
[2018-01-05] MEDS: Levothyroxine 50 MCG TAB PO SCH (09:43)
[2018-01-05] MEDS: Amoxicillin-Clav 875-125 mg Tab PO SCH ×2 (09:43→17:25)
[2018-01-05] MEDS: Pantoprazole 40 mg EC Tab PO SCH (09:43)
[2018-01-05] MEDS: MethylPREDNISolone 40 mg Vial IVP SCH ×2 (09:44→21:25)
[2018-01-05] MEDS: Enoxaparin 30 mg Syringe SC SCH (09:44)
[2018-01-05 19:49] LABS: HDL CHOLESTEROL 44 mg/dL (29-60); IRON 50 ug/dL (45-180)
[2018-01-05 19:59] LABS: % IRON SATURATION 17 % (20-55); TOTAL IRON BINDING CAPACITY 302 ug/dL (265-497)
[2018-01-05 20:00] LABS: LDL CHOLESTEROL 190 mg/dL (0-129); TROPONIN I < 0.01 ng/mL
[2018-01-05] MEDS: Promethazine DM 6.25 mg-15 mg/5 ml Syrup PO PRN (20:14)
[2018-01-05] MEDS: Latanoprost 2.5 ml Opht Soln OD SCH (21:25)
--- NOTE | 2018-01-05 21:57 | PN ---
DATE: 01/05/2018 REFERRING PHYSICIAN: Mirian Yanez MD SUBJECTIVE: The patient is sitting up in a chair, feels better, decreased rhinitis, decreased cough, and decreased shortness of breath. No nausea, no vomiting, or diarrhea. No leg swelling. OBJECTIVE: GENERAL: In no acute distress. VITAL SIGNS: Temperature is 98, heart rate 88, respiratory rate is 18, blood pressure 125/77, pulse ox 94% on room air. HEENT: Moist mucous membranes. Crowded airway. NECK: Supple. No JVD. Still has a mild maxillary area tenderness. LUNGS: Has a fair airflow with rhonchi. HEART: S1 and S2. ABDOMEN: Soft, nontender. No organomegaly. EXTREMITIES: There is no edema. NEUROLOGIC: Awake, alert, and follows simple command. MEDICATIONS: She is on Amaryl 2 mg daily, Antivert 25 mg p.r.n. basis, also on Augmentin 875 one tablet twice a day, Cozaar 50 mg daily, Ecotrin 81 mg daily, metformin 1000 mg twice a day, insulin coverage, Januvia 50 mg twice a day, Lipitor 40 mg daily, Lovenox 30 mg daily, Phenergan DM 5 mL q.6 h. p.r.n., Protonix 40 mg daily, Solu-Medrol 20 mg q.12 h., and Synthroid 50 mcg daily. LABORATORY DATA: Shows hemoglobin 12.4, hematocrit 38.8, WBC 11.0, platelet is 291. Sodium 140, potassium 4.4, chloride 101, bicarbonate 25, BUN 16, creatinine 0.7, glucose 326, calcium 10.0, total bili 0.4, AST 21, ALT 19, alk phos is 91. Albumin is 3.8. IMPRESSION AND PLAN: Sinusitis with acute bronchitis, diabetes, hypertension, cardiac arrhythmia, history of cardiac pacemaker, osteoporosis, hypothyroid, coronary artery disease, history of coronary stent, may have sleep apnea syndrome. Spoke to family at bedside. All the questions answered. Continue IV and inhaled bronchodilator, antibiotics, gastric prophylaxis, and deep vein thrombosis prophylaxis. Fall precautions. Avoid and ferritin. Recommend sleep study upon discharge as outpatient. Thank you and we will follow with you. Tiffanie Castrejon MD [facility] # [id number]
--- NOTE | 2018-01-05 23:37 | CP.PCM.PN ---
Subjective - Date & Time of Evaluation Date of Evaluation: 01/05/18 Time of Evaluation: 23:37 - Subjective Subjective: Patient was seen because she complained of nausea. Has no other complaints. Denies headache, chest pain,dizziness,abdominal pain. Medical record was reviewed. This 87 year old white woman was admitted with coughing of 3 weeks duration, vomiting after coughing, anorexia. Has PMH of IA, HTN , dizziness,bilateral cataract, glaucoma, DM II, hypothyroidism, arthritis, esophageal ulcer, diverticulosis, appendectomy, cardiac catheterization. Objective - Vital Signs/Intake and Output Vital Signs (last 24 hours): Temp Pulse Resp BP Pulse Ox 97.9 F 89 18 116/75 94 L 01/05/18 16:38 01/05/18 22:00 01/05/18 16:38 01/05/18 16:38 01/05/18 16:38 - Medications Medications: Current Medications Amlodipine Besylate (Norvasc) 10 mg PO DAILY [facility] Last Admin: 01/05/18 09:43 Dose: 10 mg Amoxicillin/Clavulanate Potassium (Augmentin 875 Mg-125 Mg Tab) 1 tab PO BID [facility] PRN Reason: Protocol Last Admin: 01/05/18 17:25 Dose: 1 tab Aspirin (Ecotrin) 81 mg PO DAILY [facility] Last Admin: 01/05/18 09:43 Dose: 81 mg Atorvastatin Calcium (Lipitor) 40 mg PO HS [facility] Last Admin: 01/05/18 21:25 Dose: 40 mg Enoxaparin Sodium (Lovenox) 30 mg SC DAILY [facility] PRN Reason: Protocol Last Admin: 01/05/18 09:44 Dose: 30 mg Glimepiride (Amaryl) 2 mg PO DAILY [facility] Last Admin: 01/05/18 09:43 Dose: 2 mg Insulin Human Regular (Humulin R Low) 0 units SC ACHS [facility] PRN Reason: Protocol Last Admin: 01/05/18 21:56 Dose: 2 units Latanoprost (Xalatan Opht) 0 ml OD HS [facility] Last Admin: 01/05/18 21:25 Dose: 2.5 ml Levothyroxine Sodium (Synthroid) 50 mcg PO DAILY [facility] Last Admin: 01/05/18 09:43 Dose: 50 mcg Losartan Potassium (Cozaar) 50 mg PO DAILY [facility] Last Admin: 01/05/18 09:43 Dose: 50 mg Meclizine HCl (Antivert) 25 mg PO PRN PRN PRN Reason: Dizziness Metformin HCl (Glucophage) 1,000 mg PO BID [facility] Last Admin: 01/05/18 17:25 Dose: 1,000 mg Methylprednisolone (Solu-Medrol) 20 mg IVP Q12 [facility] Last Admin: 01/05/18 21:25 Dose: 20 mg Pantoprazole Sodium (Protonix Ec Tab) 40 mg PO DAILY [facility] Last Admin: 01/05/18 09:43 Dose: 40 mg Promethazine HCl/Dextromethorphan (Phenergan Dm Syrup) 5 ml PO Q6H PRN PRN Reason: Cough Last Admin: 01/05/18 20:14 Dose: 5 ml Sitagliptin Phosphate (Januvia) 50 mg PO BID [facility] Last Admin: 01/05/18 17:25 Dose: 50 mg - Labs Labs: PT 11.4 SECONDS (9.4-12.5) 01/04/18 12:18 INR 0.99 (0.93-1.08) 01/04/18 12:18 APTT 27.6 Seconds (25.1-36.5) 01/04/18 12:18 Most Recent Lab Values WBC 11.0 10^3/ul (4.5-11.0) 01/05/18 07:00 RBC 4.52 10^6/uL (3.5-6.1) 01/05/18 07:00 Hgb 12.4 g/dL (12.0-16.0) 01/05/18 07:00 Hct 38.8 % (36.0-48.0) 01/05/18 07:00 MCV 85.8 fl (80.0-105.0) 01/05/18 07:00 MCH 27.4 pg (25.0-35.0) 01/05/18 07:00 MCHC 32.0 g/dl (31.0-37.0) 01/05/18 07:00 RDW 14.4 % (11.5-14.5) 01/05/18 07:00 Plt Count 291 10^3/uL (120.0-450.0) 01/05/18 07:00 MPV 10.5 fl (7.0-11.0) 01/05/18 07:00 Gran % 63.7 % (50.0-68.0) 01/04/18 12:18 Lymph % (Auto) 29.2 % (22.0-35.0) 01/04/18 12:18 [place] % (Auto) 5.0 % (1.0-6.0) 01/04/18 12:18 Eos % (Auto) 1.9 % (1.5-5.0) 01/04/18 12:18 Baso % (Auto) 0.2 % (0.0-3.0) 01/04/18 12:18 Gran # 8.12 (1.4-6.5) H 01/04/18 12:18 Lymph # (Auto) 3.7 (1.2-3.4) H 01/04/18 12:18 [place] # (Auto) 0.6 (0.1-0.6) 01/04/18 12:18 Eos # (Auto) 0.2 (0.0-0.7) 01/04/18 12:18 Baso # (Auto) 0.03 K/mm3 (0.0-2.0) 01/04/18 12:18 PT 11.4 SECONDS (9.4-12.5) 01/04/18 12:18 INR 0.99 (0.93-1.08) 01/04/18 12:18 APTT 27.6 Seconds (25.1-36.5) 01/04/18 12:18 Sodium 140 mmol/L (132-148) 01/05/18 07:00 Potassium 4.4 mmol/L (3.6-5.0) 01/05/18 07:00 Chloride 101 mmol/L (98-107) 01/05/18 07:00 Carbon Dioxide 25 mmol/L (21-33) 01/05/18 07:00 Anion Gap 19 (10-20) 01/05/18 07:00 BUN 16 mg/dL (7-21) 01/05/18 07:00 Creatinine 0.7 mg/dl (0.7-1.2) 01/05/18 07:00 Est GFR ( Amer) > 60 01/05/18 07:00 Est GFR (Non-Af Amer) > 60 01/05/18 07:00 POC Glucose (mg/dL) 301 mg/dL (65-110) H 01/05/18 21:48 Random Glucose 372 mg/dL (70-110) H* D 01/05/18 07:00 Calcium 10.0 mg/dL (8.4-10.5) 01/05/18 07:00 Iron 50 ug/dL (45-180) 01/05/18 19:30 TIBC 302 ug/dL (265-497) 01/05/18 19:30 % Saturation 17 % (20-55) L 01/05/18 19:30 Total Bilirubin 0.4 mg/dL (0.2-1.3) 01/05/18 07:00 AST 21 U/L (14-36) 01/05/18 07:00 ALT 19 U/L (7-56) 01/05/18 07:00 Alkaline Phosphatase 91 U/L (38-126) 01/05/18 07:00 Lactate Dehydrogenase 365 U/L (333-699) 01/05/18 19:30 Total Creatine Kinase 26 U/L (35-230) L 01/05/18 19:30 Troponin I < 0.01 ng/mL 01/05/18 19:30 NT-Pro-B Natriuret Pep 377 pg/mL (0-450) 01/04/18 12:18 Total Protein 7.6 g/dL (5.8-8.3) 01/05/18 07:00 Albumin 3.8 g/dL (3.0-4.8) 01/05/18 07:00 Globulin 3.8 gm/dL 01/05/18 07:00 Albumin/Globulin Ratio 1.0 (1.1-1.8) L 01/05/18 07:00 Triglycerides 208 mg/dL (35-160) H 01/05/18 19:30 Cholesterol 265 mg/dL (130-200) H 01/05/18 19:30 LDL Cholesterol Direct 190 mg/dL (0-129) H 01/05/18 19:30 HDL Cholesterol 44 mg/dL (29-60) 01/05/18 19:30 Urine Color Yellow (YELLOW) 01/04/18 13:00 Urine Appearance Clear (CLEAR) 01/04/18 13:00 Urine pH 6.0 (4.7-8.0) 01/04/18 13:00 Ur Specific [place] 1.020 (1.005-1.035) 01/04/18 13:00 Urine Protein 30 mg/dL (<30 mg/dL) H 01/04/18 13:00 Urine Glucose (UA) 500 mg/dL (NEGATIVE) H 01/04/18 13:00 Urine Ketones Trace mg/dL (NEGATIVE) H 01/04/18 13:00 Urine Blood Negative (NEGATIVE) 01/04/18 13:00 Urine Nitrate Negative (NEGATIVE) 01/04/18 13:00 Urine Bilirubin Negative (NEGATIVE) 01/04/18 13:00 Urine Urobilinogen 0.2 E.U./dL (<1 E.U./dL) 01/04/18 13:00 Ur Leukocyte Esterase Negative Santos/uL (NEGATIVE) 01/04/18 13:00 Urine RBC 0 - 2 /hpf (0-2) 01/04/18 13:00 Urine WBC 0 - 2 /hpf (0-6) 01/04/18 13:00 Ur Epithelial Cells 3 - 4 /hpf (0-5) 01/04/18 13:00 Urine Bacteria Few (NEG) 01/04/18 13:00 Influenza Typ A,B (EIA) Negative for flu a/b (NEGATIVE) 01/04/18 12:18 - Constitutional Appears: Well, No Acute Distress - Head Exam Head Exam: ATRAUMATIC, NORMAL INSPECTION, NORMOCEPHALIC Additional comments: Sitting in the bed. - Eye Exam Eye Exam: Normal appearance - ENT Exam ENT Exam: Normal External Ear Exam - Neck Exam Neck Exam: Normal Inspection - Respiratory Exam Respiratory Exam: NORMAL BREATHING PATTERN - Cardiovascular Exam Cardiovascular Exam: absent: JVD - GI/Abdominal Exam GI & Abdominal Exam: absent: Distended - Rectal Exam Rectal Exam: Deferred - Exam Additional comments: Deferred. - Back Exam Back Exam: NORMAL INSPECTION - Neurological Exam Neurological Exam: Alert, Awake, Oriented x3 - Psychiatric Exam Psychiatric exam: Normal Affect, Normal Mood - Skin Skin Exam: Normal Color Assessment and Plan - Assessment and Plan (Free Text) Assessment: Nausea. History of IA. HTN. DM II. Glaucoma. Plan: Zofran 4 mg IV x 1. EKG.---------> NSR, No acute changes. Troponin level.---------><0.01. Continue present management as per PMD.
--- NOTE | 2018-01-06 00:23 | PN ---
DATE: SUBJECTIVE: Patient is 87-year-old female. Patient is seen and examined on the bedside, looking comfortable. No nausea, vomiting, diarrhea. No hematuria or hematochezia. No swelling of the leg. No chest pain. No palpitation. Cough is better. Shortness of breath is better. No fever, no chills. OBJECTIVE: VITAL SIGNS: Temperature 97.9, pulse 89, blood pressure 116/75, respiratory rate 18. HEENT: Head is normocephalic and atraumatic. Eyes: PERRLA. Extraocular muscles are intact. Conjunctivae are clear. Nose patent. Mucous membranes are moist. NECK: Supple. No carotid bruits, no JVD. No thyromegaly. CHEST: Bilaterally symmetrical. HEART: S1, S2 positive. LUNGS: Clear to auscultation. ABDOMEN: Soft. Bowel sounds are present. No organomegaly. EXTREMITIES: No edema, no cyanosis. NEUROLOGIC: The patient is awake and alert. Moving all 4 extremities. No focal deficit. MEDICATIONS: Amaryl, Antivert, Augmentin, Cozaar, Ecotrin, Glucophage, insulin, Januvia, Lipitor, Lovenox, Norvasc, Solu-Medrol, Synthroid. LABORATORY DATA: White blood cell is 11.2, hemoglobin 12.4, hematocrit 38.8, platelets 291. Sodium 140, potassium 4.4, BUN 16, creatinine 0.7, glucose 326. ASSESSMENT AND PLAN: Ms. April Fabian is an 87-year-old lady with multiple medical problems, has sinusitis with acute bronchitis, diabetes mellitus, uncontrolled, hypertension, cardiac arrhythmia, history of cardiac pacemaker, osteoporosis, hypothyroidism, coronary artery disease, history of coronary artery stents . We will continue antibiotics, Solu-Medrol tapering doses, inhaled bronchodilators. Continue home medications. Gastrointestinal and deep venous thrombosis prophylaxis. Repeat labs. Appreciated neon sign installer input. We will follow up. Mirian Yanez MD MTDMartin
[2018-01-06] MEDS: Insulin Reg-LOW-Coverage SC SCH ×4 (08:15→23:48)
[2018-01-06] MEDS: Amoxicillin-Clav 875-125 mg Tab PO SCH ×2 (09:19→17:09)
[2018-01-06] MEDS: Enoxaparin 30 mg Syringe SC SCH (09:21)
[2018-01-06] MEDS: Pantoprazole 40 mg EC Tab PO SCH (09:22)
[2018-01-06] MEDS: MethylPREDNISolone 40 mg Vial IVP SCH ×2 (09:22→23:45)
[2018-01-06] MEDS: Levothyroxine 50 MCG TAB PO SCH (09:23)
--- NOTE | 2018-01-06 16:22 | CARD ---
APPROVED REPORT EXAM: Two-dimensional and M-mode echocardiogram with Doppler and color Doppler. INDICATION Aortic Valve Disease Dyspnea 2D DIMENSIONS Left Atrium (2D)4.4 (1.6-4.0cm)IVSd1.3 (0.7-1.1cm) LVDd4.3 (3.9-5.9cm)LVOT Diameter1.9 (1.8-2.4cm) PWd1.3 (0.7-1.1cm)LVDs3.2 (2.5-4.0cm) FS (%) 25.3 %LVEF (%)50.3 (>50%) M-Mode DIMENSIONS Aortic Root2.30 (2.2-3.7cm)Aortic Cusp Exc.0.60 (1.5-2.0cm) Aortic Valve AoV Peak Tuojywhs121.0cm/sAoV VTI56.8cmAO Peak GR.44mmHg LVOT Peak Qnpzanym082.0cm/sLVOT VTI23.70cmAO Mean GR.22mmHg CHASE (VMAX)1.69xu1VMG (VTI)1.80hg9QS P 1/2 Pbix323sg Mitral Valve MV E Dytnaxzs184.0cm/sMV A Pgnnzazm33.8cm/sE/A ratio1.2 TDI E/Lateral E'0.0E/Medial E'0.0 Tricuspid Valve TR Peak Uvssmbyu734lq/sRAP [id number] Peak Gr.29mmHg [id number] LEFT VENTRICLE The left ventricle is normal size. There is mild concentric left ventricular hypertrophy. Left ventricle systolic function is low normal.EF-50% There is mild hypokinesis in the mid-inferolateral wall. The left ventricular diastolic function is normal. No left ventricle thrombus noted on this study. There is no ventricular septal defect visualized. There is no left ventricular aneurysm. There is no mass noted in the left ventricle. RIGHT VENTRICLE The right ventricle is normal size. There is normal right ventricular wall thickness. The right ventricular systolic function is normal. There is a pacemaker lead in the right ventricle. ATRIA The left atrium is mildly dilated. The right atrium size is normal. There is a catheter/pacemaker lead seen in the right atrium. The interatrial septum is intact with no evidence for an atrial septal defect. AORTIC VALVE The aortic valve is calcified and displays decreased opening. There is mild to moderate aortic regurgitation. There is moderate valvular aortic stenosis. There is no aortic valvular vegetation. MITRAL VALVE The mitral valve is calcified but opens well. Mitral annular calcification is moderate to severe. Mitral regurgitation is mild to moderate. There is no mitral valve stenosis. There is no evidence of mitral valve prolapse. TRICUSPID VALVE The tricuspid valve leaflets are thickened , but open well. There is mild to moderate tricuspid regurgitation.RVSP-39 mmof hg. There is no tricuspid valve stenosis. There is no tricuspid valve prolapse or vegetation. PULMONIC VALVE The pulmonic valve is mildly thickened. There is trace pulmonic valvular regurgitation. There is no pulmonic valvular stenosis. GREAT VESSELS The aortic root is normal in size. The ascending aorta is normal in size. The pulmonary artery is normal. The IVC is normal in size and collapses >50% with inspiration. PERICARDIAL EFFUSION There is no pleural effusion. There is no pericardial effusion. <Conclusion> The left ventricle is normal size. There is mild concentric left ventricular hypertrophy. Left ventricle systolic function is low normal.EF-50% There is a pacemaker lead in the right ventricle. The right atrium size is normal. There is a catheter/pacemaker lead seen in the right atrium. There is mild to moderate aortic regurgitation. There is moderate valvular aortic stenosis. Mitral regurgitation is mild to moderate. There is mild to moderate tricuspid regurgitation.RVSP-39 mmof hg.
[2018-01-06 17:49] VITALS: O2SAT 98
[2018-01-06] MEDS: Promethazine DM 6.25 mg-15 mg/5 ml Syrup PO PRN (20:04)
--- NOTE | 2018-01-06 21:44 | CARD ---
APPROVED REPORT EKG Measurement Heart [id number] <Conclusion> Normal sinus rhythm Normal ECG
[2018-01-06] MEDS ORDERED: MethylPREDNISolone 40 mg Vial IVP SCH (22:24)
--- NOTE | 2018-01-06 22:53 | PN ---
DATE: 01/06/2018 REASON FOR CONSULTATION AND FOLLOWUP: Shortness of breath, coughing and cardiac evaluation. BRIEF CLINICAL HISTORY: This is an 87-year-old female with past medical history significant for coronary artery disease, hypertension and dizziness came with 3 weeks history of the coughing with persistent symptoms. Denies any chest pain. Denies any shortness of breath. Denies any palpitation. Past history significant for dizziness, bilateral cataract. No documented history of coronary artery disease as per patient. In the previous chart, it was mentioned patient has admitted to the [facility] and has cardiac cath done, probably no significant CAD. PAST HISTORY: Also significant for dyslipidemia; hypertension; glaucoma; diabetes; questionable history of CAD stenting, patient denies, but in chart the patient had a stent in the past. PREVIOUS CARDIAC WORKUP: Most recently, patient had an echocardiography on 03/08/2015 shows normal LV size, mild diastolic dysfunction, aortic valve not well visualized, mild aortic stenosis, mild to moderate AR, moderate MR, mild TR. The patient's most recent echo on 09/24/2017 that showed ejection fraction 55%, mild hypokinesis of the inferior wall, moderate aortic regurgitation, moderate to severe supravalvular aortic stenosis, mild to moderate mitral regurgitation, mild to moderate tricuspid regurgitation. RV systolic pressure of 47 and aortic valve area 0.76 sq. cm, moderate to severe aortic stenosis. CURRENT MEDICATIONS: The patient is taking at home amlodipine, meclizine, losartan, levothyroxine, glimepiride, atorvastatin and aspirin. REVIEW OF SYSTEMS: As per HPI. ALLERGIES: NO KNOWN DRUG ALLERGY PHYSICAL EXAMINATION: As follows: VITAL SIGNS: Temperature afebrile, heart rate 81, blood pressure 144/89. HEENT: PERRLA. Extraocular muscles intact. NECK: Supple. No carotid bruits or thyromegaly. CHEST: Clear to auscultation. HEART: S1, S2 regular. ABDOMEN: Soft. EXTREMITIES: Clubbing and cyanosis negative. LABORATORY DATA: Blood workup as follows: WBC 11, hemoglobin 13.1, hematocrit 38.8, platelet count 291. Chemistry shows sodium 140, potassium 4.4, chloride 101, carbon dioxide 27, anion gap of 19. BUN 16, creatinine 0.7. Chest x-ray shows no active disease. IMPRESSION: Sinusitis; bronchitis; diabetes; hypertension; hyperlipidemia; history of pacemaker; very poor historian; history of aortic stenosis, probably moderate to severe; history of a stent, questionable. RECOMMENDATIONS: We will get echo and look more previous report from computer. Patient is a poor historian. In the interim, we will repeat echo to assess LV function, to assess the severity of the aortic valve and lipid profile, TSH, hemoglobin A1c. I will do the stress test in the morning. Thank you Dr. Yanez, for providing us the opportunity in taking care of the patient, April Fabian. Tiffanie Torrez MD cc: Mirian Yanez MD MTDD
[2018-01-06] MEDS: Latanoprost 2.5 ml Opht Soln OD SCH (23:44)
[2018-01-07] MEDS: Insulin Reg-LOW-Coverage SC SCH ×3 (00:01→12:23)
--- NOTE | 2018-01-07 00:28 | PN ---
DATE: 01/06/2018 REFERRING PHYSICIAN: Mirian Yanez MD. SUBJECTIVE: Patient is lying in the bed. Head at 45 degree, feels better, decreased cough. No nausea, no vomiting, diarrhea. No leg pain, leg swelling. PHYSICAL EXAMINATION: GENERAL: In no acute distress. VITAL SIGNS: Temperature is 98, heart rate 87, respiratory rate 16, blood pressure 140/72, pulse ox 98% on room air. HEENT: Moist mucous membranes. Crowded airway. Facial tenderness is decreased. NECK: Supple. No JVD. LUNGS: Few scattered rhonchi. HEART: S1 and S2. ABDOMEN: Soft, nontender. No organomegaly. EXTREMITIES: No edema. NEUROLOGIC: Awake, alert, and follows simple command. MEDICATIONS: She is on glimepiride 2 mg daily, Antivert 25 mg daily p.r.n., also on Augmentin one tablet twice a day that is 875, Cozaar 50 mg daily, Ecotrin 81 mg daily, metformin 1000 mg twice a day, insulin coverage, Januvia 50 mg twice a day, Lipitor 40 mg daily, Lovenox 30 mg subcu daily, Norvasc 10 mg daily, Protonix 40 mg daily, Solu-Medrol 20 mg q.12 h., Synthroid 50 mcg daily, Xalatan ophthalmic solution at bedtime p.r.n. LABORATORY DATA: Reviewed. Blood sugar 294. Had echocardiogram done, which shows right ventricular systolic pressure is 39, LV ejection fraction of 55, moderate valvular aortic stenosis, also has mild to moderate aortic regurgitation. IMPRESSION AND PLAN: Sinusitis with acute bronchitis, diabetes, hypertension, cardiac arrhythmia, history of cardiac pacemaker, hypothyroidism, coronary artery disease, history of coronary stent, may have sleep apnea syndrome, pulmonary hypertension, valvular heart disease. Pulmonary point of view doing well. Continue IV and inhaled bronchodilators. Continue antibiotics. Continue follow blood sugar. Deep vein thrombosis prophylaxis, cough suppressants. Out of bed to chair, fall precaution. Thank you and we will follow with you. Tiffanie Castrejon MD
--- NOTE | 2018-01-07 01:33 | CON ---
ADDENDUM The patient is very poor historian, tried to get in touch with the daughter, called her on telephone number [phone], her name is Macey Chen, who said the patient had history of permanent pacemaker, history of [address] Hameed group and used to follow Dr. Hameed. So I told that her we will sign off and call Dr. Hameed for the followup consult. The patient is scheduled for a stress test, we will cancel the stress test for now and will resume diet in am the diet, further recommendation as per Dr. Hameed. We will sign off for now. Tiffanie Torrez MD MTDD
--- NOTE | 2018-01-07 03:50 | PN ---
DATE: SUBJECTIVE: Patient is an 87-year-old female. Patient is seen and examined at the bedside, looking comfortable. In the morning, she has complains of nausea. Still coughing, but less. Chest pain with coughing is less. No headache, no dizziness. No fever, no chills. No hematuria, no hematochezia. PHYSICAL EXAMINATION: VITAL SIGNS: Temperature 97.9, pulse 89, respiratory rate 18, blood pressure 116/75, pulse oximetry is 94%. HEENT: Head is normocephalic and atraumatic. Eyes: PERRLA. Extraocular muscles are intact. Conjunctivae are clear. Nose patent. Mucous membranes are moist. NECK: Supple. No carotid bruits, JVD or thyromegaly. CHEST: Bilaterally symmetrical. HEART: S1, S2 positive. LUNGS: Clear to auscultation. ABDOMEN: Soft. Bowel sounds are present. No organomegaly. EXTREMITIES: No edema, no cyanosis. NEUROLOGIC: Patient is awake and alert. Moving all 4 extremities. No focal deficit. MEDICATIONS: Norvasc, Augmentin, Ecotrin, Lipitor, Lovenox, Amaryl, insulin, Synthroid, Cozaar, Antivert, Glucophage, Solu-Medrol, Protonix, Phenergan, Januvia. LABORATORY DATA: White blood cell is 11.0, hemoglobin 12.4, hematocrit 38.8, platelets 291. Sodium 141, potassium 4.4, BUN 16, creatinine 0.7. ASSESSMENT AND PLAN: Ms. April Fabian, an 87-year-old lady with nausea, myocardial infarction, hypertension, diabetes mellitus type 2, glaucoma, getting Zofran, troponin is less than 0.01, seen by house physician Dr. Tyler for Zofran, sinusitis with acute bronchitis, diabetes mellitus, hypertension, cardiac arrhythmias, history of cardiac pacemaker, osteoporosis, hypothyroidism, coronary artery disease, history of cardiac stenting, sleep apnea syndrome. Dr. Castrejon spoke with the family on the bedside. All questions answered. Continue intravenous and inhaled bronchodilators, antibiotics. Fall precautions. Sleep study upon discharge outpatient. Appreciated Dr. Castrejon's input. Gastrointestinal and deep venous thrombosis prophylaxis. Repeat labs. We will follow up. Mirian Yanez MD [facility] # [phone]
[2018-01-07 08:20] VITALS: BP 105/64; PULSE 92; RESP 20; TEMP 97.6
[2018-01-07] MEDS: Promethazine DM 6.25 mg-15 mg/5 ml Syrup PO PRN (10:51)
[2018-01-07] MEDS: Amoxicillin-Clav 875-125 mg Tab PO SCH (10:51)
[2018-01-07] MEDS: Pantoprazole 40 mg EC Tab PO SCH (10:52)
[2018-01-07] MEDS: Levothyroxine 50 MCG TAB PO SCH (10:52)
[2018-01-07] MEDS: Enoxaparin 30 mg Syringe SC SCH (10:53)
--- NOTE | 2018-01-07 20:00 | CON ---
DATE: 01/07/2018 INDICATIONS: Cough, shortness of breath, and coronary artery disease. HISTORY OF PRESENT ILLNESS: This is an 87-year-old woman, who is well known to me, admitted initially on the with cough and shortness of breath, admitted to Dr. Yanez's service, followed by Dr. Castrejon. She has had continued cough with only moderate improvement. Yesterday, the daughter contacted me and asked me to evaluate her and then she requested the consultation from Dr. Yanez, who had called Dr. Torrez. At this point, the patient is sitting up in bed, complaining of cough. There is some dyspnea on exertion. There is no chest pain, orthopnea, PND, syncope, presyncope, lightheadedness, dizziness, or vertigo. No palpitations. No edema. No fever, chills, hemoptysis, abdominal pain, nausea, vomiting, diarrhea, constipation or melena. PAST MEDICAL HISTORY: Notable for coronary artery disease with remote myocardial infarction and coronary intervention. She had congestive heart failure. She has a permanent pacemaker. She has gastric ulcer history with duodenal polyps, gastroparesis, hiatal hernia. She has dhgr-jy-uxugrozq aortic stenosis and aortic insufficiency on echocardiograms. She has had bilateral total knee replacements, hysterectomy and the diagnosis of osteoporosis. There is no history of rheumatic fever, stroke, TIA, diabetes, or gout. MEDICATIONS AT THE TIME OF ADMISSION: Amaryl, losartan, aspirin, Janumet, Lipitor, meclizine, Norvasc, Protonix, Synthroid, and Xalatan eye drops. Her current medications are Amaryl, Augmentin, losartan, aspirin, metformin, Januvia, Lipitor, Lovenox, Norvasc, promethazine, methylprednisolone, Synthroid, and Xalatan. ALLERGIES: NO KNOWN MEDICATION ALLERGIES ARE REPORTED. SOCIAL HISTORY: She lives at home with daughter and sister. She does not smoke. She does not drink alcohol. She is ambulatory. FAMILY HISTORY: Noncontributory. REVIEW OF SYSTEMS: A 10-review of systems otherwise is unremarkable except as noted above. PHYSICAL EXAMINATION: GENERAL: She is a well-developed woman, sitting on her bed on 3R, in no acute distress. VITAL SIGNS: She is in sinus rhythm at 92 beats per minute. She is afebrile. Blood pressure 105/64. Respirations 16 to 20. O2 saturation 98% on room air. HEENT: Reveals no neck vein distention, thyromegaly, or carotid bruits. Mucous membranes are moist. Conjunctivae are pink. NECK: Supple. LUNGS: Lung tanner clear. CARDIOVASCULAR: Examination of the heart revealed normal first and second heart sounds. There is a soft systolic murmur along the left sternal border. ABDOMEN: Soft. Bowel sounds are present. No mass, organomegaly, tenderness, rebound, guarding, CVA tenderness or palpable abdominal aortic aneurysm. EXTREMITIES: Revealed no cyanosis, clubbing or edema. NEUROLOGIC: She is awake, alert, and oriented. SKIN: Warm and dry. No rash or cellulitis. PSYCHIATRIC: Normal as to mood and affect. LABORATORY DATA AND IMAGING: An echocardiogram done on the revealed normal LV size and function with LVH. There is wqlt-za-tnwlfsce aortic regurgitation and moderate aortic stenosis. There is ofjb-ft-pekhzayh mitral regurgitation and cktp-tj-faktqzsh tricuspid regurgitation. A chest x-ray on the was a portable study and revealed no active disease. EKG demonstrated regular sinus rhythm, but non-specific ST-T wave changes. White count 12,800, repeat 11,000; hemoglobin 12.4; hematocrit 38.8; platelet counts are normal. PT, INR, and PTT unremarkable. Electrolytes: BUN and creatinine unremarkable. Blood sugars are elevated in the 300 range. LFTs are unremarkable. CK was 33. Troponin was less than 0.01. BNP was 377. LDL was 190. Total cholesterol 265. Triglycerides 208. Repeat troponin less than 0.01 and less than 0.01. Urinalysis is noted. Influenza was negative. IMPRESSION: April Fabian is an 87-year-old woman with known coronary artery disease, remote myocardial infarction, coronary intervention, permanent pacemaker and aortic valve disease, who was admitted with cough and congestion, being treated for upper respiratory infection and bronchitis. I will continue her cardiac medications including losartan, aspirin, Lipitor, which I will increase. We will add Zetia to better control her lipid panel. She is also getting Synthroid, methylprednisolone, Protonix, amlodipine, Januvia, insulin coverage, metformin, Augmentin and Amaryl. I would not proceed with the stress test at this point. I will review her old records. I will follow along with you. I will make additional recommendations based on her clinical course. Panchito Hameed MD [facility]
--- NOTE | 2018-01-08 00:55 | PN ---
DATE: PULMONARY PROGRESS NOTE REFERRING PHYSICIAN: Mirian Yanez MD. SUBJECTIVE: She is out of bed to chair. Night was unremarkable. Feels better. Decreased cough, decreased shortness of breath. No nausea. No vomiting or diarrhea. No leg pain or leg swelling. PHYSICAL EXAMINATION: GENERAL: In no acute distress. VITAL SIGNS: Temperature is 98, heart rate 92, respiratory rate 20, blood pressure 105/64, pulse ox 98% on room air. HEENT: Moist mucous membranes. Crowded airway. NECK: Supple. No JVD. LUNGS: Fair air flow with rhonchi. HEART: S1 and S2. ABDOMEN: Soft, nontender. No organomegaly. EXTREMITIES: No edema. NEUROLOGIC: Awake, alert. Follows simple commands. MEDICATIONS: Reviewed and noted. No new changes in the medications reported. LABORATORY DATA: Shows blood sugar 286, hemoglobin A1c is 10.4. IMPRESSION AND PLAN: Sinusitis with acute bronchitis, diabetes, hypertension, cardiac arrhythmia, history of cardiac pacemaker, hypothyroid, coronary artery disease, history of coronary stent, may have sleep apnea syndrome, pulmonary hypertension, valvular heart disease. Pulmonary point of view, she is doing well. May taper steroids, antibiotics, gastric prophylaxis, deep vein thrombosis prophylaxis, discharge planning. Case discussed with nurse practitioner. Okay to discharge and follow up with PMD. Thank you, and will follow with you. Tiffanie Castrejon MD
== END 2018-01-07 16:30 | disposition home or self-care (01) | DRG 203 ==
LOC: ED 10:37 → ERH 14:40 → 3RNO 17:09 → OBSVTOIN 01-05 18:38
PROVIDERS: ADMIT Internal Medicine; ATTEND Internal Medicine
DX: J20.9 Acute bronchitis, unspecified (principal); E11.65 Type 2 diabetes mellitus with hyperglycemia; K31.84 Gastroparesis; E11.43 Type 2 diabetes mellitus with diabetic autonomic (poly)neuropathy; J32.9 Chronic sinusitis, unspecified; D64.9 Anemia, unspecified; I25.10 Atherosclerotic heart disease of native coronary artery without angina pectoris; I35.2 Nonrheumatic aortic (valve) stenosis with insufficiency; J31.0 Chronic rhinitis; E78.5 Hyperlipidemia, unspecified; I10 Essential (primary) hypertension; E03.9 Hypothyroidism, unspecified; M81.0 Age-related osteoporosis without current pathological fracture; K44.9 Diaphragmatic hernia without obstruction or gangrene; H40.9 Unspecified glaucoma; G47.30 Sleep apnea, unspecified; I25.2 Old myocardial infarction; Z95.5 Presence of coronary angioplasty implant and graft; Z96.653 Presence of artificial knee joint, bilateral; Z95.0 Presence of cardiac pacemaker; Z79.82 Long term (current) use of aspirin; Z90.710 Acquired absence of both cervix and uterus; Z90.49 Acquired absence of other specified parts of digestive tract

== ENCOUNTER 2018-01-09 13:31 | Inpatient (IN) | payer MEDICARE, MEDICAID ==
[2018-01-09 13:31] VITALS: BMI 31.2
[2018-01-09] MEDS ORDERED: Albuterol-Ipratrop 3 mg / 0.5 (3 ml) UD IH STA (14:00)
--- NOTE | 2018-01-09 14:04 | ED PDOC ---
Arrival/HPI - General Chief Complaint: Cough, Cold, Congestion Time Seen by Provider: 01/09/18 13:49 Historian: Patient - History of Present Illness Narrative History of Present Illness (Text): 01/09/18 14:00 87 y/o female, pmh including DM/CAD/GERD/GI bleed/abdominal hernia (not a surgical candidate as per the patient due to age/comorbidities), nkda, biba c/o cough/fatigue/fever/abdominal pain x 2 days. Pt. stated that she has chronic abdominal hernia, been coughing with the fever for the past 2 days, admits very fatigue, abdominal pain associated with the coughing, no night sweat, no recent traveling but been recent hospitalized for coughing symptoms, no pedal edema, no rash, no other medical or psychological complaints. Past Medical History - Provider Review Nursing Documentation Reviewed: Yes - Infectious Disease Hx of Infectious Diseases: None - Tetanus Immunization Tetanus Immunization: Unknown - Reproductive Menopause: Yes - Cardiac Hx Cardiac Disorders: Yes (OK) Hx Hypertension: Yes - Pulmonary Hx Respiratory Disorders: No - Neurological Hx Dizziness: Yes - HEENT Hx Cataracts: Yes (B/L repair) Hx Glaucoma: Yes - Renal Hx Renal Disorder: No - Endocrine/Metabolic Hx Diabetes Mellitus Type 2: Yes Hx Hypothyroidism: Yes - Hematological/Oncological Hx Blood Disorders: No - Integumentary Hx Dermatological Disorder: No - Musculoskeletal/Rheumatological Hx Arthritis: Yes Hx Falls: Yes - Gastrointestinal Hx Gastrointestinal Disorders: (hx esophageal ulcer/diverticulitis/no bm x 6 days) - Genitourinary/Gynecological Hx Genitourinary Disorders: (frequency) Hx Incontinence: Yes (at times) Hx Urinary Tract Infection: Yes Other/Comment: hysterectomy - Psychiatric Hx Psychophysiologic Disorder: No Hx Depression: No Hx Emotional Abuse: No Hx Physical Abuse: No Hx Substance Use: No - Surgical History Hx Appendectomy: Yes Hx Cardiac Catheterization: Yes Hx Coronary Stent: Yes (x2) Hx Joint Replacement: Yes (b/l knee replacements) Hx Musculoskeletal Surgery: Yes Hx Orthopedic Surgery: Yes Other/Comment: b/l knee replacements - Anesthesia Hx Anesthesia: Yes Hx Anesthesia Reactions: No Hx Malignant Hyperthermia: No - Suicidal Assessment Feels Threatened In Home Enviroment: No Family/Social History - Physician Review Nursing Documentation Reviewed: Yes Family/Social History: Unknown Family HX Smoking Status: Never Smoked Hx Alcohol Use: No Hx Substance Use: No Hx Substance Use Treatment: No Allergies/Home Meds Allergies/Adverse Reactions: Allergies No Known Allergies Allergy (Verified 01/09/18 13:50) Home Medications: Home Meds Medication Instructions Recorded Confirmed Glimepiride [Amaryl] 1 mg PO BID 09/23/17 01/09/18 Levothyroxine [Synthroid] 50 mcg PO DAILY 09/23/17 01/09/18 Losartan [Cozaar] 50 mg PO DAILY 09/23/17 01/09/18 Sitagliptin Phos/Metformin HCl 1 each PO BID 09/23/17 01/09/18 [Janumet 50-1,000 mg Tablet] Review of Systems - Review of Systems Constitutional: Fatigue, Fevers Eyes: absent: Vision Changes ENT: absent: Hearing Changes, Sore Throat, Rhinorrhea Respiratory: Cough, Sputum, Wheezing. absent: SOB Cardiovascular: absent: Chest Pain Gastrointestinal: Abdominal Pain. absent: Diarrhea, Nausea, Vomiting Musculoskeletal: absent: Arthralgias, Back Pain Skin: absent: Rash, Pruritis Neurological: absent: Headache, Dizziness Psychiatric: absent: Anxiety, Depression Physical Exam Vital Signs Reviewed: Yes Vital Signs Temp Pulse Resp BP Pulse Ox 01/09/18 16:59 67 17 112/64 94 L 01/09/18 16:06 98.5 F 93 H 20 112/52 L 97 01/09/18 13:40 100.8 F H 98 H 17 134/94 H 95 Temperature: Febrile Blood Pressure: Hypertensive Respiratory Rate: Normal Appearance: Positive for: Non-Toxic, Ill-Appearing Pain Distress: Mild Mental Status: Positive for: Alert and Oriented X 3, Lethargic - Systems Exam Head: Present: Atraumatic, Normocephalic Pupils: Present: PERRL Extroacular Muscles: Present: EOMI Conjunctiva: Present: Normal Ears: Present: NORMAL TM, Normal Canal. No: Erythema Mouth: Present: Moist Mucous Membranes Neck: Present: Normal Range of Motion, Trachea Midline. No: Meningeal Signs, MIDLINE TENDERNESS, Paraspinal Tenderness, Lymphadenopathy Respiratory/Chest: Present: Clear to Auscultation, Good Air Exchange, Wheezes, Decreased Breath Sounds, Rhonchi. No: Respiratory Distress, Accessory Muscle Use, Rales, Retracting, Tachypneic, Tender to Palpation Cardiovascular: Present: Regular Rate and Rhythm, Normal S1, S2. No: Murmurs Abdomen: Present: Normal Bowel Sounds, Hernias. No: Tenderness, Distention, Peritoneal Signs, Rebound, Guarding Back: Present: Normal Inspection Upper Extremity: Present: Normal Inspection. No: Cyanosis, Edema Lower Extremity: Present: Normal Inspection. No: Edema Neurological: Present: GCS=15, CN II-XII Intact, Speech Normal, Motor Func Grossly Intact, Memory Normal Skin: Present: Warm, Dry, Normal Color. No: Rashes Psychiatric: Present: Alert, Oriented x 3, Normal Insight, Normal Concentration Medical Decision Making ED Course and Treatment: 01/09/18 14:01 -labs/ua/rapid flu/vbg -CXR -CT abdomen and pelvis -IVF/tylenol/duonbeb/solumedrol -surveillance monitor -observe and reassess 01/09/18 17:16 -EKG: SR @ 96 BPM, no ST elevation or depression, no acute T wave changes. -VBG lactic acid within normal limit -Labs are non-significant except wbc 13 from 11, BUN 22 (IVF ordered), BNP 492 ( no pedal edema) -Rapid flu is positive, tamiflu ordered. -UA show no UTI but there is ketonuria -CT abdomen and pelvis show There is a right-sided ventral hernia measuring 7.5 cm in width. This contains a portion of the transverse colon. The appearance is unchanged. There is no evidence of obstruction. -Chest xray: No active disease. -I reviewed the CT abdomen and pelvis from previous study, discussed and reviewed with Dr. Ng and suggest no emergent surgical intervention needed. -pt. is awared of her CT abdomen/pelvic ventral hernia contains a portion of the colon which is chronic finding for her condition, been seen by the surgeon Dr. Michelle which not recommend surgery for her. -Pt. has no abdominal pain at this point, fever resolved, lung is clear to auscultate at this point, pain has resolved as well, but appear to be dehydrated , will need to be admitted for continuous IVF hydration/tamiflu/trend the wbc and further evaluation. Pt. is not stable to be discharged home with the labs/ vital signs and physical appearance due to the high comorbidities. -Paging patient's pmd Dr. Yanez for admission for over night, pending call back. 01/09/18 17:40 -Case discussed with Dr. Yanez, discussed labs/radiology results in detail including the CT results, stated that she will consult with general surgeon herself as this is chronic findings but request to have Dr. Castrejon (pulmonary to be on the consult) and Dr. Richards (ID) to be on the routine consult. -I discussed with Dr. Ng about the case/labs/radiology results, agreed on the treatment and observation plan, he will put in the admission for observation order. - Lab Interpretations Lab Results: 01/09/18 13:45 01/09/18 13:45 Lab Results 01/09/18 14:40: Urine Color Yellow, Urine Appearance Clear, Urine pH 6.0, Ur Specific Emmett 1.025, Urine Protein 30 H, Urine Glucose (UA) 500 H, Urine Ketones 15 H, Urine Blood Trace-intact H, Urine Nitrate Negative, Urine Bilirubin Negative, Urine Urobilinogen 0.2, Ur Leukocyte Esterase Negative, Urine RBC 0 - 2, Urine WBC Negative, Ur Epithelial Cells 0 - 2, Urine Bacteria Small 01/09/18 14:00: Influenza Typ A,B (EIA) Pos for influenza a H 01/09/18 13:45: pO2 67 H, VBG pH 7.46 H, VBG pCO2 37.0 L, VBG HCO3 26.3, VBG Total CO2 27.4, VBG O2 Sat (Calc) 95.6 H, VBG Base Excess 2.5 H, VBG Potassium 4.3, Sodium 130.0 L, Chloride 98.0, Glucose 250 H, Lactate 1.3, FiO2 21.0, Venous Blood Potassium 4.3 01/09/18 13:45: WBC 13.0 H, RBC 4.55, Hgb 12.7, Hct 38.4, MCV 84.4, MCH 27.9, MCHC 33.1, RDW 14.5, Plt Count 288, MPV 10.4, Gran % 78.1 H, Lymph % (Auto) 12.6 L, Kershaw % (Auto) 9.0 H, Eos % (Auto) 0.2 L, Baso % (Auto) 0.1, Gran # 10.15 H, Lymph # (Auto) 1.6, Kershaw # (Auto) 1.2 H, Eos # (Auto) 0.0, Baso # (Auto ) 0.01 02/22/18 13:45: Sodium 132, Chloride 96 L, Potassium 4.2, Carbon Dioxide 23, Anion Gap 17, BUN 22 H, Creatinine 0.7, Est GFR ( Amer) > 60, Est GFR ( Non-Af Amer) > 60, Random Glucose 242 H, Calcium 9.6, Magnesium 1.3 L, Total Bilirubin 0.4, AST 17, ALT 21, Alkaline Phosphatase 72, NT-Pro-B Natriuret Pep 492 H, Total Protein 7.2, Albumin 3.7, Globulin 3.5, Albumin/Globulin Ratio 1.1 - RAD Interpretation Radiology Orders: 01/09/18 13:51 CHEST PORTABLE [RAD] Stat 01/09/18 13:59 ABDOMEN & PELVIS [ABD & PELVIS IV CONTRAST ONLY] [CT] Stat Chest xray: LUNGS: No active pulmonary disease. PLEURA: No significant pleural effusion identified, no pneumothorax apparent. CARDIOVASCULAR: Mild cardiomegaly. Pacemaker OSSEOUS STRUCTURES: No significant abnormalities. VISUALIZED UPPER ABDOMEN: Normal. OTHER FINDINGS: None. IMPRESSION: No active disease. CT abdomen and pelvis: LOWER THORAX: There is a small hiatal hernia LIVER: Unremarkable. No gross lesion or ductal dilatation. GALLBLADDER AND BILE DUCTS: Unremarkable. PANCREAS: Unremarkable. No gross lesion or ductal dilatation. SPLEEN: Unremarkable. ADRENALS: Unremarkable. No mass. KIDNEYS AND URETERS: Unremarkable. No hydronephrosis. No solid mass. VASCULATURE: Unremarkable. No aortic aneurysm. BOWEL: Unremarkable. No obstruction. No gross mural thickening. APPENDIX: Normal appendix. PERITONEUM: There is a right-sided ventral hernia measuring 7.5 cm in width. This contains a portion of the transverse colon. The appearance is unchanged. There is no evidence of obstruction. LYMPH NODES: Unremarkable. No enlarged lymph nodes. BLADDER: Unremarkable. REPRODUCTIVE: Unremarkable. BONES: No acute fracture. OTHER FINDINGS: None. IMPRESSION: There is a right-sided ventral hernia measuring 7.5 cm in width. This contains a portion of the transverse colon. The appearance is unchanged. There is no evidence of obstruction. Space Technologist: Radiologist - EKG Interpretation EKG Interpretation (Text): 01/09/18 14:13 -EKG: SR @ 96 BPM, no ST elevation or depression, no acute T wave changes. Interpreted by ED Physician: Yes Type: 12 lead EKG - Medication Orders Current Medication Orders: Sodium Chloride (Sodium Chloride 0.9%) 1,000 mls @ 100 mls/hr IV .Q10H URBAN Last Admin: 01/09/18 14:13 Dose: 100 mls/hr eMAR Start Stop Document 01/09/18 14:13 SF (Rec: 01/09/18 14:13 SF [id number]) Intravenous Solution Start Date 01/09/18 Start Time 14:13 End Date 01/09/18 Discontinued Medications Acetaminophen (Tylenol 325mg Tab) 650 mg PO STAT STA Stop: 01/09/18 13:54 Last Admin: 01/09/18 14:12 Dose: 650 mg MAR Pain/Vitals Document 01/09/18 14:12 SF (Rec: 01/09/18 14:12 SF [id number]) Pain Reassessment Is This A Pain ReAssessment? Yes Sleep Is patient sleeping during reassessment? No Presence of Pain Presence of Pain Yes Albuterol/Ipratropium (Duoneb 3 Mg/0.5 Mg (3 Ml) Ud) 3 ml IH STAT STA Stop: 01/09/18 14:01 Last Admin: 01/09/18 14:12 Dose: 3 ml Methylprednisolone (Solu-Medrol) 125 mg IVP STAT STA Stop: 01/09/18 14:01 Last Admin: 01/09/18 14:13 Dose: 125 mg IVP Administration Document 01/09/18 14:13 SF (Rec: 01/09/18 14:13 SF [id number]) Charges for Administration # of IVP Administrations 1 Oseltamivir Phosphate (Tamiflu Cap) 75 mg PO STAT STA PRN Reason: Protocol Stop: 01/09/18 14:17 Last Admin: 01/09/18 16:00 Dose: 75 mg - PA / UI DEVELOPER / Resident Statement /DO has reviewed & agrees with the documentation as recorded. Disposition/Present on Arrival - Present on Arrival Any Indicators Present on Arrival: No History of DVT/PE: No History of Uncontrolled Diabetes: No Urinary Catheter: No History of Decub. Ulcer: No History Surgical Site Infection Following: None - Disposition Have Diagnosis and Disposition been Completed?: Yes Diagnosis: Influenza, Failure to thrive, Dehydration, Fever, Abdominal hernia Disposition: HOSPITALIZED Disposition Time: 17:20 Patient Plan: Admission, Observation Patient Problems: Current Active Problems Problem Status Onset Dehydration Acute Failure to thrive Acute Fever Acute Influenza Acute Condition: STABLE Referrals: Mirian Yanez MD [Staff Provider] - Follow up with primary Forms: [employer] (Tongan)
[2018-01-09 14:05] LABS: BASO # 0.01 K/mm3 (0.0-2.0); BASO % 0.1 % (0.0-3.0); EOS % 0.2 % (1.5-5.0); GRAN # 10.15 (1.4-6.5); GRAN % 78.1 % (50.0-68.0); HEMOGLOBIN 12.7 g/dL (12.0-16.0); LYMPH # 1.6 (1.2-3.4); LYMPH % 12.6 % (22.0-35.0); MEAN CELL VOLUME 84.4 fl (80.0-105.0); MEAN CORPUSCULAR HEMOGLOBIN 27.9 pg (25.0-35.0); MEAN CORPUSCULAR HGB CONC 33.1 g/dl (31.0-37.0); MEAN PLATELET VOLUME 10.4 fl (7.0-11.0); MONO # 1.2 (0.1-0.6); RBC 4.55 10^6/uL (3.5-6.1); RED CELL DISTRIBUTION WIDTH 14.5 % (11.5-14.5); VENOUS BLOOD GAS BASE EXCESS 2.5 mmol/L (0.0-2.0); VENOUS BLOOD GAS PO2 67 mm/Hg (30-55); VENOUS BLOOD PH 7.46 (7.32-7.43)
[2018-01-09] MEDS: Sodium Chloride 0.9% 1,000 ML IV SCH (14:13)
[2018-01-09 14:22] LABS: B-TYPE NATRIURETIC PEPTIDE 492 pg/mL (0-450)
[2018-01-09 14:27] LABS: ALB/GLOB RATIO 1.1 (1.1-1.8); ALBUMIN 3.7 g/dL (3.0-4.8); ALT/SGPT 21 U/L (7-56); AST/SGOT 17 U/L (14-36); BLOOD UREA NITROGEN 22 mg/dL (7-21); CALCIUM 9.6 mg/dL (8.4-10.5); GFR AFRICAN-AMERICAN > 60; GFR NON-AFRICAN AMERICAN > 60; MAGNESIUM 1.3 mg/dL (1.7-2.2)
[2018-01-09] MEDS ORDERED: Iohexol 350 MG/100 ML VIAL ONE (14:28)
[2018-01-09 16:15] LABS: URINE BILIRUBIN NEGATIVE (NEGATIVE); URINE BLOOD TRACE-INTACT (NEGATIVE); URINE GLUCOSE (UA) 500 mg/dL (NEGATIVE); URINE LEUKOCYTE ESTERASE NEGATIVE Leu/uL (NEGATIVE); URINE NITRATE NEGATIVE (NEGATIVE); URINE PROTEIN 30 mg/dL (<30 mg/dL); URINE UROBILINOGEN 0.2 E.U./dL (<1 E.U./dL)
--- NOTE | 2018-01-09 16:22 | RAD ---
HISTORY: fever/cough COMPARISON: 01/04/2018 FINDINGS: LUNGS: No active pulmonary disease. PLEURA: No significant pleural effusion identified, no pneumothorax apparent. CARDIOVASCULAR: Mild cardiomegaly. Pacemaker OSSEOUS STRUCTURES: No significant abnormalities. VISUALIZED UPPER ABDOMEN: Normal. OTHER FINDINGS: None. IMPRESSION: No active disease.
[2018-01-09 16:27] LABS: URINE APPEARANCE CLEAR (CLEAR); URINE COLOR YELLOW (YELLOW)
--- NOTE | 2018-01-09 16:41 | CT ---
PROCEDURE: CT Abdomen and Pelvis with contrast HISTORY: bulging hernia and pain COMPARISON: 02/20/2016 CT TECHNIQUE: Contrast dose: 100 cc of Omni 350 Radiation dose: Total exam DLP = 914 mGy-cm. This CT exam was performed using one or more of the following dose reduction techniques: Automated exposure control, adjustment of the mA and/or kV according to patient size, and/or use of iterative reconstruction technique. FINDINGS: LOWER THORAX: There is a small hiatal hernia LIVER: Unremarkable. No gross lesion or ductal dilatation. GALLBLADDER AND BILE DUCTS: Unremarkable. PANCREAS: Unremarkable. No gross lesion or ductal dilatation. SPLEEN: Unremarkable. ADRENALS: Unremarkable. No mass. KIDNEYS AND URETERS: Unremarkable. No hydronephrosis. No solid mass. VASCULATURE: Unremarkable. No aortic aneurysm. BOWEL: Unremarkable. No obstruction. No gross mural thickening. APPENDIX: Normal appendix. PERITONEUM: There is a right-sided ventral hernia measuring 7.5 cm in width. This contains a portion of the transverse colon. The appearance is unchanged. There is no evidence of obstruction. LYMPH NODES: Unremarkable. No enlarged lymph nodes. BLADDER: Unremarkable. REPRODUCTIVE: Unremarkable. BONES: No acute fracture. OTHER FINDINGS: None. IMPRESSION: There is a right-sided ventral hernia measuring 7.5 cm in width. This contains a portion of the transverse colon. The appearance is unchanged. There is no evidence of obstruction.
[2018-01-09 17:00] LABS: URINE BACTERIA SMALL (NEG); URINE EPITHELIAL CELLS 0 - 2 /hpf (0-5); URINE RBC 0 - 2 /hpf (0-2); URINE WBC NEGATIVE /hpf (0-6)
--- NOTE | 2018-01-09 18:27 | CARD ---
APPROVED REPORT EKG Measurement Heart [id number] <Conclusion> Sinus rhythm with premature atrial complexes Septal infarct, age undetermined Abnormal ECG
[2018-01-09 21:21] LABS: ALB/GLOB RATIO 1.1 (1.1-1.8); ALBUMIN 3.8 g/dL (3.0-4.8); BILIRUBIN,DIRECT 0.4 mg/dL (0.0-0.4)
[2018-01-09 21:28] LABS: IRON 22 ug/dL (45-180)
[2018-01-09 21:38] LABS: % IRON SATURATION 7 % (20-55); TOTAL IRON BINDING CAPACITY 303 ug/dL (265-497)
[2018-01-09] MEDS ORDERED: Insulin Regular 1 UNITS/0.01 ML ML ONE (22:19)
[2018-01-09] MEDS: Insulin Reg-LOW-Coverage SC SCH (22:42)
[2018-01-09] MEDS: MethylPREDNISolone 40 mg Vial IVP SCH (22:44)
[2018-01-09] MEDS: Latanoprost 2.5 ml Opht Soln OD SCH (22:45)
[2018-01-10] MEDS: Albuterol-Ipratrop 3 mg / 0.5 (3 ml) UD IH SCH ×4 (01:41→19:39)
--- NOTE | 2018-01-10 02:35 | HP ---
CHIEF COMPLAINT: Coughing, cold and congestion. HISTORY OF PRESENT ILLNESS: Ms. April Fabian is an 87-year-old female with past medical history of diabetes mellitus, hypertension, hypercholesterolemia, coronary artery disease, GERD, dyspepsia, history of GI bleeding, abdominal hernia, came in to [facility] emergency room with coughing, fatigue, fever, abdominal pain, and shortness of breath. The patient states that she has chronic abdominal hernia. She has been coughing up with fever; and with coughing, the abdominal hernia is getting worse. For past 2 days, she was coughing a lot, having fatigued and tired. No history of travel. She was hospitalized recently. No edema. No rash. PAST MEDICAL HISTORY: Hypertension, dizziness, glaucoma, cataract, hypothyroidism, arthritis, falls, urinary incontinence, hysterectomy, appendectomy, coronary stent x2, bilateral knee replacement. FAMILY HISTORY: Father and mother, noncontributory. HABITS: Never smoked. No drug. No ethanol. ALLERGIES: THE PATIENT IS NOT ALLERGIC WITH ANY MEDICATIONS. HOME MEDICATIONS: Amaryl, Synthroid, Cozaar, Janumet. REVIEW OF SYSTEMS: Patient was seen and examined at the bedside in the Emergency Room. Coughing, shortness of breath, wheezing, producing sputum. No chest pain. No diarrhea. No nausea or vomiting. No arthralgia. No back pain. No rash. No pruritus. No headache or dizziness. No anxiety or depression. PHYSICAL EXAMINATION: VITAL SIGNS: Temperature is 98.5, T-max 100.5, pulse 98, respiratory rate 17, blood pressure 134/94, pulse oximetry 95%. HEENT: Head: Normocephalic, atraumatic. Eyes: PERRLA. Extraocular muscles intact. Conjunctivae clear. Nose: Patent. NECK: Supple. CHEST: Clear to auscultation. ABDOMEN: Soft. Bowel sounds present. No organomegaly. EXTREMITIES: No edema, no cyanosis. NEUROLOGICAL: Patient is awake and alert. Moving all 4 extremities. No focal deficit. LABORATORY DATA: White blood cells 13.0, hemoglobin 12.7, hematocrit 38.4, platelets 288. Sodium 132, potassium 4.2, BUN 22, creatinine 0.7. Glucose 242. ASSESSMENT AND PLAN: Ms. April Fabian is an 87-year-old female with leukocytosis, hyperglycemia, renal insufficiency, came with coughing and wheezing. Patient has CAT scan of the abdomen done that shows right-sided ventral hernia measuring 7.5 cm in width, which contains a portion of the transverse colon and this appears to be nonobstructive. The patient is dehydrated, with fever, influenza positive. The patient has a history of diabetes mellitus, coronary artery disease, gastroesophageal reflux disease, gastrointestinal bleeding. Admitted the patient, called Pulmonary consult and Infectious Disease. Started Tamiflu, nebulizer treatment. Diabetic medications started. Fingerstick every morning and at bedtime. Sliding scale. Repeat labs. We will follow up. Mirian Yanez MD [email or web address]
[2018-01-10] MEDS: Sodium Chloride 0.9% 1,000 ML IV SCH ×3 (06:00→20:00)
--- NOTE | 2018-01-10 06:03 | CP.PCM.CON ---
<Tamir Anne - Last Filed: 01/10/18 06:04> History of Present Illness - History of Present Illness History of Present Illness: Surgery: Dr. Juares CC: Ventral hernia HPI: 87F w. multiple commorbidities including chronic reducible ventral hernia x 3-4 yrs presented to ED w. cough, fever, fatigue, and abd pain x 2 days and tested positive for the flu. Surgery was consulted for ventral hernia. PMH: MT, HTN, bilateral cataract, glaucoma, DM II, hypothyroidism, arthritis, esophageal ulcer, diverticulosis, PSH: appendectomy, partial hysterectomy, B/L knee replacement, cardiac catheterization Meds: MAR reviewed NKDA Social: No ETOH/Tobacco/Drugs Fhx: Non-contributory Review of Systems - Review of Systems All systems: reviewed and no additional remarkable complaints except (hpi) Past Patient History - Infectious Disease Hx of Infectious Diseases: None - Tetanus Immunizations Tetanus Immunization: Unknown - Past Social History Smoking Status: Never Smoked - CARDIAC Hx Cardiac Disorders: Yes (MT) Hx Hypertension: Yes - PULMONARY Hx Respiratory Disorders: No - NEUROLOGICAL Hx Dizziness: Yes - HEENT Hx Cataracts: Yes (B/L repair) Hx Glaucoma: Yes - RENAL Hx Chronic Kidney Disease: No - ENDOCRINE/METABOLIC Hx Diabetes Mellitus Type 2: Yes Hx Hypothyroidism: Yes - HEMATOLOGICAL/ONCOLOGICAL Hx Blood Disorders: No - INTEGUMENTARY Hx Dermatological Problems: No - MUSCULOSKELETAL/RHEUMATOLOGICAL Hx Arthritis: Yes Hx Falls: Yes - GASTROINTESTINAL Hx Gastrointestinal Disorders: (hx esophageal ulcer/diverticulitis/no bm x 6 days) - GENITOURINARY/GYNECOLOGICAL Hx Genitourinary Disorders: (frequency) Hx Incontinence: Yes (at times) Hx Urinary Tract Infection: Yes Other/Comment: hysterectomy - PSYCHIATRIC Hx Psychophysiologic Disorder: No Hx Depression: No Hx Emotional Abuse: No Hx Physical Abuse: No - SURGICAL HISTORY Hx Appendectomy: Yes Hx Cardiac Catheterization: Yes Hx Coronary Stent: Yes (x2) Hx Joint Replacement: Yes (b/l knee replacements) Hx Musculoskeletal Surgery: Yes Hx Orthopedic Surgery: Yes Other/Comment: b/l knee replacements - ANESTHESIA Hx Anesthesia: Yes Hx Anesthesia Reactions: No Hx Malignant Hyperthermia: No Meds Allergies/Adverse Reactions: Allergies Allergy/AdvReac Type Severity Reaction Status Date / Time No Known Allergies Allergy Verified 01/09/18 13:50 - Medications Medications: Current Medications Albuterol/Ipratropium (Duoneb 3 Mg/0.5 Mg (3 Ml) Ud) 3 ml IH [id number] [facility] Last Admin: 01/10/18 01:41 Dose: 3 ml Amlodipine Besylate (Norvasc) 10 mg PO DAILY [facility] Arformoterol Tartrate (Brovana) 15 mcg IH [id number] [facility] Aspirin (Ecotrin) 81 mg PO DAILY [facility] Atorvastatin Calcium (Lipitor) 40 mg PO HS [facility] Last Admin: 01/09/18 22:43 Dose: 40 mg Budesonide (Pulmicort Respules) 0.25 mg IH [id number] [facility] Glimepiride (Amaryl) 1 mg PO BID [facility] Last Admin: 01/09/18 22:43 Dose: 1 mg Sodium Chloride (Sodium Chloride 0.9%) 1,000 mls @ 100 mls/hr IV .Q10H [facility] Last Admin: 01/09/18 14:13 Dose: 100 mls/hr Ceftriaxone Sodium (Rocephin 1 Gram Ivpb) 1 gm in 100 mls @ 100 mls/hr IVPB DAILY [facility] PRN Reason: Protocol Insulin Human Regular (Humulin R Low) 0 units SC ACHS [facility] PRN Reason: Protocol Last Admin: 01/09/18 22:42 Dose: 4 units Latanoprost (Xalatan Opht) 0 ml OD HS [facility] Last Admin: 01/09/18 22:45 Dose: 2.5 ml Levothyroxine Sodium (Synthroid) 50 mcg PO DAILY [facility] Loratadine (Claritin) 10 mg PO DAILY PRN PRN Reason: Sinus symptoms Losartan Potassium (Cozaar) 50 mg PO DAILY [facility] Meclizine HCl (Antivert) 25 mg PO PRN PRN PRN Reason: Dizziness Metformin HCl (Glucophage) 1,000 mg PO BID [facility] Methylprednisolone (Solu-Medrol) 40 mg IVP Q12 [facility] Last Admin: 01/09/18 22:44 Dose: 40 mg Oseltamivir Phosphate (Tamiflu Cap) 75 mg PO BID [facility] PRN Reason: Protocol Stop: 01/14/18 20:18 Pantoprazole Sodium (Protonix Ec Tab) 40 mg PO DAILY [facility] Sitagliptin Phosphate (Januvia) 50 mg PO DAILY [facility] Physical Exam - Constitutional Appears: Non-toxic, No Acute Distress - Head Exam Head Exam: ATRAUMATIC, NORMOCEPHALIC - Eye Exam Eye Exam: EOMI - ENT Exam ENT Exam: Mucous Membranes Moist - Respiratory Exam Respiratory Exam: NORMAL BREATHING PATTERN. absent: Accessory Muscle Use, Respiratory Distress - GI/Abdominal Exam GI & Abdominal Exam: Hernia (reducible ventral hernia ), Soft. absent: Distended, Firm, Guarding, Rebound, Rigid, Tenderness - Extremities Exam Extremities exam: Negative for: calf tenderness, pedal edema - Neurological Exam Neurological exam: Alert, Oriented x3 - Psychiatric Exam Psychiatric exam: Normal Affect, Normal Mood - Skin Skin Exam: Dry, Normal Color, Warm Results - Vital Signs Recent Vital Signs: Last Vital Signs Temp 98.5 F 01/09/18 16:06 Pulse 55 L 01/09/18 22:00 Resp 16 01/10/18 00:27 BP 126/75 01/09/18 22:00 Pulse Ox 96 01/09/18 22:00 - Labs Result Diagrams: 01/09/18 13:45 01/09/18 13:45 Labs: Laboratory Results - last 24 hr 01/09/18 21:59 POC Glucose (mg/dL) 451 H* - Imaging and Cardiology CT scan - abdomen Status: Image reviewed by me, Report reviewed by me Assessment & Plan - Assessment and Plan (Free Text) Assessment: 87F w. chronic ventral hernia, reducible, and flu -given pt age and multiple commorbidities she is a poor surgical candidiate -hernia is reducible w. no signs of obstruction -no plans for surgical intervention -surgery will sign off, please reconsult if needed -d/w attending Dayana PGY3 <Alexander Juares - Last Filed: 01/10/18 11:36> Meds - Medications Medications: Current Medications Albuterol/Ipratropium (Duoneb 3 Mg/0.5 Mg (3 Ml) Ud) 3 ml IH [id number] [facility] Last Admin: 01/10/18 08:18 Dose: 3 ml Amlodipine Besylate (Norvasc) 10 mg PO DAILY [facility] Last Admin: 01/10/18 09:50 Dose: 10 mg Arformoterol Tartrate (Brovana) 15 mcg IH [id number] [facility] Last Admin: 01/10/18 08:18 Dose: 15 mcg Aspirin (Ecotrin) 81 mg PO DAILY [facility] Last Admin: 01/10/18 09:48 Dose: 81 mg Atorvastatin Calcium (Lipitor) 40 mg PO HS [facility] Last Admin: 01/09/18 22:43 Dose: 40 mg Budesonide (Pulmicort Respules) 0.25 mg IH [id number] [facility] Last Admin: 01/10/18 08:18 Dose: 0.25 mg Doxycycline Hyclate (Doryx) 100 mg PO Q12 [facility] PRN Reason: Protocol Last Admin: 01/10/18 09:47 Dose: 100 mg Glimepiride (Amaryl) 1 mg PO BID [facility] Last Admin: 01/10/18 09:46 Dose: 1 mg Sodium Chloride (Sodium Chloride 0.9%) 1,000 mls @ 100 mls/hr IV .Q10H [facility] Last Admin: 01/10/18 09:53 Dose: 100 mls/hr Ceftriaxone Sodium (Rocephin 1 Gram Ivpb) 1 gm in 100 mls @ 100 mls/hr IVPB DAILY [facility] PRN Reason: Protocol Last Admin: 01/10/18 09:52 Dose: 100 mls/hr Insulin Human Regular (Humulin R Low) 0 units SC ACHS [facility] PRN Reason: Protocol Last Admin: 01/10/18 09:48 Dose: 3 units Latanoprost (Xalatan Opht) 0 ml OD HS [facility] Last Admin: 01/09/18 22:45 Dose: 2.5 ml Levothyroxine Sodium (Synthroid) 50 mcg PO DAILY [facility] Last Admin: 01/10/18 09:54 Dose: 50 mcg Loratadine (Claritin) 10 mg PO DAILY PRN PRN Reason: Sinus symptoms Losartan Potassium (Cozaar) 50 mg PO DAILY [facility] Last Admin: 01/10/18 09:47 Dose: 50 mg Meclizine HCl (Antivert) 25 mg PO PRN PRN PRN Reason: Dizziness Metformin HCl (Glucophage) 1,000 mg PO BID [facility] Last Admin: 01/10/18 09:48 Dose: 1,000 mg Methylprednisolone (Solu-Medrol) 40 mg IVP Q12 [facility] Last Admin: 01/10/18 09:53 Dose: 40 mg Oseltamivir Phosphate (Tamiflu Cap) 75 mg PO BID [facility] PRN Reason: Protocol Stop: 01/14/18 20:18 Last Admin: 01/10/18 09:55 Dose: 75 mg Pantoprazole Sodium (Protonix Ec Tab) 40 mg PO DAILY [facility] Last Admin: 01/10/18 09:51 Dose: 40 mg Sitagliptin Phosphate (Januvia) 50 mg PO DAILY [facility] Last Admin: 01/10/18 09:49 Dose: 50 mg Results - Vital Signs Recent Vital Signs: Last Vital Signs Temp 97.4 F L 01/10/18 06:00 Pulse 83 01/10/18 09:47 Resp 20 01/10/18 06:00 BP 127/83 01/10/18 09:50 Pulse Ox 95 01/10/18 06:00 - Labs Result Diagrams: 01/10/18 05:30 01/10/18 05:30 Labs: Laboratory Results - last 24 hr 01/09/18 01/10/18 01/10/18 21:59 05:30 05:30 WBC 9.2 D RBC 4.60 Hgb 12.5 Hct 39.3 MCV 85.4 MCH 27.2 MCHC 31.8 RDW 14.7 H Plt Count 282 MPV 10.8 Sodium 139 Potassium 4.3 Chloride 101 Carbon Dioxide 24 Anion Gap 18 BUN 24 H Creatinine 0.7 Est GFR ( Amer) > 60 Est GFR (Non-Af Amer) > 60 POC Glucose (mg/dL) 451 H* Random Glucose 365 H* D Calcium 9.5 TSH 3rd Generation 01/10/18 01/10/18 01/10/18 05:30 07:58 11:27 WBC RBC Hgb Hct MCV MCH MCHC RDW Plt Count MPV Sodium Potassium Chloride Carbon Dioxide Anion Gap BUN Creatinine Est GFR ( Amer) Est GFR (Non-Af Amer) POC Glucose (mg/dL) 271 H 421 H* Random Glucose Calcium TSH 3rd Generation 0.58 Assessment & Plan - Assessment and Plan (Free Text) Assessment: dX [id number]/dm Complicated by tender ventral hernia(Cough) No Surgery recommended Miralax PO This consult done under my direct supervision Dontae Juares MD FACS
[2018-01-10 06:28] LABS: HEMOGLOBIN 12.5 g/dL (12.0-16.0); MEAN CELL VOLUME 85.4 fl (80.0-105.0); MEAN CORPUSCULAR HEMOGLOBIN 27.2 pg (25.0-35.0); MEAN CORPUSCULAR HGB CONC 31.8 g/dl (31.0-37.0); MEAN PLATELET VOLUME 10.8 fl (7.0-11.0); RBC 4.6 10^6/uL (3.5-6.1); RED CELL DISTRIBUTION WIDTH 14.7 % (11.5-14.5); WHITE BLOOD COUNT 9.2 10^3/ul (4.5-11.0)
[2018-01-10 07:03] LABS: BLOOD UREA NITROGEN 24 mg/dL (7-21); CALCIUM 9.5 mg/dL (8.4-10.5); GFR AFRICAN-AMERICAN > 60; GFR NON-AFRICAN AMERICAN > 60
[2018-01-10] MEDS: Arformoterol 15 mcg/2 ml Inh Sol IH SCH ×2 (08:18→19:39)
[2018-01-10] MEDS: Budesonide 0.25 mg/2 ml Inhal Susp UD IH SCH ×2 (08:18→19:40)
[2018-01-10] MEDS: Insulin Reg-LOW-Coverage SC SCH ×4 (09:48→21:52)
[2018-01-10] MEDS: Pantoprazole 40 mg EC Tab PO SCH (09:51)
[2018-01-10] MEDS: cefTRIAXone 1 gm 1 GM/100 ML BAG IVPB SCH (09:52)
[2018-01-10] MEDS: MethylPREDNISolone 40 mg Vial IVP SCH ×2 (09:53→21:51)
[2018-01-10] MEDS: Levothyroxine 50 MCG TAB PO SCH (09:54)
--- NOTE | 2018-01-10 10:57 | CP.PCM.CON ---
History of Present Illness - History of Present Illness History of Present Illness: 87 year old female with PMH of CAD S/P PCI, DM, GERD, history of ventral abdominal hernia, bilateral cataracts, history of glaucoma, hypothyroidism, esophageal ulcer, diverticulosis, S/P appendectomy, S/P hysterectomy, S/P bilateral knee replacement came in to [facility] complaining of cough, fever and abdominal pain for the past 2 days, with some malaise. She denies sore throat, no headache or dizziness, no nausea or vomiting, no diarrhea, no dysuria, no dysphagia. In the ED, rapid flu test was done which is positive for Influenza A. Infectious Diseases consult is requested to further evaluate and manage. Review of Systems - Review of Systems All systems: reviewed and no additional remarkable complaints except (as per HPI ) Past Patient History - Infectious Disease Hx of Infectious Diseases: None - Tetanus Immunizations Tetanus Immunization: Unknown - Past Social History Smoking Status: Never Smoked - CARDIAC Hx Cardiac Disorders: Yes (NM) Hx Hypertension: Yes - PULMONARY Hx Respiratory Disorders: No - NEUROLOGICAL Hx Dizziness: Yes - HEENT Hx Cataracts: Yes (B/L repair) Hx Glaucoma: Yes - RENAL Hx Chronic Kidney Disease: No - ENDOCRINE/METABOLIC Hx Diabetes Mellitus Type 2: Yes Hx Hypothyroidism: Yes - HEMATOLOGICAL/ONCOLOGICAL Hx Blood Disorders: No - INTEGUMENTARY Hx Dermatological Problems: No - MUSCULOSKELETAL/RHEUMATOLOGICAL Hx Arthritis: Yes Hx Falls: Yes - GASTROINTESTINAL Hx Gastrointestinal Disorders: (hx esophageal ulcer/diverticulitis/no bm x 6 days) - GENITOURINARY/GYNECOLOGICAL Hx Genitourinary Disorders: (frequency) Hx Incontinence: Yes (at times) Hx Urinary Tract Infection: Yes Other/Comment: hysterectomy - PSYCHIATRIC Hx Psychophysiologic Disorder: No Hx Depression: No Hx Emotional Abuse: No Hx Physical Abuse: No - SURGICAL HISTORY Hx Appendectomy: Yes Hx Cardiac Catheterization: Yes Hx Coronary Stent: Yes (x2) Hx Joint Replacement: Yes (b/l knee replacements) Hx Musculoskeletal Surgery: Yes Hx Orthopedic Surgery: Yes Other/Comment: b/l knee replacements - ANESTHESIA Hx Anesthesia: Yes Hx Anesthesia Reactions: No Hx Malignant Hyperthermia: No Meds Allergies/Adverse Reactions: Allergies Allergy/AdvReac Type Severity Reaction Status Date / Time No Known Allergies Allergy Verified 01/09/18 13:50 - Medications Medications: Current Medications Albuterol/Ipratropium (Duoneb 3 Mg/0.5 Mg (3 Ml) Ud) 3 ml IH [id number] [facility] Last Admin: 01/10/18 01:41 Dose: 3 ml Amlodipine Besylate (Norvasc) 10 mg PO DAILY [facility] Arformoterol Tartrate (Brovana) 15 mcg IH [id number] [facility] Aspirin (Ecotrin) 81 mg PO DAILY [facility] Atorvastatin Calcium (Lipitor) 40 mg PO HS [facility] Last Admin: 01/09/18 22:43 Dose: 40 mg Budesonide (Pulmicort Respules) 0.25 mg IH [id number] [facility] Doxycycline Hyclate (Doryx) 100 mg PO Q12 [facility] PRN Reason: Protocol Glimepiride (Amaryl) 1 mg PO BID [facility] Last Admin: 01/09/18 22:43 Dose: 1 mg Sodium Chloride (Sodium Chloride 0.9%) 1,000 mls @ 100 mls/hr IV .Q10H [facility] Last Admin: 01/10/18 06:00 Dose: 100 mls/hr Ceftriaxone Sodium (Rocephin 1 Gram Ivpb) 1 gm in 100 mls @ 100 mls/hr IVPB DAILY [facility] PRN Reason: Protocol Insulin Human Regular (Humulin R Low) 0 units SC ACHS [facility] PRN Reason: Protocol Last Admin: 01/09/18 22:42 Dose: 4 units Latanoprost (Xalatan Opht) 0 ml OD HS [facility] Last Admin: 01/09/18 22:45 Dose: 2.5 ml Levothyroxine Sodium (Synthroid) 50 mcg PO DAILY [facility] Loratadine (Claritin) 10 mg PO DAILY PRN PRN Reason: Sinus symptoms Losartan Potassium (Cozaar) 50 mg PO DAILY [facility] Meclizine HCl (Antivert) 25 mg PO PRN PRN PRN Reason: Dizziness Metformin HCl (Glucophage) 1,000 mg PO BID [facility] Methylprednisolone (Solu-Medrol) 40 mg IVP Q12 [facility] Last Admin: 01/09/18 22:44 Dose: 40 mg Oseltamivir Phosphate (Tamiflu Cap) 75 mg PO BID [facility] PRN Reason: Protocol Stop: 01/14/18 20:18 Pantoprazole Sodium (Protonix Ec Tab) 40 mg PO DAILY [facility] Sitagliptin Phosphate (Januvia) 50 mg PO DAILY [facility] Physical Exam - Constitutional Appears: Non-toxic, Chronically Ill - Head Exam Head Exam: NORMAL INSPECTION - ENT Exam ENT Exam: Mucous Membranes Moist - Respiratory Exam Respiratory Exam: Decreased Breath Sounds - Cardiovascular Exam Cardiovascular Exam: +S1, +S2 - GI/Abdominal Exam GI & Abdominal Exam: Soft. absent: Tenderness Additional comments: reducible ventral abdominal hernia Results - Vital Signs Recent Vital Signs: Last Vital Signs Temp 98.5 F 01/09/18 16:06 Pulse 55 L 01/09/18 22:00 Resp 16 01/10/18 00:27 BP 126/75 01/09/18 22:00 Pulse Ox 96 01/09/18 22:00 - Labs Result Diagrams: 01/10/18 05:30 01/10/18 05:30 Labs: Laboratory Results - last 24 hr 01/09/18 01/10/18 21:59 05:30 WBC 9.2 D RBC 4.60 Hgb 12.5 Hct 39.3 MCV 85.4 MCH 27.2 MCHC 31.8 RDW 14.7 H Plt Count 282 MPV 10.8 POC Glucose (mg/dL) 451 H* Assessment & Plan - Assessment and Plan (Free Text) Plan: Assessment Systemic viral illness with Influenza A CAD S/P PCI DM GERD history of ventral abdominal hernia bilateral cataracts history of glaucoma hypothyroidism esophageal ulcer diverticulosis S/P appendectomy S/P hysterectomy S/P bilateral knee replacement Plan Started patient on Tamiflu and will need to complete 5 days patient has been started on Rocephin and Doxycycline but will d/c Doxycycline due to the history of esophageal ulcer will follow up blood cx, PCT reviewed CXR which does not show infiltrates
[2018-01-10 12:37] LABS: FOLATE 16.1 ng/mL
[2018-01-10] MEDS ORDERED: Magnesium Sulfate 1 gm in D5W 1 GM/100 ML BAG IVPB ONE (12:49)
--- NOTE | 2018-01-10 17:42 | CP.PCM.PN ---
<Sheryl Rosario - Last Filed: 01/10/18 17:39> Subjective - Date & Time of Evaluation Date of Evaluation: 01/10/18 Time of Evaluation: 09:45 - Subjective Subjective: Chief Complaint: cough 87 yr female w/ history of DM, CAD x 2 stents, GERD, GI bleed, abdominal hernia, cataracts, hypothyroidism, HTN, diverticulitis, esophageal ulcer, incontinence, & bilateral knee replacements. Patient re[place]ad[place] [facility] recent [place] for new onset influenza A, failure to thrive, dehydration , and abdominal hernia. Today, seen at bedside with no complaints. Denies any shortness of breath, chest pain, headache, fever, chills, diarrhea, constipation , paraesthesias, or urinary changes. Objective - Vital Signs/Intake and Output Vital Signs (last 24 hours): Temp Pulse Resp BP Pulse Ox 97.4 F L 83 20 127/83 95 01/10/18 06:00 01/10/18 09:47 01/10/18 06:00 01/10/18 09:50 01/10/18 06:00 Intake and Output: 01/10/18 01/10/18 06:59 18:59 Intake Total 240 Balance 240 - Medications Medications: Current Medications Albuterol/Ipratropium (Duoneb 3 Mg/0.5 Mg (3 Ml) Ud) 3 ml IH [id number] [facility] Last Admin: 01/10/18 14:26 Dose: Not Given Amlodipine Besylate (Norvasc) 10 mg PO DAILY [facility] Last Admin: 01/10/18 09:50 Dose: 10 mg Arformoterol Tartrate (Brovana) 15 mcg IH [id number] [facility] Last Admin: 01/10/18 08:18 Dose: 15 mcg Aspirin (Ecotrin) 81 mg PO DAILY [facility] Last Admin: 01/10/18 09:48 Dose: 81 mg Atorvastatin Calcium (Lipitor) 40 mg PO HS [facility] Last Admin: 01/09/18 22:43 Dose: 40 mg Budesonide (Pulmicort Respules) 0.25 mg IH [id number] [facility] Last Admin: 01/10/18 08:18 Dose: 0.25 mg Doxycycline Hyclate (Doryx) 100 mg PO Q12 [facility] PRN Reason: Protocol Last Admin: 01/10/18 09:47 Dose: 100 mg Glimepiride (Amaryl) 1 mg PO BID [facility] Last Admin: 01/10/18 17:04 Dose: 1 mg Sodium Chloride (Sodium Chloride 0.9%) 1,000 mls @ 100 mls/hr IV .Q10H [facility] Last Admin: 01/10/18 09:53 Dose: 100 mls/hr Ceftriaxone Sodium (Rocephin 1 Gram Ivpb) 1 gm in 100 mls @ 100 mls/hr IVPB DAILY [facility] PRN Reason: Protocol Last Admin: 01/10/18 09:52 Dose: 100 mls/hr Insulin Human Regular (Humulin R Low) 0 units SC ACHS [facility] PRN Reason: Protocol Last Admin: 01/10/18 17:05 Dose: 4 units Latanoprost (Xalatan Opht) 0 ml OD HS [facility] Last Admin: 01/09/18 22:45 Dose: 2.5 ml Levothyroxine Sodium (Synthroid) 50 mcg PO DAILY [facility] Last Admin: 01/10/18 09:54 Dose: 50 mcg Loratadine (Claritin) 10 mg PO DAILY PR[facility] PRN Reason: Sinus symptoms Losartan Potassium (Cozaar) 50 mg PO DAILY [facility] Last Admin: 01/10/18 09:47 Dose: 50 mg Meclizine HCl (Antivert) 25 mg PO PRN PRN PRN Reason: Dizziness Metformin HCl (Glucophage) 1,000 mg PO BID [facility] Last Admin: 01/10/18 17:05 Dose: 1,000 mg Methylprednisolone (Solu-Medrol) 40 mg IVP Q12 [facility] Last Admin: 01/10/18 09:53 Dose: 40 mg Oseltamivir Phosphate (Tamiflu Cap) 75 mg PO BID [facility] PRN Reason: Protocol Stop: 01/14/18 20:18 Last Admin: 01/10/18 17:06 Dose: 75 mg Pantoprazole Sodium (Protonix Ec Tab) 40 mg PO DAILY [facility] Last Admin: 01/10/18 09:51 Dose: 40 mg Sitagliptin Phosphate (Januvia) 50 mg PO DAILY [facility] Last Admin: 01/10/18 09:49 Dose: 50 mg - Labs Labs: 01/10/18 05:30 01/10/18 05:30 - Constitutional Appears: Chronically Ill - Head Exam Head Exam: ATRAUMATIC, NORMAL INSPECTION, NORMOCEPHALIC - Eye Exam Eye Exam: EOMI, Normal appearance, PERRL Pupil Exam: NORMAL ACCOMODATION, PERRL - ENT Exam ENT Exam: Mucous Membranes Moist, Normal Exam - Neck Exam Neck Exam: Full ROM, Normal Inspection. absent: Lymphadenopathy - Respiratory Exam Respiratory Exam: Clear to Ausculation Bilateral, NORMAL BREATHING PATTERN - Cardiovascular Exam Cardiovascular Exam: REGULAR RHYTHM, +S1, +S2. absent: Murmur - GI/Abdominal Exam GI & Abdominal Exam: Distended, Soft, Hernia, Normal Bowel Sounds. absent: Tenderness - Extremities Exam Extremities Exam: Full ROM, Normal Capillary Refill, Normal Inspection. absent : Joint Swelling, Pedal Edema - Back Exam Back Exam: NORMAL INSPECTION - Neurological Exam Neurological Exam: Alert, Awake, Normal Gait, Oriented x3 - Psychiatric Exam Psychiatric exam: Normal Affect, Normal Mood - Skin Skin Exam: Dry, Intact, Pallor, Warm Assessment and Plan (1) Abdominal hernia Status: Acute (2) Dehydration Status: Acute (3) Failure to thrive Status: Acute (4) Fever Status: Acute (5) Influenza Status: Acute (6) Hiatal hernia Status: Acute (7) Physical deconditioning Status: Acute - Assessment and Plan (Free Text) Plan: PO doxycyline & tamiflu. IV rochephin. IV solumedryl, VTE/GI prophlyaxis. Consults: Pulmo - Dr. Castrejon ID - Dr. Richards Reviewed: CT abd/pelvis = R sided ventral hernia 7.5 cm, contains portion of the transverse colon CXR = cardiomegaly, pacemaker ECG = ABNORMAL, SR w PAC, septal infarct <Mirian Yanez - Last Filed: 01/11/18 14:55> Objective - Vital Signs/Intake and Output Vital Signs (last 24 hours): Temp Pulse Resp BP Pulse Ox 98.4 F 82 18 147/78 94 L 01/10/18 16:00 01/10/18 16:00 01/10/18 16:00 01/11/18 09:56 01/10/18 16:00 Intake and Output: 01/11/18 01/11/18 06:59 18:59 Intake Total 600 1680 Balance 600 1680 - Medications Medications: Current Medications Albuterol/Ipratropium (Duoneb 3 Mg/0.5 Mg (3 Ml) Ud) 3 ml IH [id number] [facility] Albuterol/Ipratropium (Duoneb 3 Mg/0.5 Mg (3 Ml) Ud) 3 ml IH Q2H PRN PRN Reason: Shortness of Breath Amlodipine Besylate (Norvasc) 10 mg PO DAILY [facility] Last Admin: 01/11/18 09:56 Dose: 10 mg Arformoterol Tartrate (Brovana) 15 mcg IH [id number] [facility] Last Admin: 01/11/18 07:27 Dose: 15 mcg Aspirin (Ecotrin) 81 mg PO DAILY [facility] Last Admin: 01/11/18 09:55 Dose: 81 mg Atorvastatin Calcium (Lipitor) 40 mg PO HS [facility] Last Admin: 01/10/18 21:51 Dose: 40 mg Budesonide (Pulmicort Respules) 0.25 mg IH [id number] [facility] Last Admin: 01/11/18 07:27 Dose: 0.25 mg Doxycycline Hyclate (Doryx) 100 mg PO Q12 [facility] PRN Reason: Protocol Last Admin: 01/11/18 09:55 Dose: 100 mg Glimepiride (Amaryl) 1 mg PO BID [facility] Last Admin: 01/11/18 09:54 Dose: 1 mg Sodium Chloride (Sodium Chloride 0.9%) 1,000 mls @ 100 mls/hr IV .Q10H [facility] Last Admin: 01/11/18 05:46 Dose: 100 mls/hr Ceftriaxone Sodium (Rocephin 1 Gram Ivpb) 1 gm in 100 mls @ 100 mls/hr IVPB DAILY [facility] PRN Reason: Protocol Last Admin: 01/11/18 09:57 Dose: 100 mls/hr Insulin Human Regular (Humulin R Low) 0 units SC ACHS [facility] PRN Reason: Protocol Last Admin: 01/11/18 12:15 Dose: 7 units Latanoprost (Xalatan Opht) 0 ml OD HS [facility] Last Admin: 01/10/18 21:51 Dose: 2.5 ml Levothyroxine Sodium (Synthroid) 50 mcg PO DAILY [facility] Last Admin: 01/11/18 10:03 Dose: 50 mcg Loratadine (Claritin) 10 mg PO DAILY [facility] PRN Reason: Sinus symptoms Losartan Potassium (Cozaar) 50 mg PO DAILY [facility] Last Admin: 01/11/18 09:55 Dose: 50 mg Meclizine HCl (Antivert) 25 mg PO PRN PRN PRN Reason: Dizziness Metformin HCl (Glucophage) 1,000 mg PO BID [facility] Last Admin: 01/11/18 09:55 Dose: 1,000 mg Methylprednisolone (Solu-Medrol) 40 mg IVP Q12 [facility] Last Admin: 01/11/18 09:57 Dose: 40 mg Oseltamivir Phosphate (Tamiflu Cap) 75 mg PO BID [facility] PRN Reason: Protocol Stop: 01/14/18 20:18 Last Admin: 01/11/18 09:58 Dose: 75 mg Pantoprazole Sodium (Protonix Ec Tab) 40 mg PO DAILY [facility] Last Admin: 01/11/18 09:56 Dose: 40 mg Sitagliptin Phosphate (Januvia) 50 mg PO DAILY [facility] Last Admin: 01/11/18 09:56 Dose: 50 mg - Labs Labs: 01/11/18 07:00 01/11/18 07:00 Assessment and Plan - Assessment and Plan (Free Text) Plan: 87 yr female w/ history of DM, CAD x 2 stents, GERD, GI bleed, abdominal hernia, cataracts, hypothyroidism, HTN, diverticulitis, esophageal ulcer, incontinence, & bilateral knee replacements. Patient re[place]admitted to [facility] [place] recent discharge for new onset influenza A, failure to thrive, dehydration , and abdominal hernia. Today, seen at bedside with no complaints. Denies any shortness of breath, chest pain, headache, fever, chills, diarrhea, constipation , paraesthesias, or urinary changes.pt is seen and examinwed at bed side , looking comfortable . agreed all above , had flu , id is on the case , will f/u
[2018-01-10] MEDS: Latanoprost 2.5 ml Opht Soln OD SCH (21:51)
--- NOTE | 2018-01-11 01:15 | CON ---
DATE: PULMONARY CONSULTATION REFERRING PHYSICIAN: Mirian Yanez MD. REASON FOR CONSULTATION: Influenza, cough, shortness of breath. HISTORY OF PRESENT ILLNESS: This is an 87-year-old female, recently was discharged from the hospital, come back to ER with mild headache, rhinitis, cough, shortness of breath, fatigue, body aches. Influenza swab is positive for influenza infection. She is started on Tamiflu, admitted for close followup. PAST MEDICAL HISTORY: Hypertension, hypothyroid, degenerative joint disease, coronary artery disease, history of coronary stent, acute bronchitis. ALLERGIES: NONE KNOWN. SOCIAL HISTORY: Nonsmoker, nondrinker. FAMILY HISTORY: No significant cardiopulmonary disease reported. MEDICATIONS: She is on Amaryl 1 mg twice a day, Antivert 25 mg p.r.n., Brovana inhaled twice a day, Claritin 10 mg daily, Cozaar 50 mg daily, doxycycline 100 mg twice a day, DuoNeb q.6 hours, Ecotrin 81 mg daily, metformin 1000 mg twice a day, insulin coverage, Januvia 50 mg daily, Lipitor 40 mg daily, Norvasc 10 mg daily, Protonix 40 mg daily, Pulmicort inhaled twice a day, Rocephin 1 g daily, IV fluid normal saline 100 mL per hour, Solu-Medrol 40 mg q.12 hours, Synthroid 50 mcg daily, Tamiflu 75 mg daily. REVIEW OF SYSTEMS: Has some headache, rhinitis, cough, shortness of breath, body aches. No fever. No nausea. No vomiting. No diarrhea. No leg pain or leg swelling. PHYSICAL EXAMINATION: GENERAL: Lying in the bed, in no acute distress. VITAL SIGNS: Temperature is 98, heart rate is 83, respiratory rate is 20, blood pressure 127/83, pulse ox 95% on room air. HEENT: Moist mucous membrane. Crowded airway. Nasal mucosa looks okay. Has a mild maxillary area tenderness. LUNGS: Have a scattered rhonchi, prolonged expiratory phase. HEART: S1 and S2. ABDOMEN: Soft, nontender. No organomegaly. EXTREMITIES: No edema. NEUROLOGIC: Awake, alert. Follows simple command. LABORATORY DATA: Shows hemoglobin 12.5, hematocrit 39.3, WBC 9.2, platelet count is 282. VBG showed pH 7.46, pCO2 of 37 and O2 of 67. Sodium 139, potassium 4.3, chloride 101, bicarbonate 24, BUN 24, creatinine 0.7. Blood sugar is 365, calcium is 9.5. TSH is 0.58. Influenza swab was positive for influenza A. Microbiology: Blood cultures have been negative. Has abdominal and pelvic CT done on admission, which shows right-sided ventral hernia, 75 in width, there is no evidence of obstruction. IMPRESSION AND PLAN: Influenza infection with probably some sinusitis, acute bronchitis, history of renal insufficiency, hypertension, degenerative joint disease, history of coronary artery disease, history of coronary stent, may have a component of sleep apnea syndrome. I agree with the present management. Continue antibiotics, steroids, inhaled bronchodilator. Continue Tamiflu. Keep isolation, supplemental oxygen, gastric prophylaxis, and deep venous thrombosis prophylaxis. Thank you and we will follow with you. Tiffanie Castrejon MD
[2018-01-11] MEDS: Albuterol-Ipratrop 3 mg / 0.5 (3 ml) UD IH SCH ×5 (02:55→23:29)
[2018-01-11] MEDS: Sodium Chloride 0.9% 1,000 ML IV SCH ×2 (05:46→19:54)
[2018-01-11] MEDS: Arformoterol 15 mcg/2 ml Inh Sol IH SCH ×2 (07:27→19:32)
[2018-01-11] MEDS: Budesonide 0.25 mg/2 ml Inhal Susp UD IH SCH ×2 (07:27→19:32)
[2018-01-11 07:40] LABS: HEMOGLOBIN 11.5 g/dL (12.0-16.0); MEAN CELL VOLUME 86.1 fl (80.0-105.0); MEAN CORPUSCULAR HEMOGLOBIN 27.1 pg (25.0-35.0); MEAN CORPUSCULAR HGB CONC 31.5 g/dl (31.0-37.0); MEAN PLATELET VOLUME 10.7 fl (7.0-11.0); RBC 4.24 10^6/uL (3.5-6.1); WHITE BLOOD COUNT 12.3 10^3/ul (4.5-11.0)
[2018-01-11] MEDS: Insulin Reg-LOW-Coverage SC SCH ×4 (07:47→22:36)
[2018-01-11 08:43] LABS: ALBUMIN 3.3 g/dL (3.0-4.8); ALT/SGPT 20 U/L (7-56); AST/SGOT 23 U/L (14-36); BLOOD UREA NITROGEN 26 mg/dL (7-21); CALCIUM 8.9 mg/dL (8.4-10.5); GFR AFRICAN-AMERICAN > 60; GFR NON-AFRICAN AMERICAN > 60
[2018-01-11] MEDS: Pantoprazole 40 mg EC Tab PO SCH (09:56)
[2018-01-11] MEDS: cefTRIAXone 1 gm 1 GM/100 ML BAG IVPB SCH (09:57)
[2018-01-11] MEDS: MethylPREDNISolone 40 mg Vial IVP SCH ×2 (09:57→22:00)
[2018-01-11] MEDS: Levothyroxine 50 MCG TAB PO SCH (10:03)
--- NOTE | 2018-01-11 11:36 | CP.PCM.PN ---
Subjective - Date & Time of Evaluation Date of Evaluation: 01/11/18 Time of Evaluation: 10:50 - Subjective Subjective: No fevers, resting well on a chair, no nausea, no abdominal pain. Objective - Vital Signs/Intake and Output Vital Signs (last 24 hours): Temp Pulse Resp BP Pulse Ox 98.4 F 82 18 147/78 94 L 01/10/18 16:00 01/10/18 16:00 01/10/18 16:00 01/11/18 09:56 01/10/18 16:00 Intake and Output: 01/11/18 01/11/18 06:59 18:59 Intake Total 600 1200 Balance 600 1200 - Medications Medications: Current Medications Albuterol/Ipratropium (Duoneb 3 Mg/0.5 Mg (3 Ml) Ud) 3 ml IH [id number] [facility] Last Admin: 01/11/18 07:27 Dose: 3 ml Amlodipine Besylate (Norvasc) 10 mg PO DAILY [facility] Last Admin: 01/11/18 09:56 Dose: 10 mg Arformoterol Tartrate (Brovana) 15 mcg IH [id number] [facility] Last Admin: 01/11/18 07:27 Dose: 15 mcg Aspirin (Ecotrin) 81 mg PO DAILY [facility] Last Admin: 01/11/18 09:55 Dose: 81 mg Atorvastatin Calcium (Lipitor) 40 mg PO HS [facility] Last Admin: 01/10/18 21:51 Dose: 40 mg Budesonide (Pulmicort Respules) 0.25 mg IH [id number] [facility] Last Admin: 01/11/18 07:27 Dose: 0.25 mg Doxycycline Hyclate (Doryx) 100 mg PO Q12 [facility] PRN Reason: Protocol Last Admin: 01/11/18 09:55 Dose: 100 mg Glimepiride (Amaryl) 1 mg PO BID [facility] Last Admin: 01/11/18 09:54 Dose: 1 mg Sodium Chloride (Sodium Chloride 0.9%) 1,000 mls @ 100 mls/hr IV .Q10H [facility] Last Admin: 01/11/18 05:46 Dose: 100 mls/hr Ceftriaxone Sodium (Rocephin 1 Gram Ivpb) 1 gm in 100 mls @ 100 mls/hr IVPB DAILY [facility] PRN Reason: Protocol Last Admin: 01/11/18 09:57 Dose: 100 mls/hr Insulin Human Regular (Humulin R Low) 0 units SC ACHS [facility] PRN Reason: Protocol Last Admin: 01/11/18 07:47 Dose: 4 units Latanoprost (Xalatan Opht) 0 ml OD HS [facility] Last Admin: 01/10/18 21:51 Dose: 2.5 ml Levothyroxine Sodium (Synthroid) 50 mcg PO DAILY [facility] Last Admin: 01/11/18 10:03 Dose: 50 mcg Loratadine (Claritin) 10 mg PO DAILY [facility] PRN Reason: Sinus symptoms Losartan Potassium (Cozaar) 50 mg PO DAILY [facility] Last Admin: 01/11/18 09:55 Dose: 50 mg Meclizine HCl (Antivert) 25 mg PO PRN PRN PRN Reason: Dizziness Metformin HCl (Glucophage) 1,000 mg PO BID [facility] Last Admin: 01/11/18 09:55 Dose: 1,000 mg Methylprednisolone (Solu-Medrol) 40 mg IVP Q12 [facility] Last Admin: 01/11/18 09:57 Dose: 40 mg Oseltamivir Phosphate (Tamiflu Cap) 75 mg PO BID [facility] PRN Reason: Protocol Stop: 01/14/18 20:18 Last Admin: 01/11/18 09:58 Dose: 75 mg Pantoprazole Sodium (Protonix Ec Tab) 40 mg PO DAILY [facility] Last Admin: 01/11/18 09:56 Dose: 40 mg Sitagliptin Phosphate (Januvia) 50 mg PO DAILY [facility] Last Admin: 01/11/18 09:56 Dose: 50 mg - Labs Labs: 01/11/18 07:00 01/11/18 07:00 - Constitutional Appears: Chronically Ill - Head Exam Head Exam: NORMAL INSPECTION - ENT Exam ENT Exam: Mucous Membranes Moist - Neck Exam Neck Exam: absent: Meningismus - Respiratory Exam Respiratory Exam: Decreased Breath Sounds - Cardiovascular Exam Cardiovascular Exam: +S1, +S2 - GI/Abdominal Exam GI & Abdominal Exam: Soft. absent: Tenderness Additional comments: reducible abdominal ventral hernia Assessment and Plan - Assessment and Plan (Free Text) Plan: Assessment Systemic viral illness with Influenza A, R/O rhinosinusitis CAD S/P PCI DM GERD history of ventral abdominal hernia bilateral cataracts history of glaucoma hypothyroidism esophageal ulcer diverticulosis S/P appendectomy S/P hysterectomy S/P bilateral knee replacement Plan continue Tamiflu day 2 and will need to complete 5 days on Rocephin day 2 - blood cx have been negative reviewed CXR which does not show infiltrates
[2018-01-11] MEDS ORDERED: Albuterol-Ipratrop 3 mg / 0.5 (3 ml) UD IH PRN (13:23)
[2018-01-11] MEDS: Latanoprost 2.5 ml Opht Soln OD SCH (22:36)
--- NOTE | 2018-01-12 01:22 | PN ---
DATE: 01/11/2018 SUBJECTIVE: She is out of bed to chair. Feels better. Still has some headache, rhinitis, cough, nausea. No leg pain or leg swelling. OBJECTIVE: GENERAL: In no acute distress. VITAL SIGNS: Temperature is 98, heart rate is 90, respiratory rate is 20, blood pressure 115/69, pulse ox of 97% on room air. HEENT: Moist mucous membrane. Crowded airway. NECK: Supple. No JVD. LUNGS: Have a fair airflow with rhonchi. HEART: S1, S2. ABDOMEN: Soft, nontender. No organomegaly. EXTREMITIES: No edema. NEUROLOGIC: Awake, alert. Follows simple command. MEDICATIONS: She is on Amaryl 1 mg twice a day, Antivert 25 mg p.r.n., Brovana inhaled twice a day, Claritin 10 mg at bedtime p.r.n., Cozaar 50 mg daily, doxycycline 100 mg twice a day, DuoNeb q.6 hours [id number], Ecotrin 81 mg daily, Ferrex 150 mg daily, metformin 1000 mg twice a day, insulin coverage, Januvia 50 mg daily, Lipitor 40 mg daily, Norvasc 10 mg daily, Protonix 40 mg daily, Pulmicort inhaled twice a day, Rocephin 1 g IV daily, IV fluid normal saline 100 mL per hour, Solu-Medrol 40 mg q.12 hours, Synthroid 50 mcg daily, Tamiflu 1 capsule 75 mg twice a day and Xalatan ophthalmic solution p.r.n. LABORATORY DATA: Hemoglobin 11.5, hematocrit 36.5, WBC 12.3, platelet is 281. Sodium 139, potassium , chloride 105, bicarbonate 22, BUN 26, creatinine 0.8, glucose 396, calcium is 8.9. AST 23, ALT 20, alk phos is 66. Albumin is 3.3. Microbiology: Blood culture has been negative. IMPRESSION AND PLAN: Influenza infection with probably some sinusitis, acute bronchitis, renal insufficiency, hypertension, degenerative joint disease, coronary artery disease, history of coronary stent, may have sleep apnea syndrome. We will decrease Solu-Medrol to 20 mg daily, inhaled bronchodilators. Continue Tamiflu. Gastric prophylaxis. Fall precaution. Thank you and we will follow with you. Tiffanie Castrejon MD [facility] # [id number]
[2018-01-12] MEDS: Albuterol-Ipratrop 3 mg / 0.5 (3 ml) UD IH SCH ×5 (04:52→19:57)
[2018-01-12] MEDS: Arformoterol 15 mcg/2 ml Inh Sol IH SCH ×2 (07:13→19:57)
[2018-01-12] MEDS: Budesonide 0.25 mg/2 ml Inhal Susp UD IH SCH ×2 (07:13→19:57)
[2018-01-12 07:22] LABS: HEMOGLOBIN 11.1 g/dL (12.0-16.0); MEAN CELL VOLUME 86.7 fl (80.0-105.0); MEAN CORPUSCULAR HEMOGLOBIN 27.3 pg (25.0-35.0); MEAN CORPUSCULAR HGB CONC 31.5 g/dl (31.0-37.0); MEAN PLATELET VOLUME 10.9 fl (7.0-11.0); RBC 4.06 10^6/uL (3.5-6.1); RED CELL DISTRIBUTION WIDTH 15.1 % (11.5-14.5); WHITE BLOOD COUNT 12.3 10^3/ul (4.5-11.0)
[2018-01-12 07:49] LABS: BLOOD UREA NITROGEN 25 mg/dL (7-21); CALCIUM 9.1 mg/dL (8.4-10.5); GFR AFRICAN-AMERICAN > 60; GFR NON-AFRICAN AMERICAN > 60
[2018-01-12] MEDS: Insulin Reg-LOW-Coverage SC SCH ×4 (08:08→21:59)
[2018-01-12] MEDS: Iron Complex Polysacch 150mg Cap PO SCH (10:41)
[2018-01-12] MEDS: Pantoprazole 40 mg EC Tab PO SCH (10:42)
[2018-01-12] MEDS: cefTRIAXone 1 gm 1 GM/100 ML BAG IVPB SCH (10:42)
[2018-01-12] MEDS: MethylPREDNISolone 40 mg Vial IVP SCH ×2 (10:43→21:58)
[2018-01-12] MEDS: Levothyroxine 50 MCG TAB PO SCH (10:44)
--- NOTE | 2018-01-12 12:45 | CP.PCM.PN ---
Subjective - Date & Time of Evaluation Date of Evaluation: 01/12/18 Time of Evaluation: 11:25 - Subjective Subjective: Still with cough, no fevers, no phlegm, not in distress, no abdominal pain, no diarrhea. Objective - Vital Signs/Intake and Output Vital Signs (last 24 hours): Temp Pulse Resp BP Pulse Ox 97.5 F L 103 H 20 136/73 99 01/12/18 07:53 01/12/18 10:40 01/12/18 07:53 01/12/18 10:42 01/12/18 07:53 Intake and Output: 01/12/18 01/12/18 06:59 18:59 Intake Total 120 Balance 120 - Medications Medications: Current Medications Albuterol/Ipratropium (Duoneb 3 Mg/0.5 Mg (3 Ml) Ud) 3 ml IH [id number] [facility] Last Admin: 01/12/18 11:21 Dose: 3 ml Albuterol/Ipratropium (Duoneb 3 Mg/0.5 Mg (3 Ml) Ud) 3 ml IH Q2H PRN PRN Reason: Shortness of Breath Amlodipine Besylate (Norvasc) 10 mg PO DAILY [facility] Last Admin: 01/12/18 10:42 Dose: 10 mg Arformoterol Tartrate (Brovana) 15 mcg IH [id number] [facility] Last Admin: 01/12/18 07:13 Dose: 15 mcg Aspirin (Ecotrin) 81 mg PO DAILY [facility] Last Admin: 01/12/18 10:41 Dose: 81 mg Atorvastatin Calcium (Lipitor) 40 mg PO HS [facility] Last Admin: 01/11/18 22:36 Dose: 40 mg Budesonide (Pulmicort Respules) 0.25 mg IH [id number] [facility] Last Admin: 01/12/18 07:13 Dose: 0.25 mg Doxycycline Hyclate (Doryx) 100 mg PO Q12 [facility] PRN Reason: Protocol Last Admin: 01/12/18 10:40 Dose: 100 mg Glimepiride (Amaryl) 1 mg PO BID [facility] Last Admin: 01/12/18 10:39 Dose: 1 mg Sodium Chloride (Sodium Chloride 0.9%) 1,000 mls @ 100 mls/hr IV .Q10H [facility] Last Admin: 01/11/18 19:54 Dose: 100 mls/hr Ceftriaxone Sodium (Rocephin 1 Gram Ivpb) 1 gm in 100 mls @ 100 mls/hr IVPB DAILY [facility] PRN Reason: Protocol Last Admin: 01/12/18 10:42 Dose: 100 mls/hr Insulin Human Regular (Humulin R Low) 0 units SC ACHS [facility] PRN Reason: Protocol Last Admin: 01/12/18 11:55 Dose: 4 units Latanoprost (Xalatan Opht) 0 ml OD HS [facility] Last Admin: 01/11/18 22:36 Dose: 2.5 ml Levothyroxine Sodium (Synthroid) 50 mcg PO DAILY [facility] Last Admin: 01/12/18 10:44 Dose: 50 mcg Loratadine (Claritin) 10 mg PO DAILY [facility] PRN Reason: Sinus symptoms Losartan Potassium (Cozaar) 50 mg PO DAILY [facility] Last Admin: 01/12/18 10:40 Dose: 50 mg Meclizine HCl (Antivert) 25 mg PO PRN PRN PRN Reason: Dizziness Metformin HCl (Glucophage) 1,000 mg PO BID [facility] Last Admin: 01/12/18 10:41 Dose: 1,000 mg Methylprednisolone (Solu-Medrol) 20 mg IVP Q12 [facility] Last Admin: 01/12/18 10:43 Dose: 20 mg Oseltamivir Phosphate (Tamiflu Cap) 75 mg PO BID [facility] PRN Reason: Protocol Stop: 01/14/18 20:18 Last Admin: 01/12/18 10:47 Dose: 75 mg Pantoprazole Sodium (Protonix Ec Tab) 40 mg PO DAILY [facility] Last Admin: 01/12/18 10:42 Dose: 40 mg Polysaccharide Iron Complex (Ferrex-150) 150 mg PO DAILY [facility] Last Admin: 01/12/18 10:41 Dose: 150 mg Sitagliptin Phosphate (Januvia) 50 mg PO DAILY [facility] Last Admin: 01/12/18 10:41 Dose: 50 mg - Labs Labs: 01/12/18 07:00 01/12/18 07:00 - Constitutional Appears: Chronically Ill - Head Exam Head Exam: NORMAL INSPECTION - ENT Exam ENT Exam: Mucous Membranes Moist - Neck Exam Neck Exam: absent: Lymphadenopathy, Meningismus - Respiratory Exam Respiratory Exam: Decreased Breath Sounds - Cardiovascular Exam Cardiovascular Exam: +S1, +S2 - GI/Abdominal Exam GI & Abdominal Exam: Soft. absent: Tenderness Additional comments: ventral abdominal hernia reducible Assessment and Plan - Assessment and Plan (Free Text) Plan: Assessment Systemic viral illness with Influenza A, R/O rhinosinusitis CAD S/P PCI DM GERD history of ventral abdominal hernia bilateral cataracts history of glaucoma hypothyroidism esophageal ulcer diverticulosis S/P appendectomy S/P hysterectomy S/P bilateral knee replacement Plan continue Tamiflu day 3 and will need to complete 5 days on Rocephin day 3 - blood cx have been negative - may switch to PO Augmentin to complete 7 days when ready for discharge reviewed CXR which does not show infiltrates
[2018-01-12] MEDS ORDERED: Sodium Chloride 0.9% 1,000 ML IV SCH (14:30)
--- NOTE | 2018-01-12 19:23 | PN ---
DATE: SUBJECTIVE: Patient is seen and examined at the bedside, still on isolation, still coughing but better shortness of breath on going to the bathroom. No fever, no chills. Chest pain with coughing. No hematuria, no hematochezia. No swelling of the leg. No dysuria. PHYSICAL EXAMINATION: VITAL SIGNS: Temperature is 97.5, pulse is 103, respirations 20, blood pressure 136/76, pulse oximetry 99. HEENT: Head: Normocephalic, atraumatic. Eyes: PERRLA. Extraocular muscles are intact. Conjunctivae clear. Nose: Patent. Mucous membrane moist. NECK: Supple. No carotid bruit. No JVD or thyromegaly. CHEST: Bilaterally symmetrical. HEART: S1 and S2 positive. LUNGS: Clear to auscultation. ABDOMEN: Soft. Bowel sounds present. No organomegaly. EXTREMITIES: No edema. No cyanosis. NEUROLOGIC: Patient is awake and alert. Moving all four extremities. No focal deficits. MEDICATIONS: Albuterol, Norvasc, Brovana, Ecotrin, Lipitor, Pulmicort, doxycycline, Amaryl, NS, ceftriaxone, insulin, eye drops, Claritin, Cozaar, Glucophage. LABORATORY DATA: White blood cell 12.3, hemoglobin 11.1, hematocrit 35.2, platelets 278. Sodium 138, potassium 5.1, BUN 25, creatinine 0.7, glucose 388. ASSESSMENT AND PLAN: April Fabian is an 87-year-old lady with leukocytosis, anemia; hyperkalemia; hyperglycemia; systemic viral illness with influenza type A; rhinosinusitis; coronary artery disease; diabetes mellitus, uncontrolled; gastroesophageal reflux disease; dyspepsia; history of anterior abdominal wall hernia; bilateral cataracts and glaucoma; hypothyroidism, esophageal ulcers and diverticulosis; status post appendectomy, hysterectomy, bilateral knee replacement. PLAN: Continue Tamiflu. Today is day 3 of the 5. Appreciating Dr. Christopher Hirsch's input on Rocephin, day 3. Blood cultures have been negative. augmentin p.o. at bedtime to complete 7 days. Chest x-ray reviewed does not show any infiltrates. Continue present treatment. Appreciating Dr. Castrejon's and Dr. Do's input. We will follow up. Mirian Yanez MD [facility] # [id number] [place]
[2018-01-12] MEDS: Latanoprost 2.5 ml Opht Soln OD SCH (21:58)
[2018-01-13] MEDS: Albuterol-Ipratrop 3 mg / 0.5 (3 ml) UD IH SCH ×4 (01:06→11:07)
--- NOTE | 2018-01-13 01:27 | PN ---
PULMONARY PROGRESS NOTE DATE: 01/12/2018 REFERRING PHYSICIAN: Mirian Yanez MD SUBJECTIVE: Patient is lying in the bed, head at 45 degrees. Mild headache. No rhinitis. Mild cough. No nausea. No vomiting, diarrhea, leg pain, or leg swelling. OBJECTIVE: GENERAL: In no acute distress. VITAL SIGNS: Temp is 98, heart rate is 91, respiratory rate is 20, blood pressure 122/60, pulse ox 99% on room air. HEENT: Moist mucous membranes. Crowded airway. Mallampati score is 4. NECK: Supple. No JVD. LUNGS: Have fair airflow with rhonchi. HEART: S1 and S2. ABDOMEN: Soft and nontender. No organomegaly. EXTREMITIES: No edema. NEUROLOGIC: Awake, alert. Follows simple command. MEDICATIONS: She is on Amaryl 1 mg twice a day, Antivert 25 mg p.o. p.r.n., Brovana inhaled twice a day, Claritin 10 mg daily, Cozaar 50 mg daily, doxycycline 100 mg twice a day, DuoNeb q. 12 hours p.r.n. and q. 4 hour round the clock, Ecotrin 81 mg daily, Ferrex 150 mg daily, metformin 1000 mg twice a day, insulin coverage, Januvia 50 mg daily, Lipitor 40 mg daily, Norvasc 10 mg daily, Protonix 40 mg daily, Pulmicort inhaled twice a day, Rocephin 1 gm IV daily, IV fluid normal saline 50 mL per hour, Solu-Medrol 20 mg q. 12 hours, Synthroid 50 mcg daily, Tamiflu 75 mg twice a day. LABORATORY DATA: Shows hemoglobin 11.1, hematocrit 35.2, WBC 12.3, platelet is 278. Sodium 138, potassium 5.1, chloride 104, bicarbonate 23, BUN 25, creatinine 0.7, glucose 388, calcium is 9.1. Microbiology, blood culture is negative. IMPRESSION AND PLAN: Influenza infection with probably some sinusitis, acute bronchitis, renal insufficiency, hypertension, degenerative joint disease, coronary artery disease, history of coronary stent, may have sleep apnea syndrome. Pulmonary point of view, doing okay. Continue intravenous Solu-Medrol, keep head at 45 degrees, antibiotics, Tamiflu, gastric prophylaxis. Aspiration precaution. Fall precaution. Thank you, and we will follow with you. Tiffanie Castrejon MD [facility] # [id number]
[2018-01-13 06:21] LABS: MEAN CELL VOLUME 86.5 fl (80.0-105.0); MEAN CORPUSCULAR HGB CONC 31.2 g/dl (31.0-37.0); MEAN PLATELET VOLUME 10.7 fl (7.0-11.0); RBC 4.08 10^6/uL (3.5-6.1); RED CELL DISTRIBUTION WIDTH 15.3 % (11.5-14.5); WHITE BLOOD COUNT 9.4 10^3/ul (4.5-11.0)
[2018-01-13 07:05] LABS: BLOOD UREA NITROGEN 24 mg/dL (7-21); GFR AFRICAN-AMERICAN > 60; GFR NON-AFRICAN AMERICAN > 60
[2018-01-13] MEDS: Arformoterol 15 mcg/2 ml Inh Sol IH SCH (08:03)
[2018-01-13] MEDS: Budesonide 0.25 mg/2 ml Inhal Susp UD IH SCH (08:05)
[2018-01-13 08:22] VITALS: BP 148/88; PULSE 93; RESP 21; TEMP 97.5; O2SAT 95
[2018-01-13] MEDS: Insulin Reg-LOW-Coverage SC SCH ×2 (08:43→12:52)
--- NOTE | 2018-01-13 09:57 | PN ---
DATE: 01/11/2018 SUBJECTIVE: The patient is an 87-year-old female. The patient was seen and examined on the bedside. Still coughing. Having shortness of breath. Chest pain with coughing and abdominal pain. No fever, no chills. No nausea, vomiting or diarrhea. No hematuria or hematochezia. No swelling of the leg. PHYSICAL EXAMINATION: VITAL SIGNS: Temperature 98.4, pulse 82, respiratory rate 18, blood pressure 147/78, pulse oximetry 94. HEENT: Head: Normocephalic, atraumatic. Eyes: PERRLA. Extraocular muscles intact. Conjunctivae clear. Nose: Patent. Mucous membranes moist. NECK: Supple. No carotid bruits. No JVD or thyromegaly. CHEST: Bilaterally symmetrical. LUNGS: Positive wheezing bilaterally. HEART: S1 and S2 positive. ABDOMEN: Soft. Bowel sounds present. No organomegaly. EXTREMITIES: No edema. No cyanosis. NEUROLOGIC: The patient is awake and alert. Moving all 4 extremities. No focal deficit. MEDICATIONS: Albuterol, amlodipine, Brovana, Ecotrin, Lipitor, Pulmicort, doxycycline, Amaryl, NS, Rocephin, insulin, Synthroid, Claritin, Cozaar, Antivert, Tamiflu, Protonix, Januvia. LABORATORY DATA: White blood cell 12.3, hemoglobin 11.5, hematocrit 36.5, platelets 281. Sodium 139, potassium 5.1, BUN 26, creatinine 0.8, glucose 396. ASSESSMENT AND PLAN: Ms. April Fabian is an 87-year-old lady with leukocytosis, anemia, hyperkalemia, hyperglycemia, systemic viral syndrome with influenza A, rhinosinusitis, coronary artery disease, history of cardiac stenting, GERD, dyspepsia, ventral abdominal hernia, bilateral cataracts, history of glaucoma, hypothyroidism, diverticulosis, appendectomy, hysterectomy, bilateral knee replacement. The patient is getting Tamiflu day 2 out of the 5, that is Rocephin on day 2, blood cultures have been negative. Chest x-ray shows no other infiltrates. Patient is on isolation.. History of renal insufficiency, hypertension, degenerative joint disease, sleep apnea syndrome, continue steroid, inhaled bronchodilators, keep isolation administered oxygen p.r.n., gastric prophylaxis, deep venous thrombosis prophylaxis. Repeat labs. We will follow. Mirian Yanez MD [facility] # [id number] [place]
[2018-01-13] MEDS: MethylPREDNISolone 40 mg Vial IVP SCH (10:24)
[2018-01-13] MEDS: Levothyroxine 50 MCG TAB PO SCH (10:25)
[2018-01-13] MEDS: Iron Complex Polysacch 150mg Cap PO SCH (10:25)
[2018-01-13] MEDS: Pantoprazole 40 mg EC Tab PO SCH (10:25)
[2018-01-13] MEDS: cefTRIAXone 1 gm 1 GM/100 ML BAG IVPB SCH (10:26)
--- NOTE | 2018-01-13 12:06 | CP.PCM.PN ---
Subjective - Date & Time of Evaluation Date of Evaluation: 01/13/18 Time of Evaluation: 09:30 - Subjective Subjective: Comfortable, no fevers, cough is a little better, breathing a little better but still with some wheezing. Objective - Vital Signs/Intake and Output Vital Signs (last 24 hours): Temp Pulse Resp BP Pulse Ox 97.8 F 91 H 19 122/60 99 01/12/18 16:00 01/12/18 16:00 01/12/18 16:00 01/12/18 16:00 01/12/18 16:00 Intake and Output: 01/12/18 01/13/18 18:59 06:59 Intake Total 600 Balance 600 - Medications Medications: Current Medications Albuterol/Ipratropium (Duoneb 3 Mg/0.5 Mg (3 Ml) Ud) 3 ml IH [id number] [facility] Last Admin: 01/13/18 05:00 Dose: Not Given Albuterol/Ipratropium (Duoneb 3 Mg/0.5 Mg (3 Ml) Ud) 3 ml IH Q2H PRN PRN Reason: Shortness of Breath Amlodipine Besylate (Norvasc) 10 mg PO DAILY [facility] Last Admin: 01/12/18 10:42 Dose: 10 mg Arformoterol Tartrate (Brovana) 15 mcg IH [id number] [facility] Last Admin: 01/12/18 19:57 Dose: 15 mcg Aspirin (Ecotrin) 81 mg PO DAILY [facility] Last Admin: 01/12/18 10:41 Dose: 81 mg Atorvastatin Calcium (Lipitor) 40 mg PO HS [facility] Last Admin: 01/12/18 21:57 Dose: 40 mg Budesonide (Pulmicort Respules) 0.25 mg IH [id number] [facility] Last Admin: 01/12/18 19:57 Dose: 0.25 mg Doxycycline Hyclate (Doryx) 100 mg PO Q12 [facility] PRN Reason: Protocol Last Admin: 01/12/18 21:58 Dose: 100 mg Glimepiride (Amaryl) 1 mg PO BID [facility] Last Admin: 01/12/18 17:26 Dose: 1 mg Ceftriaxone Sodium (Rocephin 1 Gram Ivpb) 1 gm in 100 mls @ 100 mls/hr IVPB DAILY [facility] PRN Reason: Protocol Last Admin: 01/12/18 10:42 Dose: 100 mls/hr Sodium Chloride (Sodium Chloride 0.9%) 1,000 mls @ 50 mls/hr IV .Q20H [facility] Insulin Human Regular (Humulin R Low) 0 units SC ACHS [facility] PRN Reason: Protocol Last Admin: 01/12/18 21:59 Dose: 3 units Latanoprost (Xalatan Opht) 0 ml OD HS [facility] Last Admin: 01/12/18 21:58 Dose: 2.5 ml Levothyroxine Sodium (Synthroid) 50 mcg PO DAILY [facility] Last Admin: 01/12/18 10:44 Dose: 50 mcg Loratadine (Claritin) 10 mg PO DAILY PRN PRN Reason: Sinus symptoms Losartan Potassium (Cozaar) 50 mg PO DAILY [facility] Last Admin: 01/12/18 10:40 Dose: 50 mg Meclizine HCl (Antivert) 25 mg PO PRN PRN PRN Reason: Dizziness Metformin HCl (Glucophage) 1,000 mg PO BID [facility] Last Admin: 01/12/18 17:27 Dose: 1,000 mg Methylprednisolone (Solu-Medrol) 20 mg IVP Q12 [facility] Last Admin: 01/12/18 21:58 Dose: 20 mg Oseltamivir Phosphate (Tamiflu Cap) 75 mg PO BID [facility] PRN Reason: Protocol Stop: 01/14/18 20:18 Last Admin: 01/12/18 17:27 Dose: 75 mg Pantoprazole Sodium (Protonix Ec Tab) 40 mg PO DAILY [facility] Last Admin: 01/12/18 10:42 Dose: 40 mg Polysaccharide Iron Complex (Ferrex-150) 150 mg PO DAILY [facility] Last Admin: 01/12/18 10:41 Dose: 150 mg Sitagliptin Phosphate (Januvia) 50 mg PO DAILY [facility] Last Admin: 01/12/18 10:41 Dose: 50 mg - Labs Labs: 01/13/18 05:30 01/12/18 07:00 - Constitutional Appears: Non-toxic, Chronically Ill - Head Exam Head Exam: NORMAL INSPECTION - ENT Exam ENT Exam: Mucous Membranes Moist - Neck Exam Neck Exam: absent: Meningismus - Respiratory Exam Respiratory Exam: Decreased Breath Sounds, Wheezes (mild) - Cardiovascular Exam Cardiovascular Exam: +S1, +S2 - GI/Abdominal Exam GI & Abdominal Exam: Soft. absent: Tenderness Assessment and Plan - Assessment and Plan (Free Text) Plan: Assessment Systemic viral illness with Influenza A, R/O rhinosinusitis CAD S/P PCI DM GERD history of ventral abdominal hernia bilateral cataracts history of glaucoma hypothyroidism esophageal ulcer diverticulosis S/P appendectomy S/P hysterectomy S/P bilateral knee replacement Plan continue Tamiflu day 4 and will need to complete 5 days on Rocephin day 4 - blood cx have been negative - may switch to PO Augmentin to complete 7 days when ready for discharge reviewed CXR which does not show infiltrates
--- NOTE | 2018-01-13 14:46 | CP.PCM.DIS ---
<MarleneSherylcorinna Naranjo - Last Filed: 01/13/18 14:42> Provider - Provider Date of Admission: 01/10/18 16:18 Attending physician: Mirian Yanez MD Primary care physician: Larissa Melton MD Consults: [place] - Dr. Cash [place] - Dr. Richards Time Spent in preparation of Discharge (in minutes): 45 Diagnosis - Discharge Diagnosis (1) Abdominal hernia Status: Acute (2) Dehydration Status: Acute (3) Failure to thrive Status: Acute (4) Fever Status: Acute (5) Influenza Status: Acute (6) Hiatal hernia Status: Acute (7) Physical deconditioning Status: Acute Hospital Course - Lab Results Lab Results: Most Recent Lab Values WBC 9.4 10^3/ul (4.5-11.0) D 01/13/18 05:30 RBC 4.08 10^6/uL (3.5-6.1) 01/13/18 05:30 Hgb 11.0 g/dL (12.0-16.0) L 01/13/18 05:30 Hct 35.3 % (36.0-48.0) L 01/13/18 05:30 MCV 86.5 fl (80.0-105.0) 01/13/18 05:30 MCH 27.0 pg (25.0-35.0) 01/13/18 05:30 MCHC 31.2 g/dl (31.0-37.0) 01/13/18 05:30 RDW 15.3 % (11.5-14.5) H 01/13/18 05:30 Plt Count 278 10^3/uL (120.0-450.0) 01/13/18 05:30 MPV 10.7 fl (7.0-11.0) 01/13/18 05:30 Gran % 78.1 % (50.0-68.0) H 01/09/18 13:45 Lymph % (Auto) 12.6 % (22.0-35.0) L 01/09/18 13:45 [place] % (Auto) 9.0 % (1.0-6.0) H 01/09/18 13:45 Eos % (Auto) 0.2 % (1.5-5.0) L 01/09/18 13:45 Baso % (Auto) 0.1 % (0.0-3.0) 01/09/18 13:45 Gran # 10.15 (1.4-6.5) H 01/09/18 13:45 Lymph # (Auto) 1.6 (1.2-3.4) 01/09/18 13:45 [place] # (Auto) 1.2 (0.1-0.6) H 01/09/18 13:45 Eos # (Auto) 0.0 (0.0-0.7) 01/09/18 13:45 Baso # (Auto) 0.01 K/mm3 (0.0-2.0) 01/09/18 13:45 pO2 67 mm/Hg (30-55) H 01/09/18 13:45 VBG pH 7.46 (7.32-7.43) H 01/09/18 13:45 VBG pCO2 37.0 (40-60) L 01/09/18 13:45 VBG HCO3 26.3 mmol/l (21-28) 01/09/18 13:45 VBG Total CO2 27.4 mmol.L (22-28) 01/09/18 13:45 VBG O2 Sat (Calc) 95.6 % (40-65) H 01/09/18 13:45 VBG Base Excess 2.5 mmol/L (0.0-2.0) H 01/09/18 13:45 VBG Potassium 4.3 mmol/L (3.6-5.2) 01/09/18 13:45 Sodium 130.0 mmol/L (132-148) L 01/09/18 13:45 Chloride 98.0 mmol/L (98-107) 01/09/18 13:45 Glucose 250 mg/dl (65-105) H 01/09/18 13:45 Lactate 1.3 mmol/L (0.7-2.1) 01/09/18 13:45 FiO2 21.0 % 01/09/18 13:45 Sodium 141 mmol/L (132-148) 01/13/18 05:30 Potassium 4.9 mmol/L (3.6-5.0) 01/13/18 05:30 Chloride 106 mmol/L (98-107) 01/13/18 05:30 Carbon Dioxide 21 mmol/L (21-33) 01/13/18 05:30 Anion Gap 18 (10-20) 01/13/18 05:30 BUN 24 mg/dL (7-21) H 01/13/18 05:30 Creatinine 0.8 mg/dl (0.7-1.2) 01/13/18 05:30 Est GFR ( Amer) > 60 01/13/18 05:30 Est GFR (Non-Af Amer) > 60 01/13/18 05:30 POC Glucose (mg/dL) 312 mg/dL (65-110) H 01/13/18 11:14 Random Glucose 296 mg/dL (70-110) H 01/13/18 05:30 Hemoglobin A1c 10.5 % (4.2-6.5) H 01/09/18 13:45 Calcium 9.0 mg/dL (8.4-10.5) 01/13/18 05:30 Magnesium 1.3 mg/dL (1.7-2.2) L 01/09/18 13:45 Iron 22 ug/dL (45-180) L 01/09/18 13:45 TIBC 303 ug/dL (265-497) 01/09/18 13:45 % Saturation 7 % (20-55) L 01/09/18 13:45 Total Bilirubin 0.3 mg/dL (0.2-1.3) 01/11/18 07:00 Direct Bilirubin 0.4 mg/dL (0.0-0.4) 01/09/18 13:45 AST 23 U/L (14-36) 01/11/18 07:00 ALT 20 U/L (7-56) 01/11/18 07:00 Alkaline Phosphatase 66 U/L (38-126) 01/11/18 07:00 NT-Pro-B Natriuret Pep 492 pg/mL (0-450) H 01/09/18 13:45 Total Protein 6.5 g/dL (5.8-8.3) 01/11/18 07:00 Albumin 3.3 g/dL (3.0-4.8) 01/11/18 07:00 Globulin 3.2 gm/dL 01/11/18 07:00 Albumin/Globulin Ratio 1.0 (1.1-1.8) L 01/11/18 07:00 Vitamin B12 888 pg/mL (239-931) 01/09/18 13:45 Folate 16.1 ng/mL 01/09/18 13:45 TSH 3rd Generation 0.58 mIU/mL (0.46-4.68) 01/10/18 05:30 Venous Blood Potassium 4.3 mmol/L (3.6-5.2) 01/09/18 13:45 Urine Color Yellow (YELLOW) 01/09/18 14:40 Urine Appearance Clear (CLEAR) 01/09/18 14:40 Urine pH 6.0 (4.7-8.0) 01/09/18 14:40 Ur Specific [place] 1.025 (1.005-1.035) 01/09/18 14:40 Urine Protein 30 mg/dL (<30 mg/dL) H 01/09/18 14:40 Urine Glucose (UA) 500 mg/dL (NEGATIVE) H 01/09/18 14:40 Urine Ketones 15 mg/dL (NEGATIVE) H 01/09/18 14:40 Urine Blood Trace-intact (NEGATIVE) H 01/09/18 14:40 Urine Nitrate Negative (NEGATIVE) 01/09/18 14:40 Urine Bilirubin Negative (NEGATIVE) 01/09/18 14:40 Urine Urobilinogen 0.2 E.U./dL (<1 E.U./dL) 01/09/18 14:40 Ur Leukocyte Esterase Negative Santos/uL (NEGATIVE) 01/09/18 14:40 Urine RBC 0 - 2 /hpf (0-2) 01/09/18 14:40 Urine WBC Negative /hpf (0-6) 01/09/18 14:40 Ur Epithelial Cells 0 - 2 /hpf (0-5) 01/09/18 14:40 Urine Bacteria Small (NEG) 01/09/18 14:40 Influenza Typ A,B (EIA) Pos for influenza a (NEGATIVE) H 01/09/18 14:00 - Hospital Course Hospital Course: 87 yr female w/ history of DM, CAD x 2 stents, GERD, GI bleed, abdominal hernia, cataracts, hypothyroidism, HTN, diverticulitis, esophageal ulcer, incontinence, & bilateral knee replacements. Patient re-admitted to [facility] after recent discharge for new onset influenza A, failure to thrive, dehydration , and abdominal hernia. Patient treated with PO doxycyline & tamiflu & IV rochephin. For respiratory issues, IV solumedryl will continue to be tapered. Due to deconditioning and IV steroid tapering, patient being discharged to TCU for PT/OT. Reviewed: CT abd/pelvis = R sided ventral hernia 7.5 cm, contains portion of the transverse colon CXR = cardiomegaly, pacemaker ECG = ABNORMAL, SR w PAC, septal infarct - Date & Time of H&P Date of H&P: 01/13/18 Time of H&P: 11:30 Discharge Exam - Head Exam Head Exam: NORMAL INSPECTION - Eye Exam Eye Exam: EOMI, Normal appearance, PERRL Pupil Exam: NORMAL ACCOMODATION, PERRL - Neck Exam Neck exam: Full Rom - Respiratory Exam Respiratory Exam: Clear to PA & Lateral, NORMAL BREATHING PATTERN - Cardiovascular Exam Cardiovascular Exam: +S1, +S2 - GI/Abdominal Exam GI & Abdominal Exam: Hernia, Soft - Extremities Exam Extremities exam: normal capillary refill, normal inspection - Neurological Exam Neurological exam: Alert, Oriented x3 - Psychiatric Exam Psychiatric exam: Normal Affect, Normal Mood - Skin Skin Exam: Dry, Intact, Normal Color, Warm Discharge Plan - Follow Up Plan Condition: STABLE Disposition: TRANSF TO SNF Instructions: Dehydration, Adult (DC), Flu, Adult (DC), Abdominal Hernia (DC), Fever, Adult (DC), Failure to Thrive, Adult (DC), Dehydration (DC), Dehydration (GEN), Open Herniorrhaphy (DC), Laparoscopic Herniorrhaphy (DC), Inguinal Hernia (DC) Additional Instructions: Patient discharged to TCU for continued antibiotic therapy, physical therapy, and strengthening. Referrals: Larissa Melton MD [Primary Care Provider] - <Mirian Yanez - Last Filed: 01/14/18 12:53> Provider - Provider Date of Admission: 01/10/18 16:18 Attending physician: Mirian Yanez MD Primary care physician: Larissa Melton MD Hospital Course - Lab Results Lab Results: Most Recent Lab Values WBC 9.4 10^3/ul (4.5-11.0) D 01/13/18 05:30 RBC 4.08 10^6/uL (3.5-6.1) 01/13/18 05:30 Hgb 11.0 g/dL (12.0-16.0) L 01/13/18 05:30 Hct 35.3 % (36.0-48.0) L 01/13/18 05:30 MCV 86.5 fl (80.0-105.0) 01/13/18 05:30 MCH 27.0 pg (25.0-35.0) 01/13/18 05:30 MCHC 31.2 g/dl (31.0-37.0) 01/13/18 05:30 RDW 15.3 % (11.5-14.5) H 01/13/18 05:30 Plt Count 278 10^3/uL (120.0-450.0) 01/13/18 05:30 MPV 10.7 fl (7.0-11.0) 01/13/18 05:30 Gran % 78.1 % (50.0-68.0) H 01/09/18 13:45 Lymph % (Auto) 12.6 % (22.0-35.0) L 01/09/18 13:45 [place] % (Auto) 9.0 % (1.0-6.0) H 01/09/18 13:45 Eos % (Auto) 0.2 % (1.5-5.0) L 01/09/18 13:45 Baso % (Auto) 0.1 % (0.0-3.0) 01/09/18 13:45 Gran # 10.15 (1.4-6.5) H 01/09/18 13:45 Lymph # (Auto) 1.6 (1.2-3.4) 01/09/18 13:45 [place] # (Auto) 1.2 (0.1-0.6) H 01/09/18 13:45 Eos # (Auto) 0.0 (0.0-0.7) 01/09/18 13:45 Baso # (Auto) 0.01 K/mm3 (0.0-2.0) 01/09/18 13:45 pO2 67 mm/Hg (30-55) H 01/09/18 13:45 VBG pH 7.46 (7.32-7.43) H 01/09/18 13:45 VBG pCO2 37.0 (40-60) L 01/09/18 13:45 VBG HCO3 26.3 mmol/l (21-28) 01/09/18 13:45 VBG Total CO2 27.4 mmol.L (22-28) 01/09/18 13:45 VBG O2 Sat (Calc) 95.6 % (40-65) H 01/09/18 13:45 VBG Base Excess 2.5 mmol/L (0.0-2.0) H 01/09/18 13:45 VBG Potassium 4.3 mmol/L (3.6-5.2) 01/09/18 13:45 Sodium 130.0 mmol/L (132-148) L 01/09/18 13:45 Chloride 98.0 mmol/L (98-107) 01/09/18 13:45 Glucose 250 mg/dl (65-105) H 01/09/18 13:45 Lactate 1.3 mmol/L (0.7-2.1) 01/09/18 13:45 FiO2 21.0 % 01/09/18 13:45 Sodium 141 mmol/L (132-148) 01/13/18 05:30 Potassium 4.9 mmol/L (3.6-5.0) 01/13/18 05:30 Chloride 106 mmol/L (98-107) 01/13/18 05:30 Carbon Dioxide 21 mmol/L (21-33) 01/13/18 05:30 Anion Gap 18 (10-20) 01/13/18 05:30 BUN 24 mg/dL (7-21) H 01/13/18 05:30 Creatinine 0.8 mg/dl (0.7-1.2) 01/13/18 05:30 Est GFR ( Amer) > 60 01/13/18 05:30 Est GFR (Non-Af Amer) > 60 01/13/18 05:30 POC Glucose (mg/dL) 314 mg/dL (65-110) H 01/14/18 05:38 Random Glucose 296 mg/dL (70-110) H 01/13/18 05:30 Hemoglobin A1c 10.5 % (4.2-6.5) H 01/09/18 13:45 Calcium 9.0 mg/dL (8.4-10.5) 01/13/18 05:30 Magnesium 1.3 mg/dL (1.7-2.2) L 01/09/18 13:45 Iron 22 ug/dL (45-180) L 01/09/18 13:45 TIBC 303 ug/dL (265-497) 01/09/18 13:45 % Saturation 7 % (20-55) L 01/09/18 13:45 Total Bilirubin 0.3 mg/dL (0.2-1.3) 01/11/18 07:00 Direct Bilirubin 0.4 mg/dL (0.0-0.4) 01/09/18 13:45 AST 23 U/L (14-36) 01/11/18 07:00 ALT 20 U/L (7-56) 01/11/18 07:00 Alkaline Phosphatase 66 U/L (38-126) 01/11/18 07:00 NT-Pro-B Natriuret Pep 492 pg/mL (0-450) H 01/09/18 13:45 Total Protein 6.5 g/dL (5.8-8.3) 01/11/18 07:00 Albumin 3.3 g/dL (3.0-4.8) 01/11/18 07:00 Globulin 3.2 gm/dL 01/11/18 07:00 Albumin/Globulin Ratio 1.0 (1.1-1.8) L 01/11/18 07:00 Vitamin B12 888 pg/mL (239-931) 01/09/18 13:45 Folate 16.1 ng/mL 01/09/18 13:45 TSH 3rd Generation 0.58 mIU/mL (0.46-4.68) 01/10/18 05:30 Venous Blood Potassium 4.3 mmol/L (3.6-5.2) 01/09/18 13:45 Urine Color Yellow (YELLOW) 01/09/18 14:40 Urine Appearance Clear (CLEAR) 01/09/18 14:40 Urine pH 6.0 (4.7-8.0) 01/09/18 14:40 Ur Specific [place] 1.025 (1.005-1.035) 01/09/18 14:40 Urine Protein 30 mg/dL (<30 mg/dL) H 01/09/18 14:40 Urine Glucose (UA) 500 mg/dL (NEGATIVE) H 01/09/18 14:40 Urine Ketones 15 mg/dL (NEGATIVE) H 01/09/18 14:40 Urine Blood Trace-intact (NEGATIVE) H 01/09/18 14:40 Urine Nitrate Negative (NEGATIVE) 01/09/18 14:40 Urine Bilirubin Negative (NEGATIVE) 01/09/18 14:40 Urine Urobilinogen 0.2 E.U./dL (<1 E.U./dL) 01/09/18 14:40 Ur Leukocyte Esterase Negative Santos/uL (NEGATIVE) 01/09/18 14:40 Urine RBC 0 - 2 /hpf (0-2) 01/09/18 14:40 Urine WBC Negative /hpf (0-6) 01/09/18 14:40 Ur Epithelial Cells 0 - 2 /hpf (0-5) 01/09/18 14:40 Urine Bacteria Small (NEG) 01/09/18 14:40 Influenza Typ A,B (EIA) Pos for influenza a (NEGATIVE) H 01/09/18 14:00 - Hospital Course Hospital Course: PT IS SEEn and examined at bed side , looking comfortable . agreed all above . chart ,meds and labs noted , will f/u
--- NOTE | 2018-01-13 23:32 | PN ---
DATE: 01/13/2018 PULMONARY PROGRESS NOTE REFERRING PHYSICIAN: Mirian Yanez MD SUBJECTIVE: She is sitting up in the bed. Night was unremarkable. Still has some rhinitis, cough. Shortness of breath is better. No nausea, no vomiting, no diarrhea. No leg pain or leg swelling. OBJECTIVE: GENERAL: In no acute distress. VITAL SIGNS: Temperature is 98, heart rate is 93, respiratory rate is 20, blood pressure 148/88, pulse ox 95% on room air. HEENT: Moist mucous membranes. Crowded airway. NECK: Supple. No JVD. LUNGS: Have fair airflow with rhonchi. HEART: S1 and S2. ABDOMEN: Soft and nontender. No organomegaly. EXTREMITIES: No edema. NEUROLOGIC: Awake, alert. Follows simple command. MEDICATIONS: Reviewed and noted no new change in medication reported. LABORATORY DATA: Shows hemoglobin 11.0, hematocrit 35.3, WBC 9.4, platelet is 278. Sodium 140, potassium 4.9, chloride 106, bicarbonate 21, BUN 24, creatinine 0.8, glucose 296, calcium 9.0. Microbiology, blood culture has been negative. IMPRESSION AND PLAN: Influenza infection with acute bronchitis, sinusitis, renal insufficiency, hypertension, degenerative joint disease, coronary artery disease, history of coronary stent, may have sleep apnea syndrome. She has a history of snoring, daytime sleepy and tired. From a Pulmonary point of view, she is doing okay. I spoke to floor nurse practitioner in detail. The patient will benefit from TICU type of services, elderly female with influenza, high risk for morbidity, mortality. Sleep apnea precautions. Fall precaution. Thank you and we will follow with you. Tiffanie Castrejon MD
== END 2018-01-13 14:44 | DRG 194 ==
LOC: ED 13:31 → ERH 17:40 → 3RNO 23:17 → OBSVTOIN 01-10 16:18 → 3RNO 01-11 17:15
PROVIDERS: ADMIT Internal Medicine; ATTEND Internal Medicine
PROC: 3E0F7GC Introduction of Other Therapeutic Substance into Respiratory Tract, Via Natural or Artificial Opening (ICD-10-PCS; principal; 2018-01-10)
DX: J10.1 Influenza due to other identified influenza virus with other respiratory manifestations (principal); K22.10 Ulcer of esophagus without bleeding; E11.65 Type 2 diabetes mellitus with hyperglycemia; E87.5 Hyperkalemia; E11.36 Type 2 diabetes mellitus with diabetic cataract; E86.0 Dehydration; E03.9 Hypothyroidism, unspecified; E78.00 Pure hypercholesterolemia, unspecified; I25.10 Atherosclerotic heart disease of native coronary artery without angina pectoris; R62.7 Adult failure to thrive; K43.9 Ventral hernia without obstruction or gangrene; K21.9 Gastro-esophageal reflux disease without esophagitis; J20.9 Acute bronchitis, unspecified; K44.9 Diaphragmatic hernia without obstruction or gangrene; D64.9 Anemia, unspecified; I10 Essential (primary) hypertension; K57.90 Diverticulosis of intestine, part unspecified, without perforation or abscess without bleeding; N28.9 Disorder of kidney and ureter, unspecified; Z96.653 Presence of artificial knee joint, bilateral; Z90.710 Acquired absence of both cervix and uterus; Z95.5 Presence of coronary angioplasty implant and graft

== ENCOUNTER 2018-01-13 14:44 | Inpatient (IN) | payer OTHER, MEDICAID ==
[2018-01-13] MEDS ORDERED: Albuterol-Ipratrop 3 mg / 0.5 (3 ml) UD IH PRN (15:43)
[2018-01-13] MEDS ORDERED: Sodium Chloride 0.9% 1,000 ML IV SCH (16:30)
[2018-01-13] MEDS: Insulin Reg-LOW-Coverage SC SCH ×2 (17:32→22:11)
[2018-01-13 17:46] VITALS: BMI 27.6
[2018-01-13] MEDS ORDERED: Influenza Vaccine 60 mcg/0.5 mL SYR (4YR UP) IM ONE (17:46)
[2018-01-13] MEDS ORDERED: Pneumococcal 23-Valent Vaccine IM ONE (17:46)
--- NOTE | 2018-01-13 19:45 | CP.PCM.PCO ---
Physician Communication Note - Physician Communication Note Physician Communication Note: Ventral Hernia NON OBSTRUCTING-No surgery Pravin
[2018-01-13] MEDS: Arformoterol 15 mcg/2 ml Inh Sol IH SCH (20:22)
[2018-01-13] MEDS: Albuterol-Ipratrop 3 mg / 0.5 (3 ml) UD IH SCH (20:23)
[2018-01-13] MEDS: Budesonide 0.25 mg/2 ml Inhal Susp UD IH SCH (20:23)
[2018-01-13] MEDS: POLYETHYLENE GLYCOL 3350 17 GM/Dose PACKET PO SCH (21:24)
[2018-01-13] MEDS: MethylPREDNISolone 40 mg Vial IVP SCH (21:25)
[2018-01-14] MEDS: Albuterol-Ipratrop 3 mg / 0.5 (3 ml) UD IH SCH ×7 (01:24→23:59)
[2018-01-14] MEDS: cefTRIAXone 1 gm 1 GM/100 ML BAG IVPB SCH (05:25)
[2018-01-14] MEDS: Pantoprazole 40 mg EC Tab PO SCH (05:25)
[2018-01-14] MEDS: Levothyroxine 50 MCG TAB PO SCH (05:26)
[2018-01-14] MEDS: Latanoprost 2.5 ml Opht Soln OD SCH ×2 (05:26→21:42)
[2018-01-14] MEDS: Insulin Reg-LOW-Coverage SC SCH ×4 (06:55→21:57)
[2018-01-14] MEDS: Arformoterol 15 mcg/2 ml Inh Sol IH SCH ×2 (07:38→20:37)
[2018-01-14] MEDS: Budesonide 0.25 mg/2 ml Inhal Susp UD IH SCH ×2 (07:39→20:38)
[2018-01-14 08:13] LABS: GRAN # 7.23 (1.4-6.5); GRAN % 77.3 % (50.0-68.0); HEMOGLOBIN 11.4 g/dL (12.0-16.0); LYMPH # 1.1 (1.2-3.4); LYMPH % 12.2 % (22.0-35.0); MEAN CELL VOLUME 85.2 fl (80.0-105.0); MEAN CORPUSCULAR HEMOGLOBIN 27.2 pg (25.0-35.0); MEAN CORPUSCULAR HGB CONC 31.9 g/dl (31.0-37.0); MEAN PLATELET VOLUME 10.4 fl (7.0-11.0); MONO % 10.5 % (1.0-6.0); RBC 4.19 10^6/uL (3.5-6.1); WHITE BLOOD COUNT 9.4 10^3/ul (4.5-11.0)
[2018-01-14 08:30] LABS: ALB/GLOB RATIO 1.1 (1.1-1.8); ALBUMIN 3.2 g/dL (3.0-4.8); ALT/SGPT 27 U/L (7-56); AST/SGOT 20 U/L (14-36); BLOOD UREA NITROGEN 29 mg/dL (7-21); CALCIUM 9.1 mg/dL (8.4-10.5); GFR AFRICAN-AMERICAN > 60; GFR NON-AFRICAN AMERICAN > 60
[2018-01-14] MEDS ORDERED: Bisacodyl 5mg EC Tab PO ONE (10:00)
[2018-01-14] MEDS: MethylPREDNISolone 40 mg Vial IVP SCH ×2 (10:39→17:26)
[2018-01-14] MEDS: Iron Complex Polysacch 150mg Cap PO SCH (10:41)
[2018-01-14] MEDS: POLYETHYLENE GLYCOL 3350 17 GM/Dose PACKET PO SCH ×2 (10:41→17:25)
--- NOTE | 2018-01-14 11:21 | CP.PCM.CON ---
History of Present Illness - History of Present Illness History of Present Illness: 87 year old female with PMH of CAD S/P PCI, DM, GERD, history of ventral abdominal hernia, bilateral cataracts, history of glaucoma, hypothyroidism, esophageal ulcer, diverticulosis, S/P appendectomy, S/P hysterectomy, S/P bilateral knee replacement was initially admitted in [facility] because of cough, fever and abdominal pain. She was found to have Influenza and probable sinusitis. Her ventral abdominal hernia was reducible and not found to be strangulated. She has been doing well with antiviral and antibiotic meds and is now transferred to [facility] for continued medical therapy and physical therapy. Infectious Diseases consult is requested to continue her therapy. Currently her cough is somewhat improved as well as her breathing. She still complains of lack of energy and she is not getting the foods that she wants. She denies fever or chills, no sore throat, no headache or dizziness, no nausea or vomiting , no diarrhea, no dysuria, no dysphagia, no chest pain, no blurring of vision. Review of Systems - Review of Systems All systems: reviewed and no additional remarkable complaints except (as per HPI ) Past Patient History - Infectious Disease Hx of Infectious Diseases: None - Tetanus Immunizations Tetanus Immunization: Unknown - Past Social History Smoking Status: Never Smoked - CARDIAC Hx Cardiac Disorders: Yes Hx Hypercholesterolemia: Yes Hx Hypertension: Yes - PULMONARY Hx Respiratory Disorders: No - NEUROLOGICAL Hx Dizziness: Yes - HEENT Hx Cataracts: Yes (B/L repair) Hx Glaucoma: Yes - RENAL Hx Chronic Kidney Disease: No - ENDOCRINE/METABOLIC Hx Diabetes Mellitus Type 2: Yes - HEMATOLOGICAL/ONCOLOGICAL Hx Blood Disorders: No - INTEGUMENTARY Hx Dermatological Problems: No - MUSCULOSKELETAL/RHEUMATOLOGICAL Hx Falls: Yes (past) - GASTROINTESTINAL Hx Gastrointestinal Disorders: Yes (esophageal ulcers, diverticulitis) - GENITOURINARY/GYNECOLOGICAL Hx Reproductive Disorders: (partial hyst) - PSYCHIATRIC Hx Psychophysiologic Disorder: No Hx Depression: No Hx Emotional Abuse: No Hx Physical Abuse: No - SURGICAL HISTORY Hx Appendectomy: Yes Hx Cardiac Catheterization: Yes Hx Coronary Stent: Yes (x2) Hx Joint Replacement: Yes (b/l knee replacements) Hx Musculoskeletal Surgery: Yes Hx Orthopedic Surgery: Yes Other/Comment: b/l knee replacements - ANESTHESIA Hx Anesthesia: Yes Hx Anesthesia Reactions: No Hx Malignant Hyperthermia: No Meds Allergies/Adverse Reactions: Allergies Allergy/AdvReac Type Severity Reaction Status Date / Time No Known Allergies Allergy Verified 01/09/18 13:50 - Medications Medications: Current Medications Albuterol/Ipratropium (Duoneb 3 Mg/0.5 Mg (3 Ml) Ud) 3 ml IH Q2H PRN; Protocol PRN Reason: Shortness of Breath Albuterol/Ipratropium (Duoneb 3 Mg/0.5 Mg (3 Ml) Ud) 3 ml IH [id number] URBAN PRN Reason: Protocol Last Admin: 01/14/18 07:38 Dose: 3 ml Amlodipine Besylate (Norvasc) 10 mg PO DAILY U[facility] PRN Reason: Protocol Arformoterol Tartrate (Brovana) 15 mcg IH [id number] URBAN PRN Reason: Protocol Last Admin: 01/14/18 07:38 Dose: 15 mcg Aspirin (Ecotrin) 81 mg PO 0800 [facility]AN PRN Reason: Protocol Last Admin: 01/14/18 08:18 Dose: 81 mg Atorvastatin Calcium (Lipitor) 40 mg PO DIN URBAN PRN Reason: Protocol Last Admin: 01/13/18 17:33 Dose: 40 mg Bisacodyl (Dulcolax) 5 mg PO ONCE ONE Stop: 01/14/18 10:01 Budesonide (Pulmicort Respules) 0.25 mg IH [id number] URBAN PRN Reason: Protocol Last Admin: 01/14/18 07:39 Dose: 0.25 mg Doxycycline Hyclate (Doryx) 100 mg PO Q12 U[facility]AN PRN Reason: Protocol Last Admin: 01/13/18 21:24 Dose: 100 mg Glimepiride (Amaryl) 1 mg PO BID URBAN PRN Reason: Protocol Last Admin: 01/13/18 17:33 Dose: 1 mg Ceftriaxone Sodium (Rocephin 1 Gram Ivpb) 1 gm in 100 mls @ 100 mls/hr IVPB 0600 URBAN PRN Reason: Protocol Last Admin: 01/14/18 05:25 Dose: 100 mls/hr Sodium Chloride (Sodium Chloride 0.9%) 1,000 mls @ 50 mls/hr IV .Q20H URBAN Last Admin: 01/13/18 21:25 Dose: 50 mls/hr Insulin Human Regular (Humulin R Low) 0 units SC ACHS URBAN PRN Reason: Protocol Last Admin: 01/14/18 06:55 Dose: 4 units Latanoprost (Xalatan Opht) 0 ml OD HS URBAN PRN Reason: Protocol Last Admin: 01/14/18 05:26 Dose: Not Given Levothyroxine Sodium (Synthroid) 50 mcg PO 0600 URBAN PRN Reason: Protocol Last Admin: 01/14/18 05:26 Dose: 50 mcg Loratadine (Claritin) 10 mg PO DAILY PRN; Protocol PRN Reason: Sinus symptoms Losartan Potassium (Cozaar) 50 mg PO DAILY URBAN PRN Reason: Protocol Meclizine HCl (Antivert) 25 mg PO Q6 PRN; Protocol PRN Reason: Dizziness Metformin HCl (Glucophage) 1,000 mg PO BID URBAN PRN Reason: Protocol Last Admin: 01/13/18 17:34 Dose: 1,000 mg Methylprednisolone (Solu-Medrol) 20 mg IVP Q12 URBAN PRN Reason: Protocol Last Admin: 01/13/18 21:25 Dose: 20 mg Oseltamivir Phosphate (Tamiflu Cap) 75 mg PO BID URBAN PRN Reason: Protocol Stop: 01/14/18 18:01 Last Admin: 01/13/18 17:34 Dose: 75 mg Pantoprazole Sodium (Protonix Ec Tab) 40 mg PO 0600 URBAN PRN Reason: Protocol Last Admin: 01/14/18 05:25 Dose: 40 mg Polyethylene Glycol (Miralax) 17 gm PO BID [facility] Last Admin: 01/13/18 21:24 Dose: 17 gm Polysaccharide Iron Complex (Ferrex-150) 150 mg PO DAILY URBAN PRN Reason: Protocol Sitagliptin Phosphate (Januvia) 50 mg PO DAILY URBAN PRN Reason: Protocol Physical Exam - Constitutional Appears: Non-toxic, Chronically Ill - Head Exam Head Exam: NORMAL INSPECTION - ENT Exam ENT Exam: Mucous Membranes Moist - Neck Exam Neck exam: Negative for: Meningismus - Respiratory Exam Respiratory Exam: Decreased Breath Sounds - Cardiovascular Exam Cardiovascular Exam: +S1, +S2 - GI/Abdominal Exam GI & Abdominal Exam: Soft. absent: Tenderness Results - Vital Signs Recent Vital Signs: Last Vital Signs Temp 97.9 F 01/13/18 17:46 Pulse 56 L 01/13/18 17:46 Resp 20 01/13/18 17:46 BP 127/62 01/13/18 17:46 Pulse Ox 95 01/13/18 17:46 - Labs Result Diagrams: 01/14/18 08:00 01/14/18 08:00 Assessment & Plan - Assessment and Plan (Free Text) Plan: Assessment Systemic viral illness with Influenza A, R/O rhinosinusitis CAD S/P PCI DM GERD history of ventral abdominal hernia bilateral cataracts history of glaucoma hypothyroidism esophageal ulcer diverticulosis S/P appendectomy S/P hysterectomy S/P bilateral knee replacement Plan continue Tamiflu day 5 and will need to complete 5 days on Rocephin day 5 - blood cx have been negative - may switch to PO Augmentin to complete 7 days reviewed CXR which does not show infiltrates
[2018-01-15] MEDS: Albuterol-Ipratrop 3 mg / 0.5 (3 ml) UD IH SCH ×5 (03:00→21:01)
--- NOTE | 2018-01-15 04:59 | HP ---
CHIEF COMPLETE: Coughing, shortness of breath, fatigue. HISTORY OF PRESENT ILLNESS: Ms. April Fabian is an 87-year-old lady with past medical history of multiple medical problems, coronary artery disease, diabetes mellitus, hypothyroidism, diverticulosis, esophageal ulcers, COPD, bilateral knee replacement, actually was admitted couple of weeks ago in [facility], got better, went home, came back with influenza and probably sinusitis, now admitted on the medical floor. ID consult called with Christopher Do. Tamiflu antibiotics started. The patient started feeling better. Now we brought her to TCU for continuity of care, physical therapy and for her deconditioning. PAST MEDICAL HISTORY: Coronary artery disease, status post PCI, diabetes mellitus, GERD, history of ventral abdominal hernia, bilateral cataract surgery, history of glaucoma, hypothyroidism, esophageal ulcer, diverticulosis, status post appendectomy, hysterectomy, bilateral knee replacement. ALLERGIES: THE PATIENT IS NOT ALLERGIC TO ANY MEDICATIONS. FAMILY HISTORY: Father and mother noncontributory. HABITS: No smoking, no drug, no ethanol. HOME MEDICATIONS: Reviewed by me. DuoNeb, Norvasc, Brovana, aspirin, Lipitor, bisacodyl, Pulmicort, doxycycline, Amaryl, Rocephin, insulin, Cozaar. REVIEW OF SYSTEMS: The patient is seen and examined at the bedside. Still coughing, having shortness of breath, but is better. Anterior abdominal wall hernia is reducible. No fever, no chills, no headache, no dizziness. Complaining that she is not getting the type of food she wants. Discussion done with the patient's nursing staff. PHYSICAL EXAMINATION: VITAL SIGNS: Temperature 97.9, pulse 56, respiratory rate 20, blood drudykaci393/62, pulse oximetry 95. HEENT: Head normocephalic, atraumatic. Eyes PERRLA. Extraocular muscles intact. Conjunctivae clear. Nose patent. Mucous membrane moist. NECK: Supple. No carotid bruit. No JVD or thyromegaly. CHEST: Bilaterally symmetrical. HEART: S1 and S2 positive. LUNGS: Clear to auscultation. ABDOMEN: Soft. Bowel sounds present. No organomegaly. EXTREMITIES: No edema. No cyanosis. NEUROLOGIC: The patient is awake and alert. Moving all 4 extremities. No focal deficits. LABORATORY DATA: White blood cells 9.4, hemoglobin 11.4, hematocrit 35.7, platelets 255. Sodium 138, potassium 5.3, BUN 29, creatinine 0.8, glucose 308. ASSESSMENT AND PLAN: Ms. April Fabian is an 87-year-old female with anemia; hyperkalemia; renal insufficiency; hyperglycemia; has systemic viral syndrome with influenza A; rhinosinusitis; coronary artery disease; diabetes mellitus; gastroesophageal reflux disease; dyspepsia; history of ventral abdominal wall hernia, is reducible. I appreciated Dr. Michelle's communication report. Bilateral cataract surgery, history of glaucoma, hypothyroidism, esophageal ulcers, diverticulosis, history of appendectomy, hysterectomy, bilateral knee replacement. Continue Tamiflu, day 5, will need only 5 days and she is done with that. Rocephin day 5. Blood cultures have been negative. Augmentin to complete the 7 days. Chest x-ray do not show any pneumonia. Deconditioned, getting physical therapy. Repeat labs. We will follow up. Mirian Yanez MD MTDMartin
[2018-01-15] MEDS: Pantoprazole 40 mg EC Tab PO SCH (05:32)
[2018-01-15] MEDS: MethylPREDNISolone 40 mg Vial IVP SCH ×2 (05:33→17:41)
[2018-01-15] MEDS: Levothyroxine 50 MCG TAB PO SCH (05:33)
[2018-01-15] MEDS: cefTRIAXone 1 gm 1 GM/100 ML BAG IVPB SCH (05:33)
[2018-01-15] MEDS: Insulin Reg-LOW-Coverage SC SCH ×4 (06:51→23:00)
--- NOTE | 2018-01-15 06:55 | CON ---
DATE: REFERRING PHYSICIAN: Mirian Yanez MD. REASON FOR CONSULT: Cough and shortness of breath. HISTORY OF PRESENT ILLNESS: This is a 87-year-old female known to me from acute side of the hospital with past medical history significant for hypertension, hypothyroidism, degenerative joint disease, coronary artery disease, history of coronary stent comes into ER with headache, cough, shortness of breath, found to have influenza infection, started on Tamiflu, presently admitted to TICU to continue care. She is lying in the bed. Had some headache, rhinitis and cough. No hemoptysis, . No hematuria, no diarrhea reported. PAST MEDICAL HISTORY: As per history of present illness. ALLERGIES: None known. SOCIAL HISTORY: Nonsmoker, nondrinker. FAMILY HISTORY: No significant cardiopulmonary disease reported. MEDICATIONS: She is on Amaryl 1 mg twice a day, Antivert 25 mg q. 6h. p.r.n., Brovana inhaled twice a day, Claritin 10 mg daily, Cozaar 50 mg daily, doxycycline mg twice a day, albuterol/Atrovent nebulizers q. 12h. p.r.n. and q.4h. round the clock, Ecotrin 81 mg daily, Ferrex 150 mg daily, metformin 1000 mg twice a day, Januvia 50 mg daily, Lipitor 40 mg daily, MiraLax 17 g twice a day, Norvasc 10 mg daily, Protonix 40 mg daily, Pulmicort inhaled twice a day, Rocephin 1 g daily, Solu-Medrol 20 mg q.12h., Synthroid 50 mcg daily. REVIEW OF SYSTEMS: Had some headache, rhinitis, cough. No nausea, no vomiting. No diarrhea, leg pain, leg swelling. PHYSICAL EXAMINATION GENERAL: Lying in the bed, in no acute distress. VITAL SIGNS: Temperature is 98, heart rate is 80, respiratory rate is 18, blood pressure 114/61, pulse oximetry 100% on 2 liters nasal cannula. HEENT: Moist mucous membrane. Crowded airway. Mallampati score is 4. NECK: Supple. No JVD. LUNGS: Have fair airflow with rhonchi. HEART: S1, S2. ABDOMEN: Soft, nontender. No organomegaly. EXTREMITIES: There is no edema. NEUROLOGICAL: Awake, alert, follows simple commands. LABORATORY DATA: Reviewed, it shows hemoglobin 11.4, hematocrit 35.7, WBC 9.4, platelets is 255,000. Sodium 138, potassium 4.3, chloride 103, bicarbonate 27, BUN 29, creatinine 0.8, glucose 276, calcium 9.1, total bili 0.4, AST 20, ALT 27, alkaline phosphatase 53. Albumin is 3.2. Microbiology: Blood culture is negative. IMPRESSION AND PLAN 1. Influenza infection. 2. Bronchitis. 3. Sinusitis. 4. Renal insufficiency. 5. Hypertension. 6. Degenerative joint disease. 7. Coronary artery disease, history of coronary stent. 8. Sleep apnea syndrome. Pulmonary point of view, doing okay. Keep her on prednisone drip. Continue Tamiflu ,inhaled bronchodilator, aspiration precaution. Gastric prophylaxis, DVT prophylaxis. Fall precaution and we will follow with you. Tiffanie Castrejon MD
[2018-01-15] MEDS: Budesonide 0.5 mg/2 ml Inhal Susp UD IH SCH ×2 (07:26→21:01)
[2018-01-15] MEDS ORDERED: Arformoterol 15 mcg/2 ml Inh Sol IH SCH (08:00)
[2018-01-15] MEDS: Iron Complex Polysacch 150mg Cap PO SCH (09:55)
[2018-01-15] MEDS: POLYETHYLENE GLYCOL 3350 17 GM/Dose PACKET PO SCH (09:56)
[2018-01-15] MEDS: Docusate-Senna 50 mg-8.6 mg Tab PO SCH (09:57)
--- NOTE | 2018-01-15 15:17 | PN ---
DATE: 01/15/2018 PULMONARY PROGRESS NOTE REFERRING PHYSICIAN: Mirian Yanez MD. SUBJECTIVE: The patient is sitting on side of the bed, just finished her dinner. Feels better. Decreased headache. Decreased rhinitis. Cough is better. No shortness of breath. No chest pain. No nausea. No vomiting, diarrhea, leg pain, leg swelling. OBJECTIVE: GENERAL: In no acute distress. VITAL SIGNS: Temp is 98, heart rate is 51, respiratory rate is 20, blood pressure 117/53, pulse ox 99% on nasal cannula. HEENT: Moist mucous membrane. Crowded airway. Mallampati score is 4. NECK: Supple. No JVD. LUNGS: Have a few scattered rhonchi. HEART: S1 and S2. ABDOMEN: Soft, nontender. No organomegaly. EXTREMITIES: There is no edema. NEUROLOGICAL: Awake and alert. Follows simple command. LABORATORY DATA: Reviewed and showed blood sugar this morning 246. MEDICATIONS: She is on Amaryl 2 mg twice a day, Antivert 25 mg q. 6 hours p.r.n., Claritin 10 mg daily, Cozaar 50 mg daily, doxycycline 100 mg twice a day, albuterol/Atrovent nebulizer q. 4 hours, Ecotrin 81 mg daily, Ferrex 150 mg daily, Glucophage 1000 mg twice a day, insulin coverage, Januvia 100 mg daily, Lipitor 40 mg daily, MiraLax 17 g daily, Norvasc 10 mg daily, Protonix 40 mg daily, Pulmicort inhaled twice a day, Rocephin 1 g IV daily, Senokot 1 tab daily, Solu-Medrol 20 mg twice a day, Synthroid 50 mcg daily. IMPRESSION AND PLAN: Influenza infection with acute bronchitis, sinusitis, renal insufficiency, hypertension, degenerative joint disease, coronary artery disease, sleep apnea syndrome. Pulmonary point of view, doing okay. Continue intravenous and inhaled bronchodilator, antibiotics, gastric prophylaxis, deep venous thrombosis prophylaxis. Fall precaution. Continue therapy. Thank you, and we will follow with you. Tiffanie Castrejon MD
--- NOTE | 2018-01-15 18:10 | CP.PCM.PN ---
<Sheryl Rosario - Last Filed: 01/15/18 18:06> Subjective - Date & Time of Evaluation Date of Evaluation: 01/15/18 Time of Evaluation: 11:40 - Subjective Subjective: Chief Complaint: fatigue 87 yr female w/ history of DM, CAD x 2 stents, GERD, GI bleed, abdominal hernia, cataracts, hypothyroidism, HTN, diverticulitis, esophageal ulcer, incontinence, & bilateral knee replacements. Patient re-admitted to [facility] after recent discharge for new onset influenza A, failure to thrive, dehydration , and abdominal hernia. Patient treated with PO doxycyline & tamiflu & IV rochephin. For respiratory issues, IV solumedryl will continue to be tapered. Due to deconditioning and IV steroid tapering, patient being treated in TCU for PT/OT. Today, pt seen at bedside. She states that she wishes to do PT later in the day because in the morning she is too tired. Denies any fever, chills, chest pain, shortness of breath, diarrhea, constipation, or urinary problems. Objective - Vital Signs/Intake and Output Vital Signs (last 24 hours): Temp Pulse Resp BP Pulse Ox 97.6 F 60 20 121/72 99 01/15/18 16:26 01/15/18 16:26 01/15/18 16:26 01/15/18 16:26 01/15/18 16:26 Intake and Output: 01/15/18 01/15/18 06:59 18:59 Intake Total 380 Balance 380 - Medications Medications: Current Medications Albuterol/Ipratropium (Duoneb 3 Mg/0.5 Mg (3 Ml) Ud) 3 ml IH [id number] URBAN PRN Reason: Protocol Last Admin: 01/15/18 15:42 Dose: 3 ml Amlodipine Besylate (Norvasc) 10 mg PO DAILY URBAN PRN Reason: Protocol Last Admin: 01/15/18 09:56 Dose: 10 mg Aspirin (Ecotrin) 81 mg PO 0800 [facility]AN PRN Reason: Protocol Last Admin: 01/15/18 09:55 Dose: 81 mg Atorvastatin Calcium (Lipitor) 40 mg PO DIN URBAN PRN Reason: Protocol Last Admin: 01/15/18 17:45 Dose: 40 mg Budesonide (Pulmicort Respules) 0.5 mg IH [id number] URBAN Last Admin: 01/15/18 07:26 Dose: 0.5 mg Doxycycline Hyclate (Doryx) 100 mg PO 0800,2000 URBAN PRN Reason: Protocol Last Admin: 01/15/18 09:54 Dose: 100 mg Glimepiride (Amaryl) 2 mg PO 0730,1730 URBAN PRN Reason: Protocol Last Admin: 01/15/18 17:41 Dose: 2 mg Ceftriaxone Sodium (Rocephin 1 Gram Ivpb) 1 gm in 100 mls @ 100 mls/hr IVPB 0600 URBAN PRN Reason: Protocol Stop: 01/16/18 06:01 Last Admin: 01/15/18 05:33 Dose: 100 mls/hr Insulin Human Regular (Humulin R Low) 0 units SC ACHS URBAN PRN Reason: Protocol Last Admin: 01/15/18 17:43 Dose: 3 units Latanoprost (Xalatan Opht) 0 ml OD HS URBAN PRN Reason: Protocol Last Admin: 01/14/18 21:42 Dose: 2.5 ml Levothyroxine Sodium (Synthroid) 50 mcg PO 0600 URBAN PRN Reason: Protocol Last Admin: 01/15/18 05:33 Dose: 50 mcg Loratadine (Claritin) 10 mg PO DAILY PRN; Protocol PRN Reason: Sinus symptoms Losartan Potassium (Cozaar) 50 mg PO DAILY URBAN PRN Reason: Protocol Last Admin: 01/15/18 09:53 Dose: 50 mg Meclizine HCl (Antivert) 25 mg PO Q6 PRN; Protocol PRN Reason: Dizziness Metformin HCl (Glucophage) 1,000 mg PO 0730,1730 URBAN PRN Reason: Protocol Last Admin: 01/15/18 17:41 Dose: 1,000 mg Methylprednisolone (Solu-Medrol) 20 mg IVP 0600,1800 [facility]AN PRN Reason: Protocol Last Admin: 01/15/18 17:41 Dose: 20 mg Pantoprazole Sodium (Protonix Ec Tab) 40 mg PO 0600 URBAN PRN Reason: Protocol Last Admin: 01/15/18 05:32 Dose: 40 mg Polyethylene Glycol (Miralax) 17 gm PO DAILY [facility] Last Admin: 01/15/18 09:56 Dose: 17 gm Polysaccharide Iron Complex (Ferrex-150) 150 mg PO DAILY [facility]AN PRN Reason: Protocol Last Admin: 01/15/18 09:55 Dose: 150 mg Senna/Docusate Sodium (Senokot S 50 Mg-8.6 Mg) 1 tab PO DAILY [facility] Last Admin: 01/15/18 09:57 Dose: 1 tab Sitagliptin Phosphate (Januvia) 100 mg PO DAILY [facility] PRN Reason: Protocol Last Admin: 01/15/18 09:56 Dose: 100 mg - Labs Labs: 01/14/18 08:00 01/14/18 08:00 - Constitutional Appears: No Acute Distress, Chronically Ill - Head Exam Head Exam: ATRAUMATIC, NORMAL INSPECTION, NORMOCEPHALIC - Eye Exam Eye Exam: EOMI, Normal appearance, PERRL Pupil Exam: NORMAL ACCOMODATION, PERRL - ENT Exam ENT Exam: Mucous Membranes Moist, Normal Exam - Neck Exam Neck Exam: Full ROM, Normal Inspection. absent: Lymphadenopathy - Respiratory Exam Respiratory Exam: Clear to Ausculation Bilateral, NORMAL BREATHING PATTERN - Cardiovascular Exam Cardiovascular Exam: REGULAR RHYTHM, +S1, +S2. absent: Murmur - GI/Abdominal Exam GI & Abdominal Exam: Soft, Hernia, Normal Bowel Sounds. absent: Tenderness - Extremities Exam Extremities Exam: Full ROM, Normal Capillary Refill, Normal Inspection. absent : Joint Swelling, Pedal Edema - Back Exam Back Exam: NORMAL INSPECTION - Neurological Exam Neurological Exam: Alert, Awake, Oriented x3 - Psychiatric Exam Psychiatric exam: Agitated, Anxious - Skin Skin Exam: Dry, Intact, Normal Color, Warm Assessment and Plan (1) Abdominal hernia Status: Acute (2) Dehydration Status: Acute (3) General weakness Status: Acute (4) Influenza Status: Acute (5) Physical deconditioning Status: Acute - Assessment and Plan (Free Text) Plan: Labs ordered. Due to patient increasing irritability, will monitor for possible UTI. s/p tamiflu. IV rocephin will be changed to PO. IV solumedryl. PO doxycycline. VTE/GI prophlyaxis. PT/OT on board. Aspiration precautions. Consults: Pulmo - Dr. Castrejon ID - Dr. Richards Reviewed: CT abd/pelvis = R sided ventral hernia 7.5 cm, contains portion of the transverse colon CXR = cardiomegaly, pacemaker ECG = ABNORMAL, SR w PAC, septal infarct <Mirian Yanez - Last Filed: 01/16/18 19:10> Objective - Vital Signs/Intake and Output Vital Signs (last 24 hours): Temp Pulse Resp BP Pulse Ox 97.9 F 91 H 18 120/65 98 01/16/18 17:38 01/16/18 17:38 01/16/18 17:38 01/16/18 17:38 01/16/18 17:38 - Medications Medications: Current Medications Albuterol/Ipratropium (Duoneb 3 Mg/0.5 Mg (3 Ml) Ud) 3 ml IH [id number] URBAN PRN Reason: Protocol Last Admin: 01/16/18 16:17 Dose: 3 ml Amlodipine Besylate (Norvasc) 10 mg PO DAILY [facility] PRN Reason: Protocol Last Admin: 01/16/18 09:22 Dose: 10 mg Aspirin (Ecotrin) 81 mg PO 0800 [facility] PRN Reason: Protocol Last Admin: 01/16/18 08:20 Dose: 81 mg Atorvastatin Calcium (Lipitor) 40 mg PO DIN [facility]AN PRN Reason: Protocol Last Admin: 01/16/18 17:44 Dose: 40 mg Budesonide (Pulmicort Respules) 0.5 mg IH [id number] U[facility]AN Last Admin: 01/16/18 07:16 Dose: 0.5 mg Doxycycline Hyclate (Doryx) 100 mg PO 0800,2000 [facility] PRN Reason: Protocol Last Admin: 01/16/18 08:20 Dose: 100 mg Glimepiride (Amaryl) 4 mg PO 0730,1730 [facility] PRN Reason: Protocol Last Admin: 01/16/18 17:44 Dose: 4 mg Insulin Human Regular (Humulin R Low) 0 units SC ACHS [facility]AN PRN Reason: Protocol Last Admin: 01/16/18 17:47 Dose: 5 units Latanoprost (Xalatan Opht) 0 ml OD HS [facility]AN PRN Reason: Protocol Last Admin: 01/15/18 21:05 Dose: 2.5 ml Levothyroxine Sodium (Synthroid) 50 mcg PO 0600 [facility] PRN Reason: Protocol Last Admin: 01/16/18 05:23 Dose: 50 mcg Loratadine (Claritin) 10 mg PO DAILY PRN; Protocol PRN Reason: Sinus symptoms Losartan Potassium (Cozaar) 50 mg PO DAILY [facility] PRN Reason: Protocol Last Admin: 01/16/18 09:23 Dose: 50 mg Meclizine HCl (Antivert) 25 mg PO Q6 PRN; Protocol PRN Reason: Dizziness Metformin HCl (Glucophage) 1,000 mg PO 0730,1730 [facility] PRN Reason: Protocol Last Admin: 01/16/18 17:44 Dose: 1,000 mg Methylprednisolone (Solu-Medrol) 10 mg IVP 0600,1800 [facility] PRN Reason: Protocol Last Admin: 01/16/18 17:45 Dose: 10 mg Pantoprazole Sodium (Protonix Ec Tab) 40 mg PO 0600 [facility] PRN Reason: Protocol Last Admin: 01/16/18 05:24 Dose: 40 mg Polyethylene Glycol (Miralax) 17 gm PO DAILY [facility] Last Admin: 01/16/18 09:24 Dose: Not Given Polysaccharide Iron Complex (Ferrex-150) 150 mg PO DAILY [facility] PRN Reason: Protocol Last Admin: 01/16/18 09:23 Dose: 150 mg Senna/Docusate Sodium (Senokot S 50 Mg-8.6 Mg) 1 tab PO DAILY [facility] Last Admin: 01/16/18 09:24 Dose: Not Given Sitagliptin Phosphate (Januvia) 100 mg PO DAILY [facility] PRN Reason: Protocol Last Admin: 01/16/18 09:23 Dose: 100 mg - Labs Labs: 01/16/18 07:00 01/16/18 07:00 Assessment and Plan - Assessment and Plan (Free Text) Plan: 87 yr female w/ history of DM, CAD x 2 stents, GERD, GI bleed, abdominal hernia, cataracts, hypothyroidism, HTN, diverticulitis, esophageal ulcer, incontinence, & bilateral knee replacements. Patient re-admitted to [facility] after recent discharge for new onset influenza A, failure to thrive, dehydration , and abdominal hernia. Patient treated with PO doxycyline & tamiflu & IV rochephin. For respiratory issues, IV solumedryl will continue to be tapered. Due to deconditioning and IV steroid tapering, patient being treated in TCU for PT/OT. Today, pt seen at bedside. She states that she wishes to do PT later in the day because in the morning she is too tired. Denies any fever, chills, chest pain, shortness of breath, diarrhea, constipation, or urinary problems.pt is seen and examined at bed side , looking comfortable . agreed all above , chart ,meds and labs noted , will f/u
--- NOTE | 2018-01-15 18:15 | CP.PCM.PN ---
Subjective - Date & Time of Evaluation Date of Evaluation: 01/15/18 Time of Evaluation: 11:15 - Subjective Subjective: Comfortable, no fevers. Objective - Vital Signs/Intake and Output Vital Signs (last 24 hours): Temp Pulse Resp BP Pulse Ox 97.5 F L 61 18 114/61 100 01/14/18 17:34 01/14/18 17:34 01/14/18 17:34 01/14/18 17:34 01/14/18 17:34 Intake and Output: 01/15/18 01/15/18 06:59 18:59 Intake Total 380 Balance 380 - Medications Medications: Current Medications Albuterol/Ipratropium (Duoneb 3 Mg/0.5 Mg (3 Ml) Ud) 3 ml IH [id number] [facility] PRN Reason: Protocol Last Admin: 01/15/18 07:26 Dose: 3 ml Amlodipine Besylate (Norvasc) 10 mg PO DAILY U[facility]AN PRN Reason: Protocol Last Admin: 01/14/18 10:41 Dose: 10 mg Aspirin (Ecotrin) 81 mg PO 0800 [facility] PRN Reason: Protocol Last Admin: 01/14/18 08:18 Dose: 81 mg Atorvastatin Calcium (Lipitor) 40 mg PO DIN U[facility]AN PRN Reason: Protocol Last Admin: 01/14/18 17:23 Dose: 40 mg Budesonide (Pulmicort Respules) 0.5 mg IH [id number] [facility] Last Admin: 01/15/18 07:26 Dose: 0.5 mg Doxycycline Hyclate (Doryx) 100 mg PO 0800,2000 [facility] PRN Reason: Protocol Last Admin: 01/14/18 21:43 Dose: 100 mg Glimepiride (Amaryl) 2 mg PO 0730,1730 [facility] PRN Reason: Protocol Ceftriaxone Sodium (Rocephin 1 Gram Ivpb) 1 gm in 100 mls @ 100 mls/hr IVPB 0600 [facility]AN PRN Reason: Protocol Last Admin: 01/15/18 05:33 Dose: 100 mls/hr Insulin Human Regular (Humulin R Low) 0 units SC ACHS [facility] PRN Reason: Protocol Last Admin: 01/15/18 06:51 Dose: 2 units Latanoprost (Xalatan Opht) 0 ml OD HS [facility] PRN Reason: Protocol Last Admin: 01/14/18 21:42 Dose: 2.5 ml Levothyroxine Sodium (Synthroid) 50 mcg PO 0600 [facility] PRN Reason: Protocol Last Admin: 01/15/18 05:33 Dose: 50 mcg Loratadine (Claritin) 10 mg PO DAILY PRN; Protocol PRN Reason: Sinus symptoms Losartan Potassium (Cozaar) 50 mg PO DAILY [facility] PRN Reason: Protocol Last Admin: 01/14/18 10:40 Dose: 50 mg Meclizine HCl (Antivert) 25 mg PO Q6 PRN; Protocol PRN Reason: Dizziness Metformin HCl (Glucophage) 1,000 mg PO 0730,1730 [facility] PRN Reason: Protocol Last Admin: 01/14/18 17:25 Dose: 1,000 mg Methylprednisolone (Solu-Medrol) 20 mg IVP 0600,1800 [facility] PRN Reason: Protocol Last Admin: 01/15/18 05:33 Dose: 20 mg Pantoprazole Sodium (Protonix Ec Tab) 40 mg PO 0600 [facility] PRN Reason: Protocol Last Admin: 01/15/18 05:32 Dose: 40 mg Polyethylene Glycol (Miralax) 17 gm PO DAILY U[facility]AN Polysaccharide Iron Complex (Ferrex-150) 150 mg PO DAILY [facility] PRN Reason: Protocol Last Admin: 01/14/18 10:41 Dose: 150 mg Senna/Docusate Sodium (Senokot S 50 Mg-8.6 Mg) 1 tab PO DAILY URBAN Sitagliptin Phosphate (Januvia) 100 mg PO DAILY [facility] PRN Reason: Protocol - Labs Labs: 01/14/18 08:00 01/14/18 08:00 - Constitutional Appears: Chronically Ill - Head Exam Head Exam: NORMAL INSPECTION - Respiratory Exam Respiratory Exam: Decreased Breath Sounds - Cardiovascular Exam Cardiovascular Exam: +S1, +S2 - GI/Abdominal Exam GI & Abdominal Exam: Soft. absent: Tenderness Assessment and Plan - Assessment and Plan (Free Text) Plan: Assessment S/P Systemic viral illness with Influenza A R/O rhinosinusitis CAD S/P PCI DM GERD history of ventral abdominal hernia bilateral cataracts history of glaucoma hypothyroidism esophageal ulcer diverticulosis S/P appendectomy S/P hysterectomy S/P bilateral knee replacement Plan on Rocephin day 6 - blood cx have been negative - may switch to PO Augmentin to complete 7 days reviewed CXR which does not show infiltrates
[2018-01-15] MEDS: Latanoprost 2.5 ml Opht Soln OD SCH (21:05)
[2018-01-16] MEDS: Albuterol-Ipratrop 3 mg / 0.5 (3 ml) UD IH SCH ×7 (00:11→23:30)
[2018-01-16 03:28] LABS: URINE BILIRUBIN NEGATIVE (NEGATIVE); URINE BLOOD NEGATIVE (NEGATIVE); URINE GLUCOSE (UA) >=1000 mg/dL (NEGATIVE); URINE LEUKOCYTE ESTERASE NEGATIVE Leu/uL (NEGATIVE); URINE NITRATE NEGATIVE (NEGATIVE); URINE PROTEIN NEGATIVE mg/dL (<30 mg/dL); URINE UROBILINOGEN 0.2 E.U./dL (<1 E.U./dL)
[2018-01-16 03:35] LABS: URINE APPEARANCE CLEAR (CLEAR); URINE COLOR YELLOW (YELLOW)
[2018-01-16] MEDS: Levothyroxine 50 MCG TAB PO SCH (05:23)
[2018-01-16] MEDS: cefTRIAXone 1 gm 1 GM/100 ML BAG IVPB SCH (05:23)
[2018-01-16] MEDS: Pantoprazole 40 mg EC Tab PO SCH (05:24)
[2018-01-16] MEDS: MethylPREDNISolone 40 mg Vial IVP SCH ×2 (05:24→17:45)
[2018-01-16] MEDS: Insulin Reg-LOW-Coverage SC SCH ×4 (06:52→21:58)
[2018-01-16] MEDS: Budesonide 0.5 mg/2 ml Inhal Susp UD IH SCH ×2 (07:16→20:11)
[2018-01-16 07:35] LABS: HEMOGLOBIN 11.3 g/dL (12.0-16.0); MEAN CELL VOLUME 85.4 fl (80.0-105.0); MEAN CORPUSCULAR HGB CONC 31.6 g/dl (31.0-37.0); MEAN PLATELET VOLUME 10.6 fl (7.0-11.0); RBC 4.19 10^6/uL (3.5-6.1); WHITE BLOOD COUNT 16.6 10^3/ul (4.5-11.0)
[2018-01-16 07:53] LABS: ALB/GLOB RATIO 1.1 (1.1-1.8); ALT/SGPT 28 U/L (7-56); AST/SGOT 25 U/L (14-36); BLOOD UREA NITROGEN 29 mg/dL (7-21); CALCIUM 9.2 mg/dL (8.4-10.5); GFR AFRICAN-AMERICAN > 60; GFR NON-AFRICAN AMERICAN > 60
--- NOTE | 2018-01-16 08:01 | CP.PCM.PCO ---
Physician Communication Note - Physician Communication Note Physician Communication Note: + BM/WBC due to SoluMedrol
[2018-01-16] MEDS: Iron Complex Polysacch 150mg Cap PO SCH (09:23)
[2018-01-16] MEDS: Docusate-Senna 50 mg-8.6 mg Tab PO SCH (09:24)
[2018-01-16] MEDS: POLYETHYLENE GLYCOL 3350 17 GM/Dose PACKET PO SCH (09:24)
--- NOTE | 2018-01-16 10:57 | CP.PCM.PN ---
Subjective - Date & Time of Evaluation Date of Evaluation: 01/16/18 Time of Evaluation: 10:25 - Subjective Subjective: No fevers, not in distress, cough is somewhat improved. Objective - Vital Signs/Intake and Output Vital Signs (last 24 hours): Temp Pulse Resp BP Pulse Ox 97.6 F 60 20 121/72 99 01/15/18 16:26 01/15/18 16:26 01/15/18 16:26 01/15/18 16:26 01/15/18 16:26 Intake and Output: 01/15/18 01/15/18 06:59 18:59 Intake Total 380 Balance 380 - Medications Medications: Current Medications Albuterol/Ipratropium (Duoneb 3 Mg/0.5 Mg (3 Ml) Ud) 3 ml IH [id number] [facility] PRN Reason: Protocol Last Admin: 01/15/18 15:42 Dose: 3 ml Amlodipine Besylate (Norvasc) 10 mg PO DAILY [facility] PRN Reason: Protocol Last Admin: 01/15/18 09:56 Dose: 10 mg Aspirin (Ecotrin) 81 mg PO 0800 [facility] PRN Reason: Protocol Last Admin: 01/15/18 09:55 Dose: 81 mg Atorvastatin Calcium (Lipitor) 40 mg PO DIN [facility] PRN Reason: Protocol Last Admin: 01/15/18 17:45 Dose: 40 mg Budesonide (Pulmicort Respules) 0.5 mg IH [id number] [id number] Last Admin: 01/15/18 07:26 Dose: 0.5 mg Doxycycline Hyclate (Doryx) 100 mg PO 0800,2000 [facility] PRN Reason: Protocol Last Admin: 01/15/18 09:54 Dose: 100 mg Glimepiride (Amaryl) 2 mg PO 0730,1730 [facility] PRN Reason: Protocol Last Admin: 01/15/18 17:41 Dose: 2 mg Ceftriaxone Sodium (Rocephin 1 Gram Ivpb) 1 gm in 100 mls @ 100 mls/hr IVPB 0600 [facility] PRN Reason: Protocol Stop: 01/16/18 06:01 Last Admin: 01/15/18 05:33 Dose: 100 mls/hr Insulin Human Regular (Humulin R Low) 0 units SC ACHS [facility] PRN Reason: Protocol Last Admin: 01/15/18 17:43 Dose: 3 units Latanoprost (Xalatan Opht) 0 ml OD HS [facility] PRN Reason: Protocol Last Admin: 01/14/18 21:42 Dose: 2.5 ml Levothyroxine Sodium (Synthroid) 50 mcg PO 0600 [facility] PRN Reason: Protocol Last Admin: 01/15/18 05:33 Dose: 50 mcg Loratadine (Claritin) 10 mg PO DAILY PRN; Protocol PRN Reason: Sinus symptoms Losartan Potassium (Cozaar) 50 mg PO DAILY [facility] PRN Reason: Protocol Last Admin: 01/15/18 09:53 Dose: 50 mg Meclizine HCl (Antivert) 25 mg PO Q6 PRN; Protocol PRN Reason: Dizziness Metformin HCl (Glucophage) 1,000 mg PO 0730,1730 [facility] PRN Reason: Protocol Last Admin: 01/15/18 17:41 Dose: 1,000 mg Methylprednisolone (Solu-Medrol) 20 mg IVP 0600,1800 [facility] PRN Reason: Protocol Last Admin: 01/15/18 17:41 Dose: 20 mg Pantoprazole Sodium (Protonix Ec Tab) 40 mg PO 0600 [facility] PRN Reason: Protocol Last Admin: 01/15/18 05:32 Dose: 40 mg Polyethylene Glycol (Miralax) 17 gm PO DAILY [facility]AN Last Admin: 01/15/18 09:56 Dose: 17 gm Polysaccharide Iron Complex (Ferrex-150) 150 mg PO DAILY [facility] PRN Reason: Protocol Last Admin: 01/15/18 09:55 Dose: 150 mg Senna/Docusate Sodium (Senokot S 50 Mg-8.6 Mg) 1 tab PO DAILY U[facility]AN Last Admin: 01/15/18 09:57 Dose: 1 tab Sitagliptin Phosphate (Januvia) 100 mg PO DAILY [facility]AN PRN Reason: Protocol Last Admin: 01/15/18 09:56 Dose: 100 mg - Labs Labs: 01/14/18 08:00 01/14/18 08:00 - Constitutional Appears: Chronically Ill - Head Exam Head Exam: NORMAL INSPECTION - Respiratory Exam Respiratory Exam: Decreased Breath Sounds - Cardiovascular Exam Cardiovascular Exam: +S1, +S2 - GI/Abdominal Exam GI & Abdominal Exam: Soft. absent: Tenderness Additional comments: abdominal ventral hernia, soft Assessment and Plan - Assessment and Plan (Free Text) Plan: Assessment S/P Systemic viral illness with Influenza A R/O rhinosinusitis CAD S/P PCI DM GERD history of ventral abdominal hernia bilateral cataracts history of glaucoma hypothyroidism esophageal ulcer diverticulosis S/P appendectomy S/P hysterectomy S/P bilateral knee replacement Plan S/P 7 days of Rocephin - patient now on Doxycycline to complete 3-5 days reviewed CXR which does not show infiltrates
--- NOTE | 2018-01-16 20:05 | PN ---
DATE: SUBJECTIVE: Patient is seen and examined at the bedside, looking comfortable, ready for physical therapy, still coughing, but less; does not look in distress. No chest pain. No nausea, vomiting or diarrhea. No fever, no chills. No headache. No dizziness. No hematuria or hematochezia. PHYSICAL EXAMINATION VITAL SIGNS: Temperature 97.6, pulse 60, respiratory rate 20, blood pressure 120/72, pulse oximetry of 99. HEENT: Head: Normocephalic and atraumatic. Eyes: PERRLA. Extraocular muscles intact. Conjunctivae clear. Nose: Patent. Mucous membranes are moist. NECK: Supple. No carotid bruits, JVD, or thyromegaly. CHEST: Bilaterally symmetrical. HEART: S1 and S2 positive. LUNGS: Clear to auscultation. ABDOMEN: Soft. Bowel sounds present. No organomegaly. EXTREMITIES: No edema. No cyanosis. NEUROLOGIC: The patient is awake and alert. Moving all 4 extremities. No focal deficits. MEDICATIONS: Albuterol, Norvasc, Ecotrin, Lipitor, Pulmicort, doxycycline, Amaryl, Rocephin, insulin, ophthalmic solution, Synthroid, Cozaar, Solu-Medrol, Protonix, MiraLax, vitamins, Senokot, Januvia. LABORATORY DATA: White blood cell 9.4, hemoglobin 11.4, hematocrit 35.7, platelet is 255. Sodium 138, potassium 4.3, BUN 23, creatinine 0.3, glucose 308. ASSESSMENT AND PLAN: Ms. April Fabian is an 87-year-old lady with anemia, hyperkalemia, hyperglycemia, has systemic viral illness with influenza A, rhinosinusitis, coronary artery disease, status post cardiac stenting gastroesophageal reflux disease, dyspepsia, history of ventral abdominal hernia. Patient is seen by Dr. Alexander Michelle, surgeon; according to him, no need of surgery. Bilateral cataracts and history of glaucoma, hypothyroidism, esophageal ulcers and diverticulosis, status post appendectomy, hysterectomy and bilateral knee replacement. Has deconditioning and getting physical therapy. Repeat labs. Gastrointestinal and deep venous thrombosis prophylaxis. We will follow up. Mirian Yanez MD [facility]
[2018-01-16] MEDS: Latanoprost 2.5 ml Opht Soln OD SCH (21:58)
--- NOTE | 2018-01-17 02:44 | PN ---
DATE: 01/16/2018 PULMONARY PROGRESS NOTE REFERRING PHYSICIAN: Dr. Yanez. SUBJECTIVE: She is lying in the bed at 45 degrees. Night was unremarkable. Has mild rhinitis, postnasal drip, and cough. No nausea, no vomiting, no diarrhea, no leg pain or leg swelling. OBJECTIVE: GENERAL: In no acute distress. VITAL SIGNS: Temperature is 98, heart rate is 91, respiratory rate is 18, blood pressure 120/65, pulse ox of 98% on room air. HEENT: Moist mucous membrane. Crowded airway. NECK: Supple. No JVD. LUNGS: Has fair airflow with rhonchi. HEART: S1 and S2. ABDOMEN: Soft, nontender. No organomegaly. EXTREMITIES: No edema. NEUROLOGIC: Awake and alert, follows simple command. MEDICATIONS: She is on Amaryl 4 mg twice a day, meclizine 25 mg q. 6 hours p.r.n., Claritin 10 mg daily, losartan 50 mg daily, doxycycline 100 mg twice a day, DuoNeb q. 4 hours, Ecotrin 81 mg daily, Ferrex 150 mg daily, metformin 1000 mg twice a day, insulin coverage, Januvia 100 mg daily, Lipitor 40 mg daily, MiraLax 17 g daily, Norvasc 10 mg daily, Protonix 40 mg daily, Pulmicort inhaled twice a day, Solu-Medrol 10 mg twice a day, Synthroid 50 mcg daily. LABORATORY DATA: Shows hemoglobin 11.3, hematocrit 35.8, WBC 16.6, platelet count is 253. Sodium 135, potassium 4.1, chloride 99, bicarbonate 27, BUN 29, creatinine 0.7, glucose 270, calcium is 9.2, AST 25, ALT 28, alk phos is 53. Albumin is 3.0. IMPRESSION AND PLAN: Influenza infection with acute bronchitis, sinusitis, renal insufficiency, hypertension, degenerative joint disease, coronary artery disease, sleep apnea syndrome. Pulmonary point of view, doing okay, noncompliant with continuous positive airway pressure and bilevel positive airway pressure. Continue bronchodilator. Keep head at 45 degrees. Antibiotics. Gastric prophylaxis, physical therapy. Thank you and we will follow with you. Tiffanie Castrejon MD [facility] # [id number]
[2018-01-17] MEDS: Albuterol-Ipratrop 3 mg / 0.5 (3 ml) UD IH SCH ×6 (04:00→23:36)
[2018-01-17] MEDS: MethylPREDNISolone 40 mg Vial IVP SCH ×2 (05:57→17:27)
[2018-01-17] MEDS: Pantoprazole 40 mg EC Tab PO SCH (05:57)
[2018-01-17] MEDS: Levothyroxine 50 MCG TAB PO SCH (05:58)
[2018-01-17] MEDS: Insulin Reg-LOW-Coverage SC SCH ×4 (06:40→21:12)
[2018-01-17] MEDS: Budesonide 0.5 mg/2 ml Inhal Susp UD IH SCH ×2 (07:29→20:28)
[2018-01-17] MEDS: Iron Complex Polysacch 150mg Cap PO SCH (09:57)
[2018-01-17] MEDS: Docusate-Senna 50 mg-8.6 mg Tab PO SCH (09:59)
[2018-01-17] MEDS: POLYETHYLENE GLYCOL 3350 17 GM/Dose PACKET PO SCH (09:59)
--- NOTE | 2018-01-17 15:13 | CP.PCM.PN ---
<Sheryl Rosario - Last Filed: 01/17/18 15:08> Subjective - Date & Time of Evaluation Date of Evaluation: 01/17/18 Time of Evaluation: 09:30 - Subjective Subjective: Chief Complaint: fatigue 87 yr female w/ history of DM, CAD x 2 stents, GERD, GI bleed, abdominal hernia, cataracts, hypothyroidism, HTN, diverticulitis, esophageal ulcer, incontinence, & bilateral knee replacements. Patient re-admitted to [facility] after recent discharge for new onset influenza A, failure to thrive, dehydration , and abdominal hernia. Patient treated with PO doxycyline & tamiflu & IV rochephin. For respiratory issues, IV solumedryl will continue to be tapered. Patient being treated in TCU for PT/OT. Today, pt seen at bedside. She states that she feels better. Denies any fever, chills, chest pain, shortness of breath , diarrhea, constipation, or urinary problems. Objective - Vital Signs/Intake and Output Vital Signs (last 24 hours): Temp Pulse Resp BP Pulse Ox 97.8 F 54 L 18 106/60 98 01/17/18 10:00 01/17/18 10:00 01/17/18 10:00 01/17/18 10:00 01/17/18 10:00 Intake and Output: 01/17/18 01/17/18 06:59 18:59 Intake Total 240 Output Total 300 Balance -60 - Medications Medications: Current Medications Albuterol/Ipratropium (Duoneb 3 Mg/0.5 Mg (3 Ml) Ud) 3 ml IH [id number] [facility] PRN Reason: Protocol Last Admin: 01/17/18 11:21 Dose: 3 ml Amlodipine Besylate (Norvasc) 10 mg PO DAILY U[facility]AN PRN Reason: Protocol Last Admin: 01/17/18 09:56 Dose: 10 mg Aspirin (Ecotrin) 81 mg PO 0800 [facility]AN PRN Reason: Protocol Last Admin: 01/17/18 08:38 Dose: 81 mg Atorvastatin Calcium (Lipitor) 40 mg PO DIN [facility]AN PRN Reason: Protocol Last Admin: 01/16/18 17:44 Dose: 40 mg Budesonide (Pulmicort Respules) 0.5 mg IH [id number] [facility] Last Admin: 01/17/18 07:29 Dose: 0.5 mg Doxycycline Hyclate (Doryx) 100 mg PO 0800,2000 [facility]AN PRN Reason: Protocol Last Admin: 01/17/18 08:37 Dose: 100 mg Glimepiride (Amaryl) 4 mg PO 0730,1730 [facility] PRN Reason: Protocol Insulin Human Regular (Humulin R Low) 0 units SC ACHS U[facility]AN PRN Reason: Protocol Last Admin: 01/17/18 12:17 Dose: 4 units Latanoprost (Xalatan Opht) 0 ml OD HS U[facility]AN PRN Reason: Protocol Last Admin: 01/16/18 21:58 Dose: 2.5 ml Levothyroxine Sodium (Synthroid) 50 mcg PO 0600 U[facility]AN PRN Reason: Protocol Last Admin: 01/17/18 05:58 Dose: 50 mcg Loratadine (Claritin) 10 mg PO DAILY PRN; Protocol PRN Reason: Sinus symptoms Losartan Potassium (Cozaar) 50 mg PO DAILY [facility]AN PRN Reason: Protocol Last Admin: 01/17/18 09:57 Dose: 50 mg Meclizine HCl (Antivert) 25 mg PO Q6 PRN; Protocol PRN Reason: Dizziness Metformin HCl (Glucophage) 1,000 mg PO 0730,1730 [facility]AN PRN Reason: Protocol Last Admin: 01/17/18 08:38 Dose: 1,000 mg Methylprednisolone (Solu-Medrol) 10 mg IVP 0600,1800 [facility]AN PRN Reason: Protocol Last Admin: 01/17/18 05:57 Dose: 10 mg Pantoprazole Sodium (Protonix Ec Tab) 40 mg PO 0600 [facility]AN PRN Reason: Protocol Last Admin: 01/17/18 05:57 Dose: 40 mg Polyethylene Glycol (Miralax) 17 gm PO DAILY U[facility]AN Last Admin: 01/17/18 09:59 Dose: Not Given Polysaccharide Iron Complex (Ferrex-150) 150 mg PO DAILY URBAN PRN Reason: Protocol Last Admin: 01/17/18 09:57 Dose: 150 mg Senna/Docusate Sodium (Senokot S 50 Mg-8.6 Mg) 1 tab PO DAILY URBAN Last Admin: 01/17/18 09:59 Dose: Not Given Sitagliptin Phosphate (Januvia) 100 mg PO DAILY URBAN PRN Reason: Protocol Last Admin: 01/17/18 09:57 Dose: 100 mg - Labs Labs: 01/16/18 07:00 01/16/18 07:00 - Constitutional Appears: No Acute Distress, Chronically Ill - Head Exam Head Exam: ATRAUMATIC, NORMAL INSPECTION, NORMOCEPHALIC - Eye Exam Eye Exam: EOMI, Normal appearance, PERRL Pupil Exam: NORMAL ACCOMODATION, PERRL - ENT Exam ENT Exam: Mucous Membranes Moist, Normal Exam - Neck Exam Neck Exam: Full ROM, Normal Inspection. absent: Lymphadenopathy - Respiratory Exam Respiratory Exam: Clear to Ausculation Bilateral, NORMAL BREATHING PATTERN - Cardiovascular Exam Cardiovascular Exam: REGULAR RHYTHM, +S1, +S2. absent: Murmur - GI/Abdominal Exam GI & Abdominal Exam: Soft, Hernia, Normal Bowel Sounds. absent: Tenderness - Extremities Exam Extremities Exam: Full ROM, Normal Capillary Refill, Normal Inspection. absent : Joint Swelling, Pedal Edema - Back Exam Back Exam: NORMAL INSPECTION - Neurological Exam Neurological Exam: Alert, Awake, Normal Gait, Oriented x3 - Psychiatric Exam Psychiatric exam: Normal Affect, Normal Mood - Skin Skin Exam: Dry, Intact, Normal Color, Warm Assessment and Plan (1) Abdominal hernia Status: Acute (2) Dehydration Status: Acute (3) General weakness Status: Acute (4) Influenza Status: Acute (5) Physical deconditioning Status: Acute - Assessment and Plan (Free Text) Plan: Labs ordered for trending. s/p tamiflu. PO doxycycline for 3-5 days. IV solumedryl. VTE/GI prophlyaxis. PT/OT on board. Aspiration precautions. Consults: Pulmo - Dr. Castrejon ID - Dr. Richards Reviewed: CT abd/pelvis = R sided ventral hernia 7.5 cm, contains portion of the transverse colon CXR = cardiomegaly, pacemaker ECG = ABNORMAL, SR w PAC, septal infarct <Mirian Yanez - Last Filed: 01/17/18 17:01> Objective - Vital Signs/Intake and Output Vital Signs (last 24 hours): Temp Pulse Resp BP Pulse Ox 97.8 F 54 L 18 106/60 98 01/17/18 10:00 01/17/18 10:00 01/17/18 10:00 01/17/18 10:00 01/17/18 10:00 Intake and Output: 01/17/18 01/17/18 06:59 18:59 Intake Total 240 Output Total 300 Balance -60 - Medications Medications: Current Medications Albuterol/Ipratropium (Duoneb 3 Mg/0.5 Mg (3 Ml) Ud) 3 ml IH [id number] [facility]AN PRN Reason: Protocol Last Admin: 01/17/18 16:11 Dose: 3 ml Amlodipine Besylate (Norvasc) 10 mg PO DAILY [facility]AN PRN Reason: Protocol Last Admin: 01/17/18 09:56 Dose: 10 mg Aspirin (Ecotrin) 81 mg PO 0800 [facility]AN PRN Reason: Protocol Last Admin: 01/17/18 08:38 Dose: 81 mg Atorvastatin Calcium (Lipitor) 40 mg PO DIN U[facility]AN PRN Reason: Protocol Last Admin: 01/17/18 16:37 Dose: 40 mg Budesonide (Pulmicort Respules) 0.5 mg IH [id number] [facility] Last Admin: 01/17/18 07:29 Dose: 0.5 mg Doxycycline Hyclate (Doryx) 100 mg PO 0800,2000 [facility] PRN Reason: Protocol Last Admin: 01/17/18 08:37 Dose: 100 mg Glimepiride (Amaryl) 4 mg PO 0730,1730 [facility] PRN Reason: Protocol Last Admin: 01/17/18 16:36 Dose: 4 mg Insulin Human Regular (Humulin R Low) 0 units SC ACHS [facility]AN PRN Reason: Protocol Last Admin: 01/17/18 16:35 Dose: 2 units Latanoprost (Xalatan Opht) 0 ml OD HS [facility] PRN Reason: Protocol Last Admin: 01/16/18 21:58 Dose: 2.5 ml Levothyroxine Sodium (Synthroid) 50 mcg PO 0600 [facility]AN PRN Reason: Protocol Last Admin: 01/17/18 05:58 Dose: 50 mcg Loratadine (Claritin) 10 mg PO DAILY PRN; Protocol PRN Reason: Sinus symptoms Losartan Potassium (Cozaar) 50 mg PO DAILY [facility]AN PRN Reason: Protocol Last Admin: 01/17/18 09:57 Dose: 50 mg Meclizine HCl (Antivert) 25 mg PO Q6 PRN; Protocol PRN Reason: Dizziness Metformin HCl (Glucophage) 1,000 mg PO 0730,1730 [facility]AN PRN Reason: Protocol Last Admin: 01/17/18 16:36 Dose: 1,000 mg Methylprednisolone (Solu-Medrol) 10 mg IVP 0600,1800 [facility]AN PRN Reason: Protocol Last Admin: 01/17/18 05:57 Dose: 10 mg Pantoprazole Sodium (Protonix Ec Tab) 40 mg PO 0600 [facility]AN PRN Reason: Protocol Last Admin: 01/17/18 05:57 Dose: 40 mg Polyethylene Glycol (Miralax) 17 gm PO DAILY [facility] Last Admin: 01/17/18 09:59 Dose: Not Given Polysaccharide Iron Complex (Ferrex-150) 150 mg PO DAILY [facility]AN PRN Reason: Protocol Last Admin: 01/17/18 09:57 Dose: 150 mg Senna/Docusate Sodium (Senokot S 50 Mg-8.6 Mg) 1 tab PO DAILY U[facility]AN Last Admin: 01/17/18 09:59 Dose: Not Given Sitagliptin Phosphate (Januvia) 100 mg PO DAILY [facility]AN PRN Reason: Protocol Last Admin: 01/17/18 09:57 Dose: 100 mg - Labs Labs: 01/16/18 07:00 01/16/18 07:00 Assessment and Plan - Assessment and Plan (Free Text) Plan: 87 yr female w/ history of DM, CAD x 2 stents, GERD, GI bleed, abdominal hernia, cataracts, hypothyroidism, HTN, diverticulitis, esophageal ulcer, incontinence, & bilateral knee replacements. Patient re-admitted to [facility] after recent discharge for new onset influenza A, failure to thrive, dehydration , and abdominal hernia. Patient treated with PO doxycyline & tamiflu & IV rochephin. For respiratory issues, IV solumedryl will continue to be tapered. Patient being treated in TCU for PT/OT. Today, pt seen at bedside. She states that she feels better. Denies any fever, chills, chest pain, shortness of breath , diarrhea, constipation, or urinary problems.pt is seen and examined at bed side , looking comfortable . agreed all above , chart meds and labs noted , will f/u
[2018-01-17] MEDS: Latanoprost 2.5 ml Opht Soln OD SCH (21:07)
--- NOTE | 2018-01-18 00:06 | PN ---
DATE: 01/17/2018 PULMONARY PROGRESS NOTE REFERRING PHYSICIAN: Dr. Yanez. SUBJECTIVE: She is lying in the bed, not very cooperative, does have rhinitis, mild cough. No chest pain. No nausea. No vomiting or diarrhea. No leg pain or leg swelling. OBJECTIVE: GENERAL: In no acute distress. VITAL SIGNS: Temperature is 98, heart rate is 54, respiratory rate is 18, blood pressure 106/60, pulse ox of 98% room air. HEENT: Moist mucous membrane. Crowded airway. NECK: Supple. No JVD. LUNGS: Have fair airflow with rhonchi. HEART: S1 and S2. ABDOMEN: Soft, nontender. No organomegaly. EXTREMITIES: There is no edema. NEUROLOGIC: Awake and alert, follows simple command. MEDICATIONS: She is on Amaryl 4 mg twice a day, Antivert 25 mg q. 6 hours p.r.n., Claritin 10 mg daily, Cozaar 50 mg daily, doxycycline 100 mg twice day, DuoNeb q. 4 hours p.r.n., Ecotrin 81 mg daily, ferrous sulfate 150 mg daily, metformin 1000 mg twice a day, insulin coverage, Januvia 100 mg daily, Lipitor 20 mg daily, MiraLax 17 g daily, Norvasc 10 mg daily, Protonix 40 mg daily, Pulmicort twice a day, Solu-Medrol 10 mg q. 12 hours, Synthroid 50 mcg daily. LABORATORY DATA: Shows blood sugar 229. IMPRESSION AND PLAN: Influenza infection with acute bronchitis, sinusitis, renal insufficiency, hypertension, degenerative joint disease, coronary artery disease, may have sleep apnea syndrome. Pulmonary point of view, doing okay. Continue taper steroids, bronchodilator, keep head at 45 degrees. Antibiotics. Gastric and deep venous thrombosis prophylaxis. Continue therapy. Thank you and we will follow with you. Tiffanie Castrejon MD
[2018-01-18] MEDS: Albuterol-Ipratrop 3 mg / 0.5 (3 ml) UD IH SCH ×5 (03:54→19:43)
[2018-01-18] MEDS: Pantoprazole 40 mg EC Tab PO SCH (05:39)
[2018-01-18] MEDS: MethylPREDNISolone 40 mg Vial IVP SCH (05:39)
[2018-01-18] MEDS: Levothyroxine 50 MCG TAB PO SCH (05:39)
[2018-01-18] MEDS: Insulin Reg-LOW-Coverage SC SCH ×4 (06:59→21:11)
[2018-01-18 07:10] LABS: HEMOGLOBIN 11.5 g/dL (12.0-16.0); MEAN CELL VOLUME 86.3 fl (80.0-105.0); MEAN CORPUSCULAR HEMOGLOBIN 27.6 pg (25.0-35.0); MEAN CORPUSCULAR HGB CONC 31.9 g/dl (31.0-37.0); MEAN PLATELET VOLUME 10.7 fl (7.0-11.0); RBC 4.17 10^6/uL (3.5-6.1); RED CELL DISTRIBUTION WIDTH 14.8 % (11.5-14.5); WHITE BLOOD COUNT 14.6 10^3/ul (4.5-11.0)
[2018-01-18 07:30] LABS: ALB/GLOB RATIO 1.1 (1.1-1.8); ALBUMIN 3.1 g/dL (3.0-4.8); ALT/SGPT 27 U/L (7-56); AST/SGOT 19 U/L (14-36); BLOOD UREA NITROGEN 31 mg/dL (7-21); CALCIUM 9.1 mg/dL (8.4-10.5); GFR AFRICAN-AMERICAN > 60; GFR NON-AFRICAN AMERICAN > 60
[2018-01-18] MEDS: Budesonide 0.5 mg/2 ml Inhal Susp UD IH SCH (08:44)
[2018-01-18 10:16] VITALS: RESP 20
[2018-01-18] MEDS: Iron Complex Polysacch 150mg Cap PO SCH (10:35)
[2018-01-18] MEDS: POLYETHYLENE GLYCOL 3350 17 GM/Dose PACKET PO SCH (10:35)
[2018-01-18] MEDS: Docusate-Senna 50 mg-8.6 mg Tab PO SCH (10:36)
--- NOTE | 2018-01-18 11:52 | CP.PCM.PN ---
Subjective - Date & Time of Evaluation Date of Evaluation: 01/18/18 Time of Evaluation: 11:51 - Subjective Subjective: Surgery Pt s&e. NAEON. Denies F/C/N/V/D/CP/SOB. Dressing changed Wound Objective - Vital Signs/Intake and Output Vital Signs (last 24 hours): Temp Pulse Resp BP Pulse Ox 98.7 F 87 20 112/50 L 97 01/18/18 10:15 01/18/18 10:15 01/18/18 10:15 01/18/18 10:35 01/18/18 10:15 Intake and Output: 01/18/18 01/18/18 06:59 18:59 Intake Total 240 Balance 240 - Medications Medications: Current Medications Albuterol/Ipratropium (Duoneb 3 Mg/0.5 Mg (3 Ml) Ud) 3 ml IH [id number] [facility] PRN Reason: Protocol Last Admin: 01/18/18 08:44 Dose: 3 ml Amlodipine Besylate (Norvasc) 10 mg PO DAILY [facility] PRN Reason: Protocol Last Admin: 01/18/18 10:35 Dose: 10 mg Aspirin (Ecotrin) 81 mg PO 0800 [facility] PRN Reason: Protocol Last Admin: 01/18/18 08:16 Dose: 81 mg Atorvastatin Calcium (Lipitor) 40 mg PO DIN [facility] PRN Reason: Protocol Last Admin: 01/17/18 16:37 Dose: 40 mg Budesonide (Pulmicort Respules) 0.5 mg IH [id number] [facility] Last Admin: 01/18/18 08:44 Dose: 0.5 mg Doxycycline Hyclate (Doryx) 100 mg PO 0800,2000 [facility] PRN Reason: Protocol Last Admin: 01/18/18 08:15 Dose: 100 mg Glimepiride (Amaryl) 4 mg PO 0730,1730 [facility] PRN Reason: Protocol Last Admin: 01/18/18 08:15 Dose: 4 mg Insulin Human Regular (Humulin R Low) 0 units SC ACHS [facility] PRN Reason: Protocol Last Admin: 01/18/18 06:59 Dose: 3 units Latanoprost (Xalatan Opht) 0 ml OD HS [facility] PRN Reason: Protocol Last Admin: 01/17/18 21:07 Dose: Not Given Levothyroxine Sodium (Synthroid) 50 mcg PO 0600 [facility] PRN Reason: Protocol Last Admin: 01/18/18 05:39 Dose: 50 mcg Loratadine (Claritin) 10 mg PO DAILY PRN; Protocol PRN Reason: Sinus symptoms Losartan Potassium (Cozaar) 50 mg PO DAILY [facility] PRN Reason: Protocol Last Admin: 01/18/18 10:34 Dose: 50 mg Meclizine HCl (Antivert) 25 mg PO Q6 PRN; Protocol PRN Reason: Dizziness Metformin HCl (Glucophage) 1,000 mg PO 0730,1730 [facility] PRN Reason: Protocol Last Admin: 01/18/18 08:16 Dose: 1,000 mg Pantoprazole Sodium (Protonix Ec Tab) 40 mg PO 0600 [facility] PRN Reason: Protocol Last Admin: 01/18/18 05:39 Dose: 40 mg Polyethylene Glycol (Miralax) 17 gm PO DAILY [facility] Last Admin: 01/18/18 10:35 Dose: 17 gm Polysaccharide Iron Complex (Ferrex-150) 150 mg PO DAILY [facility] PRN Reason: Protocol Last Admin: 01/18/18 10:35 Dose: 150 mg Prednisone (Prednisone Tab) 10 mg PO BID [facility] Senna/Docusate Sodium (Senokot S 50 Mg-8.6 Mg) 1 tab PO DAILY [facility] Last Admin: 01/18/18 10:36 Dose: 1 tab Sitagliptin Phosphate (Januvia) 100 mg PO DAILY [facility] PRN Reason: Protocol Last Admin: 01/18/18 10:35 Dose: 100 mg - Labs Labs: 01/18/18 06:30 01/18/18 06:30
[2018-01-18 16:27] VITALS: TEMP 97.7; O2SAT 95
[2018-01-18] MEDS: Latanoprost 2.5 ml Opht Soln OD SCH (21:06)
--- NOTE | 2018-01-18 23:04 | PN ---
DATE: 01/18/2018 REFERRING PHYSICIAN: Dr. Yanez. SUBJECTIVE: She is out of bed to chair. Night was unremarkable. Still has some cough. No nausea. No vomiting, diarrhea, leg pain or leg swelling. PHYSICAL EXAMINATION GENERAL: In no acute distress. VITAL SIGNS: Temperature is 98, heart rate is 50, respiratory rate is 20, blood pressure 123/70, pulse oximetry is 95% on room air. HEENT: Moist mucous membrane. Crowded airway. LUNGS: Have a fair airflow with rhonchi. HEART: S1 and S2. ABDOMEN: Soft, nontender. No organomegaly. EXTREMITIES: No edema. NEUROLOGIC: Awake, alert and follows simple commands, not very cooperative, limiting the examination. MEDICATIONS: She is on Amaryl 4 mg twice a day, Antivert 25 mg q. 6 hours p.r.n., Claritin 10 mg daily, Cozaar 50 mg daily, doxycycline 100 mg twice a day, DuoNeb q. 4 hours, Ecotrin 81 mg daily, Ferrex 150 mg daily, metformin 1000 mg twice a day, insulin coverage, Januvia 100 mg daily, Lipitor 20 mg daily, MiraLax 17 g daily, Norvasc 10 mg daily, prednisone 10 mg twice a day, Protonix 40 mg daily, Pulmicort inhaled twice a day, Senokot p.r.n., Synthroid 50 mcg daily. LABORATORY DATA: Shows hemoglobin 11.5, hematocrit 36.0, WBC 14.6, platelet is 217. Sodium 135, potassium , chloride 100, bicarbonate 26, BUN , creatinine 0.8, glucose 276, calcium is 9.1, AST 19, ALT 27, alkaline phosphatase is 56. Albumin is 3.1. IMPRESSION AND PLAN: Influenza infection with acute bronchitis, may be component of sinusitis; renal insufficiency; hypertension; degenerative joint disease; history of coronary artery disease; may have sleep apnea syndrome. Pulmonary point of view, she is doing okay. Continue p.o. and inhaled bronchodilator. Continue antibiotics. Aspiration precaution. Fall precaution. Gastric prophylaxis, DVT prophylaxis. Continue therapy. Thank you and we will follow with you. Tiffanie Castrejon MD
[2018-01-19] MEDS: Albuterol-Ipratrop 3 mg / 0.5 (3 ml) UD IH SCH ×4 (00:15→13:54)
[2018-01-19] MEDS: Pantoprazole 40 mg EC Tab PO SCH (05:37)
[2018-01-19] MEDS: Levothyroxine 50 MCG TAB PO SCH (05:37)
[2018-01-19] MEDS: Insulin Reg-LOW-Coverage SC SCH (06:46)
[2018-01-19] MEDS: Budesonide 0.5 mg/2 ml Inhal Susp UD IH SCH (08:32)
[2018-01-19] MEDS: Iron Complex Polysacch 150mg Cap PO SCH (11:01)
[2018-01-19] MEDS: POLYETHYLENE GLYCOL 3350 17 GM/Dose PACKET PO SCH (11:02)
[2018-01-19] MEDS: Docusate-Senna 50 mg-8.6 mg Tab PO SCH (11:03)
[2018-01-19 11:05] VITALS: BP 122/51; PULSE 43
--- NOTE | 2018-01-20 10:42 | PN ---
DATE: 01/18/2018 SUBJECTIVE: Patient is an 87-year-old female. Patient was seen and examined on 01/18/2018. Looking comfortable. No nausea, vomiting or diarrhea. No hematuria or hematochezia. No swelling of the leg. No chest pain, no palpitation. No headache or dizziness. No fever. No chills. PHYSICAL EXAMINATION: VITAL SIGNS: Temperature 98. heart rate 50, respiratory rate 20, blood pressure 120/70,, pulse oximetry 95% on room air. HEENT: Head: Normocephalic and atraumatic. Eyes: PERRLA. Extraocular muscles intact. Conjunctivae clear. Nose: Patent. Mucous membranes moist. NECK: Supple. No carotid bruit, JVD, or thyromegaly. CHEST: Bilaterally symmetrical. HEART: S1, S2 positive. LUNGS: Clear to auscultation. ABDOMEN: Soft. Bowel sounds present. No organomegaly. EXTREMITIES: No edema, no cyanosis. NEUROLOGIC: The patient is awake, alert. Moving all four extremities. No focal deficit. MEDICATIONS: Amaryl, Antivert, Claritin, Cozaar, doxycycline, DuoNeb, Ferrex, metformin, insulin, Lipitor, Miralax, Norvasc, prednisone, Protonix, Pulmicort, Senokot. LABORATORY DATA: Hemoglobin 11.5, hematocrit 36.0, white blood cells 14.6, platelets 217. Sodium 135, glucose 276, creatinine 0.8, AST 19, ALT 27. ASSESSMENT AND PLAN: Ms. April Fabian, 87-year-old female, with influenza infection with acute bronchitis, sinusitis, renal insufficiency, hypertension, hypercholesterolemia, degenerative joint disease, coronary artery disease, sleep apnea syndrome. Got antibiotics. She was deconditioned. Got physical therapy, improved. She was not able to do her activities of daily living. Now she is getting better. Continue inhaled bronchodilators. Continue antibiotics. Aspiration precautions. Repeat labs. We will follow up. Mirian Yanez MD
--- NOTE | 2018-01-20 20:37 | DS ---
CHIEF COMPLAINT: Coughing, shortness of breath, deconditioned. HISTORY OF PRESENT ILLNESS: Ms. April Fabian is an 87-year-old female with past medical history of multiple medical problems of coronary artery disease, diabetes mellitus, hypothyroidism, diverticulosis, esophageal ulcer, COPD, bilateral knee replacement, was admitted a couple of weeks ago in [facility], was discharged home and came back with flu and was admitted with flu, sinusitis. Antibiotics are given in the medical floor. ID, Dr. Christopher Hirsch did give the patient with antibiotics, patient improved now. Patient was deconditioned, was not able to do her ADL, transferred to TCU. In TCU, patient got treatment, improved, sent home today on 01/19/2018. Followup with primary care physician and continue home medication. PAST MEDICAL HISTORY: Coronary artery disease, status post PCI; diabetes mellitus; GERD; dyspepsia; history of ventral abdominal wall hernia; bilateral cataract surgery; glaucoma; hypothyroidism; esophageal ulcer; diverticulitis, status post adenopathy, hysterectomy, bilateral knee replacement. ALLERGIES: PATIENT IS NOT ALLERGIC TO ANY MEDICATIONS. FAMILY HISTORY: Father and mother, noncontributory. HABITS: No smoking, no drug, no ethanol. HOME MEDICATIONS: Reviewed by me. REVIEW OF SYSTEMS: Patient was examined at the bedside, looking comfortable. No nausea, vomiting, diarrhea. No hematuria. No hematochezia. No swelling of the leg. No chest pain or palpitation. Cough is better. Shortness of breath is better. PHYSICAL EXAMINATION VITAL SIGNS: Temperature 97.7, pulse 80 , blood pressure 113/51, respiratory rate 20. HEENT: Head normocephalic, atraumatic. Eyes: PERRLA. Extraocular muscles intact. Conjunctivae clear. Nose patent. Mucous membrane moist. NECK: Supple. No carotid bruit. No JVD or thyromegaly. CHEST: Bilaterally symmetrical. HEART: S1 and S2 positive. LUNGS: Clear to auscultation. ABDOMEN: Soft. Bowel sounds present. No organomegaly. EXTREMITIES: No edema. No cyanosis. NEUROLOGIC: Patient is awake and alert. Moving all 4 extremities. No focal deficits. MEDICATIONS: Amaryl, Antivert, Claritin, Cozaar, doxycycline, Dulcolax, Ecotrin, iron, Glucophage, insulin, Januvia, Lipitor, MiraLax, Norvasc, prednisone tapering dose was given, Protonix. LABORATORY DATA: We do not have recent labs today, but reviewed old labs. White blood cells 14.6, hemoglobin 11.5, hematocrit 36.0, platelets 217,000. Sodium 135, potassium 5.1, BUN 31, creatinine 0.8, glucose 184 and 240. ASSESSMENT AND PLAN: Ms. April Fabian is an 87-year-old lady with leukocytosis; anemia; hyperkalemia; increased BUN; uncontrolled diabetes mellitus; ketonuria; deconditioned, improved; influenza, seen with acute bronchitis; sinusitis; renal insufficiency; hypertension; degenerative joint disease; coronary artery disease; sleep apnea syndrome; completed treated for influenza and bronchitis and sinusitis, was on inhaled bronchodilators, antibiotics. Aspiration precautions. Discharged patient home. In the hospital, gastrointestinal and deep venous thrombosis prophylaxis given, Physical therapy given. Patient is able to do her activities of daily living, will follow up as ordered. Mirian Yanez MD MTDD
== END 2018-01-19 14:30 | disposition home or self-care (01) | DRG 945 ==
LOC: TRCU 14:44
PROVIDERS: ADMIT Internal Medicine; ATTEND Internal Medicine
PROC: F07Z9FZ Gait Training/Functional Ambulation Treatment using Assistive, Adaptive, Supportive or Protective Equipment (ICD-10-PCS; principal; 2018-01-15)
PROC: F07Z8FZ Transfer Training Treatment using Assistive, Adaptive, Supportive or Protective Equipment (ICD-10-PCS; 2018-01-15)
PROC: F08Z1FZ Dressing Techniques Treatment using Assistive, Adaptive, Supportive or Protective Equipment (ICD-10-PCS; 2018-01-15)
PROC: F08Z2FZ Grooming/Personal Hygiene Treatment using Assistive, Adaptive, Supportive or Protective Equipment (ICD-10-PCS; 2018-01-15)
PROC: F07Z5FZ Bed Mobility Treatment using Assistive, Adaptive, Supportive or Protective Equipment (ICD-10-PCS; 2018-01-16)
DX: R53.1 Weakness (principal); J44.0 Chronic obstructive pulmonary disease with (acute) lower respiratory infection; E11.65 Type 2 diabetes mellitus with hyperglycemia; E87.5 Hyperkalemia; K22.10 Ulcer of esophagus without bleeding; J10.1 Influenza due to other identified influenza virus with other respiratory manifestations; J20.9 Acute bronchitis, unspecified; I25.10 Atherosclerotic heart disease of native coronary artery without angina pectoris; E03.9 Hypothyroidism, unspecified; H40.9 Unspecified glaucoma; K21.9 Gastro-esophageal reflux disease without esophagitis; K57.90 Diverticulosis of intestine, part unspecified, without perforation or abscess without bleeding; I10 Essential (primary) hypertension; G47.30 Sleep apnea, unspecified; K43.9 Ventral hernia without obstruction or gangrene; D64.9 Anemia, unspecified; N28.9 Disorder of kidney and ureter, unspecified; M19.90 Unspecified osteoarthritis, unspecified site; J32.9 Chronic sinusitis, unspecified; R62.7 Adult failure to thrive; E86.0 Dehydration; E78.00 Pure hypercholesterolemia, unspecified; Z96.653 Presence of artificial knee joint, bilateral; Z91.19 Patient's noncompliance with other medical treatment and regimen; Z95.5 Presence of coronary angioplasty implant and graft

== ENCOUNTER 2018-01-26 11:00 | Emergency (ER) | payer MEDICARE, MEDICAID ==
[2018-01-26 11:01] VITALS: BMI 31.2
[2018-01-26 11:24] VITALS: RESP 18; TEMP 97.9; O2SAT 97
--- NOTE | 2018-01-26 11:32 | ED PDOC ---
Arrival/HPI - General Chief Complaint: Lower Extremity Problem/Injury Time Seen by Provider: 01/26/18 11:19 Historian: Patient - History of Present Illness Narrative History of Present Illness (Text): 01/26/18 11:29 87 year old female presents to the Emergency department complaining of right knee and right hip pain that began 5 days ago. Pain began while she was admitted to the hospital on 01/09/18; she was recently discharged. Patient states she feels unsteady on her feet and is experiencing pain with weight bearing. Patient denies any injury, trauma, fever, chills, chest pain, shortness of breath, nausea, vomiting, diarrhea, urinary symptoms, back pain, neck pain, headache, dizziness, or any other complaints. Time/Duration: < week (5 days) Symptom Onset: Gradual Symptom Course: Unchanged Activities at Onset: Rest Associated Symptoms (Text): 01/26/18 12:18 Patient complains of right knee and hip pain beginning several days ago. No injury or trauma. She is having difficulty ambulating. She has a daily weekday visiting nurse. The daughter is present with the patient. They were questioned about snf placement or rehabilitation placement, and the patient was not interested in this. Past Medical History - Provider Review Nursing Documentation Reviewed: Yes - Infectious Disease Hx of Infectious Diseases: None - Tetanus Immunization Tetanus Immunization: Unknown - Cardiac Hx Cardiac Disorders: Yes Hx Hypertension: Yes - Pulmonary Hx Respiratory Disorders: No - Neurological Hx Dizziness: Yes - HEENT Hx Cataracts: Yes (B/L repair) Hx Glaucoma: Yes - Renal Hx Renal Disorder: No - Endocrine/Metabolic Hx Diabetes Mellitus Type 2: Yes - Hematological/Oncological Hx Blood Disorders: No - Integumentary Hx Dermatological Disorder: No - Musculoskeletal/Rheumatological Hx Falls: Yes - Gastrointestinal Hx Gastrointestinal Disorders: (hx esophageal ulcer/diverticulitis/no bm x 6 days) - Genitourinary/Gynecological Hx Reproductive Disorders: Yes (hx partial hyst) - Psychiatric Hx Psychophysiologic Disorder: No Hx Depression: No Hx Emotional Abuse: No Hx Physical Abuse: No Hx Substance Use: No - Surgical History Hx Appendectomy: Yes Hx Cardiac Catheterization: Yes Hx Coronary Stent: Yes (x2) Hx Joint Replacement: Yes (b/l knee replacements) Hx Musculoskeletal Surgery: Yes Hx Orthopedic Surgery: Yes Other/Comment: b/l knee replacements - Anesthesia Hx Anesthesia: Yes Hx Anesthesia Reactions: No Hx Malignant Hyperthermia: No - Suicidal Assessment Feels Threatened In Home Enviroment: No Family/Social History - Physician Review Nursing Documentation Reviewed: Yes Family/Social History: Unknown Family HX Smoking Status: Never Smoked Hx Alcohol Use: No Hx Substance Use: No Hx Substance Use Treatment: No Allergies/Home Meds Allergies/Adverse Reactions: Allergies No Known Allergies Allergy (Verified 01/09/18 13:50) Home Medications: Home Meds Medication Instructions Recorded Confirmed Glimepiride [Amaryl] 1 mg PO BID 09/23/17 01/13/18 Levothyroxine [Synthroid] 50 mcg PO DAILY 09/23/17 01/13/18 Losartan [Cozaar] 50 mg PO DAILY 09/23/17 01/13/18 Sitagliptin Phos/Metformin HCl 1 each PO BID 09/23/17 01/13/18 [Janumet 50-1,000 mg Tablet] Review of Systems - Physician Review All systems were reviewed & negative as marked: Yes - Review of Systems Constitutional: absent: Fevers, Night Sweats Respiratory: absent: SOB Cardiovascular: absent: Chest Pain Gastrointestinal: absent: Diarrhea, Nausea, Vomiting Genitourinary Female: absent: Dysuria Musculoskeletal: Other (right knee and right hip pain). absent: Back Pain, Neck Pain Neurological: absent: Headache, Dizziness, Focal Weakness Physical Exam Vital Signs Reviewed: Yes Vital Signs Temp Pulse Resp BP Pulse Ox 01/26/18 11:14 97.9 F 92 H 18 136/91 H 97 Temperature: Afebrile Blood Pressure: Hypertensive Pulse: Regular Respiratory Rate: Normal Appearance: Positive for: Well-Appearing, Non-Toxic, Uncomfortable Pain Distress: Mild Mental Status: Positive for: Alert and Oriented X 3 - Systems Exam Head: Present: Atraumatic, Normocephalic Pupils: Present: PERRL Extroacular Muscles: Present: EOMI Conjunctiva: Present: Normal Mouth: Present: Moist Mucous Membranes Neck: Present: Normal Range of Motion Respiratory/Chest: Present: Clear to Auscultation, Good Air Exchange. No: Respiratory Distress, Accessory Muscle Use Cardiovascular: Present: Regular Rate and Rhythm, Normal S1, S2. No: Murmurs Abdomen: Present: Normal Bowel Sounds. No: Tenderness, Distention, Peritoneal Signs Back: Present: Normal Inspection Upper Extremity: Present: Normal Inspection. No: Cyanosis, Edema Lower Extremity: Present: Normal ROM, Tenderness (right knee and right hip tenderness to palpation, no swelling or skin changes. No effusion. Normal range of motion.). No: CALF TENDERNESS, Prince's Sign, Swelling, Erythema, Deformity, Neurovascularly Intact, Other (there is no effusion or skin changes) Neurological: Present: GCS=15, CN II-XII Intact, Speech Normal, Motor Func Grossly Intact Skin: Present: Warm, Dry, Normal Color. No: Rashes Psychiatric: Present: Alert, Oriented x 3, Normal Insight, Normal Concentration Medical Decision Making ED Course and Treatment: 01/26/18 11:36 Impression: 87 year old female presents to the Emergency department complaining of right knee and right hip pain. Plan: -- Right hip xray, right kne jamila, pelvis xray -- Tylenol -- Reassess and disposition Prior Visits: Notes and results from previous visits were reviewed. Patient was last seen in the emergency department on 01/09/18, was diagnosed with Influenza, Failure to thrive, Dehydration, Fever, Abdominal hernia, and was admitted to the hospital. Progress Notes: 01/26/18 11:26 Asked patient and patient's daughter if they are interested in rehabilitation or snf placement and both said they are not interested. 01/26/18 13:05 was here and saw the patient and discuss with daughter snf or rehabilitation. Again they declined. Patient will be discharged home accompanied by daughter to follow up with PMD. Follow up in ER as needed. She did have some improvement with Tylenol. Daughter is requesting an anti- inflammatory. - RAD Interpretation Radiology Orders: 01/26/18 11:27 KNEE RIGHT 2 VIEWS (AP & LAT) [RAD] Stat 01/26/18 11:28 Hip Right [HIP MIN 2V W/ PELVIS RT] [RAD] Stat Right knee and right hip and pelvis shows total knee replacement in good position. 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 No fracture or dislocation. Inspector Subassemblies: ED Physician - Medication Orders Current Medication Orders: Discontinued Medications Acetaminophen (Tylenol 325mg Tab) 975 mg PO STAT STA Stop: 01/26/18 11:30 Last Admin: 01/26/18 11:54 Dose: 975 mg MAR Pain/Vitals Document 01/26/18 11:54 SRE (Rec: 01/26/18 11:55 SRE [id number]) Pain Reassessment Is This A Pain ReAssessment? Yes Sleep Is patient sleeping during reassessment? No Presence of Pain Presence of Pain Yes - Scribe Statement The provider has reviewed the documentation as recorded by the Scribe Ayaan Mckeon All medical record entries made by the Scribe were at my direction and personally dictated by me. I have reviewed the chart and agree that the record accurately reflects my personal performance of the history, physical exam, medical decision making, and the department course for this patient. I have also personally directed, reviewed, and agree with the discharge instructions and disposition. Disposition/Present on Arrival - Present on Arrival Any Indicators Present on Arrival: No History of DVT/PE: No History of Uncontrolled Diabetes: No Urinary Catheter: No History of Decub. Ulcer: No History Surgical Site Infection Following: Orthopedic Procedures - Disposition Have Diagnosis and Disposition been Completed?: Yes Diagnosis: Knee pain, Hip pain Disposition: HOME/ ROUTINE Disposition Time: 13:07 Patient Plan: Discharge Condition: IMPROVED Discharge Instructions (ExitCare): Chronic Knee Pain (DC), Hip Pain (DC) Prescriptions: Naproxen 375 mg PO BID #14 tablet Referrals: Mirian Yanez MD [Primary Care Provider] - Follow up with primary Forms: [email or web address]. (Chinese)
[2018-01-26 13:54] VITALS: BP 129/88; PULSE 85
--- NOTE | 2018-01-26 14:56 | RAD ---
PROCEDURE: Pelvis, right hip HISTORY: Pain. No history of recent/ related trauma provided COMPARISON: None TECHNIQUE: Standard protocol for this study/examination. FINDINGS: There are no osseous abnormalities to suggest fracture. The pelvic ring is intact. Preserved femoral-acetabular relationship. Negative study for protrusio, subluxation or dislocation. Degenerative changes: Bilateral, of moderate right more severe than left. Postoperative changes in the pelvis or bowel resection. Fecal impaction noted IMPRESSION: Bilateral degenerative changes right greater than left. No acute findings.
--- NOTE | 2018-01-26 14:57 | RAD ---
PROCEDURE: Right Knee Radiographs. HISTORY: pain COMPARISON: None. FINDINGS: BONES: Status post right TKA. Satisfactory alignment of components of the lower extremity right knee prosthesis. No evidence of loosening. JOINTS: Expected findings related to right TKA. JOINT EFFUSION: None. OTHER FINDINGS: None. IMPRESSION: No acute findings related to/accounting for the clinical presentation. Unremarkable right total knee arthroplasty.
== END 2018-01-26 13:55 | disposition home or self-care (01) ==
LOC: ED 11:00
DX: M25.561 Pain in right knee (principal); M25.551 Pain in right hip

== ENCOUNTER 2018-03-19 13:40 | Inpatient (IN) | payer MEDICARE, MEDICAID ==
[2018-03-19 13:53] VITALS: BMI 30.9
--- NOTE | 2018-03-19 14:28 | ED PDOC ---
Arrival/HPI - General Chief Complaint: Dizziness/Lightheaded Time Seen by Provider: 03/19/18 13:59 Historian: Patient, Family - History of Present Illness Narrative History of Present Illness (Text): 03/19/18 14:28 Patient is a 87 year old female whose past medical history includes hypertension , pacemaker placement, type 2 diabetes mellitus, glaucoma, and bilateral total knee replacement, who was brought into the Emergency department by EMS complaining of constant and severe dizziness which started approximately 7:00 this morning. Patient is predominately Portuguese speak and her daughter is translating at her request. Patient describes that her dizziness as a spinning sensation that is exacerbated with head motion. She is also experiencing nausea and tinnitus. She denies any recent vomiting, trauma, or fall. Her daughter denies that patient has any history of strokes. Daughter states patient is confused, answering wavering answers of yes and no and responding slowly. PMD: Time/Duration: Other (7:00am this morning) Symptom Course: Unchanged Severity Level: Severe Context: Home Past Medical History - Provider Review Nursing Documentation Reviewed: Yes - Infectious Disease Hx of Infectious Diseases: None - Tetanus Immunization Tetanus Immunization: Unknown - Reproductive Menopause: Yes - Cardiac Hx Cardiac Disorders: Yes Hx Hypertension: Yes - Pulmonary Hx Respiratory Disorders: No - Neurological Hx Dizziness: Yes - HEENT Hx Cataracts: Yes (B/L repair) Hx Glaucoma: Yes - Renal Hx Renal Disorder: No - Endocrine/Metabolic Hx Diabetes Mellitus Type 2: Yes - Hematological/Oncological Hx Blood Disorders: No - Integumentary Hx Dermatological Disorder: No - Musculoskeletal/Rheumatological Hx Falls: Yes - Gastrointestinal Hx Gastrointestinal Disorders: (hx esophageal ulcer/diverticulitis/no bm x 6 days) - Genitourinary/Gynecological Hx Reproductive Disorders: Yes (hx partial hyst) - Psychiatric Hx Psychophysiologic Disorder: No Hx Depression: No Hx Emotional Abuse: No Hx Physical Abuse: No Hx Substance Use: No - Surgical History Hx Appendectomy: Yes Hx Cardiac Catheterization: Yes Hx Coronary Stent: Yes (x2) Hx Joint Replacement: Yes (b/l knee replacements) Hx Musculoskeletal Surgery: Yes Hx Orthopedic Surgery: Yes Other/Comment: b/l knee replacements - Anesthesia Hx Anesthesia: Yes Hx Anesthesia Reactions: No Hx Malignant Hyperthermia: No - Suicidal Assessment Feels Threatened In Home Enviroment: No Family/Social History - Physician Review Nursing Documentation Reviewed: Yes Family/Social History: No Known Family HX Smoking Status: Never Smoked Hx Alcohol Use: No Hx Substance Use: No Hx Substance Use Treatment: No Allergies/Home Meds Allergies/Adverse Reactions: Allergies No Known Allergies Allergy (Verified 01/09/18 13:50) Home Medications: Home Meds Medication Instructions Recorded Confirmed Glimepiride [Amaryl] 1 mg PO BID 09/23/17 03/19/18 Levothyroxine [Synthroid] 50 mcg PO DAILY 09/23/17 03/19/18 Losartan [Cozaar] 50 mg PO BID 09/23/17 03/19/18 Sitagliptin Phos/Metformin HCl 1,000 mg PO BID 03/19/18 03/19/18 [Janumet 50-1,000 mg Tablet] Review of Systems - Physician Review All systems were reviewed & negative as marked: Yes - Review of Systems Constitutional: absent: Fevers Skin: absent: Rash Physical Exam - Physical Exam Narrative Physical Exam (Text): 03/19/18 14:29 Constitutional: No acute distress. Head: Normocephalic. Atraumatic. Eyes: PERRL. ENT: Moist mucous membranes. Neck: Supple. Cardiovascular: Regular rate. Dorsalis pedis pulses 2+ bilaterally. Chest: No tenderness. Respiratory: Clear to auscultation bilaterally. GI: Soft. Nontender. Nondistended. Back: No CVA tenderness. Musculoskeletal: No tenderness or swelling of extremities. Skin: No rash. Neurologic: Alert, no focal deficit. Finger to nose normal(slowly). Reproducible symptoms with head turning. Vital Signs Temp Pulse Resp BP Pulse Ox 03/19/18 17:02 86 18 158/73 H 97 03/19/18 13:40 98 F 62 18 119/77 98 Temperature: Afebrile Blood Pressure: Normal Pulse: Regular Respiratory Rate: Normal Mental Status: Positive for: Alert and Oriented X 3 Medical Decision Making ED Course and Treatment: 03/19/18 14:29 Impression: Patient is a 87 year old female with constant and severe dizziness. Differential Diagnosis included but are not limited to: Plan: --lab work --Chest X-ray --Antivert --IV fluids -- Reassess and disposition Prior Visits: Notes and results from previous visits were reviewed. Patient was last seen in the emergency department on 01/26/18 for right hip and knee pain and was subsequently discharged. Progress Notes: 03/19/18 15:02 Creator : Jg Soto MD Dictator : Jg Soto MD Lot Attendant : Jg Soto MD Report Date : 03/19/2018 14:51:49 My Comment : HISTORY: vertigo COMPARISON: No prior. FINDINGS: LUNGS: No active pulmonary disease. PLEURA: No significant pleural effusion identified, no pneumothorax apparent. CARDIOVASCULAR: Normal. OSSEOUS STRUCTURES: No significant abnormalities. VISUALIZED UPPER ABDOMEN: Normal. OTHER FINDINGS: Pacemaker IMPRESSION: No active disease. 03/19/18 18:01 CT Head IMPRESSION: No intracranial mass, hemorrhage or evidence of acute infarct. 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 Severe chronic white matter ischemic change. Atrophy. Antivert helped patient but with persistent symptoms. Dr. Yanez recommends admission to her service. Not likely CVA, symptoms appear to be more peripheral in origin. I will document NIHSS for comparison in event patient is found to have CVA as inpatient. - Lab Interpretations Lab Results: 03/19/18 15:05 03/19/18 15:05 Lab Results 03/19/18 15:05: Blood Type O POSITIVE, Antibody Screen Negative, BBK History Checked Patient has bt 03/19/18 15:05: Sodium 138, Potassium 4.2, Chloride 99, Carbon Dioxide 24, Anion Gap 19, BUN 21, Creatinine 0.7, Est GFR ( Amer) > 60, Est GFR (Non- Af Amer) > 60, Random Glucose 237 H, Calcium 9.2, Total Bilirubin 0.4, AST 24, ALT 21, Alkaline Phosphatase 78, Troponin I < 0.01, Total Protein 7.1, Albumin 4.0, Globulin 3.1, Albumin/Globulin Ratio 1.3, Triglycerides 275 H, Cholesterol 215 H, LDL Cholesterol Direct 137 H, HDL Cholesterol 41 03/19/18 15:05: PT 11.1, INR 0.97, APTT 26.0 03/19/18 15:05: WBC 8.3 D, RBC 4.34, Hgb 11.6 L, Hct 36.0, MCV 82.9 D, MCH 26.7, MCHC 32.2, RDW 14.5, Plt Count 293, MPV 10.2, Gran % 54.7, Lymph % (Auto) 37.6 H, Mercer % (Auto) 5.8, Eos % (Auto) 1.7, Baso % (Auto) 0.2, Gran # 4.51, Lymph # (Auto) 3.1, Mercer # (Auto) 0.5, Eos # (Auto) 0.1, Baso # (Auto) 0.02 03/19/18 13:45: POC Glucose (mg/dL) 227 H - RAD Interpretation Radiology Orders: 03/19/18 14:28 CHEST PORTABLE [RAD] Stat 03/19/18 16:38 HEAD W/O CONTRAST [CT] Stat Reed Worker: Radiologist - Medication Orders Current Medication Orders: Aspirin (Aspirin) 325 mg PO STAT STA Stop: 03/19/18 18:04 Sodium Chloride (Sodium Chloride 0.9%) 1,000 mls @ 100 mls/hr IV .Q10H URBAN Last Admin: 03/19/18 14:55 Dose: 100 mls/hr eMAR Start Stop Document 03/19/18 14:55 SRE (Rec: 03/19/18 14:55 SRE [id number]) Intravenous Solution Start Date 03/19/18 Start Time 14:55 End Date 03/19/18 Discontinued Medications Meclizine HCl (Antivert) 25 mg PO STAT STA Stop: 03/19/18 14:30 Last Admin: 03/19/18 14:54 Dose: 25 mg NIHSS Scale (Ronda) Time Performed: 16:00 - How Severe is the Stoke Baseline Level of Consciousness: 0=Alert LOC to Questions: 0=Both comments correct LOC to commands: 0=Obeys both correctly Best Gaze: 0=Normal Visual: 0=No visual loss Facial: 0=Normal Motor Arm - Left: 0=No drift Motor Arm - Right: 0=No drift Motor Leg - Left: 0=No drift Motor Leg - Right: 0=No drift Limb Ataxia: 0=Absent Sensory: 0=Normal Best Language: 0=No aphasia Dysarthia: 0=Normal articulation Extinction & Inattention (Neglect): 0=Normal, no object Score: 0 Risk Level: No Stroke Risk rTPA Inclusion/Exclusion - Refusal of Treatment Patient Refused Treatment: No - Inclusion Criteria for Altepase Patient is 18 years or Older: Yes The Clinical Diagnosis of Ischemic Stroke That is Causing a Potentially Disabling Neurological Deficit: No Time of Onset is Well Established to be Less Than 270 Minute Before Treatment Would Begin: No Risk/Benefit Discussed With Patient/Family Member Present: Yes - Scribe Statement The provider has reviewed the documentation as recorded by the Scribe Donald Poornimacorinna Provider Scribe Attestation: All medical record entries made by the Scribe were at my direction and personally dictated by me. I have reviewed the chart and agree that the record accurately reflects my personal performance of the history, physical exam, medical decision making, and the department course for this patient. I have also personally directed, reviewed, and agree with the discharge instructions and disposition. Disposition/Present on Arrival - Present on Arrival Any Indicators Present on Arrival: No History of DVT/PE: No History of Uncontrolled Diabetes: No Urinary Catheter: No History of Decub. Ulcer: No History Surgical Site Infection Following: Orthopedic Procedures - Disposition Have Diagnosis and Disposition been Completed?: Yes Diagnosis: Vertigo, Confusion Disposition: HOSPITALIZED Disposition Time: 16:07 Patient Plan: Admission, Telemetry Condition: FAIR Referrals: Mirian Yanez MD [Primary Care Provider] - Follow up with primary Forms: hike (Syriac)
--- NOTE | 2018-03-19 14:53 | RAD ---
HISTORY: vertigo COMPARISON: No prior. FINDINGS: LUNGS: No active pulmonary disease. PLEURA: No significant pleural effusion identified, no pneumothorax apparent. CARDIOVASCULAR: Normal. OSSEOUS STRUCTURES: No significant abnormalities. VISUALIZED UPPER ABDOMEN: Normal. OTHER FINDINGS: Pacemaker IMPRESSION: No active disease.
[2018-03-19] MEDS: Sodium Chloride 0.9% 1,000 ML IV SCH ×2 (14:55→19:10)
[2018-03-19 15:25] LABS: BASO # 0.02 K/mm3 (0.0-2.0); BASO % 0.2 % (0.0-3.0); EOS # 0.1 (0.0-0.7); EOS % 1.7 % (1.5-5.0); GRAN # 4.51 (1.4-6.5); GRAN % 54.7 % (50.0-68.0); HEMOGLOBIN 11.6 g/dL (12.0-16.0); LYMPH # 3.1 (1.2-3.4); LYMPH % 37.6 % (22.0-35.0); MEAN CELL VOLUME 82.9 fl (80.0-105.0); MEAN CORPUSCULAR HEMOGLOBIN 26.7 pg (25.0-35.0); MEAN CORPUSCULAR HGB CONC 32.2 g/dl (31.0-37.0); MEAN PLATELET VOLUME 10.2 fl (7.0-11.0); MONO # 0.5 (0.1-0.6); MONO % 5.8 % (1.0-6.0); RBC 4.34 10^6/uL (3.5-6.1); RED CELL DISTRIBUTION WIDTH 14.5 % (11.5-14.5); WHITE BLOOD COUNT 8.3 10^3/ul (4.5-11.0)
[2018-03-19 15:35] LABS: ALB/GLOB RATIO 1.3 (1.1-1.8); ALT/SGPT 21 U/L (7-56); AST/SGOT 24 U/L (14-36); BLOOD UREA NITROGEN 21 mg/dL (7-21); CALCIUM 9.2 mg/dL (8.4-10.5); GFR AFRICAN-AMERICAN > 60; GFR NON-AFRICAN AMERICAN > 60; HDL CHOLESTEROL 41 mg/dL (29-60)
[2018-03-19 15:36] LABS: INR 0.97 (0.93-1.08); PROTHROMBIN TIME 11.1 SECONDS (9.4-12.5)
[2018-03-19 15:46] LABS: LDL CHOLESTEROL 137 mg/dL (0-129); TROPONIN I < 0.01 ng/mL
--- NOTE | 2018-03-19 17:56 | CT ---
PROCEDURE: CT HEAD WITHOUT CONTRAST. HISTORY: vertigo, confusion COMPARISON: 09/23/2017 TECHNIQUE: Axial computed tomography images were obtained through the head/brain without intravenous contrast. Radiation dose: Total exam DLP = 837.61 mGy-cm. This CT exam was performed using one or more of the following dose reduction techniques: Automated exposure control, adjustment of the mA and/or kV according to patient size, and/or use of iterative reconstruction technique. FINDINGS: HEMORRHAGE: No intracranial hemorrhage. BRAIN: No mass effect or edema. Moderate diffuse age-appropriate cerebral atrophy. Bilateral old cerebellar hemispheric lacunar infarcts, left greater than right. Old right basal ganglia lacunar infarct. Moderate to severe chronic periventricular white matter ischemic change. No evidence of acute infarct. VENTRICLES: Unremarkable. No hydrocephalus. CALVARIUM: Unremarkable. PARANASAL SINUSES: Unremarkable as visualized. No significant inflammatory changes. MASTOID AIR CELLS: Unremarkable as visualized. No inflammatory changes. OTHER FINDINGS: None. IMPRESSION: No intracranial mass, hemorrhage or evidence of acute infarct. 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 Severe chronic white matter ischemic change. Atrophy.
[2018-03-19] MEDS ORDERED: GLIMEPIRIDE 1 MG PO SCH (18:30)
--- NOTE | 2018-03-19 19:10 | CARD ---
APPROVED REPORT EKG Measurement Heart [id number] <Conclusion> Normal sinus rhythm Moderate voltage criteria for LVH, may be normal variant Nonspecific T wave abnormality Prolonged QT Abnormal ECG
[2018-03-19] MEDS ORDERED: Latanoprost 2.5 ml Opht Soln OD SCH (22:00)
[2018-03-19] MEDS: Insulin Reg-LOW-Coverage SC SCH (22:05)
[2018-03-20 00:11] LABS: IRON 24 ug/dL (45-180)
[2018-03-20 00:20] LABS: % IRON SATURATION 7 % (20-55); TOTAL IRON BINDING CAPACITY 333 ug/dL (265-497)
--- NOTE | 2018-03-20 05:10 | HP ---
CHIEF COMPLAINT: Dizziness, fall, altered mental status as per daughter. HISTORY OF PRESENT ILLNESS: Ms. April Fabian is an 87-year-old female with past medical history of hypertension, pacemaker placement, type 2 diabetes mellitus, glaucoma, and bilateral total knee replacement. Her daughter called my office about patient had altered mental status, almost fall and having dizzy spell, then she brought mother to [facility] emergency room by EMS, complaining of constant and severe dizziness, which started approximately 7 this morning. Patient is predominantly Uzbek speaking, but her daughter is translating at her request. Her daughter is an educated lady. She is a psychologist, working at some hospital. Dizziness is like spinning sensation that is exacerbated with head motion. Patient is also feeling nausea and tinnitus. No vomiting. No stroke. According to daughter, patient was confused, answering in a weird way responds very slowly as per daughter. PAST MEDICAL HISTORY: As above. Hypertension, dizziness, bilateral cataract surgery, diabetes mellitus type 2, esophageal ulcers, diverticulosis, appendectomy, cardiac catheterization, coronary stents x2, bilateral knee replacement. FAMILY HISTORY: Father and mother, noncontributory. HABITS: Never smoked. No drug. No ethanol. ALLERGIES: PATIENT IS NOT ALLERGIC WITH ANY MEDICATION. HOME MEDICATIONS: Amaryl, Synthroid, Cozaar, metformin, Janumet. REVIEW OF SYSTEMS: Patient was seen and examined at the bedside in her room, feels dizzy, but for me looks like on baseline mental status. No nausea or vomiting. No rash. No fever. No chills. No headache. No dizziness. PHYSICAL EXAMINATION: VITAL SIGNS: Temperature 98, pulse 52, respiratory rate 18, blood pressure 119/77, pulse oximetry is 98. HEENT: Head is normocephalic and atraumatic. Eyes: PERRLA. Extraocular muscles are intact. Conjunctivae are clear. Nose patent. Mucous membranes are moist. NECK: Supple. No carotid bruit, JVD, or thyromegaly. CHEST: Bilaterally symmetrical. HEART: S1 and S2 positive. LUNGS: Clear to auscultation. ABDOMEN: Soft. Bowel sounds present. No organomegaly. EXTREMITIES: No edema. No cyanosis. NEUROLOGIC: Patient is awake and alert. Moving all four extremities. No focal deficit. LABORATORY DATA: White blood cell is 8.3, hemoglobin 11.6, hematocrit 36.0, platelets 293. Sodium 138, potassium 4.2, BUN 21, creatinine 0.7, glucose 238. ASSESSMENT AND PLAN: Ms. April Fabian is an 87-year-old lady with anemia, diabetes mellitus, came with severe dizziness, vertigo, confusion, history of glaucoma, cataract, diabetes mellitus, hypothyroidism, history of insomnia, admitted the patient. Neurology consult called. Gastrointestinal and deep vein thrombosis prophylaxis. Repeat labs. We will follow up. Mirian Yanez MD MTDMartin
[2018-03-20 06:40] LABS: HEMOGLOBIN 11.9 g/dL (12.0-16.0); MEAN CELL VOLUME 82.3 fl (80.0-105.0); MEAN CORPUSCULAR HEMOGLOBIN 26.6 pg (25.0-35.0); MEAN CORPUSCULAR HGB CONC 32.3 g/dl (31.0-37.0); MEAN PLATELET VOLUME 10.3 fl (7.0-11.0); RBC 4.47 10^6/uL (3.5-6.1); RED CELL DISTRIBUTION WIDTH 14.7 % (11.5-14.5); WHITE BLOOD COUNT 8.8 10^3/ul (4.5-11.0)
[2018-03-20 07:48] LABS: BLOOD UREA NITROGEN 13 mg/dL (7-21); CALCIUM 9.2 mg/dL (8.4-10.5); GFR AFRICAN-AMERICAN > 60; GFR NON-AFRICAN AMERICAN > 60
[2018-03-20] MEDS: Insulin Reg-LOW-Coverage SC SCH ×4 (07:52→21:33)
[2018-03-20] MEDS: Levothyroxine 50 MCG TAB PO SCH (09:46)
[2018-03-20] MEDS ORDERED: [UNRECOGNIZED DRUG - OTHER] PO SCH (10:00)
[2018-03-20] MEDS ORDERED: METFORMIN HCL PO SCH (10:00)
[2018-03-20] MEDS ORDERED: SITAGLIPTIN PHOS PO SCH (10:00)
[2018-03-20] MEDS: guaiFENesin DM 100 mg-10 mg/5 ml UD PO PRN (18:11)
[2018-03-20] MEDS: Latanoprost 2.5 ml Opht Soln OD SCH (21:11)
--- NOTE | 2018-03-21 07:38 | PN ---
DATE: 03/20/2018 Patient is an 87-year-old female. SUBJECTIVE: Patient is seen and examined at the bedside, looking comfortable. No nausea, vomiting, or diarrhea. No hematuria or hematochezia. Shortness of breath is better, but still having shortness of breath. No fever. No chills. She is coughing. I ordered some cough medication. As per the patient's request for Cardiology consult because patient on admission was having palpitation, daughter wanted to make sure with the collection coordinator. Pacemaker was checked a couple of weeks ago. PHYSICAL EXAMINATION: VITAL SIGNS: Temperature 98, pulse 101, blood pressure 162/98, orthostatic was done, respiratory rate 19. HEENT: Head is normocephalic and atraumatic. Eyes; PERRLA. Extraocular muscles are intact. Conjunctivae are clear. Nose is patent. Mucous membranes are moist. NECK: Supple. No carotid bruit, JVD, or thyromegaly. CHEST: Bilaterally symmetrical. HEART: S1 and S2 positive. LUNGS: Clear to auscultation. ABDOMEN: Soft. Bowel sounds are present. No organomegaly. EXTREMITIES: No edema. No cyanosis. NEUROLOGIC: Patient is awake and alert. Moving all four extremities. No focal deficits. MEDICATIONS: Amaryl, Ambien, Antivert, Cozaar, Glucophage, insulin, Januvia, atorvastatin, Lopid, Pepcid, Robitussin, Synthroid, Xalatan ophthalmic solution, Zofran. LABORATORY DATA: White blood cells 8.8, hemoglobin 11.9, hematocrit 36.8, platelets 286. Sodium 141, potassium 4.1, BUN 13, creatinine 0.6, glucose 211, random glucose 227. ASSESSMENT AND PLAN: Ms. April Fabian is an 87-year-old lady with anemia, hyperglycemia, has history of hypertension, bilateral cataract surgery, diabetes mellitus, esophageal ulcers, diverticulosis, appendectomy, cardiac catheterization, coronary artery stents x 2, bilateral knee replacement, came with dizziness, immediate fall, vertigo, insomnia. Last night, I gave her a prescription of Ambien 5 mg. Today is going to consult with the sleep specialist and patient is complaining about coughing up and syrup given and pulmonary consult called. Neurologist is on the case. Gastrointestinal and deep vein thrombosis prophylaxis. Discussion done with the patient's daughter. Repeat labs. We will follow up. Mirian Yanez MD MTDMartin
[2018-03-21] MEDS: Insulin Reg-LOW-Coverage SC SCH ×4 (08:19→21:51)
[2018-03-21 09:07] LABS: HEMOGLOBIN 11.7 g/dL (12.0-16.0); MEAN CELL VOLUME 82.9 fl (80.0-105.0); MEAN CORPUSCULAR HEMOGLOBIN 26.7 pg (25.0-35.0); MEAN CORPUSCULAR HGB CONC 32.1 g/dl (31.0-37.0); MEAN PLATELET VOLUME 9.9 fl (7.0-11.0); RBC 4.39 10^6/uL (3.5-6.1); RED CELL DISTRIBUTION WIDTH 14.8 % (11.5-14.5)
[2018-03-21 09:18] LABS: BLOOD UREA NITROGEN 20 mg/dL (7-21); CALCIUM 9.5 mg/dL (8.4-10.5); GFR AFRICAN-AMERICAN > 60; GFR NON-AFRICAN AMERICAN > 60
[2018-03-21] MEDS: Levothyroxine 50 MCG TAB PO SCH (09:56)
[2018-03-21 16:54] LABS: PH,URINE 5.5 (4.7-8.0); URINE BILIRUBIN NEGATIVE (NEGATIVE); URINE BLOOD TRACE-INTACT (NEGATIVE); URINE GLUCOSE (UA) 250 mg/dL (NEGATIVE); URINE LEUKOCYTE ESTERASE MODERATE Leu/uL (NEGATIVE); URINE PROTEIN NEGATIVE mg/dL (<30 mg/dL); URINE UROBILINOGEN 0.2 E.U./dL (<1 E.U./dL)
[2018-03-21 17:01] LABS: URINE APPEARANCE CLEAR (CLEAR)
[2018-03-21 17:06] LABS: URINE BACTERIA SMALL (NEG); URINE EPITHELIAL CELLS MANY /hpf (0-5)
[2018-03-21] MEDS: POLYETHYLENE GLYCOL 3350 17 GM/Dose PACKET PO SCH (17:31)
[2018-03-21 18:08] LABS: ARTERIAL BLOOD GAS HCO3 21.6 mmol/L (21-28); ARTERIAL BLOOD GAS HEMOGLOBIN 11.4 g/dL (11.7-17.4); ARTERIAL BLOOD GAS O2 CAPACITY 15.9 mL/dl (16-24); ARTERIAL BLOOD GAS O2 CONTENT 15.5 ML/dl (15-23); ARTERIAL BLOOD GAS O2 SAT 97.6 % (95-98); ARTERIAL BLOOD GAS PCO2 34 mm/Hg (35-45); ARTERIAL BLOOD GAS PH 7.41 (7.35-7.45); ARTERIAL BLOOD GAS TCO2 22.6 mmol.L (22-28)
--- NOTE | 2018-03-21 21:36 | CON ---
DATE: 03/21/2018 INDICATIONS: Dizziness. HISTORY OF PRESENT ILLNESS: This is an 87-year-old woman known to me, admitted on 03/19/2018 with dizziness, tinnitus, and nausea, which started on the day of admission. She continues to have dizziness and does not feel well. There is no chest pain, shortness of breath, orthopnea, PND, syncope, palpitation, edema, claudication, fever, chills, cough, sputum production, hemoptysis, abdominal pain, vomiting, constipation, diarrhea, or melena. PAST MEDICAL HISTORY: Notable for coronary artery disease with coronary interventions and remote myocardial infarction. She has aortic stenosis and aortic insufficiency on prior echocardiogram in the [id number] range. She has a history of congestive heart failure, permanent pacemaker, hypothyroidism, gastric ulcer, gastric polyps, gastroparesis, hiatal hernia, bilateral total knee replacements, hysterectomy, osteoporosis, and glaucoma. MEDICATIONS: At the time of admission, include glimepiride, losartan, Janumet, Lipitor, Synthroid, and Xalatan. ALLERGIES: NO MEDICATION ALLERGIES. SOCIAL HISTORY: She lives at home with her daughter. She is ambulatory. She does not smoke cigarettes. She does not drink alcohol. FAMILY HISTORY: Noncontributory. REVIEW OF SYSTEMS: A 10-point review of systems otherwise unremarkable except as noted above. PHYSICAL EXAMINATION: GENERAL: She is a well-developed elderly woman sitting on her bed in telemetry, in no acute distress. VITAL SIGNS: Notable for sinus rhythm to sinus bradycardia, 58-101 beats per minute. She is afebrile. Blood pressure 125/64, respirations 18-20, O2 sat 95%-97% on room air. HEENT: Reveals no neck vein distention, thyromegaly, or carotid bruits. Mucous membranes are moist. Conjunctivae are pink. NECK: Supple. LUNGS: Lung tanner clear. HEART: Reveals normal first and second heart sounds. There is a soft systolic murmur along the left sternal border. There is a soft diastolic murmur along the left sternal border. The PMI is not palpable. ABDOMEN: Soft. Bowel sounds are present. No mass, organomegaly, tenderness, rebound, or guarding. No CVA tenderness. No palpable abdominal aortic aneurysm. EXTREMITIES: Revealed no cyanosis, clubbing, or edema. NEUROLOGIC: She is awake, alert, and oriented. PSYCHIATRIC: Normal as to mood and affect. SKIN: Warm and dry. No rash or cellulitis. LABORATORY AND IMAGING DATA: The chest x-ray is a portable study, it shows no active disease. The EKG demonstrates regular sinus rhythm, 62 beats per minute, nonspecific ST-wave changes, basically unchanged from a prior EKG. A CT scan of the head shows no intracranial mass, etc. White count is normal, platelet count is normal, hemoglobin 11.7, hematocrit 36.4. PT, INR, PTT unremarkable. Electrolytes: BUN, creatinine unremarkable. Blood sugar is in the 200 range. LFTs unremarkable. Troponin less than 0.01. Total cholesterol 215 with an LDL of 137, triglycerides 275, HDL 41. TSH is normal. IMPRESSION AND PLAN: April Fabian is an 87-year-old woman admitted with vertiginous feeling, tinnitus, nausea initially, still complaining of dizziness. No evidence of arrhythmia. I will check postural vital signs. She should have a neurologic evaluation, possibly trial of Antivert. She can be out of bed. Ambulation with assistance. I will review her old records. At this time, I would continue cardiac medications including Lipitor, losartan. She should be considered for chronic aspirin therapy, 81 mg daily. I will follow along with you. I will make additional recommendations based on her clinical course. Panchito Hameed MD MTDMartin
[2018-03-21] MEDS: Latanoprost 2.5 ml Opht Soln OD SCH (21:51)
--- NOTE | 2018-03-21 22:26 | CON ---
DATE: 03/21/2018 PULMONARY CONSULT REFERRING PHYSICIAN: Mirian Yanez MD. REASON FOR CONSULTATION: Sleepy, arousable, change in mental status. HISTORY OF PRESENT ILLNESS: This is an 87-year-old female with known history of for hypertension, cardiac arrhythmia requiring pacemaker, diabetes, history of degenerative joint disease requiring bilateral knee replacement. She came into ER with severe dizzy spells, sleepy and tired, short of breath with exertion. No nausea. No vomiting. No diarrhea. No leg pain or leg swelling. PAST MEDICAL HISTORY: Hypertension, cardiac arrhythmia requiring pacemaker, degenerative joint disease, has a history of cataract, history of coronary artery disease requiring coronary stent. FAMILY HISTORY: No significant cardiopulmonary disease reported. SOCIAL HISTORY: Never smoked. Denies any alcohol use. ALLERGIES: NONE KNOWN. MEDICATIONS: She is on Amaryl 1 mg twice a day, Ambien 5 mg at bedtime p.r.n., Antivert 25 mg three times a day, Cozaar 100 mg daily, metformin 1000 mg twice a day, Januvia 50 mg twice a day, Lipitor 40 mg daily, gemfibrozil 600 mg twice a day, MiraLax 17 g twice a day, Pepcid 40 mg daily, Robitussin DM 5 mL three times a day p.r.n., Synthroid 50 mcg daily, and Zofran p.r.n. basis. REVIEW OF SYSTEMS: Has on and off headache and dizzy spell. No nausea. No chest pain. Short of breath with exertion. No dysuria. No leg pain or leg swelling. PHYSICAL EXAMINATION: GENERAL: Lying in the bed, in no acute distress. VITAL SIGNS: Temperature is 98, heart rate is 55, respiratory rate is 18, blood pressure 119/72, pulse ox 95% on room air. HEENT: Moist mucous membrane. Crowded airway. NECK: Supple. No JVD. LUNGS: Have a fair airflow with few rhonchi. HEART: S1 and S2. ABDOMEN: Soft, nontender. No organomegaly. EXTREMITIES: No edema. NEUROLOGIC: Awake, alert, and follows simple commands. LABORATORY DATA: Shows hemoglobin 11.7, hematocrit 36.4, WBC 9, platelet is 307. INR is 0.97. Sodium 136, potassium 4.5, chloride 100, bicarbonate 24, BUN 20, creatinine 0.8, glucose 215, calcium is 9.5. Urinalysis shows wbc's 10-15, rbc's 5-10, leukocyte esterase moderate. Microbiology: No data is available. 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 Chest x-ray done in ER shows no infiltrate or effusion. IMPRESSION AND PLAN: Hypertension, degenerative joint disease, coronary artery disease, diabetes, hypothyroid. There may be a component of sleep apnea syndrome. She is on Ambien. We will get ABG to assess pCO2 arrest. We will discontinue Ambien for now. Keep head elevated at 45 degrees. Gastric prophylaxis, deep venous thrombosis prophylaxis. Fall precaution. We will reevaluate in the morning. Thank you and we will follow with you. Tiffanie Castrejon MD
--- NOTE | 2018-03-22 01:52 | PN ---
DATE: 03/21/2018 SUBJECTIVE: Patient is seen and examined on the bedside, looking comfortable. No nausea, vomiting, or diarrhea. No hematuria or hematochezia. No swelling of the leg. No chest pain. No palpitations. Sitting on the chair. Dizziness is a little bit better. Headache is a little bit better. PHYSICAL EXAMINATION: VITAL SIGNS: Temperature 97.4, pulse 58, blood pressure 113/74, respiratory rate 15. HEENT: Head normocephalic, atraumatic. Eyes: PERRLA. Extraocular muscles intact. Conjunctivae clear. Nose patent. Mucous membranes moist. NECK: Supple. No carotid bruit, JVD, or thyromegaly. CHEST: Bilaterally symmetrical. HEART: S1 and S2 positive. LUNGS: Clear to auscultation. ABDOMEN: Soft. Bowel sounds present. No organomegaly. EXTREMITIES: No edema. No cyanosis. NEUROLOGIC: Patient is awake and alert. Follow simple commands. MEDICATIONS: Amaryl, Antivert, Cozaar, Glucophage, insulin, Januvia, Lipitor, gemfibrozil, MiraLax, Pepcid, Robitussin, Rocephin, levothyroxine, Zoloft. LABORATORY DATA: White blood cell 8, hemoglobin 11.7, hematocrit 36.4, platelets 307. Glucose 305, 210, 247. Sodium 136, potassium 4.7, BUN 20, creatinine 0.8, glucose 215. ASSESSMENT AND PLAN: Ms. April Fabian is an 87-year-old lady with anemia, uncontrolled diabetes mellitus, glucosuria, hematuria, urinary tract infection. Started patient on Rocephin. Waiting for culture and sensitivity. Patient has history of coronary artery disease with coronary intervention and remote myocardial infarction; aortic stenosis, aortic insufficiency on prior echocardiography, history of congestive heart failure, permanent pacemaker, hypothyroidism, gastric ulcer, gastric polyps, gastroparesis, hiatal hernia, bilateral total knee replacement, hysterectomy, osteoporosis, and glaucoma. Came with dizziness. Still complaining about dizziness. No evidence of arrhythmias. Neurologist is on the case. Patient is getting Antivert. Need physical therapy. Ambulation with assistance. Continue cardiac medications including Lipitor and losartan. Getting aspirin therapy 81 mg. Seen by Cardiology, Dr. Panchito Hameed. We did a CAT scan of the head. Gastrointestinal and deep vein thrombosis prophylaxis. Repeat labs. We will follow up. Mirian Yanez MD
[2018-03-22 05:56] VITALS: O2SAT 97
[2018-03-22] MEDS: Insulin Reg-LOW-Coverage SC SCH ×2 (08:43→12:27)
[2018-03-22] MEDS ORDERED: cefTRIAXone 1 gm 1 GM/100 ML BAG IVPB SCH (10:00)
[2018-03-22] MEDS: POLYETHYLENE GLYCOL 3350 17 GM/Dose PACKET PO SCH (10:20)
[2018-03-22] MEDS: Levothyroxine 50 MCG TAB PO SCH (10:22)
[2018-03-22 12:19] VITALS: BP 144/77; PULSE 103; RESP 19; TEMP 97.8
[2018-03-22] MEDS: guaiFENesin DM 100 mg-10 mg/5 ml UD PO PRN (12:28)
--- NOTE | 2018-03-22 14:59 | PN ---
DATE: 03/22/2018 SUBJECTIVE: The patient is seen lying in bed on telemetry. She continues to have some dyspnea and cough. She denies any dizziness at the present time. CURRENT MEDICATIONS: Include Amaryl 1 mg b.i.d., Antivert p.r.n., Cozaar 100 mg daily, Glucophage 1000 mg b.i.d., Januvia 50 mg b.i.d., Lipitor 40 mg daily, Lopid 600 mg b.i.d., Pepcid 40 mg daily, Rocephin, Synthroid 50 mcg daily and Xalatan eyedrops. OBJECTIVE: GENERAL: She is a very elderly woman who appears somewhat restless. VITAL SIGNS: Her blood pressure is 142/80 with a pulse of 80 and sinus, respirations are 14. She is afebrile at this time. HEENT: No JVD. CHEST: Few scattered rhonchi. HEART: PMI displaced laterally with systolic murmur noted at the base. ABDOMEN: Soft, nontender, normoactive bowel sounds. EXTREMITIES: No edema. DIAGNOSTIC DATA: No blood work pending from this morning. IMPRESSION: 1. Recent dizziness, no clear etiology identified. 2. Dyspnea, sounds most consistent with bronchitis. 3. Cegt-ms-[id number] aortic stenosis, stable at present. 4. Coronary artery disease, appears clinically stable. RECOMMENDATIONS: Continue conservative management, appears most appropriate at the present time. Continue conservative management from a cardiac standpoint, appears most reasonable. No other testing is planned at the present time from our standpoint. We will be happy to follow along as needed. Caleb Marti MD
== END 2018-03-22 14:54 | DRG 149 ==
LOC: ED 13:40 → ERH 18:01 → 2RNO 18:34
PROVIDERS: ADMIT Internal Medicine; ATTEND Internal Medicine
DX: R42 Dizziness and giddiness (principal); N39.0 Urinary tract infection, site not specified; I25.10 Atherosclerotic heart disease of native coronary artery without angina pectoris; J40 Bronchitis, not specified as acute or chronic; D64.9 Anemia, unspecified; E03.9 Hypothyroidism, unspecified; E11.43 Type 2 diabetes mellitus with diabetic autonomic (poly)neuropathy; E11.65 Type 2 diabetes mellitus with hyperglycemia; H40.9 Unspecified glaucoma; H93.19 Tinnitus, unspecified ear; I11.0 Hypertensive heart disease with heart failure; I25.2 Old myocardial infarction; I35.2 Nonrheumatic aortic (valve) stenosis with insufficiency; I50.9 Heart failure, unspecified; K31.84 Gastroparesis; M19.90 Unspecified osteoarthritis, unspecified site; M81.0 Age-related osteoporosis without current pathological fracture; Z79.82 Long term (current) use of aspirin; Z87.11 Personal history of peptic ulcer disease; Z87.19 Personal history of other diseases of the digestive system; Z90.710 Acquired absence of both cervix and uterus; Z95.0 Presence of cardiac pacemaker; Z95.5 Presence of coronary angioplasty implant and graft; Z96.653 Presence of artificial knee joint, bilateral

== ENCOUNTER 2018-03-22 14:58 | Inpatient (IN) | payer OTHER, MEDICAID ==
[2018-03-22 15:01] VITALS: BMI 26.2
[2018-03-22] MEDS: Insulin Reg-LOW-Coverage SC SCH ×2 (16:26→22:08)
[2018-03-22] MEDS: POLYETHYLENE GLYCOL 3350 17 GM/Dose PACKET PO SCH (17:30)
[2018-03-22] MEDS: guaiFENesin DM 100 mg-10 mg/5 ml UD PO PRN (17:34)
[2018-03-22] MEDS ORDERED: GLIMEPIRIDE 1 MG PO SCH (18:00)
[2018-03-22] MEDS: Latanoprost 2.5 ml Opht Soln OD SCH (21:41)
--- NOTE | 2018-03-22 23:11 | CON ---
DATE: 03/22/2018 PULMONARY CONSULTATION REFERRING PHYSICIAN: Mirian Yanez MD. REASON FOR CONSULTATION: Cough, shortness of breath. HISTORY OF PRESENT ILLNESS: This is an 87-year-old female known to me from previous admission at acute site of the hospital. She was brought in because of change in mental status, not feeling well. Does have rhinitis, postnasal drip, cough. No nausea. No vomiting. No diarrhea. No leg pain or leg swelling. PAST MEDICAL HISTORY: History of sinusitis, hypertension, cardiac arrhythmia requiring pacemaker, degenerative joint disease, history of cataract, coronary artery disease requiring coronary stent. ALLERGIES: NONE KNOWN. SOCIAL HISTORY: Nonsmoker, nondrinker. FAMILY HISTORY: No significant cardiopulmonary disease reported. MEDICATIONS: She is on Amaryl 1 mg twice a day, Antivert 25 mg three times a day, Cozaar 100 mg daily, metformin 1000 mg twice a day, insulin coverage, Januvia 50 mg twice a day, Lipitor 40 mg at bedtime, Lopid 600 mg twice a day, MiraLax 17 g twice a day, Pepcid 40 mg at bedtime, Robitussin 5 mL three times a day p.r.n., Rocephin 1 g IV, also on Synthroid 50 daily, eye drops, and Zofran p.r.n. basis. REVIEW OF SYSTEMS: No headache. Has some rhinitis, postnasal drip, cough. No nausea. No vomiting. No diarrhea. No leg pain or leg swelling. Has a dizzy spell. PHYSICAL EXAMINATION: VITAL SIGNS: Temperature is 98, heart rate 72, respiratory rate is 18, blood pressure 124/62, pulse ox 100% on room air. HEENT: Moist mucous membranes. Crowded airway. Mild maxillary area tenderness. NECK: Supple. No JVD. LUNGS: Have a fair airflow with scattered rhonchi. HEART: S1, S2. ABDOMEN: Soft, nontender. No organomegaly. EXTREMITIES: No edema. NEUROLOGIC: Awake, alert, and follows simple commands. LABORATORY DATA: Shows hemoglobin 11.7, hematocrit 36.4, WBC 9, platelet is 307. Blood gases done yesterday shows pH 7.41, pCO2 of 34, and pO2 of 94, this is on room air. Blood sugar this morning is 121. Sodium 136, potassium 4.7, chloride 100, bicarbonate 24, BUN 20, creatinine 0.8, glucose 215, calcium is 9.5. Microbiology, urine has gram-negative eliseo. IMPRESSION AND PLAN: Hypertension, degenerative joint disease, coronary artery disease, diabetes, hypothyroid, urinary tract infection, history of sinusitis with postnasal drip and bronchitis. Pulmonary point of view, she is doing okay. Continue antibiotics. Follow identification of the organism. Ambien was discontinued. May decrease Antivert. We will add inhaled bronchodilator. May give prednisone 20 mg daily. Sleep apnea precaution. In the past, refused CPAP use. Fall precaution. Thank you and we will follow with you. Tiffanie Castrejon MD
[2018-03-23] MEDS: Levothyroxine 50 MCG TAB PO SCH (05:20)
[2018-03-23] MEDS: guaiFENesin DM 100 mg-10 mg/5 ml UD PO PRN ×3 (05:20→17:43)
[2018-03-23] MEDS: cefTRIAXone 1 gm 1 GM/100 ML BAG IVPB SCH (05:20)
[2018-03-23] MEDS: Insulin Reg-LOW-Coverage SC SCH ×4 (07:30→21:21)
[2018-03-23] MEDS: POLYETHYLENE GLYCOL 3350 17 GM/Dose PACKET PO SCH ×2 (10:05→17:42)
[2018-03-23] MEDS: Fluticasone Nasal 50 mcg/Spray NS SCH ×2 (14:51→17:41)
--- NOTE | 2018-03-23 19:11 | PN ---
DATE: 03/23/2018 PULMONARY PROGRESS NOTE REFERRING PHYSICIAN: Mirian Yanez MD. SUBJECTIVE: She is sitting in the side of the bed having dinner. Still complaining about dizzy spells. Has some rhinitis, postnasal drip, cough. No nausea, no vomiting, no diarrhea. No leg pain or leg swelling. OBJECTIVE: GENERAL: In no acute distress. VITAL SIGNS: Temperature is 98, heart is 92, respiratory rate is 18, blood pressure 120/70, pulse of 93% on room air. HEENT: Moist mucous membrane. Crowded airway. NECK: Supple. No JVD. LUNGS: Have a few scattered rhonchi. HEART: S1, S2. ABDOMEN: Soft, nontender. No organomegaly. EXTREMITIES: No edema. NEUROLOGIC: Awake, alert, and follows simple command. MEDICATIONS: She is on Amaryl 1 mg twice a day, Antivert 12.5 mg three times a day p.r.n., Cozaar 100 mg daily, Flonase one spray to each nostril twice a day, Glucophage 1000 mg twice a day, insulin coverage, Januvia 50 mg twice day, Lipitor 40 mg at bedtime, gemfibrozil 600 mg twice day, MiraLax 17 g twice a day, Pepcid 40 mg daily, prednisone 20 mg daily, Robitussin 5 mL three times a day p.r.n., Rocephin 1 g IV daily, Singulair 10 mg daily, Synthroid 50 mcg daily, Zofran on a p.r.n. basis. LABORATORY DATA: Shows blood sugar this morning, 265. IMPRESSION AND PLAN: Hypertension, degenerative joint disease, coronary artery disease, diabetes, hypothyroid, urinary tract infection, history of sinusitis, postnasal drip, frequent dizzy spells. Pulmonary point of view, doing okay. I will increase her prednisone to 40 mg daily. Continue antibiotics. Continue Flonase. If this dizziness is related to sinusitis and vestibular system (?). Continue therapy. Fall precaution. Follow up labs in the morning. Thank you and we will follow with you. Tiffanie Castrejon MD [facility] # [id number]
[2018-03-23] MEDS: Latanoprost 2.5 ml Opht Soln OD SCH (21:20)
[2018-03-24] MEDS: cefTRIAXone 1 gm 1 GM/100 ML BAG IVPB SCH (05:13)
[2018-03-24] MEDS: Levothyroxine 50 MCG TAB PO SCH (05:13)
--- NOTE | 2018-03-24 05:20 | HP ---
CHIEF COMPLAINT: Dizziness. HISTORY OF PRESENT ILLNESS: Ms. April Fabian is an 87-year-old patient, my private patient was admitted in [facility] medical floor for dizziness, headache and coughing, shortness of breath, we admitted the patient. Neurological service called. Cardiologic service called. [employer] saw the patient. The patient got physical therapy and got treatment, improved. The patient was almost ataxic, history of falling, we transferred the patient to TCU for further evaluation for continuity of care and for physical therapy. Daughter was sitting on the bedside. Length of time discussion done with her. All questions answered. PAST MEDICAL HISTORY: History of sinusitis, hypertension, cardiac arrhythmia requiring pacemaker, degenerative joint disease, history of cataract, coronary artery disease requiring coronary stenting. ALLERGIES: PATIENT IS NOT ALLERGIC WITH ANY MEDICATIONS. HOME MEDICATIONS: Reviewed by me. SOCIAL HISTORY: Never smoked. No drugs. No ethanol. FAMILY HISTORY: Father and mother, noncontributory. MEDICATIONS: Amaryl, Antivert, Cozaar, metformin, insulin, Januvia, Lipitor, Lopid, MiraLax, Pepcid, Rocephin, Synthroid. REVIEW OF SYSTEMS: Patient is seen and examined at the bedside. Still feeling dizzy. No coughing. No shortness of breath. No nausea, vomiting, diarrhea. No hematuria or hematochezia. No swelling of the legs. No chest pain. No palpitation. The patient still has headache, dizziness. PHYSICAL EXAMINATION: VITAL SIGNS: Temperature 98.1, pulse 92, blood pressure 120/70, respiratory rate 18. HEENT: Head: Normocephalic, atraumatic. Eyes: PERRLA. Extraocular movements are intact. Conjunctivae are clear. Nose patent. Mucous membranes are moist. NECK: Supple. No carotid bruit. No JVD or thyromegaly. CHEST: Bilaterally symmetrical. HEART: S1 and S2 positive. LUNGS: Clear to auscultation. ABDOMEN: Soft. Bowel sounds present. No organomegaly. EXTREMITIES: No edema. No cyanosis. NEUROLOGIC: Patient is awake, alert. Moving all four extremities. No focal deficits. MEDICATIONS: Amaryl, Antivert, Cozaar, Flonase, Glucophage, insulin, Januvia, atorvastatin, Lipitor, MiraLax, Pepcid, prednisone , Robitussin, Rocephin, Singulair, Synthroid, Zofran. LABORATORY DATA: We do not have recent labs today, but I reviewed old labs and I ordered new labs. Glucose 265, 249, 169, 131. ASSESSMENT AND PLAN: Ms. April Fabian, an 87-year-old lady with a history of multiple medical problems, hypertension, atrial fibrillation, degenerative joint disease, coronary artery disease, hypothyroidism, history of urinary tract infection, history of sinusitis, postnasal drip, feeling having a dizzy spells. Dr. Castrejon put patient on prednisone. Continue antibiotics. Continue Flonase. According to Dr. Castrejon, dizziness is related - looks like from sinusitis or vascular system. Continue present treatment. Fall precautions. Gastrointestinal and deep vein thrombosis prophylaxis. Repeat labs. We will make sure that Neurologist is on the case. We will follow up. Mirian Yanez MD
[2018-03-24] MEDS: Insulin Reg-LOW-Coverage SC SCH ×4 (06:57→22:19)
[2018-03-24 07:44] LABS: HEMOGLOBIN 11.6 g/dL (12.0-16.0); MEAN CELL VOLUME 83.9 fl (80.0-105.0); MEAN CORPUSCULAR HEMOGLOBIN 26.4 pg (25.0-35.0); MEAN CORPUSCULAR HGB CONC 31.4 g/dl (31.0-37.0); MEAN PLATELET VOLUME 9.8 fl (7.0-11.0); RBC 4.4 10^6/uL (3.5-6.1); RED CELL DISTRIBUTION WIDTH 14.9 % (11.5-14.5); WHITE BLOOD COUNT 10.6 10^3/ul (4.5-11.0)
[2018-03-24 07:55] LABS: ALB/GLOB RATIO 1.2 (1.1-1.8); ALBUMIN 3.9 g/dL (3.0-4.8); ALT/SGPT 15 U/L (7-56); AST/SGOT 18 U/L (14-36); BLOOD UREA NITROGEN 26 mg/dL (7-21); CALCIUM 9.7 mg/dL (8.4-10.5); GFR AFRICAN-AMERICAN > 60; GFR NON-AFRICAN AMERICAN 59
[2018-03-24] MEDS: Fluticasone Nasal 50 mcg/Spray NS SCH ×2 (09:53→18:10)
[2018-03-24] MEDS: POLYETHYLENE GLYCOL 3350 17 GM/Dose PACKET PO SCH ×2 (09:55→18:11)
--- NOTE | 2018-03-24 13:09 | CON ---
DATE: 03/24/2018 NEUROLOGY CONSULT CHIEF COMPLAINT: Dizziness. HISTORY OF PRESENT ILLNESS: This is an 87-year-old woman who is well known to me from the past with history of hypertension; degenerative joint disease; coronary artery disease, status post stent; type 2 diabetes mellitus, uncontrolled; hypertension; hyperlipidemia; bradycardia; status post pacemaker placement; history of old right cerebellar infarct, as well as bilateral lacunar infarcts in the cerebral hemisphere; history of gastric ulcers who came in for some episode of confusion, found to have elevated blood sugars and UTI with E. coli, on antibiotics, also had some sinusitis. She is in the [facility] for reconditioning and rehabilitation, was consulted for dizziness. She states when she gets up from sitting to a standing position as well as walking, she feels lightheaded as if she is going to pass out, occasionally she has some mild spinning sensation of the room. 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 In addition, her diabetes is not well controlled, her A1c is 10.4 and has elevated systolic blood pressures at times. PAST MEDICAL HISTORY: As above. FAMILY HISTORY: Noncontributory. SOCIAL HISTORY: No illicit drug use, smoking, or EtOH abuse at this time. MEDICATIONS: Reviewed by nurses' reconciliation sheet. REVIEW OF SYSTEMS: A 14-point review of systems negative except as per the HPI. PHYSICAL EXAMINATION: GENERAL: The patient is sitting up in bed, no acute distress. VITAL SIGNS: Temperature of 98.1, pulse rate of 92, blood pressure 120/70, respiratory rate 18, oxygen saturation 97% on room air. HEENT: Head is atraumatic, normocephalic. PERRLA. Extraocular muscles intact. NECK: Supple. No JVD. No adenopathy noted. LUNGS: Clear to auscultation. No adventitious sounds. HEART: S1, S2. Normal rate and rhythm. No murmurs, rubs, or gallops. ABDOMEN: Soft, nontender, and nondistended. Bowel sounds are present. EXTREMITIES: No clubbing, no cyanosis. Peripheral pulses 2+ felt bilaterally. NEUROLOGIC: The patient is alert, oriented to person, place, month and year. Speech is fluent without any errors. Cranial nerves II through XII intact. Motor exam: Moves all extremities equally. No pronator drift seen. Sensory exam: Decreased light touch, and pinprick up to the calves bilaterally. Decreased vibration of the toes. DTRs are 2+ throughout, 1 at both knees and ankles . Coordination: Qhtnld-[id number]-ldmj intact. No dysmetria noted. Gait is deferred for now. LABORATORY DATA: Sodium is 143, potassium 5, chloride of 104, carbon dioxide 26. BUN of 26, creatinine 0.9. Random glucose of 138. 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 Her dizziness is moist likely secondary to her vertebrobasilar insufficiency superimposed on underlying uncontrolled blood sugars as well as mild hypertensive episodes. At this time, recommend: 1. Aspirin 81, Plavix 75 and statin of 40 mg p.o. daily for treatment for vertebrobasilar insufficiency. 2. Avoid some movements and we will need definitely physical and occupational therapy and rehabilitation. 3. She has evidence of mild diabetic neuropathy, for which PT will help with her balance. 4. Keep systolic blood pressure between 120s to 130s and diastolic between 70s to 80s. 5. Continue with PT and antibiotics for underlying urinary tract infection. Thank you for this consultation. Wayne Dubon MD
[2018-03-24] MEDS: Amoxicillin-Clav 500-125 mg Tab PO SCH (21:40)
[2018-03-24] MEDS: Latanoprost 2.5 ml Opht Soln OD SCH (21:41)
--- NOTE | 2018-03-24 22:28 | PN ---
DATE: 03/24/2018 REFERRING PHYSICIAN: Mirian Yanez MD SUBJECTIVE: She is out of bed to chair, complaining of a dizzy spell, complaining rhinitis. Cough is better. No nausea, no vomiting, no diarrhea. No leg pain or leg swelling. OBJECTIVE: GENERAL: In no acute distress. VITAL SIGNS: Temperature is 98, heart rate is 59, respiratory rate is 18, blood pressure 130/70, pulse ox 93% on room air. HEENT: Moist mucous membrane. Crowded airway. Mallampati score is 4. NECK: Supple. No JVD. LUNGS: Have a fair airflow with few rhonchi. HEART: S1, S2. ABDOMEN: Soft, nontender. No organomegaly. EXTREMITIES: There is no edema. NEUROLOGIC: Awake, alert, follows simple command. MEDICATIONS: She is on Amaryl 1 mg twice a day, Antivert 12.5 mg three times a day p.r.n., Augmentin 500/125 one tablet twice a day, Cozaar 100 mg daily, Ecotrin 81 mg daily, Flonase one spray each nostril twice a day, metformin 1000 mg twice a day, insulin coverage, Januvia 50 mg twice a day, Lipitor 40 mg daily, gemfibrozil 600 mg twice a day, MiraLax 17 g daily, Pepcid 40 mg at bedtime, Plavix 75 mg daily, prednisone 40 mg daily, Robitussin DM 5 mL three times a day p.r.n., Singulair 10 mg daily, Synthroid 50 mg daily, Zofran p.r.n. basis. LABORATORY DATA: Shows hemoglobin 11.6, hematocrit 36.9, WBC 10.6, platelet is 296. Sodium 143, potassium 5.0, chloride 104, bicarbonate 26, BUN 26, creatinine 0.9, glucose 138, calcium 9.7, AST 18, ALT 15, alk phos is 76. 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 Also has a history of stroke. I will decrease prednisone to 20 mg daily. Continue Singulair. Continue antibiotics, treating UTI. Physical therapy, occupational therapy. Neurology followup. Fall precaution. Thank you and we will follow with you. Tiffanie Castrejon MD [facility] # [id number]
[2018-03-25] MEDS: Levothyroxine 50 MCG TAB PO SCH (05:47)
--- NOTE | 2018-03-25 06:00 | PN ---
DATE: 03/24/2018 SUBJECTIVE: The patient is an 87-year-old female. Patient was seen and examined on the bedside on 03/24/2018. Looking comfortable. Daughter was sitting on the bedside also. Patient has, early in the morning, a fall when she was coming out of the bathroom, but nothing hit the floor. No cough. No shortness of breath. No fever. No chills. PHYSICAL EXAMINATION: VITAL SIGNS: Temperature 98, heart rate 59, respiratory rate 18, blood pressure 130/70, pulse oximetry 93% on room air. HEENT: Head, normocephalic and atraumatic. Eyes, PERRLA. Extraocular muscles intact. Conjunctivae clear. Nose: Patent. Mucous membranes moist. NECK: Supple. No carotid bruit. No JVD or thyromegaly. CHEST: Bilaterally symmetrical. HEART: S1 and S2 positive. LUNGS: Clear to auscultation. ABDOMEN: Soft. Bowel sounds present. No organomegaly. EXTREMITIES: No edema. No cyanosis. NEUROLOGIC: Patient is awake, alert. Moving all four extremities. No focal deficits. MEDICATIONS: Amaryl, Antivert, Augmentin, Cozaar, Ecotrin, Flonase, metformin, insulin, Januvia and Lipitor. LABORATORY DATA: Hemoglobin 11.6, hematocrit 36.9, white blood cells 10.6, platelets 296. Sodium 143, potassium 5, BUN 26, creatinine 0.9. AST 18, ALT 15, alkaline phosphatase is 76. ASSESSMENT AND PLAN: Ms. 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 Also, patient has a history of stroke. We will decrease prednisone tapering doses . Gastrointestinal and deep vein thrombosis prophylaxis. Repeat labs. We will follow up. Mirian Yanez MD MTDMartin
[2018-03-25] MEDS: Insulin Reg-LOW-Coverage SC SCH ×4 (06:37→22:16)
[2018-03-25] MEDS: Fluticasone Nasal 50 mcg/Spray NS SCH ×2 (09:20→17:28)
[2018-03-25] MEDS: POLYETHYLENE GLYCOL 3350 17 GM/Dose PACKET PO SCH ×2 (09:25→17:31)
[2018-03-25] MEDS: Amoxicillin-Clav 500-125 mg Tab PO SCH ×2 (09:32→17:28)
[2018-03-25] MEDS ORDERED: Amoxicillin-Clav 500-125 mg Tab PO SCH (10:00)
--- NOTE | 2018-03-25 10:36 | CON ---
DATE: 03/24/2018 REASON FOR CONSULTATION: Dizziness. HISTORY OF PRESENT ILLNESS: The patient is an 87-year-old female. The patient was in room 321, bed 1 in the transitional care unit. This is an 87-year-old female who was admitted to hospital because of mental status change and not feeling well. She has a history of chronic sinusitis, rhinitis, postnasal drip and cough. She denied any nausea, vomiting and did start to develop vertigo. The patient states the vertigo as the room is spinning. She denies any otalgia or otorrhea, admits to tinnitus in her right ear as that was associated with the episodes of vertigo as well as decreased hearing on the right side. The patient had long-standing history of decreased hearing on her left side. Also, complains of postnasal drip and cough and nasal congestion. PAST MEDICAL HISTORY: Significant for chronic sinusitis, hypertension, cardiac arrhythmia requiring pacemaker, coronary artery disease requiring stent, degenerative joint disease as well as cataract history. ALLERGIES: THE PATIENT DENIES ANY ALLERGIES TO ANY MEDICATION. SOCIAL HISTORY: Was a nondrinker and nonsmoker. FAMILY HISTORY: Noncontributory. CURRENT MEDICATIONS: Amaryl, Antivert for her dizziness, Cozaar, insulin, Januvia, Lipitor, Lopid, MiraLax, Pepcid, Robitussin, Rocephin, Zofran, Synthroid, prednisone. REVIEW OF SYSTEMS: Negative except for HPI. PHYSICAL EXAMINATION VITAL SIGNS: The patient was afebrile with a regular heart rate and respiratory rate of 18. HEENT: Normocephalic, atraumatic head. Her external auditory canals were narrow on both sides. Tympanic membrane appeared to be within normal limits, but was was only partially visualized. There was no purulence in the external auditory canal noted. The septum was noted to be deviated. The patient had purulence in the right nasal cavity with some evidence of postnasal drip. Mucosa was very pale and boggy. Her oral cavity was noted to be within normal limits with narrow oropharyngeal inlet. NECK: Did not show any masses. No JVD. No adenopathy as well. LUNGS: Her respiratory effort was non-labored. ABDOMEN: Soft and nontender. EXTREMITIES: Did not show any edema. NEUROLOGIC: The patient was awake and alert and cooperative with the examination. IMPRESSION: At this time, the patient is suffering from dizziness with probable peripheral etiology. Complains of right-sided tenderness and bilateral sensorineural hearing loss and acute recurrent maxillary sinusitis as well as deviated nasal septum. It is recommended that the patient be placed on Augmentin at 500 mg p.o. b.i.d. for a week. We need to do outpatient testing for videonystagmography as well as an audiogram to further assess the dizziness. The patient will continue to take Antivert 12.5 mg p.o. t.i.d. as needed and it was recommended that the patient undergo vestibular rehabilitation which she is currently resistant to at this point. Thank you and we will follow with you. Elkin Franklin DO MTDD
[2018-03-25] MEDS: Latanoprost 2.5 ml Opht Soln OD SCH (21:09)
--- NOTE | 2018-03-26 02:03 | PN ---
DATE: 03/25/2018 REFERRING PHYSICIAN: Mirian Yanez MD SUBJECTIVE: She was seen lying in the bed, head at 45 degrees. Daughter is at bedside. She feels better today. Rhinitis is better. Dizziness is better. Has a cough, some sputum production. No nausea, vomiting, diarrhea, leg pain or leg swelling. OBJECTIVE: GENERAL: In no acute distress. VITAL SIGNS: Temperature is 98, heart rate is 92, respiratory rate is 18, blood pressure 120/70, pulse ox 96% in room air. HEENT: Moist mucous membrane. Crowded airway. NECK: Supple. No JVD. LUNGS: Have scattered rhonchi. HEART: S1, S2. ABDOMEN: Soft, nontender, no organomegaly. EXTREMITIES: No edema. NEUROLOGIC: Awake, alert, follows simple command. MEDICATIONS: She is on glimepiride 1 mg twice a day, Antivert 12.5 mg three times a day p.r.n., Augmentin 1 tablet twice a day, Cozaar 100 mg daily, Ecotrin 81 mg daily, Flonase once spray to each nostril twice a day, metformin 1000 mg twice a day, insulin coverage, Januvia 50 mg twice a day, Lipitor 40 mg daily, Lopid 600 mg twice a day, Pepcid 40 mg at bedtime, Plavix 75 mg daily, prednisone 20 mg daily, Robitussin 5 mL three times a day p.r.n., Singulair 10 mg daily, Synthroid 50 mcg daily, Zofran q.8h. p.r.n. LABORATORY DATA: Reviewed. Blood sugar this morning 195. IMPRESSION AND PLAN: Chronic obstructive lung disease, hypertension, sinusitis, degenerative joint disease, coronary artery disease, diabetes, hypothyroid, urinary tract infection, history of esophagitis, gastric ulcers, recurrent dizzy spell. From a Pulmonary point of view, doing okay. Spoke to the patient and daughter at bedside. All their questions answered. Continue p.o. and inhaled bronchodilator. Continue antibiotics. We will discontinue Pepcid and Protonix. SCD to lower extremity. Continue therapy. Thank you and we will follow with you. Tiffanie Castrejon MD
[2018-03-26] MEDS: Levothyroxine 50 MCG TAB PO SCH (06:12)
[2018-03-26] MEDS: Insulin Reg-LOW-Coverage SC SCH ×4 (06:33→22:23)
[2018-03-26] MEDS: Pantoprazole 40 mg EC Tab PO SCH (06:51)
[2018-03-26] MEDS: Amoxicillin-Clav 500-125 mg Tab PO SCH ×2 (09:54→17:15)
[2018-03-26] MEDS: POLYETHYLENE GLYCOL 3350 17 GM/Dose PACKET PO SCH ×2 (09:55→17:22)
[2018-03-26] MEDS: Fluticasone Nasal 50 mcg/Spray NS SCH ×2 (10:00→17:16)
--- NOTE | 2018-03-26 10:40 | PN ---
DATE: 03/25/2018 SUBJECTIVE: The patient was seen and examined on 03/25/2018 late evening. Daughter was sitting on the bedside also. Length of time discussion done. All questions are answered. The patient is feeling a little bit better for dizziness. Rhinitis is better. Has some cough with sputum production. According to the patient, that sputum is mucusy. No nausea or vomiting. No fever. No chills. No swelling of the leg. PHYSICAL EXAMINATION: VITAL SIGNS: Temperature 98.6, heart rate 92, respiratory rate 18, blood pressure 120/80, pulse oximetry 96% on room air. HEENT: Head normocephalic, atraumatic. Eyes PERRLA. Extraocular muscles intact. Conjunctivae clear. Nose patent. Mucous membrane moist. NECK: Supple. No carotid bruit. No JVD or thyromegaly. CHEST: Bilaterally symmetrical. HEART: S1 and S2 positive. LUNGS: Clear to auscultation. ABDOMEN: Soft. Bowel sounds positive. No organomegaly. EXTREMITIES: No edema. No cyanosis. NEUROLOGICAL: The patient is awake and alert. Follows simple commands. LABORATORY DATA: We do not have recent labs today, but I reviewed old labs. Blood sugar is 195. MEDICATIONS: Glimepiride, Antivert, Augmentin, Cozaar, Ecotrin, Flonase, metformin, insulin coverage, Januvia, Lipitor, Lopid, Pepcid, Plavix, prednisone, Robitussin, Singulair, Synthroid, Zofran. ASSESSMENT AND PLAN: Ms. April Fabian, 87-year-old female with chronic obstructive lung disease, hypertension, sinusitis, dizziness, history of cerebrovascular accident, degenerative joint disease, coronary artery disease, diabetes mellitus, hypothyroidism, urinary tract infection, history of esophagitis, gastric ulcers, having recurrent rhinosinusitis and dizzy spells. The patient is doing better, getting physical therapy. Daughter is on the bedside. Length of time discussion done. Appreciated Dr. Castrejon's input. Gastrointestinal and deep venous thrombosis prophylaxis. We will follow up. Mirian Yanez MD
--- NOTE | 2018-03-26 13:43 | CP.PCM.PN ---
Subjective - Date & Time of Evaluation Date of Evaluation: 03/26/18 Time of Evaluation: 13:40 - Subjective Subjective: pt states her dizziness has resolved and now complaining of GI upset Objective - Vital Signs/Intake and Output Vital Signs (last 24 hours): Temp Pulse Resp BP Pulse Ox 98.1 F 59 L 18 120/70 96 03/23/18 16:00 03/24/18 03:33 03/23/18 16:00 03/23/18 16:00 03/24/18 03:33 - Medications Medications: Current Medications Amoxicillin/Clavulanate Potassium (Augmentin 500 Mg-125 Mg Tab) 1 tab PO BID [facility] PRN Reason: Protocol Stop: 03/31/18 22:01 Last Admin: 03/26/18 09:54 Dose: 1 tab Aspirin (Ecotrin) 81 mg PO 0800 [facility] Last Admin: 03/26/18 07:50 Dose: 81 mg Atorvastatin Calcium (Lipitor) 40 mg PO HS [facility] Last Admin: 03/25/18 21:08 Dose: 40 mg Clopidogrel Bisulfate (Plavix) 75 mg PO DAILY [facility] Last Admin: 03/26/18 09:56 Dose: 75 mg Fluticasone Propionate (Flonase) 1 actuation NS BID [facility] Last Admin: 03/25/18 17:28 Dose: Not Given Gemfibrozil (Lopid) 600 mg PO 0630,1700 [facility] PRN Reason: Protocol Glimepiride (Amaryl) 1 mg PO 0800,1800 [facility] PRN Reason: Protocol Guaifenesin/Dextromethorphan (Robitussin Dm) 5 ml PO TID PRN PRN Reason: Cough Last Admin: 03/23/18 17:43 Dose: 5 ml Insulin Human Regular (Humulin R Low) 0 units SC [facility] PRN Reason: Protocol Last Admin: 03/26/18 12:01 Dose: 4 units Latanoprost (Xalatan Opht) 0.05 ml OD HS [facility] Last Admin: 03/25/18 21:09 Dose: 0.05 ml Levothyroxine Sodium (Synthroid) 50 mcg PO 0600 [facility] Last Admin: 03/26/18 06:12 Dose: 50 mcg Losartan Potassium (Cozaar) 100 mg PO DAILY [facility] Last Admin: 03/26/18 09:54 Dose: 100 mg Meclizine HCl (Antivert) 12.5 mg PO TID PRN PRN Reason: Other Last Admin: 03/25/18 21:14 Dose: 12.5 mg Metformin HCl (Glucophage) 1,000 mg PO 0800,1800 [facility] PRN Reason: Protocol Montelukast Sodium (Singulair) 10 mg PO HS [facility] Last Admin: 03/25/18 21:08 Dose: 10 mg Ondansetron HCl (Zofran Inj) 4 mg IVP Q8H PRN PRN Reason: Nausea/Vomiting Pantoprazole Sodium (Protonix Ec Tab) 40 mg PO 0600 [facility] Last Admin: 03/26/18 06:51 Dose: 40 mg Polyethylene Glycol (Miralax) 17 gm PO BID [facility] Last Admin: 03/26/18 09:55 Dose: Not Given Prednisone (Prednisone Tab) 10 mg PO 0800 [facility] PRN Reason: Protocol Sitagliptin Phosphate (Januvia) 50 mg PO BID [facility] Last Admin: 03/26/18 09:55 Dose: 50 mg - Labs Labs: 03/24/18 07:30 03/24/18 07:30 - Head Exam Head Exam: ATRAUMATIC, NORMAL INSPECTION, NORMOCEPHALIC - Eye Exam Eye Exam: EOMI, Normal appearance Pupil Exam: NORMAL ACCOMODATION - ENT Exam ENT Exam: Mucous Membranes Moist Assessment and Plan (1) Abdominal hernia Status: Acute (2) Arrhythmia Status: Acute (3) Arrhythmia Status: Acute (4) Bradycardia Status: Acute (5) Bradycardia Status: Acute (6) CAD (coronary artery disease) Status: Acute (7) Chest discomfort Status: Acute (8) Confusion Status: Acute (9) Dehydration Status: Acute (10) Diabetes Status: Acute (11) Dizziness Status: Acute (12) Elevated troponin Status: Acute (13) Esophageal ulcer Status: Acute (14) Failure to thrive Status: Acute (15) Fall Status: Acute (16) Fever Status: Acute (17) Gastrointestinal hemorrhage Status: Acute (18) General weakness Status: Acute (19) Hematemesis/vomiting blood Status: Acute (20) Hiatal hernia Status: Acute (21) Hypoglycemia Status: Acute (22) Influenza Status: Acute (23) Near syncope Status: Acute (24) Near syncope Status: Acute (25) Physical deconditioning Status: Acute (26) Polyp of duodenum Status: Acute (27) Syncope Status: Acute (28) Unsteady Status: Acute (29) Urinary tract infection Status: Acute (30) Vertigo Status: Acute (31) Wheezing Status: Acute - Assessment and Plan (Free Text) Plan: conservative management, reeval if symptoms recur
--- NOTE | 2018-03-26 18:21 | PN ---
DATE: 03/26/2018 PULMONARY PROGRESS NOTE REFERRING PHYSICIAN: Mirian Yanez MD. SUBJECTIVE: She is lying in the bed, head at 45 degrees to the physical exam. Overall, claims feels better. Decreased cough. No rhinitis. No dizzy spell. Today, mild abdominal discomfort. No dysuria. No leg pain or leg swelling. PHYSICAL EXAMINATION: GENERAL: In no acute distress. VITAL SIGNS: Temperature is 98, heart rate is 59, respiratory rate 18, blood pressure 151/73, pulse of 96% on room air. HEENT: Moist mucous membrane. Crowded airway. NECK: Supple. No JVD. LUNGS: Have a few scattered rhonchi. HEART: S1 and S2. ABDOMEN: Soft, nontender, and nondistended. EXTREMITIES: No edema. NEUROLOGIC: Awake, alert, and follows simple command. MEDICATIONS: She is on glimepiride 1 mg twice a day,Antivert 12.5 mg three times a day p.r.n., Augmentin 500 mg one tablet twice a day, Cozaar 100 mg daily, Ecotrin 81 mg daily, Flonase one spray each nostril twice a day, Glucophage 1000 mg twice a day, insulin coverage, Januvia 50 mg twice a day, Lipitor 40 mg daily, Lopid 600 mg twice a day, MiraLax 17 g twice a day, Plavix 75 mg daily, prednisone 20 mg daily, Protonix 40 mg daily, Robitussin 5 mL three times a day p.r.n., Singulair 10 mg daily, Synthroid 50 mcg daily, and Zofran p.r.n. basis. LABORATORY DATA: Shows blood sugar this morning was 301. IMPRESSION AND PLAN: Chronic obstructive lung disease, hypertension, sinusitis, degenerative joint disease, coronary artery disease, diabetes, hypothyroid, urinary tract infection, history of esophagitis and gastric ulcer in the remote past, recurrent dizzy spell, noncompliant with instruction on examination. We will continue our best. We will decrease prednisone to 10 mg daily. Continue inhaled bronchodilator, gastric prophylaxis, deep venous thrombosis prophylaxis. Follow up blood sugar. Fall precaution. Continue therapy. Thank you and we will follow with you. Tiffanie Castrejon MD [facility] # [id number]
[2018-03-26] MEDS: Latanoprost 2.5 ml Opht Soln OD SCH (21:27)
[2018-03-27] MEDS: Pantoprazole 40 mg EC Tab PO SCH (05:06)
[2018-03-27] MEDS: Levothyroxine 50 MCG TAB PO SCH (05:06)
[2018-03-27] MEDS: Insulin Reg-LOW-Coverage SC SCH ×4 (06:45→21:51)
[2018-03-27 07:00] LABS: HEMOGLOBIN 12.1 g/dL (12.0-16.0); MEAN CELL VOLUME 83.8 fl (80.0-105.0); MEAN CORPUSCULAR HEMOGLOBIN 26.5 pg (25.0-35.0); MEAN CORPUSCULAR HGB CONC 31.7 g/dl (31.0-37.0); MEAN PLATELET VOLUME 10.1 fl (7.0-11.0); RBC 4.56 10^6/uL (3.5-6.1); RED CELL DISTRIBUTION WIDTH 14.9 % (11.5-14.5); WHITE BLOOD COUNT 11.3 10^3/ul (4.5-11.0)
[2018-03-27 07:20] LABS: BLOOD UREA NITROGEN 36 mg/dL (7-21); CALCIUM 9.3 mg/dL (8.4-10.5); GFR AFRICAN-AMERICAN > 60; GFR NON-AFRICAN AMERICAN 59
[2018-03-27] MEDS: Albuterol-Ipratrop 3 mg / 0.5 (3 ml) UD IH SCH ×3 (07:21→19:45)
[2018-03-27] MEDS: Fluticasone Nasal 50 mcg/Spray NS SCH ×2 (09:59→17:15)
[2018-03-27] MEDS: POLYETHYLENE GLYCOL 3350 17 GM/Dose PACKET PO SCH ×2 (09:59→17:17)
[2018-03-27] MEDS: Amoxicillin-Clav 500-125 mg Tab PO SCH ×2 (10:54→17:14)
--- NOTE | 2018-03-27 12:41 | PN ---
DATE: 03/26/2018 SUBJECTIVE: The patient was seen and examined on 03/26/2018 on bedside. Dizziness is better, but complaining about diarrhea and coughing and congestion. Overall, feels better, more calm and comfortable. No nausea, no headache, no dizziness. No chest pain or palpitations. PHYSICAL EXAMINATION: VITAL SIGNS: Temperature 98.1, heart rate 59, respiratory rate 18, blood pressure 150/70. HEENT: Head normocephalic, atraumatic. Eyes PERRLA. Extraocular muscles intact. Conjunctivae clear. Nose patent. Mucous membrane moist. NECK: Supple. No carotid bruit. No JVD or thyromegaly. CHEST: Bilaterally symmetrical. HEART: S1 and S2 positive. LUNGS: Clear to auscultation. ABDOMEN: Soft. Bowel sounds positive. No organomegaly. EXTREMITIES: No edema. No cyanosis. NEUROLOGICAL: The patient is awake and alert. Moving all 4 extremities. No focal deficits. MEDICATIONS: Glimepiride, Antivert, Augmentin, Cozaar, Ecotrin, Flonase, Glucophage, Januvia, Lipitor, Lopid, MiraLax, Plavix, Protonix, Robitussin, Singulair, Synthroid. LABORATORY DATA: Blood sugar is 301. We do not have recent labs today, but I reviewed old labs. ASSESSMENT AND PLAN: Ms. April Fabian is an 87-year-old lady with multiple medical problems; chronic obstructive lung disease; hypertension; sinusitis, getting Augmentin; degenerative joint disease; coronary artery disease; diabetes mellitus; hypothyroidism; urinary tract infection; history of esophagitis; gastritis and gastric ulcers, recurrent disease status, but right now, feeling better, noncompliant with instructions on examination, little bit language problem, also getting tapering dose of steroid. Continue with bronchodilators, gastric and deep venous thrombosis prophylaxis. The patient has diarrhea, sent stool for Clostridium difficile toxin x3, was congested, ordered to give nebulizer, also getting physical therapy. We will follow up. Mirian Yanez MD
--- NOTE | 2018-03-27 14:58 | PN ---
DATE: 03/27/2018 PULMONARY PROGRESS NOTE REFERRING PHYSICIAN: Mirian Yanez MD. SUBJECTIVE: The patient is lying in the bed, sleepy, arousable, reluctant to be examined, want to left alone, but feels better. Decreased cough. Decreased shortness of breath. Decreased dizzy spell. No nausea. No vomiting, diarrhea, leg pain, leg swelling. OBJECTIVE: GENERAL: In no acute distress. VITAL SIGNS: Temperature is 98, heart rate is 68, respiratory rate is 18, blood pressure 132/80, pulse ox 96% on room air. HEENT: Moist mucous membrane. Crowded airway. NECK: Supple. No JVD. LUNGS: Have a few scattered rhonchi. HEART: S1 and S2. ABDOMEN: Soft, nontender. No organomegaly. EXTREMITIES: No edema. NEUROLOGICAL: Sleepy, arousable. Follows simple command. MEDICATIONS: She is on glimepiride 1 mg twice a day, Antivert 12.5 mg three times a day p.r.n., Augmentin 500/125 one tab twice a day, Cozaar 100 mg daily, DuoNeb every 6 hours [id number] and every 6 hours p.r.n., Ecotrin 81 mg daily, Flonase twice a day, metformin 1000 mg twice a day, insulin coverage, Januvia 50 mg twice a day, Lipitor 40 mg daily, Lopid 600 mg twice a day, MiraLax 17 g twice a day, Plavix 75 mg daily, prednisone 10 mg daily, Protonix 40 mg daily, Robitussin 5 mL every 8 hours p.r.n., Singulair 10 mg daily, Synthroid 50 mcg daily, Zofran p.r.n. basis. LABORATORY DATA: Shows hemoglobin 12.1, hematocrit 38.2, WBC 11.3, platelet is 345. Sodium 142, potassium 4, chloride 105, bicarbonate 23, BUN 36, creatinine 0.9, glucose 176, calcium is 9.3. IMPRESSION AND PLAN: Chronic obstructive lung disease, hypertension, sinusitis, degenerative joint disease, coronary artery disease, diabetes, hypothyroid, recurrent urinary tract infection, history of esophagitis, gastritis. Pulmonary point view, she is doing well. Dizzy spells are better. We will continue prednisone 10 mg, antibiotics, bronchodilator, gastric prophylaxis. Fall precaution. Continue therapy. Thank you and we will follow with you. Tiffanie Castrejon MD
[2018-03-27] MEDS: Latanoprost 2.5 ml Opht Soln OD SCH ×2 (19:39→21:16)
[2018-03-27] MEDS ORDERED: Albuterol-Ipratrop 3 mg / 0.5 (3 ml) UD IH SCH (20:46)
[2018-03-28] MEDS ORDERED: Albuterol-Ipratrop 3 mg / 0.5 (3 ml) UD IH PRN (02:00)
--- NOTE | 2018-03-28 04:59 | PN ---
DATE: 03/27/2018 SUBJECTIVE: The patient is an 87 years old female. Patient was seen on 03/27/18 on the bedside late evening. Daughter was sitting on the bedside. Patient was having good dinner, feeling comfortable. Dizziness is better. Diarrhea is better. Complaining about cough. Decreased shortness of breath. No nausea or vomiting. No fever. No chills. PHYSICAL EXAMINATION: VITAL SIGNS: Temperature 98, heart rate 58, respiratory rate 18, blood pressure 132/80, pulse oximetry 96% on room air. HEENT: Head normocephalic, atraumatic. Eyes PERRLA. Extraocular muscles intact. Conjunctivae clear. Nose patent. NECK: Supple. No carotid bruit, JVD, or thyromegaly. CHEST: Bilaterally symmetrical. HEART: S1 and S2 positive. LUNGS: Clear to auscultation. ABDOMEN: Soft. Bowel sounds present. No organomegaly. EXTREMITIES: No edema. No cyanosis. NEUROLOGIC: Patient is awake and alert. Moving all 4 extremities. No focal deficit. MEDICATIONS: Glimepiride, Antivert, Augmentin, Cozaar, DuoNeb, Flonase, metformin, Januvia, Lipitor, Lopid, MiraLax, Plavix, prednisone, Protonix, Robitussin, Singulair, Synthroid, and Zofran. LABORATORY DATA: Hemoglobin 12.1, hematocrit 38.2, white blood cell i noted , platelets 345. Sodium 142, potassium 4, BUN 36, creatinine 0.9, glucose 179. ASSESSMENT AND PLAN: Ms. April Fabian is an 87-year-old lady with chronic obstructive lung disease, hypertension, sinusitis, degenerative joint disease, history of dizziness got better, coronary artery disease, history of esophagitis, gastritis. Dizzy spells are better. We will continue tapering dose of prednisone, antibiotics, bronchodilators, gastric prophylaxis. Fall precautions. Gastrointestinal and deep vein thrombosis prophylaxis. Repeat labs. Mirian Yanez MD [facility]
[2018-03-28] MEDS: Levothyroxine 50 MCG TAB PO SCH (05:22)
[2018-03-28] MEDS: Pantoprazole 40 mg EC Tab PO SCH (05:22)
[2018-03-28] MEDS: Insulin Reg-LOW-Coverage SC SCH ×4 (06:36→21:40)
[2018-03-28 06:41] LABS: HEMOGLOBIN 12.2 g/dL (12.0-16.0); MEAN CELL VOLUME 84.4 fl (80.0-105.0); MEAN CORPUSCULAR HEMOGLOBIN 26.8 pg (25.0-35.0); MEAN CORPUSCULAR HGB CONC 31.8 g/dl (31.0-37.0); RBC 4.55 10^6/uL (3.5-6.1); RED CELL DISTRIBUTION WIDTH 15.1 % (11.5-14.5); WHITE BLOOD COUNT 10.1 10^3/ul (4.5-11.0)
[2018-03-28 06:46] LABS: BLOOD UREA NITROGEN 32 mg/dL (7-21); CALCIUM 9.5 mg/dL (8.4-10.5); GFR AFRICAN-AMERICAN > 60; GFR NON-AFRICAN AMERICAN 59
[2018-03-28] MEDS: Amoxicillin-Clav 500-125 mg Tab PO SCH ×2 (10:07→17:14)
[2018-03-28] MEDS: Fluticasone Nasal 50 mcg/Spray NS SCH ×2 (10:08→17:14)
[2018-03-28] MEDS: POLYETHYLENE GLYCOL 3350 17 GM/Dose PACKET PO SCH ×2 (10:09→17:18)
--- NOTE | 2018-03-28 18:06 | CP.PCM.PN ---
Subjective - Date & Time of Evaluation Date of Evaluation: 03/28/18 Time of Evaluation: 18:04 - Subjective Subjective: Patient feels dizziness has resolved. Daughter at bedside. Pt feels hearing is good Objective - Vital Signs/Intake and Output Vital Signs (last 24 hours): Temp Pulse Resp BP Pulse Ox 97.5 F L 106 H 20 135/80 99 03/28/18 16:00 03/28/18 16:00 03/28/18 16:00 03/28/18 16:00 03/28/18 16:00 - Medications Medications: Current Medications Acetaminophen (Tylenol 325mg Tab) 650 mg PO Q4H PRN; Protocol PRN Reason: Pain, Mild (1-3) Last Admin: 03/28/18 10:21 Dose: 650 mg Albuterol/Ipratropium (Duoneb 3 Mg/0.5 Mg (3 Ml) Ud) 3 ml IH Q6H PRN; Protocol PRN Reason: Shortness of Breath Amoxicillin/Clavulanate Potassium (Augmentin 500 Mg-125 Mg Tab) 1 tab PO BID [facility] PRN Reason: Protocol Stop: 03/31/18 22:01 Last Admin: 03/28/18 17:14 Dose: 1 tab Aspirin (Ecotrin) 81 mg PO 0800 [facility] Last Admin: 03/28/18 08:05 Dose: 81 mg Atorvastatin Calcium (Lipitor) 40 mg PO HS [facility] Last Admin: 03/27/18 21:16 Dose: Not Given Clopidogrel Bisulfate (Plavix) 75 mg PO DAILY [facility] Last Admin: 03/28/18 10:09 Dose: 75 mg Fluticasone Propionate (Flonase) 1 actuation NS BID [facility] Last Admin: 03/28/18 17:14 Dose: 1 spray Gemfibrozil (Lopid) 600 mg PO 0630,1700 [facility] PRN Reason: Protocol Last Admin: 03/28/18 17:18 Dose: 600 mg Glimepiride (Amaryl) 1 mg PO 0800,1800 [facility] PRN Reason: Protocol Last Admin: 03/28/18 17:13 Dose: 1 mg Guaifenesin/Dextromethorphan (Robitussin Dm) 5 ml PO TID PRN PRN Reason: Cough Last Admin: 03/23/18 17:43 Dose: 5 ml Insulin Human Regular (Humulin R Low) 0 units SC ACHS [facility] PRN Reason: Protocol Last Admin: 03/28/18 17:15 Dose: 3 units Latanoprost (Xalatan Opht) 0.05 ml OD HS [facility] Last Admin: 03/27/18 21:16 Dose: Not Given Levothyroxine Sodium (Synthroid) 50 mcg PO 0600 [facility] Last Admin: 03/28/18 05:22 Dose: 50 mcg Losartan Potassium (Cozaar) 100 mg PO DAILY [facility] Last Admin: 03/28/18 10:08 Dose: 100 mg Meclizine HCl (Antivert) 12.5 mg PO TID PRN PRN Reason: Other Last Admin: 03/25/18 21:14 Dose: 12.5 mg Metformin HCl (Glucophage) 1,000 mg PO 0800,1800 [facility] PRN Reason: Protocol Last Admin: 03/28/18 17:14 Dose: 1,000 mg Montelukast Sodium (Singulair) 10 mg PO HS [facility] Last Admin: 03/27/18 21:16 Dose: Not Given Ondansetron HCl (Zofran Inj) 4 mg IVP Q8H PRN PRN Reason: Nausea/Vomiting Pantoprazole Sodium (Protonix Ec Tab) 40 mg PO 0600 [facility] Last Admin: 03/28/18 05:22 Dose: 40 mg Polyethylene Glycol (Miralax) 17 gm PO BID [facility] Last Admin: 03/28/18 17:18 Dose: Not Given Prednisone (Prednisone Tab) 10 mg PO 0800 [facility] PRN Reason: Protocol Last Admin: 03/28/18 08:06 Dose: 10 mg Sitagliptin Phosphate (Januvia) 50 mg PO BID [facility] Last Admin: 03/28/18 17:17 Dose: 50 mg - Labs Labs: 03/28/18 06:30 03/28/18 06:30 - Constitutional Appears: Well, Non-toxic - Head Exam Head Exam: ATRAUMATIC, NORMAL INSPECTION, NORMOCEPHALIC - Eye Exam Eye Exam: EOMI, Normal appearance Pupil Exam: NORMAL ACCOMODATION, PERRL - ENT Exam Additional comments: ears wnl bilaterally, nose no rhinitis, throat wnl MMM - Neck Exam Neck Exam: Full ROM. absent: Lymphadenopathy Assessment and Plan (1) Abdominal hernia Status: Acute (2) Arrhythmia Status: Acute (3) Arrhythmia Status: Acute (4) Bradycardia Status: Acute (5) Bradycardia Status: Acute (6) CAD (coronary artery disease) Status: Acute (7) Chest discomfort Status: Acute (8) Confusion Status: Acute (9) Dehydration Status: Acute (10) Diabetes Status: Acute (11) Dizziness Status: Acute (12) Elevated troponin Status: Acute (13) Esophageal ulcer Status: Acute (14) Failure to thrive Status: Acute (15) Fall Status: Acute (16) Fever Status: Acute (17) Gastrointestinal hemorrhage Status: Acute (18) General weakness Status: Acute (19) Hematemesis/vomiting blood Status: Acute (20) Hiatal hernia Status: Acute (21) Hypoglycemia Status: Acute (22) Influenza Status: Acute (23) Near syncope Status: Acute (24) Near syncope Status: Acute (25) Physical deconditioning Status: Acute (26) Polyp of duodenum Status: Acute (27) Syncope Status: Acute (28) Unsteady Status: Acute (29) Urinary tract infection Status: Acute (30) Vertigo Status: Acute (31) Wheezing Status: Acute - Assessment and Plan (Free Text) Plan: continue conservative management may benefit from physical therapy
--- NOTE | 2018-03-28 19:08 | PN ---
DATE: 03/28/2018 PULMONARY PROGRESS NOTE REFERRING PHYSICIAN: Mirian Yanez MD. SUBJECTIVE: She is lying in the bed, head at 45 degrees, demanding to give her IV antibiotics instead of p.o. antibiotics, though overall she feels better. Rhinitis, postnasal drip. Cough is improving. Just generalized aches and pains. No nausea. No abdominal pain. No dysuria. No leg pain or leg swelling. PHYSICAL EXAMINATION: GENERAL: In no acute distress. VITAL SIGNS: Temperature is 98, heart rate is 106, respiratory rate is 20, blood pressure 135/80, pulse ox 99% on room air. HEENT: Moist mucous membrane. Crowded airway. NECK: Supple. No JVD. LUNGS: Have a fair airflow with rhonchi. HEART: S1 and S2. ABDOMEN: Soft, nontender. No organomegaly. EXTREMITIES: There is no edema. NEUROLOGIC: Awake, alert, follows simple command. MEDICATIONS: She is on Amaryl 1 mg twice a day, meclizine 12.5 mg three times a day p.r.n., Augmentin 500 per 125 one tablet twice a day, Cozaar 100 mg daily, DuoNeb every 6 hour p.r.n., Ecotrin 81 mg daily, Flonase one spray each nostril twice a day, metformin 1000 mg twice a day, insulin coverage, Januvia 50 mg twice a day, Lipitor 40 mg daily, Lopid 600 mg twice a day, MiraLax 17 g twice a day, Plavix 75 mg daily, prednisone 10 mg daily, Protonix 40 mg daily, Robitussin 5 mL three times a day p.r.n., Singulair 10 mg daily, Synthroid 50 daily, Tylenol p.r.n., Zofran p.r.n. LABORATORY DATA: Shows hemoglobin 12.2, hematocrit 38.4, WBC 10.1, platelet is 342. Sodium 143, potassium 4.2, chloride 107, bicarbonate 21, BUN 32, creatinine 0.9, glucose 95, calcium is 9.5. IMPRESSION AND PLAN: Chronic obstructive lung disease, hypertension, sinusitis, degenerative joint disease, coronary artery disease, diabetes, hypothyroid, recurrent urinary tract infection in the past, history of esophageal and gastric ulcer in the past. Pulmonary point of view, she is coming along good, doing well in therapy. Case discussed with the nursing staff, asking for pain medications. I think Tylenol should be good enough for this elderly lady originally admitted with change in mental status. We will try to avoid benzodiazepine and opiates as much possible, fall precaution. Change prednisone to 5 mg tomorrow and taper off next day or so. Thank you and we will follow with you. Tiffanie Castrejon MD
[2018-03-28] MEDS: Latanoprost 2.5 ml Opht Soln OD SCH (21:41)
--- NOTE | 2018-03-29 01:08 | PN ---
DATE: 03/28/2018 The patient is an 87-year-old female. SUBJECTIVE: The patient was seen and examined at the bedside, looking comfortable. Diarrhea is better. Dizziness is better. Tolerating food very well. Cough is improving. Daughter is standing on the bedside. No hematuria or hematochezia. PHYSICAL EXAMINATION: VITAL SIGNS: Temperature 98, heart rate 106, respiratory rate 20, blood pressure 130/80, pulse oximetry 99% on room air. HEENT: Head, normocephalic and atraumatic. Eyes, PERRLA. Extraocular muscles are intact. Conjunctivae clear. Nose is patent. Mucous membranes moist. NECK: Supple. No carotid bruit. No JVD or thyromegaly. CHEST: Bilaterally symmetrical. HEART: S1, S2 positive. LUNGS: Clear to auscultation. ABDOMEN: Soft. Bowel sounds present. No organomegaly. EXTREMITIES: No edema. No cyanosis. NEUROLOGIC: The patient is awake, alert. Moving all four extremities. No focal deficit. MEDICATIONS: Amaryl, meclizine, Augmentin, Cozaar, DuoNeb, Ecotrin, Flonase, Lipitor, Januvia, Lopid, MiraLax, prednisone, Protonix and Robitussin. LABORATORY DATA: Hemoglobin 12.2, hematocrit 38.4, white blood cell 10.1 and platelets 342. Potassium 4.2, BUN 32, creatinine 0.9 and glucose 95. ASSESSMENT AND PLAN: Ms. April Fabian is an 87-year-old lady with multiple medical problems, history of chronic obstructive lung disease, hypertension, sinusitis; history of severe dizziness, improved; degenerative joint disease, coronary artery disease, diabetes mellitus, hypothyroidism, recurrent urinary tract infection in the past, history of esophageal and gastric ulcers in the past; now history of diarrhea, improved. Today, she is complaining about back pain. Length of time discussion done with the patient and the patient's daughter. Gastrointestinal and deep vein thrombosis prophylaxis. Repeat labs. Avoid benzodiazepines. Out of bed. Physical therapy. We will follow up. Mirian Yanez MD
[2018-03-29] MEDS ORDERED: Albuterol-Ipratrop 3 mg / 0.5 (3 ml) UD IH PRN (02:00)
[2018-03-29] MEDS: Pantoprazole 40 mg EC Tab PO SCH (06:06)
[2018-03-29] MEDS: Levothyroxine 50 MCG TAB PO SCH (06:06)
[2018-03-29] MEDS: Insulin Reg-LOW-Coverage SC SCH ×4 (06:30→21:34)
[2018-03-29] MEDS: POLYETHYLENE GLYCOL 3350 17 GM/Dose PACKET PO SCH ×2 (09:34→17:16)
[2018-03-29] MEDS: Amoxicillin-Clav 500-125 mg Tab PO SCH ×2 (09:48→17:19)
[2018-03-29] MEDS: Fluticasone Nasal 50 mcg/Spray NS SCH ×2 (09:49→17:19)
[2018-03-29] MEDS: guaiFENesin DM 100 mg-10 mg/5 ml UD PO PRN ×2 (14:49→21:38)
--- NOTE | 2018-03-29 18:46 | PN ---
DATE: 03/29/2018 PULMONARY PROGRESS NOTE REFERRING PHYSICIAN: Mirian Yanez MD SUBJECTIVE: She is sitting at the side of the bed, feels much better. No dizzy spells. No headache. No rhinitis. Cough is better. No nausea. No vomiting. No diarrhea. No leg pain or leg swelling. OBJECTIVE: VITAL SIGNS: Temperature is 98, heart rate is 61, respiratory rate is 18, blood pressure 160/66, pulse ox 100% on room air. HEENT: Moist mucous membrane. NECK: Supple. No JVD. LUNGS: Have a scattered rhonchi, overall fair airflow. HEART: S1 and S2. ABDOMEN: Soft, nontender. No organomegaly. EXTREMITIES: No edema. NEUROLOGIC: Awake and alert. Follows simple command. MEDICATIONS: She is on glimepiride 1 mg twice a day, Antivert 12.5 mg three times a day only p.r.n., amoxicillin 500/125 one tablet twice a day, Cozaar 100 mg daily, DuoNeb every 6 hours p.r.n., Ecotrin 81 mg daily, Flonase one spray each nostril twice a day, metformin 1000 mg twice a day, insulin coverage, Januvia 50 mg twice a day, Lipitor 40 mg daily, Lopid 600 mg twice a day, MiraLax 17 g twice a day, Plavix 75 mg daily, prednisone 10 mg daily, Protonix 40 mg daily, Robitussin DM three times a day p.r.n., Singulair 10 mg daily, Synthroid 50 mcg daily, Tylenol p.r.n., Zofran p.r.n. basis. LABORATORY DATA: Shows blood sugar this morning is 290. IMPRESSION AND PLAN: Chronic obstructive lung disease, hypertension, sinusitis, degenerative joint disease, coronary artery disease, diabetes, hypothyroid, recurrent urinary tract infection, history of esophageal and gastric ulcer. Pulmonary point of view, she is doing well. Decrease prednisone to 5 mg daily, continue inhaled bronchodilator, antibiotics, gastric prophylaxis, deep venous thrombosis prophylaxis. Fall precaution. Thank you and we will follow with you. Tiffanie Castrejon MD [facility] # [id number]
[2018-03-29] MEDS: Latanoprost 2.5 ml Opht Soln OD SCH (21:05)
[2018-03-30] MEDS: Insulin Reg-LOW-Coverage SC SCH ×4 (06:39→22:07)
[2018-03-30] MEDS: Levothyroxine 50 MCG TAB PO SCH (06:41)
[2018-03-30] MEDS: Pantoprazole 40 mg EC Tab PO SCH (06:41)
[2018-03-30] MEDS: POLYETHYLENE GLYCOL 3350 17 GM/Dose PACKET PO SCH ×2 (09:45→17:18)
[2018-03-30] MEDS: Fluticasone Nasal 50 mcg/Spray NS SCH ×2 (09:48→17:33)
[2018-03-30] MEDS: guaiFENesin DM 100 mg-10 mg/5 ml UD PO PRN ×2 (09:49→17:35)
--- NOTE | 2018-03-30 19:42 | PN ---
DATE: 03/30/2018 PULMONARY PROGRESS NOTE REFERRING PHYSICIAN: Mirian Yanez MD. SUBJECTIVE: She is sitting in the common room. Night was unremarkable. Feels better. Dizzy spell is better. Still has mild cough, not much rhinitis. No chest pain. No dysuria. No leg pain or leg swelling. OBJECTIVE: GENERAL: In no acute distress. VITAL SIGNS: Temperature is 98, heart rate 66, respiratory rate is 18, blood pressure 100/52, pulse ox 98% on room air. HEENT: Moist mucous membrane. Crowded airway. Mallampati score is 4. NECK: Supple. No JVD. LUNGS: Have a fair airflow with rhonchi. HEART: S1 and S2. ABDOMEN: Soft, nontender, no organomegaly. EXTREMITIES: There is no edema. NEUROLOGICAL: Awake, alert, follows simple command. MEDICATIONS: She is on Amaryl 1 mg twice a day, Antivert 12.5 mg three times a day, Cozaar 100 mg daily, DuoNeb every 6 hours p.r.n., Ecotrin 81 mg daily, Flonase 1 spray each nostril twice a day, metformin 1000 mg twice a day, insulin coverage, Januvia 50 mg twice a day, Lipitor 40 mg daily, gemfibrozil 600 mg twice a day, MiraLax 17 g twice a day, Plavix 75 mg daily, prednisone 5 mg daily, Pulmicort inhale daily, Protonix 40 mg daily, Robitussin 5 mL three times a day p.r.n., Singulair 10 mg daily, Synthroid 50 mcg daily, Tylenol p.r.n., Zofran p.r.n. LABORATORY DATA: Shows blood sugar this morning at 215. IMPRESSION AND PLAN: Chronic obstructive lung disease, hypertension, sinusitis, degenerative joint disease, coronary artery disease, diabetes, hypothyroid, recurrent urinary tract infection, history of esophageal and gastric ulcer, activities of daily living dysfunction. Pulmonary point of view, doing well. Continue p.o. and inhaled bronchodilator. Prednisone could be discontinued upon discharge. Continue Flonase. Fall precaution, sleep apnea precaution. The patient is refusing to use continuous positive airway pressure or consider sleep study. Thank you and we will follow with you. Tiffanie Castrejon MD [facility] # [id number]
[2018-03-30] MEDS: Latanoprost 2.5 ml Opht Soln OD SCH (22:06)
--- NOTE | 2018-03-31 02:14 | PN ---
DATE: 03/29/2018 SUBJECTIVE: The patient is 87-year-old female. The patient was seen and examined on bedside on 03/29/2018. Looks comfortable. Daughter was sitting on the bedside also. Still coughing, having shortness of breath, but is getting better. Abdominal pain is getting better. Diet is getting better. Sometimes getting back pain. PHYSICAL EXAMINATION: VITAL SIGNS: Temperature 98, heart rate 61, respiratory rate 18, blood pressure 160/60, pulse oximetry 100% on room air. HEENT: Head normocephalic, atraumatic. Eyes PERRLA. Extraocular muscles intact. Conjunctivae clear. Nose patent. Mucous membrane moist. NECK: Supple. No carotid bruit. No JVD or thyromegaly. CHEST: Bilaterally symmetrical. HEART: S1 and S2 positive. LUNGS: Clear to auscultation. ABDOMEN: Soft. Bowel sounds positive. No organomegaly. EXTREMITIES: No edema. No cyanosis. NEUROLOGICAL: The patient is awake and alert. Moving all 4 extremities. No focal deficits. LABORATORY DATA: We do not have recent labs today, but I have reviewed the old labs. Blood sugar is 290. MEDICATIONS: Glimepiride, Antivert, doxycycline, Cozaar, DuoNeb, Ecotrin, Flonase, metformin, insulin, Januvia, Lipitor, Lopid, MiraLax, Plavix, prednisone, Protonix, Synthroid. ASSESSMENT AND PLAN: Ms. April Fabian, 87-year-old lady with chronic obstructive lung disease, hypertension, sinusitis, degenerative joint disease, coronary artery disease, diabetes mellitus, hypothyroidism, recurrent urinary tract infection, has history of esophageal and gastric ulcers. Plan is continue present treatment. Discussion done with the patient's daughter. Physical therapy. Gastrointestinal and deep venous thrombosis prophylaxis. The patient is getting prednisone as steroid. We will follow. Mirian Yanez MD
[2018-03-31] MEDS: Pantoprazole 40 mg EC Tab PO SCH (05:56)
[2018-03-31] MEDS: Levothyroxine 50 MCG TAB PO SCH (05:56)
[2018-03-31] MEDS: guaiFENesin DM 100 mg-10 mg/5 ml UD PO PRN (05:58)
[2018-03-31] MEDS: Insulin Reg-LOW-Coverage SC SCH ×2 (06:43→12:06)
[2018-03-31 07:02] VITALS: BP 168/97; PULSE 83; RESP 17; TEMP 97.7; O2SAT 97
[2018-03-31] MEDS: POLYETHYLENE GLYCOL 3350 17 GM/Dose PACKET PO SCH (09:06)
[2018-03-31] MEDS: Fluticasone Nasal 50 mcg/Spray NS SCH (09:06)
--- NOTE | 2018-03-31 09:24 | PN ---
DATE: 03/30/2018 SUBJECTIVE: Patient is an 87-year-old female. Patient was seen and examined on the bedside, looking comfortable. Complaining about back pain. Her cough is better. Dizziness is better. No nausea, vomiting, diarrhea. No hematuria or hematochezia. No swelling of the legs. No chest pain, no palpitation. No headaches, no dizziness. PHYSICAL EXAMINATION: VITAL SIGNS: Temperature 98, heart rate 66, respiratory rate 18, blood pressure , pulse oximetry 98% on room air. HEENT: Head normocephalic, atraumatic. Eyes PERRLA. Extraocular muscles intact. Conjunctivae clear. Nose patent. Mucous membrane moist. NECK: Supple. No carotid bruit, JVD, or thyromegaly. CHEST: Bilaterally symmetrical. HEART: S1 and S2 positive. LUNGS: Clear to auscultation. ABDOMEN: Soft. Bowel sounds present. No organomegaly. EXTREMITIES: No edema. No cyanosis. NEUROLOGIC: Patient is awake, alert. Moving all four extremities. No focal deficit. MEDICATIONS: Amaryl, Antivert, Cozaar, DuoNeb, Ecotrin, Flonase, metformin, insulin, Lipitor, gemfibrozil, MiraLax, Plavix, prednisone, Pulmicort, Protonix, Robitussin, Singulair, Synthroid, Zofran. LABORATORY DATA: We do not have recent lab today, but I reviewed old labs. Glucose is 215. ASSESSMENT AND PLAN: Patient is an 87-year-old female with multiple medical problems, chronic obstructive lung disease, hypertension, sinusitis, degenerative joint disease, coronary artery disease, chronic back pain, abdominal wall hernia, diabetes mellitus, hypothyroidism, recurrent urinary tract infections, history of gastroesophageal reflux disease. Improving her activities of daily living. Lives alone. Continue inhaled bronchodilators. We will discontinue the prednisone. Gastrointestinal and deep vein thrombosis prophylaxis. Physical therapy. We will follow up. Mirian Yanez MD
--- NOTE | 2018-03-31 14:35 | PN ---
DATE: 03/31/2018 PULMONARY PROGRESS NOTE REFERRING PHYSICIAN: Mirian Yanez MD SUBJECTIVE: She is out of bed to chair. Night was unremarkable. Being discharged home today. Denies any dizzy spell. No headache, no rhinitis, no nausea, no vomiting, no diarrhea. No leg pain or leg swelling. PHYSICAL EXAMINATION: GENERAL: In no acute distress. VITAL SIGNS: Temperature is 98, heart rate 83, respiratory rate is 18, blood pressure 168/97, pulse ox 97% on room air. HEENT: Moist mucous membrane. Crowded airway. NECK: Supple. No JVD. LUNGS: Have a fair airflow with rhonchi. HEART: S1 and S2. ABDOMEN: Soft, nontender. No organomegaly. EXTREMITIES: No edema. NEUROLOGIC: Awake and alert. Follows simple command. MEDICATIONS: She is on Amaryl 1 mg twice a day, Antivert 12.5 mg three times a day only p.r.n., Cozaar 100 mg daily, albuterol/Atrovent nebulizer every 6 hours p.r.n., Ecotrin 81 mg daily, Flonase 1 spray each nostril twice a day, Glucophage 1000 mg twice a day, insulin coverage, Januvia 50 mg twice a day, Lipitor 40 mg daily, Lopid 600 mg twice a day, MiraLax 17 g twice a day, Plavix 75 mg daily, prednisone 5 mg daily, Protonix 40 mg daily, Robitussin p.r.n. basis, Singulair 10 mg daily, Synthroid 50 mcg daily, Tylenol p.r.n. basis, Zofran p.r.n. basis. LABORATORY DATA: Reviewed and noted, blood sugar this morning 186. IMPRESSION AND PLAN: Chronic obstructive lung disease, hypertension, sinusitis, degenerative joint disease, coronary artery disease, diabetes, hypothyroid, recurrent urinary tract infection. Pulmonary point of view, she is doing well. Has a history of esophageal and gastric ulcer. Spoke to the nursing staff, we will discontinue prednisone. Continue Singulair, Flonase, bronchodilator. Fall precaution. Outpatient need PFT. Thank you and we will follow with you. Tiffanie Castrejon MD
== END 2018-03-31 15:30 | disposition home or self-care (01) | DRG 945 ==
LOC: TRCU 14:58
PROVIDERS: ADMIT Internal Medicine; ATTEND Internal Medicine
PROC: F07Z9FZ Gait Training/Functional Ambulation Treatment using Assistive, Adaptive, Supportive or Protective Equipment (ICD-10-PCS; principal; 2018-03-23)
PROC: F08Z4FZ Home Management Treatment using Assistive, Adaptive, Supportive or Protective Equipment (ICD-10-PCS; 2018-03-24)
PROC: 3E0F7GC Introduction of Other Therapeutic Substance into Respiratory Tract, Via Natural or Artificial Opening (ICD-10-PCS; 2018-03-27)
DX: R53.1 Weakness (principal); N39.0 Urinary tract infection, site not specified; K22.10 Ulcer of esophagus without bleeding; B96.20 Unspecified Escherichia coli [E. coli] as the cause of diseases classified elsewhere; J01.01 Acute recurrent maxillary sinusitis; I25.10 Atherosclerotic heart disease of native coronary artery without angina pectoris; I10 Essential (primary) hypertension; I48.91 Unspecified atrial fibrillation; E03.9 Hypothyroidism, unspecified; E11.40 Type 2 diabetes mellitus with diabetic neuropathy, unspecified; J34.2 Deviated nasal septum; H90.3 Sensorineural hearing loss, bilateral; J31.0 Chronic rhinitis; J44.9 Chronic obstructive pulmonary disease, unspecified; R00.1 Bradycardia, unspecified; E86.0 Dehydration; R62.7 Adult failure to thrive; K44.9 Diaphragmatic hernia without obstruction or gangrene; E11.649 Type 2 diabetes mellitus with hypoglycemia without coma; K29.70 Gastritis, unspecified, without bleeding; G89.29 Other chronic pain; M54.9 Dorsalgia, unspecified; I65.09 Occlusion and stenosis of unspecified vertebral artery; K21.0 Gastro-esophageal reflux disease with esophagitis; M19.90 Unspecified osteoarthritis, unspecified site; Z91.81 History of falling; Z86.73 Personal history of transient ischemic attack (TIA), and cerebral infarction without residual deficits; Z87.440 Personal history of urinary (tract) infections; Z87.11 Personal history of peptic ulcer disease; Z95.5 Presence of coronary angioplasty implant and graft; Z95.0 Presence of cardiac pacemaker

== ENCOUNTER 2018-05-23 13:19 | Observation (INO) | payer MEDICARE, MEDICAID ==
[2018-05-23 13:37] VITALS: BMI 32.9
--- NOTE | 2018-05-23 13:39 | ED PDOC ---
Arrival/HPI - General Time Seen by Provider: 05/23/18 13:27 Historian: Patient, [employer] (daughter) - History of Present Illness Narrative History of Present Illness (Text): 05/23/18 13:36 87 year old female, with no significant past medical history, who presents to the emergency department complaining of general weakness, fatigue, sob, and dizziness x 1 weeks. Patient notes similar episode 6 weeks ago, she was admitted to the hospital but there were no critical findings. Patient notes poor PO intake. Patient denies any fever, chills, chest pain, nausea, vomiting, diarrhea, back pain, neck pain, headache, or any other complaints. Time/Duration: 1 week Symptom Onset: Gradual Symptom Course: Unchanged Activities at Onset: Light Context: Home Associated Symptoms (Text): 05/23/18 13:59 Daughter translates. Complains of approximately one week history of generalized weakness and fatigue with poor by mouth intake dizziness and shortness of breath. No chest pain. No nausea or vomiting or diarrhea. No genitourinary symptoms. admitted for a similar episode 2 months ago. Patient has had [address] scans of the head in the last year. Past Medical History - Provider Review Nursing Documentation Reviewed: Yes - Infectious Disease Hx of Infectious Diseases: None - Tetanus Immunization Tetanus Immunization: Unknown - Cardiac Hx Cardiac Disorders: Yes - Pulmonary Hx Respiratory Disorders: No - Neurological Hx Neurological Disorder: Yes Hx Dizziness: Yes - HEENT Hx HEENT Disorder: Yes Hx Cataracts: Yes (B/L repair) Hx Glaucoma: Yes - Renal Hx Renal Disorder: No - Endocrine/Metabolic Hx Diabetes Mellitus Type 2: Yes - Hematological/Oncological Hx Blood Disorders: No - Integumentary Hx Dermatological Disorder: No - Musculoskeletal/Rheumatological Hx Falls: Yes - Gastrointestinal Hx Gastrointestinal Disorders: Yes (hx esophageal ulcer/diverticulitis) - Genitourinary/Gynecological Hx Reproductive Disorders: Yes - Psychiatric Hx Psychophysiologic Disorder: No Hx Depression: No Hx Emotional Abuse: No Hx Physical Abuse: No Hx Substance Use: No - Surgical History Hx Appendectomy: Yes Hx Joint Replacement: Yes (b/l knee replacements) Hx Musculoskeletal Surgery: Yes Hx Orthopedic Surgery: Yes Other/Comment: b/l knee replacements - Anesthesia Hx Anesthesia: Yes Hx Anesthesia Reactions: No Hx Malignant Hyperthermia: No - Suicidal Assessment Feels Threatened In Home Enviroment: No Family/Social History - Physician Review Nursing Documentation Reviewed: Yes Family/Social History: Unknown Family HX Smoking Status: Never Smoked Hx Alcohol Use: No Hx Substance Use: No Hx Substance Use Treatment: No Allergies/Home Meds Allergies/Adverse Reactions: Allergies No Known Allergies Allergy (Verified 05/23/18 13:30) Review of Systems - Physician Review All systems were reviewed & negative as marked: Yes - Review of Systems Constitutional: Fatigue. absent: Fevers Respiratory: SOB. absent: Cough Cardiovascular: Normal. absent: Chest Pain Gastrointestinal: Normal. absent: Abdominal Pain, Diarrhea, Nausea, Vomiting Musculoskeletal: Normal. absent: Back Pain, Neck Pain Neurological: Dizziness. absent: Headache, Focal Weakness, Gait Changes, Seizure Physical Exam Vital Signs Reviewed: Yes Vital Signs Temp Pulse Resp BP Pulse Ox 05/23/18 14:03 98.0 F 05/23/18 13:42 97.4 F L 58 L 18 131/78 97 Temperature: Afebrile Blood Pressure: Normal Pulse: Regular Respiratory Rate: Normal Appearance: Positive for: Ill-Appearing (Chronically) Pain Distress: None - Systems Exam Head: Present: Atraumatic, Normocephalic Pupils: Present: PERRL Extroacular Muscles: Present: EOMI Conjunctiva: Present: Normal Ears: Present: NORMAL TM, Normal Canal. No: Erythema Mouth: Present: Moist Mucous Membranes Pharnyx: No: ERYTHEMA, EXUDATE, TONSILS ENLARGED Neck: Present: Normal Range of Motion. No: Meningeal Signs, MIDLINE TENDERNESS , Paraspinal Tenderness Respiratory/Chest: Present: Clear to Auscultation, Good Air Exchange, Decreased Breath Sounds. No: Respiratory Distress, Accessory Muscle Use Cardiovascular: Present: Regular Rate and Rhythm, Normal S1, S2. No: Murmurs Abdomen: No: Tenderness, Distention, Peritoneal Signs, Rebound, Guarding Back: Present: Normal Inspection. No: CVA Tenderness Upper Extremity: Present: Normal Inspection. No: Cyanosis, Edema Lower Extremity: Present: Normal Inspection. No: Edema Neurological: Present: GCS=15, CN II-XII Intact, Speech Normal, Motor Func Grossly Intact, Normal Cerebellar Funct Skin: Present: Warm, Dry, Normal Color. No: Rashes Psychiatric: Present: Alert Medical Decision Making ED Course and Treatment: 05/23/18 13:43 Impression: 87 year old female presents to the emergency department complaining of general weakness, fatigue, sob, and dizziness x 1 week. Plan: -- EKG -- Labs -- Chest X-ray -- Cardiac enzymes -- UA -- Reassess and disposition Progress Notes: 05/23/18 14:02 EKG shows normal sinus rhythm at approximately [address] or T-wave changes and nonspecific T-wave changes 05/23/18 14:31 Chest X-ray reviewed, shows: LUNGS: No active pulmonary disease. PLEURA: No significant pleural effusion identified, no pneumothorax apparent. CARDIOVASCULAR: No radiographic findings to suggest acute or significant cardiovascular disease. Position/ configuration of pacemaker\AICD device: Satisfactory. OSSEOUS STRUCTURES: No significant abnormalities. VISUALIZED UPPER ABDOMEN: Normal. OTHER FINDINGS: Small hiatal hernia. IMPRESSION: No active disease. No significant interval change compared to the prior examination(s). 05/23/18 15:06 Discussed with , who will admit to 's service. - Lab Interpretations Lab Results: 05/23/18 13:55 05/23/18 13:55 Lab Results 05/23/18 13:55: Sodium 136, Potassium 4.4, Chloride 96 L, Carbon Dioxide 28, Anion Gap 17, BUN 53 H, Creatinine 1.1, Est GFR ( Amer) 57, Est GFR (Non- Af Amer) 47, Random Glucose 320 H* D, Calcium 10.1, Magnesium 1.6 L, Total Bilirubin 0.5, AST 25, ALT 25, Alkaline Phosphatase 83, Lactate Dehydrogenase 365, Total Creatine Kinase 37, Troponin I < 0.01, NT-Pro-B Natriuret Pep 98.2, Total Protein 7.2, Albumin 4.1, Globulin 3.1, Albumin/Globulin Ratio 1.3 05/23/18 13:55: Urine Color Yellow, Urine Appearance Clear, Urine pH 6.0, Ur Specific [place] 1.015, Urine Protein Negative, Urine Glucose (UA) 500 H, Urine Ketones Negative, Urine Blood Negative, Urine Nitrate Positive H, Urine Bilirubin Negative, Urine Urobilinogen 0.2, Ur Leukocyte Esterase Negative, Urine RBC 0 - 2, Urine WBC 0 - 2, Ur Epithelial Cells 3 - 4, Urine Bacteria Large, Urine Other Uyeast 05/23/18 13:55: WBC 8.9, RBC 4.43, Hgb 11.6 L, Hct 36.2, MCV 81.7, MCH 26.2, MCHC 32.0, RDW 15.1 H, Plt Count 312, MPV 10.3, Gran % 54.4, Lymph % (Auto) 36.1 H, [place] % (Auto) 6.6 H, Eos % (Auto) 2.5, Baso % (Auto) 0.4, Gran # 4.84, Lymph # (Auto) 3.2, [place] # (Auto) 0.6, Eos # (Auto) 0.2, Baso # (Auto) 0.04 05/23/18 13:29: POC Glucose (mg/dL) 295 H - RAD Interpretation Radiology Orders: 05/23/18 13:38 CHEST PORTABLE [RAD] Stat Chest 1 view is read by the radiologist shows no infiltrate effusion or cardiomegaly. Case Finisher: Radiologist - Medication Orders Current Medication Orders: Sodium Chloride (Sodium Chloride 0.9%) 500 mls @ 500 mls/hr IV ONCE ONE Stop: 05/23/18 16:03 - Scribe Statement The provider has reviewed the documentation as recorded by the Scribnilda Gonzales All medical record entries made by the Zhouibnilda were at my direction and personally dictated by me. I have reviewed the chart and agree that the record accurately reflects my personal performance of the history, physical exam, medical decision making, and the department course for this patient. I have also personally directed, reviewed, and agree with the discharge instructions and disposition. Disposition/Present on Arrival - Present on Arrival Any Indicators Present on Arrival: No History of DVT/PE: No History of Uncontrolled Diabetes: No Urinary Catheter: No History of Decub. Ulcer: No History Surgical Site Infection Following: None - Disposition Have Diagnosis and Disposition been Completed?: Yes Diagnosis: Diabetes, General weakness, Near syncope, Failure to thrive, Dizziness, Dehydration, Hyperglycemia Disposition: HOSPITALIZED Disposition Time: 15:07 Patient Plan: Observation Condition: FAIR Discharge Instructions (ExitCare): Weakness (ED)
--- NOTE | 2018-05-23 14:15 | RAD ---
HISTORY: Dizzy and weak COMPARISON: 03/19/2018 FINDINGS: LUNGS: No active pulmonary disease. PLEURA: No significant pleural effusion identified, no pneumothorax apparent. CARDIOVASCULAR: No radiographic findings to suggest acute or significant cardiovascular disease. Position/ configuration of pacemaker device: Satisfactory. OSSEOUS STRUCTURES: No significant abnormalities. VISUALIZED UPPER ABDOMEN: Normal. OTHER FINDINGS: Small hiatal hernia. IMPRESSION: No active disease. No significant interval change compared to the prior examination(s).
[2018-05-23 14:38] LABS: URINE BILIRUBIN NEGATIVE (NEGATIVE); URINE BLOOD NEGATIVE (NEGATIVE); URINE GLUCOSE (UA) 500 mg/dL (NEGATIVE); URINE LEUKOCYTE ESTERASE NEGATIVE Leu/uL (NEGATIVE); URINE PROTEIN NEGATIVE mg/dL (<30 mg/dL); URINE UROBILINOGEN 0.2 E.U./dL (<1 E.U./dL)
[2018-05-23 14:39] LABS: BASO # 0.04 K/mm3 (0.0-2.0); BASO % 0.4 % (0.0-3.0); EOS # 0.2 (0.0-0.7); EOS % 2.5 % (1.5-5.0); GRAN # 4.84 (1.4-6.5); GRAN % 54.4 % (50.0-68.0); HEMOGLOBIN 11.6 g/dL (12.0-16.0); LYMPH # 3.2 (1.2-3.4); LYMPH % 36.1 % (22.0-35.0); MEAN CELL VOLUME 81.7 fl (80.0-105.0); MEAN CORPUSCULAR HEMOGLOBIN 26.2 pg (25.0-35.0); MEAN PLATELET VOLUME 10.3 fl (7.0-11.0); MONO # 0.6 (0.1-0.6); MONO % 6.6 % (1.0-6.0); RBC 4.43 10^6/uL (3.5-6.1); RED CELL DISTRIBUTION WIDTH 15.1 % (11.5-14.5); WHITE BLOOD COUNT 8.9 10^3/ul (4.5-11.0)
[2018-05-23 14:42] LABS: ALB/GLOB RATIO 1.3 (1.1-1.8); ALBUMIN 4.1 g/dL (3.0-4.8); ALT/SGPT 25 U/L (7-56); AST/SGOT 25 U/L (14-36); BLOOD UREA NITROGEN 53 mg/dL (7-21); CALCIUM 10.1 mg/dL (8.4-10.5); GFR AFRICAN-AMERICAN 57; GFR NON-AFRICAN AMERICAN 47
[2018-05-23 14:45] LABS: URINE APPEARANCE CLEAR (CLEAR); URINE COLOR YELLOW (YELLOW)
[2018-05-23 14:50] LABS: B-TYPE NATRIURETIC PEPTIDE 98.2 pg/mL (0-450); TROPONIN I < 0.01 ng/mL
[2018-05-23 14:53] LABS: URINE BACTERIA LARGE (NEG); URINE RBC 0 - 2 /hpf (0-2); URINE WBC 0 - 2 /hpf (0-6)
[2018-05-23] MEDS ORDERED: Sodium Chloride 0.9% 500 ML IV ONE (15:04)
[2018-05-23] MEDS ORDERED: Albuterol-Ipratrop 3 mg / 0.5 (3 ml) UD IH PRN (18:50)
[2018-05-23] MEDS ORDERED: guaiFENesin DM 100 mg-10 mg/5 ml UD PO PRN (18:50)
[2018-05-23] MEDS ORDERED: Sodium Chloride 0.9% 1,000 ML IV SCH (19:00)
[2018-05-23] MEDS ORDERED: Insulin Regular 1 UNITS/0.01 ML ML SC ONE (19:05)
[2018-05-23] MEDS: Insulin Reg-MEDIUM-Coverage SC SCH (21:42)
[2018-05-23] MEDS ORDERED: Latanoprost 2.5 ml Opht Soln OU SCH (22:00)
[2018-05-23] MEDS ORDERED: Pneumococcal 23-Valent Vaccine IM ONE (22:38)
[2018-05-24] MEDS: Pantoprazole 40 mg EC Tab PO SCH (05:41)
[2018-05-24 06:55] LABS: HEMOGLOBIN 11.5 g/dL (12.0-16.0); MEAN CELL VOLUME 82.2 fl (80.0-105.0); MEAN CORPUSCULAR HEMOGLOBIN 25.9 pg (25.0-35.0); MEAN CORPUSCULAR HGB CONC 31.5 g/dl (31.0-37.0); MEAN PLATELET VOLUME 10.1 fl (7.0-11.0); RBC 4.44 10^6/uL (3.5-6.1); RED CELL DISTRIBUTION WIDTH 15.1 % (11.5-14.5); WHITE BLOOD COUNT 8.9 10^3/ul (4.5-11.0)
[2018-05-24] MEDS: Insulin Reg-MEDIUM-Coverage SC SCH ×4 (07:30→22:33)
[2018-05-24 07:32] LABS: ALB/GLOB RATIO 1.3 (1.1-1.8); ALBUMIN 3.8 g/dL (3.0-4.8); ALT/SGPT 14 U/L (7-56); AST/SGOT 17 U/L (14-36); BLOOD UREA NITROGEN 40 mg/dL (7-21); CALCIUM 9.8 mg/dL (8.4-10.5); GFR AFRICAN-AMERICAN > 60; GFR NON-AFRICAN AMERICAN 59
--- NOTE | 2018-05-24 09:09 | CARD ---
APPROVED REPORT EKG Measurement Heart [id number] <Conclusion> Sinus bradycardia Moderate voltage criteria for LVH, may be normal variant Nonspecific T wave abnormality No change
[2018-05-24] MEDS: Levothyroxine 50 MCG TAB PO SCH (10:07)
[2018-05-24] MEDS: Fluticasone Nasal 50 mcg/Spray NS SCH ×2 (10:11→18:00)
--- NOTE | 2018-05-24 12:29 | RAD ---
PROCEDURE: Radiographs of the Sacrum and Coccyx HISTORY: Pain. No history of recent/ related trauma provided COMPARISON: None available. TECHNIQUE: Frontal and lateral views of the sacrum and coccyx FINDINGS: BONES: Sacrum and coccyx unremarkable. No fracture or focal lesion. SACROILIAC JOINTS: Unremarkable. OTHER FINDINGS: Surgical clips in the pelvis IMPRESSION: No acute findings related to/accounting for the clinical presentation.
--- NOTE | 2018-05-24 14:57 | CON ---
DATE: 05/24/2018 NEUROLOGY CONSULT CHIEF COMPLAINT: Dizziness. 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 intake. Currently, the patient is no longer dizzy. She had elevated blood sugars of 320 when she came on 05/23/2018 and very hyperglycemic. Her last A1c was 10.4 and again poorly-controlled diabetes. She has mild mid back pain, but otherwise no acute events. PAST MEDICAL HISTORY: As above. SOCIAL HISTORY: No illicit drug use, smoking or EtOH abuse. FAMILY HISTORY: Noncontributory. MEDICATIONS: Reviewed by nurse's reconciliation sheet. ALLERGIES: NO KNOWN DRUG ALLERGIES. REVIEW OF SYSTEMS: Fourteen-point review of systems negative except as per the HPI. PHYSICAL EXAMINATION: VITAL SIGNS: Temperature of 97.8, pulse rate of 57, blood pressure 160/68, respiratory rate of 18, oxygen saturation 99% by room air. GENERAL: The patient is sitting up in bed, in no acute distress. HEENT: Atraumatic, normocephalic. PERRLA. Extraocular muscles intact. NECK: Supple. No JVD. No adenopathy noted. LUNGS: Clear to auscultation. No adventitious sounds. HEART: S1, S2. Normal rate and rhythm. No murmurs, rubs or gallops. ABDOMEN: Soft, nontender and nondistended. Bowel sounds are present. EXTREMITIES: No clubbing. No cyanosis. Peripheral pulses 2+ felt bilaterally. NEUROLOGIC: The patient is alert and oriented to person, place, month and year. Speech is fluent without any errors. Cranial nerves II through XII intact. Motor exam: Moves all extremities equally. No pronator drift seen. Sensory exam: Decreased light touch and pinprick up to the calves bilaterally. Decreased vibration of the toes. DTRs are 2+ throughout and 1 at both knees and ankles. Coordination: [id number] intact. No dysmetria noted. Gait is deferred for now. LABORATORY DATA: Sodium is 141, potassium 4.4, chloride 102, carbon dioxide of 30, BUN of 40, creatinine 0.9, random glucose of 129. 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 Recent hemoglobin A1c 10.4 and again poorly-controlled diabetes. Came in for generalized weakness, fatigue, shortness of breath and dizziness lightheadedness. Found to have elevated blood sugars of 320 when she was admitted. Currently, no longer dizzy. The blood sugars have been now controlled. She is mildly dehydrated. At this time, her dizziness is likely secondary to acute hyperglycemia with mild elevated systolic blood pressures, in addition to occasional vertebrobasilar insufficiency. At this time, recommend, 1. Correct her underlying blood sugars. Keep the blood sugars between 140-180 and she has a hemoglobin A1c of 10.4 and again poorly-controlled diabetes, may need diabetic medication adjustment and also probably need an Endocrinology consult. 2. Continue with aspirin 81 mg, Plavix 75 mg, statin 40 mg for treatment for vertebrobasilar insufficiency and future stroke prevention. 3. Keep systolic blood pressures between 130s-140s, diastolic 70s-80s. 4. We will give her Lidoderm patch to lumbosacral area for her back pain and continue her current present medical management. Thank you for this consult. Wayne Dubon MD
[2018-05-24] MEDS: Lidocaine 5% Patch TD SCH (15:09)
--- NOTE | 2018-05-24 17:08 | CT ---
PROCEDURE: CT Lumbar Spine without contrast HISTORY: Back Pain. No history of recent/ related trauma provided COMPARISON: 01/09/2018 CT abdomen pelvis TECHNIQUE: Axial computed tomography images were obtained of the lumbar spine without the use of intravenous contrast. Coronal and sagittal reformatted images were created and reviewed. Radiation dose: Total exam DLP = 914.75 mGy-cm. This CT exam was performed using one or more of the following dose reduction techniques: Automated exposure control, adjustment of the mA and/or kV according to patient size, and/or use of iterative reconstruction technique. FINDINGS: VERTEBRAE: No evidence of fracture. No interval change compared to of the appearance of the thoracolumbar spine and visible sacrum on 01/09/2018. DISCS/SPINAL CANAL/NEURAL FORAMINA: L1-2: Degenerative changes and vacuum disc phenomenon. L2-3: Moderate degenerative changes. L3-4: Bulging annulus, narrowing of the spinal canal. L4-5: Diffuse annular bulging and narrowing of canal primarily due to facet hypertrophy. L5-S1: Vacuum disc phenomenon, mild degenerative changes. PARASPINAL SOFT TISSUES: Unremarkable. OTHER FINDINGS: None. IMPRESSION: No acute findings. Canal stenosis, mild L3-4 and L4-5.
[2018-05-24 22:24] VITALS: TEMP 97.6
[2018-05-25] MEDS: Pantoprazole 40 mg EC Tab PO SCH (06:32)
[2018-05-25] MEDS: Insulin Reg-MEDIUM-Coverage SC SCH ×2 (07:51→11:40)
[2018-05-25] MEDS: Levothyroxine 50 MCG TAB PO SCH (07:54)
[2018-05-25 09:41] VITALS: PULSE 70; RESP 18; O2SAT 96
[2018-05-25] MEDS ORDERED: cefTRIAXone 1 gm 1 GM/100 ML BAG IVPB SCH (10:15)
--- NOTE | 2018-05-25 10:39 | HP ---
Dated: 05/24/2018 HISTORY OF PRESENT ILLNESS: April is an 87-year-old female who presented to the ED with generalized weakness, dizziness for one week. She had several episodes of weakness a few weeks ago. She has a history of TIA in the past. Blood sugars were elevated in the ER. Denies any chest pain. No nausea or vomiting. No diarrhea. She has history of TIA. No stroke; diabetes mellitus type 2, poorly controlled diabetes. History of GE reflux disease, stable. No recent episodes. No nausea or vomiting. H/O fall at home. REVIEW OF SYSTEMS As per HPI. Rest of 12 points of review of systems reviewed, negative. PAST MEDICAL HISTORY: History of TIA in the past, dizziness, diabetes mellitus type 2 and GE reflux. PAST SURGICAL HISTORY: Appendectomy, bilateral knee replacement. PERSONAL HISTORY: Never smoked. No history of alcohol abuse. SOCIAL HISTORY Lives at home with the daughter. FAMILY HISTORY Noncontributory. No positive history in mother and father. ALLERGIES: NO KNOWN DRUG ALLERGIES. PHYSICAL EXAMINATION: GENERAL: Comfortable in bed, in no acute distress. VITAL SIGNS: Temperature 98, heart rate is 58 per minute, respiratory rate 18 per minute, blood pressure 130/78, pulse ox is 97% on room air. HEENT: Pallor positive. NECK: No lymphadenopathy. CHEST: Air entry present and equal bilaterally. No added sounds. CARDIOVASCULAR: S1, S2 normal. No murmur. No gallop. ABDOMEN: Soft, nontender. No hepatosplenomegaly. EXTREMITIES: No edema. SPINE: Nontender. DATA: EKG: Normal sinus rhythm, 60 beats per mins, no ST-T changes. Chest x-ray: No infiltrate. Labs: White count 8.9, hemoglobin 11.6, hematocrit 36.2, platelet 312. Sodium 136, potassium 4.4, BUN 53, creatinine 1.1, glucose 320. Troponin negative, nitrite positive. ASSESSMENT AND PLAN: 1. Transient ischemic attack. 2. Generalized weakness. 3. Uncontrolled diabetes mellitus. 4. Dizziness. 5. Mild anemia. 6. s/p fall at home PLAN: She will be admitted to Tele monitoring. Neurology consult with Dr. Dubon requested, input appreciated. He recommended conservative treatment- control of blood sugar, sugars were in 300s when she came, is currently on sliding scale insulin. We will continue Synthroid 50 mcg daily, potassium 50 b.i.d., Lipitor 40 daily. Sylvia erwin.r.nMary, we will discuss with the daughter. Urine culture showed E. coli, sensitive to ampicillin and Bactrim. E. coli is pansensitive, ceftriaxone 1 g daily. Neelima Carbajal MD [facility]
[2018-05-25] MEDS: Lidocaine 5% Patch TD SCH (11:00)
[2018-05-25] MEDS: Fluticasone Nasal 50 mcg/Spray NS SCH (11:01)
[2018-05-25 11:06] VITALS: BP 156/66
--- NOTE | 2018-05-25 16:10 | DS ---
DISCHARGE DIAGNOSES: 1. Dizziness. 2. History of transient ischemic attack. 3. Anemia. 4. Urinary tract infection. HOSPITAL COURSE: She was admitted with generalized weakness, dizziness. Blood sugar was high. She has mild anemia, history of TIA in the past, evaluated by Neurology, Dr. Dubon. CT head was unremarkable. She had a history of fall at home. X-rays of the spine did not show any fracture. Urine culture showed E. Coli UTI. She was given a dose of ceftriaxone. She ambulated fine during hospitalization. She is discharged home in stable condition. PHYSICAL EXAMINATION: GENERAL: On discharge, comfortable in chair in no acute distress. VITAL SIGNS: Temperature 98.5, heart rate 60 per minute, respiratory rate 15 per minute, blood pressure 130/80, pulse ox is 98% room air. HEENT: Pallor positive. NECK: No lymphadenopathy. CHEST: Air entry present and equal bilaterally. No added sounds. CARDIOVASCULAR: S1, S2 normal. No murmur. No gallop. ABDOMEN: Soft, nontender. No hepatosplenomegaly. EXTREMITIES: No edema. SKIN: No petechiae. No rash. SPINE: Nontender. CONDITION ON DISCHARGE: Stable. DISPOSITION: Discharge home. DISCHARGE MEDICATIONS : Resume home meds. Macrobid 100 mg p.o. b.i.d. pharmacy in [place]. Discussed with the daughter discharge planning and discharge medications. FOLLOWUP: Follow up with Dr. Yanez in one week. Time spent in preparing discharge and coordinating care 60 minutes. Neelima Carbajal MD
== END 2018-05-25 14:22 | disposition home health service (06) ==
LOC: ED 13:19 → ERH 15:05 → 5RNO 17:50
PROVIDERS: ADMIT Internal Medicine; ATTEND Internal Medicine
DX: E86.0 Dehydration (principal); N39.0 Urinary tract infection, site not specified; B96.20 Unspecified Escherichia coli [E. coli] as the cause of diseases classified elsewhere; D64.9 Anemia, unspecified; R62.7 Adult failure to thrive; K21.9 Gastro-esophageal reflux disease without esophagitis; E11.65 Type 2 diabetes mellitus with hyperglycemia; I25.10 Atherosclerotic heart disease of native coronary artery without angina pectoris; I10 Essential (primary) hypertension; E78.5 Hyperlipidemia, unspecified; Z96.653 Presence of artificial knee joint, bilateral; Z95.5 Presence of coronary angioplasty implant and graft; Z95.0 Presence of cardiac pacemaker; Z86.73 Personal history of transient ischemic attack (TIA), and cerebral infarction without residual deficits
CPT/HCPCS: 36415; 71045; 72131; 72220; 80053; 81001; 82550; 82948; 83615; 83735; 83880; 84484; 85025; 85027; 87086; 87181; 93005; 96360; 97116; 97161; 99285; G0378; G8978; G8979; J0696; J7030; J7040

== ENCOUNTER 2018-05-29 11:17 | Inpatient (IN) | payer MEDICARE, MEDICAID ==
[2018-05-29 11:39] VITALS: BMI 26.4
--- NOTE | 2018-05-29 11:56 | ED PDOC ---
Arrival/HPI - General Time Seen by Provider: 05/29/18 11:42 Historian: Patient, EMS - History of Present Illness Narrative History of Present Illness (Text): 05/29/18 11:52 Patient is an 87 yo female presents via ambulance with history of extreme fatigue and dizziness. States she feels shortness of breath as well. Reports lower back pain, states it is chronic. Denies any chills. Denies any new focal weakness. Patient denies any acute trauma. Reports decreased appetites. Denies any bloody urine or stool. Patient states that she has had these symptoms intermittently but worse today. Family reports that patient has episodes of dizziness and weakness, although this morning "appeared like it was worse". No fever noted. NO trauma reported. No focal weakness reported to arms or legs. Currently denies visual symptoms. Time/Duration: Prior to Arrival Symptom Onset: Gradual Past Medical History - Infectious Disease Hx of Infectious Diseases: None - Tetanus Immunization Tetanus Immunization: Unknown - Cardiac Hx Cardiac Disorders: Yes - Pulmonary Hx Respiratory Disorders: Yes (FLU) - Neurological Hx Neurological Disorder: Yes Hx Dizziness: Yes - HEENT Hx Cataracts: Yes - Renal Hx Renal Disorder: No - Endocrine/Metabolic Hx Diabetes Mellitus Type 2: Yes - Hematological/Oncological Hx Blood Disorders: No - Integumentary Hx Dermatological Disorder: No - Musculoskeletal/Rheumatological Hx Musculoskeletal Disorders: Yes Hx Falls: Yes - Gastrointestinal Hx Gastrointestinal Disorders: Yes - Genitourinary/Gynecological Hx Genitourinary Disorders: Yes - Psychiatric Hx Psychophysiologic Disorder: No Hx Depression: No Hx Emotional Abuse: No Hx Physical Abuse: No Hx Substance Use: No - Surgical History Hx Joint Replacement: Yes (KNEES) - Anesthesia Hx Anesthesia: Yes Hx Anesthesia Reactions: No Hx Malignant Hyperthermia: No - Suicidal Assessment Feels Threatened In Home Enviroment: No Family/Social History Family/Social History: Unknown Family HX Smoking Status: Never Smoked Hx Alcohol Use: No Hx Substance Use: No Hx Substance Use Treatment: No Allergies/Home Meds Allergies/Adverse Reactions: Allergies No Known Allergies Allergy (Verified 05/23/18 21:21) Review of Systems - Review of Systems Constitutional: Fatigue. absent: Fevers Eyes: absent: Eye Pain Respiratory: SOB Cardiovascular: absent: Chest Pain, [place] Gastrointestinal: absent: Abdominal Pain Musculoskeletal: Back Pain Skin: absent: Rash Neurological: absent: Headache, Dizziness Hemo/Lymphatic: absent: Easy Bleeding Psychiatric: absent: Depression Physical Exam Vital Signs Reviewed: Yes Vital Signs Temp Pulse Resp BP Pulse Ox 05/29/18 13:50 97.9 F 85 18 97 05/29/18 11:39 97.5 F L 86 18 138/59 L 100 Temperature: Afebrile Appearance: Positive for: Ill-Appearing Pain Distress: Mild - Systems Exam Head: Present: Atraumatic Pupils: Present: PERRL Extroacular Muscles: Present: EOMI, Other (visual acuity grossly intact) Conjunctiva: No: Injected Mouth: Present: Dry. No: Drooling Pharnyx: No: ERYTHEMA, Peritonsilar Swelling, Strider Neck: Present: Normal Range of Motion. No: Meningeal Signs Respiratory/Chest: Present: Clear to Auscultation Cardiovascular: Present: Murmurs, Bradycardic Abdomen: No: Tenderness Rectal: No: Gross Blood Back: No: CVA Tenderness Lower Extremity: No: Edema Neurological: Present: Motor Func Grossly Intact, Normal Sensory Function, Other (very weak, but will move all extremities, no dysmetria noted, no pathologic nystagmus noted) Skin: Present: Pale Psychiatric: Present: Alert. No: Normal Affect (flat affect) Medical Decision Making ED Course and Treatment: 05/29/18 11:52 Impression: 87 year old female presents to the Emergency department for generalized weakness, dizziness and shortness of breath. Differential Diagnosis included but are not limited to: Plan: -- ABG -- EKG -- Labs -- Chest X-ray -- Blood Culture -- Urine Culture -- Influenza -- Urinalysis -- Reassess and disposition Prior Visits: Notes and results from previous visits were reviewed. Progress Notes: I reviewed patient's recent admission including neurology consult from May 24. Patient's case also reviewed with her PMD Dr. Yanez, who assisted with evaluation of patient in ED by assessing patient's mental status with patient in family in ED, felt to be at her baseline. Patient's past history however is significant for prior cva, prior cardiac disease. CT head reviewed, although limitations reviewed with family. Symptoms have been present intermittently for several days. Not a tpa candidate based on this. She complains of intermittent shortness of breath although ABG unremarkable, she is not hypoxic with serial exams, no wheezing or stridor noted. Bradycardia noted but she has prior history of this and blood pressure stable. While in ED she is able to ambulate and stand, she has no focal weakness. There is no dysmetrica noted. No facial droop noted. Cannot exclude cardiac variant for symptoms although patient continues to have no chest pain. She reports intermittent dizziness although no tachyarrhtymias noted and with serial exams continues to have no facial droop, no stridor, no focal weakness. She requests coffee to drink. Family has provided her drinks of water with no choking or difficulty noted. Given her significant past neurological history, will admit for serial neuro exams and cardiac monitoring, Initial lactate and WBC mildly elevated, although current exam reveals no fever , no rash, no abdominal pain. I have updated patient's family at bedside with treatment plan, and updated Dr. Yanez with results and will admit for further evaluation. Given elevated lactate will trend lactate and evaluate for sepsis. Suspect possible underlying neurologic etiology to her symptoms as well, although by history and exam she has no acute focal weakness, visual loss, or speech changes while in ED. 05/29/18 12:39 Chest X-ray reviewed by radiologist, shows no active disease. 05/29/18 15:39 CT of head reviewed by radiologist, shows: No acute intracranial abnormality. If there is a persistent focal neurologic deficit and an ongoing clinical concern for acute infarction, an MRI of the brain without intravenous contrast would be a more sensitive modality for evaluation of hyperacute/acute ischemic infarction. Moderate chronic microangiopathic changes, old lacunar infarctions and moderate age-related global parenchymal volume loss without significant interval change. 05/30/18 01:10 - Lab Interpretations Lab Results: 05/29/18 12:09 05/29/18 12:09 Lab Results 05/29/18 15:30: Urine Color Yellow, Urine Appearance Clear, Urine pH 6.5, Ur Specific [place] 1.015, Urine Protein Trace H, Urine Glucose (UA) >=1000, Urine Ketones Trace H, Urine Blood Negative, Urine Nitrate Negative, Urine Bilirubin Negative, Urine Urobilinogen 0.2, Ur Leukocyte Esterase Negative, Urine RBC Negative, Urine WBC 0 - 2, Ur Epithelial Cells 1 - 3, Urine Bacteria Neg 05/29/18 12:09: Sodium 139, Chloride 101, Potassium 4.7, Carbon Dioxide 24, Anion Gap 19, BUN 30 H, Creatinine 0.7, Est GFR ( Amer) > 60, Est GFR ( Non-Af Amer) > 60, Random Glucose 262 H, Calcium 9.9, Total Bilirubin 0.5, AST 20, ALT 18, Alkaline Phosphatase 85, Lactate Dehydrogenase 501, Total Creatine Kinase 23 L, Troponin I < 0.01, NT-Pro-B Natriuret Pep 182, Total Protein 7.3, Albumin 4.2, Globulin 3.1, Albumin/Globulin Ratio 1.4 05/29/18 12:09: PT 11.5, INR 1.00, APTT 27.5 05/29/18 12:09: Influenza Typ A,B (EIA) Negative for flu a/b 05/29/18 12:09: WBC 11.3 H D, RBC 4.43, Hgb 12.0, Hct 36.5, MCV 82.4, MCH 27.1, MCHC 32.9, RDW 15.1 H, Plt Count 259, MPV 10.3, Gran % 68.0, Lymph % (Auto) 24.6 , [place] % (Auto) 6.3 H, Eos % (Auto) 0.9 L, Baso % (Auto) 0.2, Gran # 7.67 H, Lymph # (Auto) 2.8, [place] # (Auto) 0.7 H, Eos # (Auto) 0.1, Baso # (Auto) 0.02 05/29/18 11:50: pCO2 35, pO2 130.0 H, HCO3 23.8, ABG pH 7.44, ABG Total CO2 24.9 , ABG O2 Saturation 98.8 H, ABG Base Excess 0.1, ABG Potassium 4.4, Sodium 136.0 , Chloride 107.0, Glucose 270 H, Lactate 2.2 H, FiO2 28.0, Arterial Blood Potassium 4.4 - RAD Interpretation Radiology Orders: 05/29/18 11:45 CHEST PORTABLE [RAD] Stat 05/29/18 14:41 HEAD W/O CONTRAST [CT] Stat Specialized Developer: Radiologist - EKG Interpretation Interpreted by ED Physician: Yes Type: 12 lead EKG - Medication Orders Current Medication Orders: Acetaminophen (Tylenol 325mg Tab) 650 mg PO Q4H PRN PRN Reason: Pain, Mild (1-3) Albuterol/Ipratropium (Duoneb 3 Mg/0.5 Mg (3 Ml) Ud) 3 ml IH Q6H PRN PRN Reason: Shortness of Breath Aspirin (Ecotrin) 81 mg PO 0800 [place] Atorvastatin Calcium (Lipitor) 40 mg PO HS [facility] Last Admin: 05/29/18 21:48 Dose: 40 mg Clopidogrel Bisulfate (Plavix) 75 mg PO DAILY [facility] Gemfibrozil (Lopid) 600 mg PO 0630,1700 [facility] Glimepiride (Amaryl) 1 mg PO BID [facility] Guaifenesin/Dextromethorphan (Robitussin Dm) 5 ml PO TID PRN PRN Reason: Cough Ceftriaxone Sodium (Rocephin 1 Gram Ivpb) 1 gm in 100 mls @ 100 mls/hr IVPB DAILY [facility] PRN Reason: Protocol Insulin Human Regular (Humulin R Low) 0 units SC ACHS [facility] PRN Reason: Protocol Last Admin: 05/29/18 21:48 Dose: Not Given Non-Admin Reason: Blood Sugar Parameter [facility] Blood Glucose Document 05/29/18 21:48 RM (Rec: 05/29/18 21:48 [facility]) Blood Glucose Finger Stick Blood Glucose (70-120) 253 Levothyroxine Sodium (Synthroid) 50 mcg PO DAILY [facility] Losartan Potassium (Cozaar) 50 mg PO BID [facility] Last Admin: 05/29/18 21:46 Dose: 50 mg [facility] Pulse and Blood Pressure Document 05/29/18 21:46 RM (Rec: 05/29/18 21:47 [facility]) Blood Pressure Blood Pressure (100/60-150/90 mm Hg) 141/80 Meclizine HCl (Antivert) 12.5 mg PO TID PRN PRN Reason: Other Metformin HCl (Glucophage) 1,000 mg PO BID [facility] Montelukast Sodium (Singulair) 10 mg PO HS [facility] Last Admin: 05/29/18 21:49 Dose: 10 mg Pantoprazole Sodium (Protonix Ec Tab) 40 mg PO 0600 [facility] Sitagliptin Phosphate (Januvia) 50 mg PO BID [facility] Discontinued Medications Ondansetron HCl (Zofran Inj) 4 mg IVP ONCE ONE Stop: 05/29/18 17:34 Last Admin: 05/29/18 18:06 Dose: Not Given Non-Admin Reason: Patient Refused IVP Administration Document 05/29/18 18:06 [facility]ST (Rec: 05/29/18 18:06 [facility] [id number]) Charges for Administration # of IVP Administrations 1 Disposition/Present on Arrival - Present on Arrival Any Indicators Present on Arrival: Yes History of DVT/PE: No History of Uncontrolled Diabetes: Yes Urinary Catheter: No History Surgical Site Infection Following: None - Disposition Have Diagnosis and Disposition been Completed?: Yes Diagnosis: Dizziness, Fatigue, Bradycardia Disposition: HOSPITALIZED Disposition Time: 13:40 Patient Plan: Admission, Telemetry Patient Problems: Current Active Problems Problem Status Onset Bradycardia Acute Dizziness Acute Fatigue Acute Condition: FAIR
[2018-05-29 12:08] LABS: ARTERIAL BLOOD GAS HCO3 23.8 mmol/L (21-28); ARTERIAL BLOOD GAS O2 SAT 98.8 % (95-98); ARTERIAL BLOOD GAS PCO2 35 mm/Hg (35-45); ARTERIAL BLOOD GAS PH 7.44 (7.35-7.45); ARTERIAL BLOOD GAS TCO2 24.9 mmol.L (22-28)
[2018-05-29 12:27] LABS: BASO # 0.02 K/mm3 (0.0-2.0); BASO % 0.2 % (0.0-3.0); EOS # 0.1 (0.0-0.7); EOS % 0.9 % (1.5-5.0); GRAN # 7.67 (1.4-6.5); LYMPH # 2.8 (1.2-3.4); LYMPH % 24.6 % (22.0-35.0); MEAN CELL VOLUME 82.4 fl (80.0-105.0); MEAN CORPUSCULAR HEMOGLOBIN 27.1 pg (25.0-35.0); MEAN CORPUSCULAR HGB CONC 32.9 g/dl (31.0-37.0); MEAN PLATELET VOLUME 10.3 fl (7.0-11.0); MONO # 0.7 (0.1-0.6); MONO % 6.3 % (1.0-6.0); RBC 4.43 10^6/uL (3.5-6.1); RED CELL DISTRIBUTION WIDTH 15.1 % (11.5-14.5); WHITE BLOOD COUNT 11.3 10^3/ul (4.5-11.0)
--- NOTE | 2018-05-29 12:28 | RAD ---
Date of service: 05/29/2018 HISTORY: Shortness of breath COMPARISON: 05/23/2018. FINDINGS: LUNGS: The lungs are well inflated and clear. PLEURA: No significant pleural effusion identified, no pneumothorax apparent. CARDIOVASCULAR: The heart is normal in size. There is stable position of left-sided pacemaker. OSSEOUS STRUCTURES: No significant abnormalities. VISUALIZED UPPER ABDOMEN: Normal. OTHER FINDINGS: None. IMPRESSION: No active pulmonary disease.
[2018-05-29 12:43] LABS: PARTIAL THROMBOPLASTIN TIME 27.5 Seconds (25.1-36.5); PROTHROMBIN TIME 11.5 SECONDS (9.4-12.5)
[2018-05-29 12:46] LABS: B-TYPE NATRIURETIC PEPTIDE 182 pg/mL (0-450); TROPONIN I < 0.01 ng/mL
[2018-05-29 12:49] LABS: ALB/GLOB RATIO 1.4 (1.1-1.8); ALBUMIN 4.2 g/dL (3.0-4.8); ALT/SGPT 18 U/L (7-56); AST/SGOT 20 U/L (14-36); BLOOD UREA NITROGEN 30 mg/dL (7-21); CALCIUM 9.9 mg/dL (8.4-10.5); GFR AFRICAN-AMERICAN > 60; GFR NON-AFRICAN AMERICAN > 60
--- NOTE | 2018-05-29 15:20 | CT ---
Date of service: 05/29/2018 PROCEDURE: CT HEAD WITHOUT CONTRAST. HISTORY: Dizziness and weakness COMPARISON: 03/19/2018. TECHNIQUE: Axial computed tomography images were obtained through the head/brain without intravenous contrast. Radiation dose: Total exam DLP = 956.72 mGy-cm. This CT exam was performed using one or more of the following dose reduction techniques: Automated exposure control, adjustment of the mA and/or kV according to patient size, and/or use of iterative reconstruction technique. FINDINGS: HEMORRHAGE: No intracranial hemorrhage. BRAIN: Again seen are old lacunar infarctions in the right west radiata, basal ganglia and bilateral cerebellar hemispheres. There are severe chronic microangiopathic changes. There is no mass, mass effect or abnormal extra-axial fluid collection.There are coarse atherosclerotic calcifications in the cavernous carotid and vertebral arteries. VENTRICLES: There is moderate age-related global parenchymal volume loss and proportionate enlargement of the ventricles and cortical sulci. CALVARIUM: The skull base and calvarium are normal. PARANASAL SINUSES: Predominantly clear. MASTOID AIR CELLS: Predominantly clear. OTHER FINDINGS: None. IMPRESSION: No acute intracranial abnormality. If there is a persistent focal neurologic deficit and an ongoing clinical concern for acute infarction, an MRI of the brain without intravenous contrast would be a more sensitive modality for evaluation of hyperacute/acute ischemic infarction. Moderate chronic microangiopathic changes, old lacunar infarctions and moderate age-related global parenchymal volume loss without significant interval change.
[2018-05-29 16:09] LABS: PH,URINE 6.5 (4.7-8.0); URINE BILIRUBIN NEGATIVE (NEGATIVE); URINE BLOOD NEGATIVE (NEGATIVE); URINE GLUCOSE (UA) >=1000 mg/dL (NEGATIVE); URINE LEUKOCYTE ESTERASE NEGATIVE Leu/uL (NEGATIVE); URINE PROTEIN TRACE mg/dL (<30 mg/dL); URINE UROBILINOGEN 0.2 E.U./dL (<1 E.U./dL)
[2018-05-29 16:10] LABS: URINE APPEARANCE CLEAR (CLEAR); URINE COLOR YELLOW (YELLOW)
[2018-05-29 16:13] LABS: URINE BACTERIA NEG (NEG); URINE RBC NEGATIVE /hpf (0-2); URINE WBC 0 - 2 /hpf (0-6)
[2018-05-29 16:51] LABS: VENOUS BLOOD GAS BASE EXCESS 1.1 mmol/L (0.0-2.0); VENOUS BLOOD GAS PO2 82 mm/Hg (30-55); VENOUS BLOOD PH 7.44 (7.32-7.43)
[2018-05-29] MEDS ORDERED: Albuterol-Ipratrop 3 mg / 0.5 (3 ml) UD IH PRN (19:00)
[2018-05-29] MEDS ORDERED: guaiFENesin DM 100 mg-10 mg/5 ml UD PO PRN (19:00)
--- NOTE | 2018-05-29 19:33 | CARD ---
APPROVED REPORT Date of service: 05/29/2018 EKG Measurement Heart [id number] [place] [id number] <Conclusion> Sinus bradycardia with premature atrial complexes Moderate voltage criteria for LVH, may be normal variant Cannot rule out Septal infarct, age undetermined Abnormal ECG
[2018-05-29 20:15] LABS: VENOUS BLOOD GAS BASE EXCESS 1.3 mmol/L (0.0-2.0); VENOUS BLOOD GAS PO2 72 mm/Hg (30-55); VENOUS BLOOD PH 7.42 (7.32-7.43)
[2018-05-29] MEDS: Insulin Reg-LOW-Coverage SC SCH (21:48)
[2018-05-30] MEDS: Pantoprazole 40 mg EC Tab PO SCH (05:48)
[2018-05-30 06:36] LABS: MEAN CELL VOLUME 82.8 fl (80.0-105.0); MEAN CORPUSCULAR HEMOGLOBIN 25.9 pg (25.0-35.0); MEAN CORPUSCULAR HGB CONC 31.3 g/dl (31.0-37.0); MEAN PLATELET VOLUME 10.5 fl (7.0-11.0); RBC 4.25 10^6/uL (3.5-6.1); RED CELL DISTRIBUTION WIDTH 15.3 % (11.5-14.5); WHITE BLOOD COUNT 6.4 10^3/ul (4.5-11.0)
[2018-05-30 06:51] LABS: IRON 111 ug/dL (45-180)
[2018-05-30 06:58] LABS: ALB/GLOB RATIO 1.3 (1.1-1.8); ALBUMIN 3.8 g/dL (3.0-4.8); ALT/SGPT 17 U/L (7-56); AST/SGOT 20 U/L (14-36); BLOOD UREA NITROGEN 19 mg/dL (7-21); CALCIUM 9.8 mg/dL (8.4-10.5); GFR AFRICAN-AMERICAN > 60; GFR NON-AFRICAN AMERICAN > 60; HDL CHOLESTEROL 46 mg/dL (29-60)
[2018-05-30 07:01] LABS: % IRON SATURATION 30 % (20-55); TOTAL IRON BINDING CAPACITY 370 ug/dL (265-497)
[2018-05-30 07:05] LABS: LDL CHOLESTEROL 137 mg/dL (0-129)
[2018-05-30] MEDS: Insulin Reg-LOW-Coverage SC SCH ×4 (08:31→21:52)
--- NOTE | 2018-05-30 08:39 | HP ---
DATE OF EXAM: CHIEF COMPLAINT: Shortness of breath, fatigue, dizzy. HISTORY OF PRESENT ILLNESS: Ms. April Fabian is 87-year-old female came with ambulance with history of extreme fatigue, dizziness, states that she feels shortness of breath as well. Reports lower back pain. States it is chronic, but now is acute on chronic. No chills. No new focal weakness. No history of trauma. As per the patient, decreased appetite. No hematuria. No hematochezia. PAST MEDICAL HISTORY: Dizziness, diabetes mellitus, falls, history of joint replacement of knees, history of COPD, asthma. FAMILY HISTORY: Father and mother noncontributory. HABITS: Never smoked. No drugs. No ethanol. ALLERGIES: PATIENT IS NOT ALLERGIC WITH ANY MEDICATIONS. REVIEW OF SYSTEMS: Patient is seen and examined at bedside in the emergency room, feeling lethargic, fatigue. No fever. No eye pain, but heavy shortness of breath. No chest pain. No abdominal pain, having back pain and no rash. No headache or dizziness. Has easily bleeding, depression. PHYSICAL EXAMINATION: VITAL SIGNS: Temperature 97.5, pulse 86, respiratory rate 18, blood pressure 113/69, pulse oximetry of 100. HEENT: Head: Normocephalic, atraumatic. Eyes: PERRLA. Extraocular muscles intact. Conjunctivae clear. Nose: Patent. NECK: Supple. No carotid bruits. No JVD or thyromegaly. CHEST: Bilaterally symmetrical. HEART: S1 and S2 positive. LUNGS: Clear to auscultation. ABDOMEN: Soft. Bowel sounds present. No organomegaly. EXTREMITIES: No edema. No cyanosis. NEUROLOGIC: The patient is awake and alert. Moving all 4 extremities. No focal deficit. LABORATORY DATA: White blood cell 11.3, hemoglobin 12, hematocrit 36.5, platelets 259. Sodium 139, potassium 4.7, BUN 30, creatinine 0.7, glucose 262. ASSESSMENT AND PLAN: Ms. April Fabian is 87 years old lady with leukocytosis, renal insufficiency, hypoglycemia, came with fatigue, shortness of breath, back pain, history of chronic obstructive pulmonary disease, chronic dizziness, history of bilateral carotid artery stenosis in the past. The patient and family refuse surgery. CAT scan of the head done. Length of time discussion done with Haritha Gutierres, ER physician. In CAT scan of the head no acute intracranial abnormalities, if there is any persistent focal neurological deficits and on ongoing clinical concern for acute infarction and MRI of the brain without ishemic infarction, moderate chronic microangiopathic changes. Old lacunar infarction and moderate age related global parenchymal volume loss without significant interval change as per radiologist, history of diabetes mellitus, started diabetes medications and put on sliding scale, hypercholesterolemia, started atorvastatin, hypertriglyceridemia, the patient is taking Lopid. Gastrointestinal prophylaxis. Taking Protonix. Rule out sepsis, ceftriaxone started on ID consult call, hypothyroidism, continue Synthroid, Zofran for nauseousness. Gastrointestinal and deep venous thrombosis prophylaxis. Repeat labs. We will followup. Mirian Yanez MD MTDD
[2018-05-30] MEDS: Levothyroxine 50 MCG TAB PO SCH (09:48)
[2018-05-30] MEDS: cefTRIAXone 1 gm 1 GM/100 ML BAG IVPB SCH (09:48)
--- NOTE | 2018-05-30 12:06 | CP.PCM.CON ---
History of Present Illness - History of Present Illness History of Present Illness: 87 year old female with PMH of CAD S/P PCI, DM, GERD, history of ventral abdominal hernia, bilateral cataracts, history of glaucoma, hypothyroidism, esophageal ulcer, diverticulosis, S/P appendectomy, S/P hysterectomy, S/P bilateral knee replacement came in to [facility] after she was noted to be weak and tired by the home health aide. There was no note of vomiting, no diarrhea, no fevers but the patient started having decreased appetite. Currently the patient still feels fatigued but denies headache or dizziness, no chest pain, no abdominal pain, had some nausea but no vomiting, no sore throat. Infectious Diseases consult is requested to further evaluate and manage. Review of Systems - Review of Systems All systems: reviewed and no additional remarkable complaints except (as per HPI ) Past Patient History - Infectious Disease Hx of Infectious Diseases: None - Tetanus Immunizations Tetanus Immunization: Unknown - Past Social History Smoking Status: Never Smoked - CARDIAC Hx Cardiac Disorders: Yes Hx Hypertension: Yes Hx Pacemaker: Yes - PULMONARY Hx Respiratory Disorders: Yes Other/Comment: History of Flu - NEUROLOGICAL Hx Neurological Disorder: Yes Hx Dizziness: Yes - HEENT Hx HEENT Problems: Yes Hx Cataracts: Yes - RENAL Hx Chronic Kidney Disease: No - ENDOCRINE/METABOLIC Hx Endocrine Disorders: Yes Hx Diabetes Mellitus Type 2: Yes - HEMATOLOGICAL/ONCOLOGICAL Hx Blood Disorders: No - INTEGUMENTARY Hx Dermatological Problems: No - MUSCULOSKELETAL/RHEUMATOLOGICAL Hx Musculoskeletal Disorders: Yes Hx Falls: Yes - GASTROINTESTINAL Hx Gastrointestinal Disorders: Yes Other/Comment: GI bleed - GENITOURINARY/GYNECOLOGICAL Hx Genitourinary Disorders: Yes Hx Urinary Tract Infection: Yes - PSYCHIATRIC Hx Psychophysiologic Disorder: No Hx Substance Use: No - SURGICAL HISTORY Hx Surgeries: Yes Hx Joint Replacement: Yes (B/L) - ANESTHESIA Hx Anesthesia: Yes Hx Anesthesia Reactions: No Hx Malignant Hyperthermia: No Meds Allergies/Adverse Reactions: Allergies Allergy/AdvReac Type Severity Reaction Status Date / Time No Known Allergies Allergy Verified 05/23/18 21:21 - Medications Medications: Current Medications Acetaminophen (Tylenol 325mg Tab) 650 mg PO Q4H PRN PRN Reason: Pain, Mild (1-3) Albuterol/Ipratropium (Duoneb 3 Mg/0.5 Mg (3 Ml) Ud) 3 ml IH Q6H PRN PRN Reason: Shortness of Breath Aspirin (Ecotrin) 81 mg PO 0800 [facility] Atorvastatin Calcium (Lipitor) 40 mg PO HS [facility] Clopidogrel Bisulfate (Plavix) 75 mg PO DAILY [facility] Gemfibrozil (Lopid) 600 mg PO 0630,1700 [facility] Glimepiride (Amaryl) 1 mg PO BID [facility] Guaifenesin/Dextromethorphan (Robitussin Dm) 5 ml PO TID PRN PRN Reason: Cough Ceftriaxone Sodium (Rocephin 1 Gram Ivpb) 1 gm in 100 mls @ 100 mls/hr IVPB DAILY [facility] PRN Reason: Protocol Insulin Human Regular (Humulin R Low) 0 units SC ACHS [facility] PRN Reason: Protocol Levothyroxine Sodium (Synthroid) 50 mcg PO DAILY [facility] Losartan Potassium (Cozaar) 50 mg PO BID [facility] Meclizine HCl (Antivert) 12.5 mg PO TID PRN PRN Reason: Other Metformin HCl (Glucophage) 1,000 mg PO BID [facility] Montelukast Sodium (Singulair) 10 mg PO HS [facility] Pantoprazole Sodium (Protonix Ec Tab) 40 mg PO 0600 [facility] Sitagliptin Phosphate (Januvia) 50 mg PO BID [facility] Physical Exam - Constitutional Appears: Chronically Ill - Head Exam Head Exam: NORMAL INSPECTION - ENT Exam ENT Exam: Mucous Membranes Moist - Neck Exam Neck exam: Negative for: Lymphadenopathy, Meningismus - Respiratory Exam Respiratory Exam: Decreased Breath Sounds - Cardiovascular Exam Cardiovascular Exam: +S1, +S2 - GI/Abdominal Exam GI & Abdominal Exam: Soft. absent: Tenderness Results - Vital Signs Recent Vital Signs: Last Vital Signs Temp 98.2 F 05/29/18 20:53 Pulse 81 05/29/18 20:53 Resp 18 05/29/18 20:53 BP 141/80 05/29/18 20:53 Pulse Ox 97 05/29/18 17:57 - Labs Result Diagrams: 05/30/18 05:45 05/30/18 05:45 Labs: Laboratory Results - last 24 hr 05/29/18 05/29/18 05/29/18 16:48 20:08 21:45 pO2 82 H 72 H VBG pH 7.44 H 7.42 VBG pCO2 37.0 L 40.0 VBG HCO3 25.1 25.9 VBG Total CO2 26.2 27.1 VBG O2 Sat (Calc) 97.6 H 96.4 H VBG Base Excess 1.1 1.3 VBG Potassium 4.3 4.3 Sodium 136.0 134.0 Chloride 105.0 102.0 Glucose 197 H 296 H Lactate 2.0 1.9 FiO2 21.0 21.0 POC Glucose (mg/dL) 253 H Venous Blood Potassium 4.3 4.3 Assessment & Plan - Assessment and Plan (Free Text) Plan: Assessment leukocytosis, R/O due to UTI history of Systemic viral illness with Influenza A history of rhinosinusitis CAD S/P PCI DM GERD history of ventral abdominal hernia bilateral cataracts history of glaucoma hypothyroidism esophageal ulcer diverticulosis S/P appendectomy S/P hysterectomy S/P bilateral knee replacement Plan patient started on Rocephin ; follow up blood and urine cx CXR is negative for infiltrates
--- NOTE | 2018-05-30 13:00 | CT ---
Date of service: 05/30/2018 PROCEDURE: CT Angiography of the Brain. HISTORY: syncope, slurred speech COMPARISON: None available. TECHNIQUE: CT angiography of the intracranial arteries was performed. Coronal and sagittal maximum intensity projection reformated images were generated. This CT exam was performed using one or more of the following dose reduction techniques: Automated exposure control, adjustment of the mA and/or kV according to patient size, and/or use of iterative reconstruction technique. FINDINGS: INTERNAL CEREBRAL ARTERIES: Unremarkable. The skull base, petrous, cavernous and supraclinoid segments are bilaterally widely patent. ANTERIOR CEREBRAL ARTERIES: Unremarkable. A1 and A2 segments are widely patent. Smaller distal branches unremarkable, as visualized. MIDDLE CEREBRAL ARTERIES: Unremarkable. M1 and M2 segments are widely patent. Perisylvian branches grossly symmetric. POSTERIOR CIRCULATION: Basilar Artery: Unremarkable. Distal Vertebral Arteries: Unremarkable. Posterior Cerebral Arteries: Unremarkable. Posterior Inferior Cerebellar Arteries: Unremarkable. ANEURYSM/ VASCULAR MALFORMATIONS: None. OTHER FINDINGS: None. IMPRESSION: Unremarkable CT Angiography of the Brain. Date of service: 05/30/2018 PROCEDURE: CT Angiography of the neck with contrast HISTORY: syncope, slurred speech COMPARISON: None available. TECHNIQUE: Contiguous axial images of the neck were obtained from the level of the skull-base to the superior mediastinum in the arteriographic phase of enhancement. Coronal and sagittal reformats or also generated. IV contrast dose: 150 cc of Omni 350 Radiation Dose - DLP: 466 mGy-cm This CT exam was performed using one or more of the following dose reduction techniques: Automated exposure control, adjustment of the mA and/or kV according to patient size, and/or use of iterative reconstruction technique. FINDINGS: RIGHT CAROTID ARTERIES: Multiple calcified plaques are seen in the internal carotid including a plaque in the distal aspect of the internal carotid. This produces a mild degree of stenosis. The right internal carotid is smaller than the right. LEFT CAROTID ARTERIES: Calcified plaques are seen in the proximal internal carotid without significant stenosis. VERTEBRAL ARTERIES: Right Vertebral Artery: Normal. Left Vertebral Artery: Small left vertebral OTHER FINDINGS: None. IMPRESSION: Multiple calcified plaques are seen in the internal carotid including a plaque in the distal aspect of the internal carotid. This produces a mild degree of stenosis. The right internal carotid is smaller than the right.
--- NOTE | 2018-05-30 15:57 | CP.PCM.CON ---
History of Present Illness - History of Present Illness History of Present Illness: Palliative consult requested b Dr Vernell Yanez Reason: Advance Care Planning 87 year oil female with history of DM, COPD who presented with fatigue, dizziness and shortness of breath. She also complained if chronic low back pain. She denied fever, chills, nausea , vomiting, urinary sympors abdominal/ chest pain. CT of head with no acute findings. Chest x ray showed no active disease. MRA of neck showed multiple calcified plaque in the internal right and left carotids. PMHx:DM, COPD, asthma, dizziness,hypothyroidism, CAD, GERD PSH: bilateral knee replacements, hysterectomy, appendectomy Social History: non smoker, no alcohol or drug use Family History: Non contributory Advance Care Planning: she does not have an Advanced Directive. Review of Systems: As per HPI, 12 point review otherwise negative Vital Signs: T 98.0, P 86, BP 116/80, R 16, 02 98% on room air Labs: Wbc 6.4, Hgb 11,0, Plt 254,Na 140, K 4.6, Bun 19, creat 0.7, glucose 161, , A1c 8.9, urine + ketone, blood cultures H flu negative Past Patient History - Infectious Disease Hx of Infectious Diseases: None - Tetanus Immunizations Tetanus Immunization: Unknown - Past Social History Smoking Status: Never Smoked - CARDIAC Hx Cardiac Disorders: Yes Hx Hypertension: Yes - PULMONARY Hx Respiratory Disorders: Yes Other/Comment: History of Flu - NEUROLOGICAL Hx Neurological Disorder: Yes Hx Dizziness: Yes - HEENT Hx HEENT Problems: Yes Hx Cataracts: Yes - RENAL Hx Chronic Kidney Disease: No - ENDOCRINE/METABOLIC Hx Diabetes Mellitus Type 2: Yes - HEMATOLOGICAL/ONCOLOGICAL Hx Blood Disorders: No - INTEGUMENTARY Hx Dermatological Problems: No - MUSCULOSKELETAL/RHEUMATOLOGICAL Hx Musculoskeletal Disorders: Yes Hx Falls: Yes - GASTROINTESTINAL Hx Gastrointestinal Disorders: Yes Other/Comment: GI bleed - GENITOURINARY/GYNECOLOGICAL Hx Genitourinary Disorders: Yes Hx Urinary Tract Infection: Yes - PSYCHIATRIC Hx Psychophysiologic Disorder: No Hx Substance Use: No - SURGICAL HISTORY Hx Surgeries: Yes Hx Joint Replacement: Yes (B/L) - ANESTHESIA Hx Anesthesia: Yes Hx Anesthesia Reactions: No Hx Malignant Hyperthermia: No Meds Allergies/Adverse Reactions: Allergies Allergy/AdvReac Type Severity Reaction Status Date / Time No Known Allergies Allergy Verified 05/23/18 21:21 - Medications Medications: Current Medications Acetaminophen (Tylenol 325mg Tab) 650 mg PO Q4H PRN PRN Reason: Pain, Mild (1-3) Albuterol/Ipratropium (Duoneb 3 Mg/0.5 Mg (3 Ml) Ud) 3 ml IH Q6H PRN PRN Reason: Shortness of Breath Aspirin (Ecotrin) 81 mg PO 0800 [facility] Last Admin: 05/30/18 08:32 Dose: 81 mg Atorvastatin Calcium (Lipitor) 40 mg PO HS [facility] Last Admin: 05/29/18 21:48 Dose: 40 mg Clopidogrel Bisulfate (Plavix) 75 mg PO DAILY [facility] Last Admin: 05/30/18 09:48 Dose: 75 mg Gemfibrozil (Lopid) 600 mg PO 0630,1700 [facility] Last Admin: 05/30/18 05:48 Dose: 600 mg Glimepiride (Amaryl) 1 mg PO BID [facility] Last Admin: 05/30/18 09:48 Dose: 1 mg Guaifenesin/Dextromethorphan (Robitussin Dm) 5 ml PO TID PRN PRN Reason: Cough Last Admin: 05/30/18 12:40 Dose: 5 ml Ceftriaxone Sodium (Rocephin 1 Gram Ivpb) 1 gm in 100 mls @ 100 mls/hr IVPB DAILY [facility] PRN Reason: Protocol Last Admin: 05/30/18 09:48 Dose: 100 mls/hr Insulin Human Regular (Humulin R Low) 0 units SC ACHS [facility] PRN Reason: Protocol Last Admin: 05/30/18 12:40 Dose: 4 unit Levothyroxine Sodium (Synthroid) 50 mcg PO DAILY [facility] Last Admin: 05/30/18 09:48 Dose: 50 mcg Losartan Potassium (Cozaar) 50 mg PO BID [facility] Last Admin: 05/30/18 09:49 Dose: 50 mg Meclizine HCl (Antivert) 12.5 mg PO TID PRN PRN Reason: Other Metformin HCl (Glucophage) 1,000 mg PO BID [facility] Last Admin: 05/30/18 09:48 Dose: 1,000 mg Montelukast Sodium (Singulair) 10 mg PO HS [facility] Last Admin: 05/29/18 21:49 Dose: 10 mg Pantoprazole Sodium (Protonix Ec Tab) 40 mg PO 0600 [facility] Last Admin: 05/30/18 05:48 Dose: 40 mg Sitagliptin Phosphate (Januvia) 50 mg PO BID [facility] Last Admin: 05/30/18 09:48 Dose: 50 mg Physical Exam - Constitutional Appears: No Acute Distress, Chronically Ill - Head Exam Head Exam: NORMOCEPHALIC - Eye Exam Eye Exam: Normal appearance, PERRL - ENT Exam ENT Exam: Mucous Membranes Moist, Normal Oropharynx - Neck Exam Neck exam: Positive for: Normal Inspection - Respiratory Exam Respiratory Exam: Decreased Breath Sounds, NORMAL BREATHING PATTERN - Cardiovascular Exam Cardiovascular Exam: REGULAR RHYTHM, +S1, +S2 - GI/Abdominal Exam GI & Abdominal Exam: Normal Bowel Sounds, Soft Additional comments: no tenderness - Extremities Exam Extremities exam: Positive for: normal capillary refill, pedal pulses present - Back Exam Back exam: NORMAL INSPECTION - Neurological Exam Neurological exam: Alert Additional comments: oriented to place and self - Skin Skin Exam: Dry, Pallor, Warm - Additional Findings Additional findings: Palate performance scale rating 40 % Results - Vital Signs Recent Vital Signs: Last Vital Signs Temp 97.5 F L 05/30/18 06:00 Pulse 88 05/30/18 14:00 Resp 18 05/30/18 06:00 BP 137/81 05/30/18 09:49 Pulse Ox 98 05/30/18 06:00 - Labs Result Diagrams: 05/30/18 05:45 05/30/18 05:45 Labs: Laboratory Results - last 24 hr 05/29/18 05/29/18 05/29/18 16:48 20:08 21:45 WBC RBC Hgb Hct MCV MCH MCHC RDW Plt Count MPV pO2 82 H 72 H VBG pH 7.44 H 7.42 VBG pCO2 37.0 L 40.0 VBG HCO3 25.1 25.9 VBG Total CO2 26.2 27.1 VBG O2 Sat (Calc) 97.6 H 96.4 H VBG Base Excess 1.1 1.3 VBG Potassium 4.3 4.3 Sodium 136.0 134.0 Chloride 105.0 102.0 Glucose 197 H 296 H Lactate 2.0 1.9 FiO2 21.0 21.0 Potassium Carbon Dioxide Anion Gap BUN Creatinine Est GFR ( Amer) Est GFR (Non-Af Amer) POC Glucose (mg/dL) 253 H Random Glucose Hemoglobin A1c Calcium Iron TIBC % Saturation Total Bilirubin AST ALT Alkaline Phosphatase Total Protein Albumin Globulin Albumin/Globulin Ratio Triglycerides Cholesterol LDL Cholesterol Direct HDL Cholesterol Vitamin B12 Folate TSH 3rd Generation Venous Blood Potassium 4.3 4.3 05/30/18 05/30/18 05/30/18 05:45 05:45 05:45 WBC 6.4 D RBC 4.25 Hgb 11.0 L Hct 35.2 L MCV 82.8 MCH 25.9 MCHC 31.3 RDW 15.3 H Plt Count 254 MPV 10.5 pO2 VBG pH VBG pCO2 VBG HCO3 VBG Total CO2 VBG O2 Sat (Calc) VBG Base Excess VBG Potassium Sodium Chloride Glucose Lactate FiO2 Potassium Carbon Dioxide Anion Gap BUN Creatinine Est GFR ( Amer) Est GFR (Non-Af Amer) POC Glucose (mg/dL) Random Glucose Hemoglobin A1c 8.9 H Calcium Iron 111 TIBC 370 % Saturation 30 Total Bilirubin AST ALT Alkaline Phosphatase Total Protein Albumin Globulin Albumin/Globulin Ratio Triglycerides Cholesterol LDL Cholesterol Direct HDL Cholesterol Vitamin B12 Folate TSH 3rd Generation Venous Blood Potassium 05/30/18 05/30/18 05/30/18 05:45 05:45 07:32 WBC RBC Hgb Hct MCV MCH MCHC RDW Plt Count MPV pO2 VBG pH VBG pCO2 VBG HCO3 VBG Total CO2 VBG O2 Sat (Calc) VBG Base Excess VBG Potassium Sodium 140 Chloride 102 Glucose Lactate FiO2 Potassium 4.6 Carbon Dioxide 27 Anion Gap 15 BUN 19 Creatinine 0.7 Est GFR ( Amer) > 60 Est GFR (Non-Af Amer) > 60 POC Glucose (mg/dL) 181 H Random Glucose 190 H Hemoglobin A1c Calcium 9.8 Iron TIBC % Saturation Total Bilirubin 0.6 AST 20 ALT 17 Alkaline Phosphatase 77 Total Protein 6.8 Albumin 3.8 Globulin 3.0 Albumin/Globulin Ratio 1.3 Triglycerides 168 H Cholesterol 224 H LDL Cholesterol Direct 137 H HDL Cholesterol 46 Vitamin B12 > 1000 H Folate 11.0 TSH 3rd Generation 1.64 Venous Blood Potassium 05/30/18 11:36 WBC RBC Hgb Hct MCV MCH MCHC RDW Plt Count MPV pO2 VBG pH VBG pCO2 VBG HCO3 VBG Total CO2 VBG O2 Sat (Calc) VBG Base Excess VBG Potassium Sodium Chloride Glucose Lactate FiO2 Potassium Carbon Dioxide Anion Gap BUN Creatinine Est GFR ( Amer) Est GFR (Non-Af Amer) POC Glucose (mg/dL) 305 H Random Glucose Hemoglobin A1c Calcium Iron TIBC % Saturation Total Bilirubin AST ALT Alkaline Phosphatase Total Protein Albumin Globulin Albumin/Globulin Ratio Triglycerides Cholesterol LDL Cholesterol Direct HDL Cholesterol Vitamin B12 Folate TSH 3rd Generation Venous Blood Potassium Assessment & Plan - Assessment and Plan (Free Text) Assessment: 87 year old female with history of DM, HTN COPD who is admitted with hyperglycemia,leukocytosis, weakness. I met with patient and daughter Macey, to discuss goals of care and advance care planning. Resuscitation wishes discussed. The patient is explicit that she does not want CPR/ intubation/dialysis or permanent PEG feedings. She appointed her daughter health care surrogate. Advance directive completed. Patient request to be DNR/DNI Time spent with patient and family member in goals of care and advance care planning discussion 30 minutes Plan: R/o UTI, on Rocephin, ID following Weakness; ongoing evaluation, H Flu negative, PT eval DM: Monitor labs,on Metformin, Januvia, Amaryl,diabetic counseling Goals of care and advance care planning: DNR/DNI
--- NOTE | 2018-05-30 17:48 | CON ---
DATE: 05/30/2018 NEUROLOGY CONSULTATION CHIEF COMPLAINT: Dizziness. 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 CT angio of the head and neck showed just multiple calcified plaques in the internal right and left carotids, but no significant intracranial stenosis. She does have hyperglycemic accelerations, her A1c is 8.9. She is deconditioned. According to me, her speech seems fine, but according to the daughter, she is mildly slurred, but there is no acute infarct seen on the CAT scan. 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 She follows simple commands and answers to simple questions without any difficulty. PAST MEDICAL HISTORY: As above. SOCIAL HISTORY: No illicit drug use, smoking, or EtOH abuse. PAST SURGICAL HISTORY: Bilateral knee replacement, hysterectomy, and appendectomy. FAMILY HISTORY: Noncontributory. REVIEW OF SYSTEMS: Fourteen-point review of systems negative except as per the HPI.. LABORATORY DATA: WBC 6.4, hemoglobin 11. Sodium is 140, potassium is 4.6. BUN 19, creatinine 0.7. Random glucose 261, A1c is 8.9. PHYSICAL EXAMINATION: VITAL SIGNS: Temperature 98, pulse rate of 86, blood pressure 116/80, respiratory rate 16, oxygen saturation 98% on room air. GENERAL: Patient is lying in bed, in no acute distress. HEENT: Head is atraumatic, normocephalic. PERRLA. Extraocular muscles intact. NECK: Supple. No JVD. No adenopathy noted. LUNGS: Clear to auscultation. No adventitious sounds. HEART: S1 and S2. Normal rate and rhythm. No murmurs, rubs, or gallops. ABDOMEN: Soft, nontender, and nondistended. Bowel sounds are present. EXTREMITIES: No clubbing. No cyanosis. Peripheral pulses 2+ felt bilaterally. NEUROLOGIC: The patient is alert and oriented to person, place, month, and year. Recall after 5 minutes is 0/3. Poor attention span and slow thought process. Cranial nerves II through XII are intact. Motor exam: Moves all extremities equally, mildly deconditioned. No pronator drift seen. Sensory exam: Decreased light touch and pinprick up to the calves bilaterally. Decreased vibration of the toes. DTRs are 2+ throughout, 1 at both knees and absent at the ankles. Coordination: [id number] intact. No dysmetria noted. No tremors noted. Gait is deferred for now. ASSESSMENT AND PLAN: This is an 87-year-old with history of type 2 diabetes mellitus; hypertension; coronary artery disease, status post stent; chronic obstructive pulmonary; bradycardia, status post pacemaker; history of vertebrobasilar insufficiency; history of Enterococcus faecalis and Escherichia coli urinary tract infection, who came in with generalized weakness, fatigue, and transient slurred speech, found to be hyperglycemic and is deconditioned. CT head showed chronic ischemic changes. There has been old lacunar bilateral cerebellar infarction, old bilateral basal ganglia infarcts. CT angio of the head and neck showed mild carotid atherosclerotic plaque, but no significant intracranial stenosis at this time. She does have hyperglycemic accelerations. I feels like generalized weakness is secondary to deconditioned stage, superimposed peripheral neuropathy, underlying diabetes, and has transient slurred speech and weakness from underlying hyperglycemic accelerations. At this time, recommend; 1. Keep her blood sugars between 140 to 180 given that her A1c is 8.9 indicating poorly controlled diabetes and needs medication adjustment. 2. PT/OT for underlying dizziness and deconditioned state. 3. Keep systolic blood pressures between 130s to 140s systolic and diastolic 70s to 80s. 4. Aspirin 81, Plavix 75, and Lipitor 40 for stroke prevention and continue current present medical management. Thank you for this consult. Wayne Dubon MD
--- NOTE | 2018-05-31 03:55 | PN ---
DATE: 05/30/2018 SUBJECTIVE: Patient is an 87-year-old female. Patient is seen and examined on the bedside, looking comfortable. Daughter was sitting on the bedside. Also, no nausea or vomiting. Dizziness is better, shortness of breath is better. No headache, no dizziness, no chest pain, no palpitation, no fever, no chills, no hematuria, no hematochezia. PHYSICAL EXAMINATION: VITAL SIGNS: Temperature 98.2, pulse 81, respiratory rate 18, blood pressure 140/80, pulse oximetry 97. HEENT: Head: Normocephalic, atraumatic. Eyes: PERRLA. Extraocular muscles intact. Conjunctivae clear. Nose patent. Mucous membrane moist. NECK: Supple. No carotid bruit. No JVD or thyromegaly. CHEST: Bilaterally symmetrical. HEART: S1 and S2 positive. LUNGS: Clear to auscultation. ABDOMEN: Soft. Bowel sounds present. No organomegaly. EXTREMITIES: No edema, no cyanosis. NEUROLOGIC: Patient is awake, alert. Moving all 4 extremities. No focal deficits. LABORATORY DATA: White blood cells 6.4, hemoglobin 11.4, hematocrit 35.2, platelets 254. Sodium 140, potassium 4.6, BUN 19, creatinine 0.7, glucose 190. ASSESSMENT AND PLAN: Ms. April Fabian is an 87-year-old female with anemia, diabetes mellitus, leukocytosis, rule out urinary tract infection, history of systemic viral illness with influenza A, history of rhinosinusitis, coronary artery disease, status post history of gastroesophageal reflux disease, dyspepsia, history of ventral abdominal wall hernia, bilateral cataract, history of glaucoma, history of hypothyroidism, esophageal ulcers, diverticulosis, status post splenectomy, hysterectomy, bilateral knee replacement. Patient started on Rocephin. Follow up blood culture and urine culture. Sepsis negative for infiltrates. Dr. Christopher Do, Infectious Disease is on the case; Dr. Wayne Dubon, neurologist is on the case also. 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 Discussion done with patient's daughter. Rocephin started. Gastrointestinal and deep venous thrombosis prophylaxis, out of bed. Patient was informed it is hard for her to live alone, maybe daughter will try to convence her for rehabilitation or correction , meanwhile continue present treatment. We will follow up. Mirian Yanez MD [facility]
[2018-05-31] MEDS: Pantoprazole 40 mg EC Tab PO SCH (05:22)
[2018-05-31] MEDS: Insulin Reg-LOW-Coverage SC SCH ×4 (08:10→22:08)
[2018-05-31] MEDS: cefTRIAXone 1 gm 1 GM/100 ML BAG IVPB SCH (09:31)
[2018-05-31] MEDS: Levothyroxine 50 MCG TAB PO SCH (09:33)
--- NOTE | 2018-05-31 12:35 | CP.PCM.PN ---
Subjective - Date & Time of Evaluation Date of Evaluation: 05/30/18 Time of Evaluation: 10:40 - Subjective Subjective: Comfortable on the bed, no fevers, no abdominal pain, no dysuria, able to eat. Objective - Vital Signs/Intake and Output Vital Signs (last 24 hours): Temp Pulse Resp BP Pulse Ox 98.0 F 96 H 20 136/72 96 05/30/18 17:29 05/30/18 22:00 05/30/18 17:29 05/30/18 17:29 05/30/18 17:29 Intake and Output: 05/30/18 05/31/18 18:59 06:59 Intake Total 360 Output Total 400 Balance -40 - Medications Medications: Current Medications Acetaminophen (Tylenol 325mg Tab) 650 mg PO Q4H PRN PRN Reason: Pain, Mild (1-3) Albuterol/Ipratropium (Duoneb 3 Mg/0.5 Mg (3 Ml) Ud) 3 ml IH Q6H PRN PRN Reason: Shortness of Breath Aspirin (Ecotrin) 81 mg PO 0800 [facility] Last Admin: 05/30/18 08:32 Dose: 81 mg Atorvastatin Calcium (Lipitor) 40 mg PO HS [facility] Last Admin: 05/30/18 21:39 Dose: 40 mg Clopidogrel Bisulfate (Plavix) 75 mg PO DAILY [facility] Last Admin: 05/30/18 09:48 Dose: 75 mg Gemfibrozil (Lopid) 600 mg PO 0630,1700 [facility] Last Admin: 05/30/18 17:07 Dose: 600 mg Glimepiride (Amaryl) 1 mg PO BID [facility] Last Admin: 05/30/18 17:07 Dose: 1 mg Guaifenesin/Dextromethorphan (Robitussin Dm) 5 ml PO TID PRN PRN Reason: Cough Last Admin: 05/30/18 12:40 Dose: 5 ml Ceftriaxone Sodium (Rocephin 1 Gram Ivpb) 1 gm in 100 mls @ 100 mls/hr IVPB DAILY [facility] PRN Reason: Protocol Last Admin: 05/30/18 09:48 Dose: 100 mls/hr Insulin Human Regular (Humulin R Low) 0 units SC ACHS [facility] PRN Reason: Protocol Last Admin: 05/30/18 21:52 Dose: Not Given Levothyroxine Sodium (Synthroid) 50 mcg PO DAILY [facility] Last Admin: 05/30/18 09:48 Dose: 50 mcg Losartan Potassium (Cozaar) 50 mg PO BID [facility] Last Admin: 05/30/18 17:07 Dose: 50 mg Meclizine HCl (Antivert) 12.5 mg PO TID PRN PRN Reason: Other Metformin HCl (Glucophage) 1,000 mg PO BID [facility] Last Admin: 05/30/18 17:07 Dose: 1,000 mg Montelukast Sodium (Singulair) 10 mg PO HS [facility] Last Admin: 05/30/18 21:39 Dose: 10 mg Pantoprazole Sodium (Protonix Ec Tab) 40 mg PO 0600 [facility] Last Admin: 05/30/18 05:48 Dose: 40 mg Sitagliptin Phosphate (Januvia) 50 mg PO BID [facility] Last Admin: 05/30/18 17:07 Dose: 50 mg - Labs Labs: 05/30/18 05:45 05/30/18 05:45 PT 11.5 SECONDS (9.4-12.5) 05/29/18 12:09 INR 1.00 (0.93-1.08) 05/29/18 12:09 APTT 27.5 Seconds (25.1-36.5) 05/29/18 12:09 - Constitutional Appears: Non-toxic, Chronically Ill - Head Exam Head Exam: NORMAL INSPECTION - Respiratory Exam Respiratory Exam: Decreased Breath Sounds - Cardiovascular Exam Cardiovascular Exam: +S1, +S2 - GI/Abdominal Exam GI & Abdominal Exam: Soft. absent: Tenderness Assessment and Plan - Assessment and Plan (Free Text) Plan: Assessment leukocytosis, with no evidence of UTI or pneumonia history of Systemic viral illness with Influenza A history of rhinosinusitis CAD S/P PCI DM GERD history of ventral abdominal hernia bilateral cataracts history of glaucoma hypothyroidism esophageal ulcer diverticulosis S/P appendectomy S/P hysterectomy S/P bilateral knee replacement Plan urine, blood cx are negative and urine cx does not show pyuria - will d/c Rocephin and observe CXR is negative for infiltrates will continue to monitor clinically
--- NOTE | 2018-05-31 15:34 | CON ---
DATE: 05/31/2018 CARDIOLOGY CONSULTATION (To Dr. Torrez). HISTORY OF PRESENT ILLNESS: The patient is an 87-year-old woman who presents with dizziness. The patient has diabetes mellitus, COPD, history of TIA as well as CAD. She is status post pacemaker placement. She presented and was evaluated by Neurology which revealed no intracranial stenoses. Her hemoglobin A1c and diabetes mellitus are poorly controlled. CT scan showed chronic ischemic changes. She underwent discussion with Palliative Care and apparently, the patient is now DNR. PHYSICAL EXAMINATION: GENERAL: The patient is lying in bed and complaining of chronic dizziness. VITAL SIGNS: Her blood pressure is 112 systolic, heart rate is in the 50s. Normal sinus rhythm. NECK: Negative JVD. LUNGS: Without rales. HEART: S1, S2 with 2/6 systolic ejection murmur. EXTREMITIES: Without edema. Echocardiogram done recently reveals good LV function with an aortic valve area of 1.17 consistent with mild aortic stenosis. LABORATORY DATA: Hemoglobin is 11. Chemistries, creatinine is 0.7 and the BUN is 19. Glucose is 179. IMPRESSION: 1. Chronic dizziness. 2. Diabetes mellitus. 3. History of pacemaker placement. 4. Hypercholesterolemia. 5. Mild aortic stenosis. 6. History of coronary artery disease. Given these findings,her dizziness cannot be explained by any cardiac structural nor arrhythmic issues. The report from telemetry stating that she had a wide-complex tachycardia with actuality lead placement issues which has been fixed and currently her heart rate is in the 50s. Given these findings, no further cardiac workup is indicated at this time. We will discontinue Telemetry. Hugo Bernard MD
--- NOTE | 2018-06-01 00:58 | PN ---
DATE: 05/31/2018 SUBJECTIVE: The patient is 87 years old female. The patient was seen and examined on the bedside. Daughter was sitting on the bedside also, looking comfortable. No fever, no chills, no nausea, vomiting or diarrhea. No hematuria, no hematochezia. No headache. No dizziness. No chest pain. No palpitations. Feeling just fatigue and tired at this moment, according to her she is not feeling more dizzy. Daughter has multiple questions, all are answered. PHYSICAL EXAMINATION VITAL SIGNS: Temperature 98, pulse 96, respiratory rate 20, blood pressure 120/80 , pulse oximetry of 96. HEENT: Head: Normocephalic, atraumatic. Eyes: PERRLA. Extraocular muscles intact. Conjunctivae clear. Nose: Patent. Mucous membranes moist. NECK: Supple. No carotid bruits. No JVD or thyromegaly. CHEST: Bilaterally symmetrical. HEART: S1 and S2 positive. LUNGS: Clear to auscultation. ABDOMEN: Soft. Bowel sounds present. No organomegaly. EXTREMITIES: No edema. No cyanosis. NEUROLOGIC: The patient is awake and alert. Moving all 4 extremities. No focal deficit. MEDICATIONS: DuoNeb, Ecotrin, Lipitor, Plavix, Lopid, Amaryl, Robitussin, Rocephin, insulin, Synthroid, Cozaar, Antivert, Glucophage, Singulair, Protonix and Januvia. LABORATORY DATA: White blood cells 6.4, hemoglobin 11, hematocrit 35.2, and platelets 254. Sodium 140, potassium 4.6, BUN 19, creatinine 0.7. Glucose 190. ASSESSMENT AND PLAN: Ms. Rui Chen is 87 years old female with leukocytosis, history of systemic viral syndrome with influenza A, history of rhinosinusitis, coronary artery disease, diabetes mellitus, gastroesophageal reflux disease, history of ventral abdominal hernia, bilateral cataract, history of glaucoma, hypothyroidism, esophageal ulcers, diverticulosis, history of appendectomy, hysterectomy, bilateral knee replacement. Continue present treatment. Urine and blood cultures are negative and urine cultures does not show any pyuria. Infectious Disease discontinue anb.and observed. Chest x-ray is negative for infiltrates. We will continue monitoring the patient clinically. The patient is very fatigue and tired. Need physical therapy, we will transfer the patient to Transitional Care Unit. Repeat labs, we will follow up. Mirian Yanez MD [facility] # [id number] [facility]
[2018-06-01] MEDS: Pantoprazole 40 mg EC Tab PO SCH (06:06)
[2018-06-01 08:12] LABS: BASO # 0.02 K/mm3 (0.0-2.0); BASO % 0.2 % (0.0-3.0); EOS # 0.2 (0.0-0.7); EOS % 2.6 % (1.5-5.0); GRAN # 3.99 (1.4-6.5); GRAN % 48.8 % (50.0-68.0); HEMOGLOBIN 12.1 g/dL (12.0-16.0); LYMPH # 3.3 (1.2-3.4); MEAN CELL VOLUME 82.3 fl (80.0-105.0); MEAN CORPUSCULAR HEMOGLOBIN 26.8 pg (25.0-35.0); MEAN CORPUSCULAR HGB CONC 32.5 g/dl (31.0-37.0); MEAN PLATELET VOLUME 10.2 fl (7.0-11.0); MONO # 0.7 (0.1-0.6); MONO % 8.4 % (1.0-6.0); RBC 4.52 10^6/uL (3.5-6.1); RED CELL DISTRIBUTION WIDTH 15.4 % (11.5-14.5); WHITE BLOOD COUNT 8.2 10^3/ul (4.5-11.0)
[2018-06-01] MEDS: Insulin Reg-LOW-Coverage SC SCH ×4 (08:23→21:41)
[2018-06-01 08:25] LABS: ALB/GLOB RATIO 1.4 (1.1-1.8); ALBUMIN 4.2 g/dL (3.0-4.8); ALT/SGPT 14 U/L (7-56); AST/SGOT 15 U/L (14-36); BLOOD UREA NITROGEN 21 mg/dL (7-21); CALCIUM 10.3 mg/dL (8.4-10.5); GFR AFRICAN-AMERICAN > 60; GFR NON-AFRICAN AMERICAN 59
[2018-06-01] MEDS: Levothyroxine 50 MCG TAB PO SCH (10:10)
--- NOTE | 2018-06-01 10:29 | CP.PCM.PN ---
Subjective - Date & Time of Evaluation Date of Evaluation: 06/01/18 Time of Evaluation: 10:15 - Subjective Subjective: Oscar Major D.O. PGY-3, Internal Medicine Resident, Sun. On Duty - Rapid Response KEY ATTENDANT called by RN for unresponsiveness. 87 year old female with PMH of CAD with stents, uncontrolled DM2, GERD, glaucoma , hypothyroidism, esophageal ulcer, diverticulosis who presented for worsening fatigue. Patient was going to receive her morning meds from the RN when she was noted by be unresponsive despite tactile stimuli. Arrived at bedside, patient more awake, able to answer questions, states that she feels nauseous, generally unwell, as if she's "floating in the air." No meds have been given this morning. Blood sugar at bedside was 244. BP 142/72, monitor showed sinus bradycardia and she was satting 97-99% on room air. Call placed out to Dr. Yanez who agreed to orders of EKG, head CT, as well as TSH, T4, and Free T3 and to make sure that cardio and neuro are on the case. Patient overall appears weak and fatigued as per her original complaints. No major focal deficits. AAOx4. GCS 14 (eyes open to verbal, otherwise she keeps them closed, follow motor commands and is oriented). Zofran, glipizide, as well as meclizine and cozaar with some improvement in symptoms. EKG reviewed and appears to just show sinus bradycardia. Head CT to be done now. Neurochecks q4h ordered. Daughter at bedside is very anxious, states that her mother often minimizes her symptoms. Re-assured that currently there are no major abnormalities that we can see but we discussed it with Dr. Yanez and she is aware and we are working to see if there are any other abnormalities. Objective - Vital Signs/Intake and Output Vital Signs (last 24 hours): Temp Pulse Resp BP Pulse Ox 97.7 F 89 20 142/78 96 06/01/18 07:52 06/01/18 07:52 06/01/18 07:52 06/01/18 07:52 06/01/18 07:52 Intake and Output: 06/01/18 06/01/18 06:59 18:59 Intake Total 600 Output Total 525 Balance 75 - Medications Medications: Current Medications Acetaminophen (Tylenol 325mg Tab) 650 mg PO Q4H PRN PRN Reason: Pain, Mild (1-3) Last Admin: 05/30/18 23:28 Dose: 650 mg Albuterol/Ipratropium (Duoneb 3 Mg/0.5 Mg (3 Ml) Ud) 3 ml IH Q6H PRN PRN Reason: Shortness of Breath Aspirin (Ecotrin) 81 mg PO 0800 [facility] Last Admin: 06/01/18 08:23 Dose: 81 mg Atorvastatin Calcium (Lipitor) 40 mg PO HS [facility] Last Admin: 05/31/18 21:15 Dose: 40 mg Clopidogrel Bisulfate (Plavix) 75 mg PO DAILY [facility] Last Admin: 05/31/18 09:31 Dose: 75 mg Gemfibrozil (Lopid) 600 mg PO 0630,1700 [facility] Last Admin: 06/01/18 06:05 Dose: 600 mg Glimepiride (Amaryl) 1 mg PO BID [facility] Last Admin: 05/31/18 17:05 Dose: 1 mg Guaifenesin/Dextromethorphan (Robitussin Dm) 5 ml PO TID PRN PRN Reason: Cough Last Admin: 05/30/18 12:40 Dose: 5 ml Insulin Human Regular (Humulin R Low) 0 units SC [facility] PRN Reason: Protocol Last Admin: 06/01/18 08:23 Dose: 1 unit Levothyroxine Sodium (Synthroid) 50 mcg PO DAILY [facility] Last Admin: 05/31/18 09:33 Dose: 50 mcg Losartan Potassium (Cozaar) 50 mg PO BID [facility] Last Admin: 05/31/18 17:06 Dose: 50 mg Meclizine HCl (Antivert) 12.5 mg PO TID PRN PRN Reason: Other Metformin HCl (Glucophage) 1,000 mg PO BID [facility] Last Admin: 05/31/18 17:06 Dose: 1,000 mg Montelukast Sodium (Singulair) 10 mg PO HS [facility] Last Admin: 05/31/18 21:15 Dose: 10 mg Ondansetron HCl (Zofran Inj) 4 mg IVP Q6H PRN PRN Reason: Nausea/Vomiting Pantoprazole Sodium (Protonix Ec Tab) 40 mg PO 0600 [facility] Last Admin: 06/01/18 06:06 Dose: 40 mg Sitagliptin Phosphate (Januvia) 50 mg PO BID [facility] Last Admin: 05/31/18 17:07 Dose: 50 mg - Labs Labs: 06/01/18 08:00 06/01/18 08:00 PT 11.5 SECONDS (9.4-12.5) 05/29/18 12:09 INR 1.00 (0.93-1.08) 05/29/18 12:09 APTT 27.5 Seconds (25.1-36.5) 05/29/18 12:09
--- NOTE | 2018-06-01 10:35 | PCM.RRT ---
PAPER BAG MACHINE OPERATOR Nurse Assessment - Situation Date: 06/01/18 Time PAPER BAG MACHINE OPERATOR was called: 10:12 PAPER BAG MACHINE OPERATOR Responder Arrival Time: 10:13 PAPER BAG MACHINE OPERATOR Location:: [address] [place] [address] Room Number: [id number] PAPER BAG MACHINE OPERATOR Reason for Call: Change in Mental Status, Looks Sicker PAPER BAG MACHINE OPERATOR Called By: RN - IV IV Inserted during PAPER BAG MACHINE OPERATOR?: No - Respiratory Oxygen Delivery Method: Room Air Received Nebulizer Treatments:: No - Diagnostic Test Ordered EKG: Yes CT Scan: Yes (head) - Stat Labs Ordered PAPER BAG MACHINE OPERATOR Other Labs Ordered: TSH/T4/FT3 CPR started during PAPER BAG MACHINE OPERATOR?: No - Vital Signs Vital Sign: BP 142/72 - Finger Stick Blood Glucose Finger Stick Blood Glucose: 244 - [place] Coma Scale Coma Scale Eye Opening: To verbal stimuli Coma Scale Motor: Obeys Commands Movement Coma Scale Verbal: Oriented - Time PAPER BAG MACHINE OPERATOR Ended Time PAPER BAG MACHINE OPERATOR Ended: 10:20 - Recommendations 5) PAPER BAG MACHINE OPERATOR Level of Care Recommendations: Remain in current setting Notifications: Attending Physician, Family or Designated Caregiver I.Reason for PAPER BAG MACHINE OPERATOR - A) Acute Change in Patient: (Select all that apply): Staff member or family is worried about patient - Neurological Status (Select all that apply): Alert, Responsive, Oriented, Verbal, Follows Commands - Respiratory Oxygen Delivery Method: Room Air Plan - Assessment of Findings&Treatment Plan Refer to note
--- NOTE | 2018-06-01 11:03 | CT ---
Date of service: 06/01/2018 PROCEDURE: CT HEAD WITHOUT CONTRAST. HISTORY: dizziness COMPARISON: None available. TECHNIQUE: Axial computed tomography images were obtained through the head/brain without intravenous contrast. Radiation dose: Total exam DLP = 758 mGy-cm. This CT exam was performed using one or more of the following dose reduction techniques: Automated exposure control, adjustment of the mA and/or kV according to patient size, and/or use of iterative reconstruction technique. FINDINGS: HEMORRHAGE: No intracranial hemorrhage. BRAIN: No mass effect or edema. Severe chronic microvascular changes are seen in the periventricular white matter and the right basal ganglia. Chronic infarcts are also seen in the cerebellar hemispheres bilaterally. There are no acute intracranial findings VENTRICLES: Unremarkable. No hydrocephalus. CALVARIUM: Unremarkable. PARANASAL SINUSES: Unremarkable as visualized. No significant inflammatory changes. MASTOID AIR CELLS: Unremarkable as visualized. No inflammatory changes. OTHER FINDINGS: None. IMPRESSION: No acute intracranial findings
[2018-06-01 11:14] LABS: T4 6.3 ug/dL (5.5-11.0)
[2018-06-01 16:24] VITALS: RESP 18; TEMP 97.5
--- NOTE | 2018-06-01 17:01 | CARD ---
APPROVED REPORT Date of service: 06/01/2018 EKG Measurement Heart [id number] <Conclusion> Sinus bradycardia Minimal voltage criteria for LVH, may be normal variant T wave abnormality, consider lateral ischemia Abnormal ECG
--- NOTE | 2018-06-02 02:46 | PN ---
DATE: 06/01/2018 SUBJECTIVE: The patient is an 87-year-old female. Patient is seen and examined at the bedside, early in the morning. Patient was sitting with the daughter, complaining a little bit dizzy. No fever. No chills. No headache. No dizziness. No chest pain. No palpitation. No hematuria. No hematochezia. But later on I heard, there was rapid response. I reviewed all house physician's notes for rapid response. PHYSICAL EXAMINATION: VITAL SIGNS: Temperature 97.5, pulse 80, blood pressure 137/74, respiratory rate 18. HEENT: Head: Normocephalic, atraumatic. Eyes: PERRLA. Extraocular muscles intact. Conjunctivae clear. Nose patent. Mucous membrane moist. NECK: Supple. No carotid bruit, JVD or thyromegaly. CHEST: Bilaterally symmetrical. HEART: S1 and S2 positive. LUNGS: Clear to auscultation. ABDOMEN: Soft. Bowel sounds present. No organomegaly. EXTREMITIES: No edema. No cyanosis. NEUROLOGIC: Patient is awake and alert. Moving all 4 extremities. No focal deficit. MEDICATIONS: Amaryl, Antivert, Cozaar, DuoNeb, Ecotrin, Glucophage, insulin, Januvia, Lipitor, Lopid, Plavix, Protonix, Robitussin, Singulair, Synthroid, Tylenol, Zofran. LABORATORY DATA: White blood cell 8.2, hemoglobin 12.1, hematocrit 37.2, platelets 265. Sodium 141, potassium 5.1, BUN 21, creatinine 0.9. Glucose 210. Calcium 10.3. ASSESSMENT AND PLAN: Ms. April Fabian is an 87-year-old lady with leukocytosis, anemia, hyperkalemia, hyperglycemia, proteinuria, ketonuria, history of dizziness, coronary artery disease with stents, uncontrolled diabetes mellitus, gastroesophageal reflux disease, glaucoma, hypothyroidism, esophageal ulcers, diverticulosis, fatigue. There was rapid response due to unresponsiveness despite tactile stimulation. Appreciated Rapid Response notes. Neurology and Cardiology consult called. Seen by Dr. Hugo Bernard. CAT scan of the head done, appreciated. Waiting for neurologist input. Plan was to transfer patient to transitional care unit but we will hold for 24 hours for observe. We will follow up accordingly. Mirian Yanez MD [facility] # [id number] [facility]
[2018-06-02] MEDS: Pantoprazole 40 mg EC Tab PO SCH (05:04)
[2018-06-02 08:08] VITALS: O2SAT 96
--- NOTE | 2018-06-02 08:44 | PN ---
DATE: 06/01/2018 CARDIOLOGY FOLLOWUP SUBJECTIVE: The patient apparently had rapid response for altered mental status yesterday. According to the note, when the team came to see her, the patient was awake and alert without symptoms. PHYSICAL EXAMINATION: VITAL SIGNS: Blood pressure currently is 130/85, the heart rate is in the 90s. NECK: Negative JVD. LUNGS: Without rales. HEART: Reveals S1, S2. EXTREMITIES: Without edema. LABORATORY DATA: Laboratories include a CAT scan that was done of the head, which is unremarkable. Hemoglobin is 12.1. Glucose is 173. IMPRESSION: 1. Currently, no evidence for altered mental status. 2. Chronic dizziness. 3. Diabetes mellitus. 4. History of pacemaker placement. 5. Mild aortic stenosis. 6. History of coronary artery disease. PLAN: Given these findings, the patient is currently stable from a cardiac perspective. No further cardiac workup is necessary at this time. Hugo Bernard MD
[2018-06-02] MEDS: Insulin Reg-LOW-Coverage SC SCH ×3 (09:02→16:23)
[2018-06-02] MEDS: Levothyroxine 50 MCG TAB PO SCH (09:25)
--- NOTE | 2018-06-02 12:52 | PN ---
DATE: 06/02/2018 CARDIOLOGY FOLLOWUP SUBJECTIVE: The patient has periods of confusion. PHYSICAL EXAMINATION: GENERAL: The patient is in no acute distress. VITAL SIGNS: Blood pressure 116/76, the heart rate is in the 80s. NECK: Negative JVD. LUNGS: Without rales. HEART: Reveals S1, S2 with a II/ systolic ejection murmur. EXTREMITIES: Without edema. LABORATORY DATA: Hemoglobin is 12.6. Chemistries: Glucose is 220. IMPRESSION: 1. Mild aortic stenosis. 2. Waxing and waning periods of confusion. 3. Diabetes mellitus. 4. History of pacemaker placement. 5. History of coronary artery disease. PLAN: Given these findings, the patient's cardiac status cannot explain her waxing and waning of her mental status. The patient continued to be a DNR. Awaiting neurologic reevaluation. Hugo Bernard MD
--- NOTE | 2018-06-02 15:49 | CP.PCM.PN ---
Subjective - Date & Time of Evaluation Date of Evaluation: 06/02/18 Time of Evaluation: 11:10 - Subjective Subjective: No fevers, not in distress. Objective - Vital Signs/Intake and Output Vital Signs (last 24 hours): Temp Pulse Resp BP Pulse Ox 97.5 F L 82 18 116/76 96 06/02/18 08:08 06/02/18 09:26 06/02/18 08:08 06/02/18 09:26 06/02/18 08:08 Intake and Output: 06/02/18 06/02/18 06:59 18:59 Intake Total 120 Balance 120 - Medications Medications: Current Medications Acetaminophen (Tylenol 325mg Tab) 650 mg PO Q4H PRN PRN Reason: Pain, Mild (1-3) Last Admin: 05/30/18 23:28 Dose: 650 mg Albuterol/Ipratropium (Duoneb 3 Mg/0.5 Mg (3 Ml) Ud) 3 ml IH Q6H PRN PRN Reason: Shortness of Breath Aspirin (Ecotrin) 81 mg PO 0800 [facility] Last Admin: 06/02/18 09:25 Dose: 81 mg Atorvastatin Calcium (Lipitor) 40 mg PO HS [facility] Last Admin: 06/01/18 21:17 Dose: 40 mg Clopidogrel Bisulfate (Plavix) 75 mg PO DAILY [facility] Last Admin: 06/02/18 09:25 Dose: 75 mg Gemfibrozil (Lopid) 600 mg PO 0630,1700 [facility] Last Admin: 06/02/18 05:29 Dose: 600 mg Glimepiride (Amaryl) 1 mg PO BID [facility] Last Admin: 06/02/18 09:25 Dose: 1 mg Guaifenesin/Dextromethorphan (Robitussin Dm) 5 ml PO TID PRN PRN Reason: Cough Last Admin: 05/30/18 12:40 Dose: 5 ml Insulin Human Regular (Humulin R Low) 0 units SC [facility] PRN Reason: Protocol Last Admin: 06/02/18 09:02 Dose: Not Given Levothyroxine Sodium (Synthroid) 50 mcg PO DAILY [facility] Last Admin: 06/02/18 09:25 Dose: 50 mcg Losartan Potassium (Cozaar) 50 mg PO BID [facility] Last Admin: 06/02/18 09:26 Dose: 50 mg Meclizine HCl (Antivert) 12.5 mg PO TID PRN PRN Reason: Other Last Admin: 06/01/18 10:10 Dose: 12.5 mg Metformin HCl (Glucophage) 1,000 mg PO BID [facility] Last Admin: 06/02/18 09:25 Dose: 1,000 mg Montelukast Sodium (Singulair) 10 mg PO HS [facility] Last Admin: 06/01/18 21:16 Dose: 10 mg Ondansetron HCl (Zofran Inj) 4 mg IVP Q6H PRN PRN Reason: Nausea/Vomiting Last Admin: 06/01/18 10:11 Dose: 4 mg Pantoprazole Sodium (Protonix Ec Tab) 40 mg PO 0600 [facility] Last Admin: 06/02/18 05:04 Dose: 40 mg Sitagliptin Phosphate (Januvia) 50 mg PO BID [facility] Last Admin: 06/02/18 09:25 Dose: 50 mg Thiamine HCl (Vitamin B1 Tab) 100 mg PO DAILY [facility] Last Admin: 06/02/18 09:25 Dose: 100 mg - Labs Labs: 06/01/18 08:00 06/01/18 08:00 PT 11.5 SECONDS (9.4-12.5) 05/29/18 12:09 INR 1.00 (0.93-1.08) 05/29/18 12:09 APTT 27.5 Seconds (25.1-36.5) 05/29/18 12:09 - Constitutional Appears: Chronically Ill - Head Exam Head Exam: NORMAL INSPECTION - Respiratory Exam Respiratory Exam: Decreased Breath Sounds - Cardiovascular Exam Cardiovascular Exam: +S1, +S2 - GI/Abdominal Exam GI & Abdominal Exam: Soft. absent: Tenderness Assessment and Plan - Assessment and Plan (Free Text) Plan: Assessment leukocytosis, with no evidence of UTI or pneumonia history of Systemic viral illness with Influenza A history of rhinosinusitis CAD S/P PCI DM GERD history of ventral abdominal hernia bilateral cataracts history of glaucoma hypothyroidism esophageal ulcer diverticulosis S/P appendectomy S/P hysterectomy S/P bilateral knee replacement Plan urine, blood cx are negative and urine cx does not show pyuria - will continue to monitor off antibiotics since she is at risk for infections CXR is negative for infiltrates will continue to monitor clinically
[2018-06-02 17:41] VITALS: BP 136/68; PULSE 66
--- NOTE | 2018-06-03 05:33 | PN ---
DATE: 06/02/2018 NEUROLOGY FOLLOWUP CHIEF COMPLAINT: Dizziness and transient waxing and waning mental status. SUBJECTIVE: The patient was seen and examined on bedside. Her A1c was 8.9, had some hyperglycemic accelerations. She had rapid response reported on 06/01/2018 at 10:30 at night where she was found to be very lethargic. She waxes and wanes her mental status, but her repeat CAT scan showed no evidence of any evolving infarct. She follows simple commands in Setsw[place] and her speech is hypophonic, but not dysarthric at all. Though the daughter does state she is dysarthric, I feel from the neurological standpoint, it is more hypophonic and slow from lethargy. Her blood pressures are stable. 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 Her A1c was 8.9 and she was deconditioned. I will start her on Nuvigil 150 mg p.o. daily and thiamine 100 mg p.o. daily to keep her more alert throughout the day to prevent waxing and waning mental status. Otherwise, she moves all extremities. No pronator drift seen. No focal weakness was seen. She is very deconditioned. She will need TCU physical therapy. PAST MEDICAL HISTORY: History of type 2 diabetes mellitus, uncontrolled; COPD; history of TIA; history of bradycardia, status post pacemaker; history of vertebral basilar insufficiency; history of Enterococcus faecalis UTI in the past. FAMILY HISTORY: Noncontributory. REVIEW OF SYSTEMS: A 14-point review of systems is negative except as per the HPI. SOCIAL HISTORY: No illicit drug use, smoking, or EtOH abuse. LABORATORY DATA: Today's blood sugar is 220. PHYSICAL EXAMINATION: VITAL SIGNS: Temperature 97.5, pulse rate 82, blood pressure 116/76, respiratory rate of 18, oxygen saturation 96% by room air. GENERAL: The patient is sitting up in bed, in no acute distress. HEENT: Atraumatic and normocephalic. PERRLA. Extraocular muscles are intact. NECK: Supple. No JVD. No adenopathy noted. LUNGS: Clear to auscultation. No adventitious sounds. HEART: S1 and S2. Normal rate and rhythm. No murmurs, rubs, or gallops. ABDOMEN: Soft, nontender, and nondistended. Bowel sounds are present. EXTREMITIES: No clubbing. No cyanosis. Peripheral pulses are 2+ felt bilaterally. NEUROLOGIC: The patient is alert and oriented to person, place, and knows the year. Recall after 5 minutes is 0/3. Poor attention span. Slow thought process. Cranial nerves II through XII are intact. Speech is hypophonic, but no dysarthria noted. Motor exam: Moves all extremities equally. Very deconditioned. No pronator drift seen. Sensory exam: Decreased light touch and pinprick up to the calves bilaterally and decreased vibration of the toes. DTRs are 2+ throughout, 1 at both knees and absent at the ankles. Coordination: [id number] intact. No dysmetria noted. No tremors noted. Gait is deferred for now. ASSESSMENT AND PLAN: This is an 87-year-old woman with history of type 2 diabetes mellitus, hypertension, coronary artery disease, status post stent, chronic obstructive pulmonary disease, bradycardia, status post pacemaker, history of vertebral basilar insufficiency, history of Enterococcus faecalis, was came in for generalized weakness, fatigue, transient slurred speech, found to have hyperglycemic acceleration with decondition. Her repeat CAT scan of the head showed only chronic ischemic changes and evidence of old bilateral lacunar infarcts and old bilateral basal ganglia infarcts. She had a CT angio of the head and neck, which showed mild carotid atherosclerotic plaque, but no history of intracranial stenosis at this time. She had transient hyperglycemic acceleration when she was admitted. Her A1c was 8.9, which showed now her blood sugars are much better. She waxed and waned in terms of mental status, in terms of being lethargic and hypophonic but not really much dysarthric. She is severely deconditioned. At this time, generalized weakness secondary to deconditioned state, superimposed underlying peripheral neuropathy from underlying diabetes and transient slurred speech and more lethargy, chronic in nature. At this time, we recommend: 1. Keep her blood sugars between 140 to 180 given that her A1c is 8.9 indicating poorly controlled diabetes and needs medication adjustment. 2. We will put her on Nuvigil 150 mg p.o. daily and thiamine 100 mg p.o. daily for improving her cognitive status throughout the day. 3. Keep systolic blood pressures 130s to 140s systolic and diastolic 70s to 80s. 4. Aspirin 81, Plavix 75, and Lipitor 40 mg for stroke prevention and will likely need rehab. Once again, thank you for this reevaluation consult. Wayne Dubon MD
== END 2018-06-02 19:49 | DRG 638 ==
LOC: ED 11:17 → ERH 16:11 → 3RNO 18:32
PROVIDERS: ADMIT Internal Medicine; ATTEND Internal Medicine
DX: E11.65 Type 2 diabetes mellitus with hyperglycemia (principal); K22.10 Ulcer of esophagus without bleeding; I65.23 Occlusion and stenosis of bilateral carotid arteries; J44.9 Chronic obstructive pulmonary disease, unspecified; E78.00 Pure hypercholesterolemia, unspecified; K21.9 Gastro-esophageal reflux disease without esophagitis; I25.10 Atherosclerotic heart disease of native coronary artery without angina pectoris; E03.9 Hypothyroidism, unspecified; E11.36 Type 2 diabetes mellitus with diabetic cataract; H40.9 Unspecified glaucoma; I35.0 Nonrheumatic aortic (valve) stenosis; E87.5 Hyperkalemia; E11.42 Type 2 diabetes mellitus with diabetic polyneuropathy; I10 Essential (primary) hypertension; R42 Dizziness and giddiness; Z66 Do not resuscitate; Z86.73 Personal history of transient ischemic attack (TIA), and cerebral infarction without residual deficits; Z87.440 Personal history of urinary (tract) infections; Z95.5 Presence of coronary angioplasty implant and graft; Z96.653 Presence of artificial knee joint, bilateral; Z90.81 Acquired absence of spleen; Z90.710 Acquired absence of both cervix and uterus; Z95.0 Presence of cardiac pacemaker

== ENCOUNTER 2018-06-02 19:49 | Inpatient (IN) | payer OTHER, MEDICAID ==
[2018-06-02 20:41] VITALS: BMI 24.8
[2018-06-02] MEDS ORDERED: guaiFENesin DM 100 mg-10 mg/5 ml UD PO PRN (20:44)
[2018-06-02] MEDS ORDERED: Albuterol-Ipratrop 3 mg / 0.5 (3 ml) UD IH PRN (20:44)
[2018-06-02] MEDS: Insulin Reg-LOW-Coverage SC SCH (22:56)
[2018-06-03] MEDS ORDERED: Pneumococcal 23-Valent Vaccine IM ONE (01:00)
[2018-06-03] MEDS ORDERED: Levothyroxine 50 MCG TAB PO SCH (06:00)
[2018-06-03] MEDS ORDERED: Pantoprazole 40 mg EC Tab PO SCH (06:00)
[2018-06-03] MEDS: Insulin Reg-LOW-Coverage SC SCH (06:40)
[2018-06-03] MEDS ORDERED: GLIMEPIRIDE 1 MG PO SCH (10:00)
[2018-06-03 10:29] VITALS: BP 115/93; PULSE 89; RESP 16; TEMP 97.6; O2SAT 97
[2018-06-03 12:06] LABS: ARTERIAL BLOOD GAS HCO3 20.3 mmol/L (21-28); ARTERIAL BLOOD GAS O2 SAT 98.5 % (95-98); ARTERIAL BLOOD GAS PCO2 32 mm/Hg (35-45); ARTERIAL BLOOD GAS PH 7.41 (7.35-7.45); ARTERIAL BLOOD GAS TCO2 21.3 mmol.L (22-28)
[2018-06-03 12:12] LABS: BASO # 0.02 K/mm3 (0.0-2.0); BASO % 0.2 % (0.0-3.0); EOS # 0.2 (0.0-0.7); EOS % 2.7 % (1.5-5.0); GRAN # 4.54 (1.4-6.5); GRAN % 55.5 % (50.0-68.0); HEMOGLOBIN 11.4 g/dL (12.0-16.0); LYMPH # 2.9 (1.2-3.4); LYMPH % 35.4 % (22.0-35.0); MEAN CELL VOLUME 82.5 fl (80.0-105.0); MEAN CORPUSCULAR HEMOGLOBIN 26.6 pg (25.0-35.0); MEAN CORPUSCULAR HGB CONC 32.3 g/dl (31.0-37.0); MONO # 0.5 (0.1-0.6); MONO % 6.2 % (1.0-6.0); RBC 4.28 10^6/uL (3.5-6.1); RED CELL DISTRIBUTION WIDTH 15.9 % (11.5-14.5); WHITE BLOOD COUNT 8.2 10^3/ul (4.5-11.0)
--- NOTE | 2018-06-03 12:25 | CP.PCM.PN ---
Subjective - Date & Time of Evaluation Date of Evaluation: 06/03/18 Time of Evaluation: 12:25 - Subjective Subjective: Jimmy Umana D.O. PGY-2, Internal Medicine Resident, AmandaO. On Duty House Doctor called by TCU RN for change in mental status/lethargy. 87 year old female with PMH of CAD with stents, uncontrolled DM2, GERD, glaucoma , hypothyroidism, esophageal ulcer, diverticulosis who originally presented to [facility] for dizziness and worsening fatigue. Patient was recently transferred to TCU for further rehabilitation after becoming medically optimized at [facility]. Patient was to have PT evaluation this AM and was noticed to be more lethargic and somnolent than she had been at her previous evaluation by the RN. This period of lethargy was estimated to be a period of approximately 90 minutes. Patient speaks primarily estonian and daughter was at bedside for translation. At bedside, patient was noted to have eyes closed but opened them to verbal stimuli. Patient was responsive and denied any complaints, stating "I am fine" when asked to describe how she felt. Patient was able to follow motor commands and was oriented to person, place and time. Patient AM medications were given to patient as scheduled. Blood sugar at bedside was 259. Blood pressure was WNL. Patient was satting 97% in 2L O2 and had bradycardia in the upper 50's. No significant focal deficits appreciated. GCS 14 (eyes open to verbal, otherwise she keeps them closed, follow motor commands and is oriented). Call placed out to Dr. Yanez who agreed to transfer patient to ED for further workup including orders of EKG, head CT, CBC, CMP, ABG w/ shock panel, troponin and chest x-ray. ED physician made aware and given sign out as well as Dr. Yanez's orders. Instructions were given to notify Dr. Yanez of findings and assessment from ED physician who agrees and is aware of this plan. Patient was then escorted to ED with RN. Objective - Vital Signs/Intake and Output Vital Signs (last 24 hours): Temp Pulse Resp BP Pulse Ox 97.6 F 89 16 115/93 H 97 06/03/18 10:00 06/03/18 10:00 06/03/18 10:00 06/03/18 10:00 06/03/18 10:00 - Medications Medications: Current Medications Acetaminophen (Tylenol 325mg Tab) 650 mg PO Q4H PRN; Protocol PRN Reason: Pain, Mild (1-3) Albuterol/Ipratropium (Duoneb 3 Mg/0.5 Mg (3 Ml) Ud) 3 ml IH Q6H PRN; Protocol PRN Reason: Shortness of Breath Aspirin (Ecotrin) 81 mg PO 0800 [facility] PRN Reason: Protocol Last Admin: 06/03/18 10:36 Dose: 81 mg Atorvastatin Calcium (Lipitor) 40 mg PO HS [facility] PRN Reason: Protocol Last Admin: 06/03/18 06:41 Dose: Not Given Clopidogrel Bisulfate (Plavix) 75 mg PO DAILY [facility] PRN Reason: Protocol Last Admin: 06/03/18 10:37 Dose: 75 mg Gemfibrozil (Lopid) 600 mg PO 0630,1700 [facility] PRN Reason: Protocol Last Admin: 06/03/18 06:52 Dose: 600 mg Glimepiride (Amaryl) 1 mg PO BID [facility] Last Admin: 06/03/18 10:36 Dose: 1 mg Guaifenesin/Dextromethorphan (Robitussin Dm) 5 ml PO TID PRN; Protocol PRN Reason: Cough Insulin Human Regular (Humulin R Low) 0 units SC A[facility]S [facility] PRN Reason: Protocol Last Admin: 06/03/18 06:40 Dose: Not Given Levothyroxine Sodium (Synthroid) 50 mcg PO 0600 [facility] PRN Reason: Protocol Last Admin: 06/03/18 06:51 Dose: 50 mcg Losartan Potassium (Cozaar) 50 mg PO BID [facility] PRN Reason: Protocol Last Admin: 06/03/18 10:36 Dose: 50 mg Meclizine HCl (Antivert) 12.5 mg PO TID PRN; Protocol PRN Reason: Other Metformin HCl (Glucophage) 1,000 mg PO BID [facility] PRN Reason: Protocol Last Admin: 06/03/18 10:37 Dose: 1,000 mg Montelukast Sodium (Singulair) 10 mg PO HS [facility] PRN Reason: Protocol Ondansetron HCl (Zofran Inj) 4 mg IVP Q6H PRN; Protocol PRN Reason: Nausea/Vomiting Pantoprazole Sodium (Protonix Ec Tab) 40 mg PO 0600 [facility] PRN Reason: Protocol Last Admin: 06/03/18 06:52 Dose: 40 mg Sitagliptin Phosphate (Januvia) 50 mg PO BID [facility] PRN Reason: Protocol Last Admin: 06/03/18 10:37 Dose: 50 mg Thiamine HCl (Vitamin B1 Tab) 100 mg PO DAILY [facility] PRN Reason: Protocol Last Admin: 06/03/18 10:37 Dose: 100 mg - Labs Labs: 06/03/18 12:00
[2018-06-03 12:32] LABS: ALB/GLOB RATIO 1.3 (1.1-1.8); ALBUMIN 3.9 g/dL (3.0-4.8); CALCIUM 9.4 mg/dL (8.4-10.5)
--- NOTE | 2018-06-04 06:01 | DS ---
The patient is an 87-year-old female. The patient was admitted in TCU on 06/02/2018. I saw the patient on 06/03/2018. I did H and P on 06/03/2018, but there was rapid response, the patient became very lethargic and transferred to ER and I saw the patient only once, early in the morning in TCU. For details, see my history and physical. Mirian Yanez MD
== END 2018-06-03 12:26 | disposition short-term general hospital (02) | DRG 149 ==
LOC: TRCU 19:49
PROVIDERS: ADMIT Internal Medicine; ATTEND Internal Medicine
DX: R42 Dizziness and giddiness (principal); R53.83 Other fatigue; R41.82 Altered mental status, unspecified; E03.9 Hypothyroidism, unspecified; I25.10 Atherosclerotic heart disease of native coronary artery without angina pectoris; E11.9 Type 2 diabetes mellitus without complications; K21.9 Gastro-esophageal reflux disease without esophagitis; H40.9 Unspecified glaucoma; Z87.19 Personal history of other diseases of the digestive system; Z95.5 Presence of coronary angioplasty implant and graft

== ENCOUNTER 2018-06-03 12:26 | Inpatient (IN) | payer MEDICARE, MEDICAID ==
--- NOTE | 2018-06-03 12:42 | ED PDOC ---
Arrival/HPI - General Chief Complaint: Altered Mental Status Time Seen by Provider: 06/03/18 12:30 - History of Present Illness Narrative History of Present Illness (Text): 06/03/18 12:35 Patient is an 87 y/o F with extensive medical history, transferred from TCU after rapid response. Rapid response was called for patient being "lethargic." On residents arrival patient is AAox3 but lethargic. FS was elevated and vital signs WNL. Thought to be her new baseline due to significant deconditioning?. CBC, CMP and abg ordered at that time and grossly normal. Patient had similar presentation on 06/01 in the TCU and was evaluated by neurology and cardiology (Dr. Dubon and Marco Antonio). See their recommendations in consult notes but essentially negative CT head, CTA and normal labs. Resident spoke to Dr. Yanez who is requesting repeat CT head, ekg, labs and admission. Family members at bedside confirming DNR/DNI 06/03/18 12:44 06/03/18 12:51 Past Medical History - Provider Review Nursing Documentation Reviewed: Yes - Infectious Disease Hx of Infectious Diseases: None - Tetanus Immunization Tetanus Immunization: Unknown - Reproductive Menopause: Yes - Cardiac Hx Cardiac Disorders: Yes Hx Hypertension: Yes - Pulmonary Hx Respiratory Disorders: Yes Other/Comment: History of Flu - Neurological Hx Neurological Disorder: Yes Hx Dizziness: Yes - HEENT Hx HEENT Disorder: Yes Hx Cataracts: Yes - Renal Hx Renal Disorder: No - Endocrine/Metabolic Hx Diabetes Mellitus Type 2: Yes - Hematological/Oncological Hx Blood Disorders: No - Integumentary Hx Dermatological Disorder: No - Musculoskeletal/Rheumatological Hx Falls: Yes - Gastrointestinal Hx Gastrointestinal Disorders: Yes - Genitourinary/Gynecological Hx Genitourinary Disorders: Yes Hx Reproductive Disorders: Yes - Psychiatric Hx Psychophysiologic Disorder: No Hx Substance Use: No - Surgical History Hx Joint Replacement: Yes (B/L) - Anesthesia Hx Anesthesia: Yes Hx Anesthesia Reactions: No Hx Malignant Hyperthermia: No - Suicidal Assessment Feels Threatened In Home Enviroment: No Family/Social History - Physician Review Nursing Documentation Reviewed: Yes Family/Social History: No Known Family HX Smoking Status: Never Smoked Hx Alcohol Use: No Hx Substance Use: No Hx Substance Use Treatment: No Allergies/Home Meds Allergies/Adverse Reactions: Allergies No Known Allergies Allergy (Verified 06/02/18 20:40) Review of Systems - Physician Review All systems were reviewed & negative as marked: Yes - Review of Systems Constitutional: Fatigue Eyes: absent: Vision Changes ENT: absent: Sore Throat Respiratory: absent: SOB Cardiovascular: absent: Chest Pain Gastrointestinal: absent: Abdominal Pain, Diarrhea, Nausea, Vomiting Genitourinary Female: absent: Dysuria Musculoskeletal: absent: Arthralgias, Back Pain, Myalgias Neurological: absent: Focal Weakness Psychiatric: absent: Anxiety Physical Exam Vital Signs Reviewed: Yes Vital Signs Temp Pulse Resp BP Pulse Ox 06/03/18 12:40 97.8 F 56 L 19 119/42 L 100 Temperature: Afebrile Blood Pressure: Normal Pulse: Regular Respiratory Rate: Normal Appearance: Positive for: Well-Appearing, Non-Toxic, Comfortable Pain Distress: None Mental Status: Positive for: Lethargic. No: Alert and Oriented X 3 (oriented x 3 only) - Systems Exam Head: Present: Atraumatic, Normocephalic Respiratory/Chest: Present: Clear to Auscultation, Good Air Exchange. No: Respiratory Distress, Accessory Muscle Use Cardiovascular: Present: Regular Rate and Rhythm, Normal S1, S2. No: Murmurs Abdomen: No: Tenderness, Distention, Peritoneal Signs Upper Extremity: Present: Normal Inspection, Normal ROM. No: Cyanosis, Edema Lower Extremity: Present: Normal Inspection, Normal ROM. No: Edema Neurological: Present: GCS=15, CN II-XII Intact, Speech Normal Skin: Present: Warm, Dry, Normal Color. No: Rashes Psychiatric: Present: Oriented x 3, Lethargic. No: Alert Medical Decision Making ED Course and Treatment: 06/03/18 12:45 EKG shows sinus bradycardia at 56 with t wave inversions in lateral leads, unchanged from prior 2 days ago 06/03/2018 13:07 Chest X-ray IMPRESSION: No active disease. Dictator: Jg Cowart MD 06/03/18 14:12 Trop x 1 negative. 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 Dictator: Jg Cowart MD 06/03/18 14:43 UA pending. Patient now AAox3, eating food in ED with no complaints. Mental status appears to wax and wane. Case discussed with Dr. Yanez and accepts patient into service and requests full admission. 06/03/18 14:59 - Lab Interpretations Lab Results: Lab Results 06/03/18 13:10: Troponin I < 0.01 - RAD Interpretation Radiology Orders: 06/03/18 12:43 HEAD W/O CONTRAST [CT] Stat CHEST PORTABLE [RAD] Stat - Medication Orders Current Medication Orders: Discontinued Medications Sodium Chloride (Sodium Chloride 0.9%) 500 mls @ 999 mls/hr IV .Q31M STA Stop: 06/03/18 14:22 Last Admin: 06/03/18 14:05 Dose: 999 mls/hr eMAR Start Stop Document 06/03/18 14:05 [email or web address] (Rec: 06/03/18 14:05 [email or web address] [id number]) Intravenous Solution Start Date 06/03/18 Start Time 14:05 End Date 06/03/18 Disposition/Present on Arrival - Present on Arrival Any Indicators Present on Arrival: No History of DVT/PE: No History of Uncontrolled Diabetes: Yes Urinary Catheter: No History of Decub. Ulcer: No History Surgical Site Infection Following: None - Disposition Have Diagnosis and Disposition been Completed?: Yes Diagnosis: Lethargy Disposition: HOME/ ROUTINE Disposition Time: 14:43 Patient Plan: Admission Patient Problems: Current Active Problems Problem Status Onset Lethargy Acute Condition: FAIR
--- NOTE | 2018-06-03 13:09 | RAD ---
Date of service: 06/03/2018 HISTORY: lethargic COMPARISON: 05/29/2018 FINDINGS: LUNGS: No active pulmonary disease. PLEURA: No significant pleural effusion identified, no pneumothorax apparent. CARDIOVASCULAR: Mild cardiomegaly OSSEOUS STRUCTURES: No significant abnormalities. VISUALIZED UPPER ABDOMEN: Normal. OTHER FINDINGS: Pacemaker IMPRESSION: No active disease.
[2018-06-03] MEDS ORDERED: Sodium Chloride 0.9% 500 ML IV STA (13:52)
--- NOTE | 2018-06-03 14:04 | CT ---
Date of service: 06/03/2018 PROCEDURE: CT HEAD WITHOUT CONTRAST. HISTORY: lethargic COMPARISON: 06/01/2018 TECHNIQUE: Axial computed tomography images were obtained through the head/brain without intravenous contrast. Radiation dose: Total exam DLP = 735 mGy-cm. This CT exam was performed using one or more of the following dose reduction techniques: Automated exposure control, adjustment of the mA and/or kV according to patient size, and/or use of iterative reconstruction technique. FINDINGS: HEMORRHAGE: No intracranial hemorrhage. BRAIN: No mass effect or edema. 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 VENTRICLES: Unremarkable. No hydrocephalus. CALVARIUM: Unremarkable. PARANASAL SINUSES: Unremarkable as visualized. No significant inflammatory changes. MASTOID AIR CELLS: Unremarkable as visualized. No inflammatory changes. OTHER FINDINGS: None. 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
[2018-06-03 15:31] LABS: URINE BILIRUBIN NEGATIVE (NEGATIVE); URINE BLOOD NEGATIVE (NEGATIVE); URINE GLUCOSE (UA) 100 mg/dL (NEGATIVE); URINE LEUKOCYTE ESTERASE NEGATIVE Leu/uL (NEGATIVE); URINE PROTEIN NEGATIVE mg/dL (<30 mg/dL); URINE UROBILINOGEN 0.2 E.U./dL (<1 E.U./dL)
[2018-06-03 15:32] LABS: URINE APPEARANCE CLEAR (CLEAR); URINE COLOR LIGHT YELLOW (YELLOW)
[2018-06-03 18:30] VITALS: BMI 24.7
[2018-06-03] MEDS ORDERED: guaiFENesin DM 100 mg-10 mg/5 ml UD PO PRN (18:43)
[2018-06-03] MEDS ORDERED: Albuterol-Ipratrop 3 mg / 0.5 (3 ml) UD IH PRN (18:43)
[2018-06-03] MEDS ORDERED: Sodium Chloride 0.9% 1,000 ML IV SCH (18:45)
[2018-06-03] MEDS: Insulin Reg-LOW-Coverage SC SCH (23:35)
[2018-06-03] MEDS: Latanoprost 2.5 ml Opht Soln OD SCH (23:38)
[2018-06-04] MEDS: Pantoprazole 40 mg EC Tab PO SCH (05:51)
[2018-06-04] MEDS: Insulin Reg-LOW-Coverage SC SCH ×3 (09:52→20:04)
[2018-06-04] MEDS: Fluticasone Nasal 50 mcg/Spray NS SCH ×2 (10:00→18:00)
--- NOTE | 2018-06-04 10:57 | HP ---
CHIEF COMPLAINT: Weakness, fatigue, lethargic. HISTORY OF PRESENT ILLNESS: Ms. April Fabian, is an 87-year-old lady who was admitted in [facility] on acute site on 05/29/2018, discharged to TCU on 06/02/2018, seen by me on 06/03/2018. Ms. April Fabian is an 87-year-old lady in TCU, seen early in the morning, looking comfortable. No nausea, vomiting, diarrhea. No hematuria or hematochezia. No headache or dizziness. No chest pain or palpitation. Looks comfortable. No fever, no chills. PAST MEDICAL HISTORY: History of dizziness, diabetes mellitus, falls, history of joint replacement of the knee, history of COPD, asthma, hypothyroidism. FAMILY HISTORY: Father and mother noncontributory. HABITS: Never smoked. No drugs. No ethanol. ALLERGIES: THE PATIENT IS NOT ALLERGIC WITH ANY MEDICATIONS. HOME MEDICATIONS: Reviewed by me. REVIEW OF SYSTEMS: The patient was seen and examined at the bedside early in the morning, looking comfortable. No nausea, vomiting or diarrhea. No hematemesis or hematochezia. No swelling of the legs. No chest pain. No palpitation. No headache or dizziness. PHYSICAL EXAMINATION: VITAL SIGNS: Temperature 97.6, pulse 89, blood pressure 115/93, respiratory rate 16. HEENT: Head normocephalic, atraumatic. Eyes PERRLA. Extraocular muscles intact. Conjunctivae clear. Nose patent. Mucous membrane moist. NECK: Supple. No carotid bruit. No JVD or thyromegaly. CHEST: Bilaterally symmetrical. HEART: S1 and S2 positive. LUNGS: Clear to auscultation. ABDOMEN: Soft. Bowel sounds positive. No organomegaly. EXTREMITIES: No edema. No cyanosis. NEUROLOGICAL: The patient is awake, alert. Moving all four extremities. No focal deficits. MEDICATIONS: Amaryl, Antivert, Cozaar, DuoNeb, Ecotrin, Glucophage, insulin, Januvia, Lipitor, Gemfibrozil, Plavix, Protonix, Robitussin, Singulair, Synthroid, Tylenol, B12, Zofran. LABORATORY DATA: White blood cells 8.2, hemoglobin 11.4, hematocrit 35.3, platelets 263,000. Sodium 140, potassium 4.5, BUN 39, creatinine 1.1, glucose 259 and 283. ASSESSMENT AND PLAN: Ms. April Fabian is an 87-year-old lady with anemia, history of multiple medical problems, had multiple ER hospital admissions, history of coronary artery disease with cardiac stenting, uncontrolled diabetes mellitus, gastroesophageal reflux disease, glaucoma, hypothyroidism, esophageal ulcer, diverticulosis, was originally admitted in [facility] for dizziness and worsening fatigue and the patient was transferred to TCU for further rehabilitation after becoming medically optimized at [facility] acute site. The patient was to have PT evaluation this morning and was noticed to be more lethargic and somnolent than she had been at her previous evaluation by patient's nurse and according to nurse early in the morning, the patient was now lethargic. The patient speaks mainly Vietnamese and her daughter came on the bedside. There was Rapid Response because the patient became very lethargic. Daughter was on the bedside that moment. Eyes were closed, but opened them to verbal stimuli. The patient was responsive and denied any complaints, stating "I'm fine" when asked to describe how she felt. The patient was able to follow up motor command and was oriented to person, place and time. Blood sugar was done because of the patient's condition and per daughter's request, the patient was transferred to the emergency room for further treatment and evaluation. Discussion done with Dr. Jimmy Umana and later on I had discussion done with the patient's daughter and son and [id number]. Repeat labs. We will follow up. Mirian Yanez MD
[2018-06-04] MEDS: Levothyroxine 50 MCG TAB PO SCH (11:09)
[2018-06-04 11:33] LABS: HEMOGLOBIN 11.8 g/dL (12.0-16.0); MEAN CELL VOLUME 83.6 fl (80.0-105.0); MEAN CORPUSCULAR HEMOGLOBIN 26.5 pg (25.0-35.0); MEAN CORPUSCULAR HGB CONC 31.7 g/dl (31.0-37.0); MEAN PLATELET VOLUME 9.8 fl (7.0-11.0); RBC 4.45 10^6/uL (3.5-6.1); RED CELL DISTRIBUTION WIDTH 15.9 % (11.5-14.5); WHITE BLOOD COUNT 8.9 10^3/ul (4.5-11.0)
--- NOTE | 2018-06-04 12:42 | CARD ---
APPROVED REPORT Date of service: 06/03/2018 EKG Measurement Heart [id number] [place] [id number] <Conclusion> Sinus bradycardia Moderate voltage criteria for LVH, may be normal variant. Q I,AVL Possible [place]. T wave abnormality, consider lateral ischemia Abnormal ECG
[2018-06-04 13:07] LABS: BLOOD UREA NITROGEN 23 mg/dL (7-21); GFR AFRICAN-AMERICAN > 60; GFR NON-AFRICAN AMERICAN 59
[2018-06-04 13:08] LABS: ALB/GLOB RATIO 1.3 (1.1-1.8); ALBUMIN 4.1 g/dL (3.0-4.8); ALT/SGPT 20 U/L (7-56); AST/SGOT 20 U/L (14-36); CALCIUM 9.8 mg/dL (8.4-10.5)
--- NOTE | 2018-06-04 17:07 | CON ---
DATE: 06/04/2018 CARDIOLOGY CONSULTATION REASON FOR CONSULTATION AND FOLLOWUP: Cardiac evaluation, status post rapid response, altered mental status, and lethargy. BRIEF CLINICAL HISTORY: This is an 87-year-old female with extensive medical history who was initially in TCU yesterday, had a rapid response, being found to be lethargic. Fingerstick was found to be within normal limit. The patient transferred from there to . Cardiology consult was called. The patient is a poor historian. Denies any chest pain. Denies any shortness of breath. Denies any palpitation. PAST MEDICAL HISTORY: Significant for hypertension, dizziness, glaucoma, cataract, coronary artery disease status post stent in the past. PAST SURGICAL HISTORY: Significant for hysterectomy, history of bilateral knee replacement, history of appendectomy. FAMILY HISTORY: Noncontributory. SOCIAL HISTORY: Denies any smoking. Denies any history of alcohol abuse. ALLERGIES: NO KNOWN DRUG ALLERGIES. CURRENT MEDICATIONS: The patient at home was taking Robitussin, Januvia, Protonix, Zofran, Glucophage, Antivert, Cozaar, Synthroid, Lopid, and Flonase. From medical record reviewed and this shows the patient has a history of coronary artery disease, history of [place] in the past, history of coronary intervention with 2 stents in the past, history of congestive heart failure. She has a permanent pacemaker, gastric history of ulcer, duodenal polyp, gastroparesis, hiatal hernia, [id number] aortic stenosis and aortic insufficiency. No history of rheumatic fever or TIA. Most recent cardiac work up as follows: The patient had echocardiography on 01/06/2018 that showed normal LV size, ejection fraction 50%, pacemaker lead in right ventricle noted, right atrium is normal, right atrium and right ventricle, [id number] aortic regurgitation, moderate valvular aortic stenosis, mild -to-moderate mitral regurgitation, ddzg-kn-[id number] tricuspid regurgitation, RV systolic pressure 39, calculated ejection fraction 50%, RVSP 39. REVIEW OF SYSTEMS: As per HPI. PHYSICAL EXAMINATION: VITAL SIGNS: Temperature afebrile, heart rate 80s, and blood pressure 165/68. HEENT: PERRLA. Extraocular muscles intact. NECK: Supple. No carotid bruits or thyromegaly. CHEST: Clear to auscultation. HEART: S1 and S2 regular. ABDOMEN: Soft. EXTREMITIES: Clubbing and cyanosis negative. EKG shows sinus wilberto, 56, T-inversion in V2 and V3. LABORATORY DATA: Blood work up as follows: WBC 8.2, hemoglobin 11.4, hematocrit 35.3, and platelet count 263. Chemistry shows sodium 140, potassium 4.5, chloride 103, carbon dioxide 27, anion gap of 17, BUN 29, and creatinine 1.1. Troponin remains 0.01, negative. IMPRESSION: This is an 87-year-old female with past medical history significant for coronary artery disease status post stent in the past, history of congestive heart failure, history of gwow-om-zigimsbu aortic stenosis, aortic regurgitation, and mitral regurgitation, admitted to Coronary Care Unit where the patient was found to be lethargic, transferred to R. Denies any chest pain so far, no evidence of acute myocardial infarction. RECOMMENDATIONS: Check orthostatic hypotension, lipid profile, TSH, hemoglobin A1c. New evaluation, further recommendation will depend on the hospital course. We will follow after the finding of initial workup. We will follow with you. We will get lipid profile, TSH, hemoglobin A1c, also get carotid duplex scan if not done yet. We will follow with you. Thank you, Dr. Yanez, for providing us the opportunity in taking care of the patient, April Fabian. Tiffanie Torrez MD
[2018-06-04 17:14] VITALS: RESP 18
--- NOTE | 2018-06-04 20:21 | US ---
PROCEDURE: Bilateral carotid artery duplex ultrasound HISTORY: Carotid stenosis PHYSICIAN(S): Hugo Benavidez MD. TECHNIQUE: Duplex sonography and color-flow Doppler were used to evaluate the carotid bifurcations and limited segments of the vertebral arteries bilaterally. FINDINGS: The exam is somewhat limited by tortuous vessels There is diffuse moderate smooth heterogeneous echogenic plaque noted at the carotid bifurcations bilaterally. The peak systolic velocity in the proximal right internal carotid artery is 66 cm/sec. This corresponds to a 20 to 39% proximal right ICA stenosis. Normal systolic velocities are noted in the proximal right external carotid artery. There is antegrade flow in the right vertebral artery. The peak systolic velocity in the proximal left internal carotid artery is 86 cm/sec. This corresponds to a 20 to 39% proximal left ICA stenosis. Normal systolic velocities are noted in the proximal left external carotid artery. There is antegrade flow in the left vertebral artery. IMPRESSION: 1. Bilateral 20-39% proximal ICA stenoses. 2. Antegrade flow in both vertebral arteries.
[2018-06-04] MEDS: Latanoprost 2.5 ml Opht Soln OD SCH (22:24)
[2018-06-05] MEDS: Pantoprazole 40 mg EC Tab PO SCH (07:45)
[2018-06-05] MEDS: Insulin Reg-LOW-Coverage SC SCH ×4 (08:00→22:15)
--- NOTE | 2018-06-05 08:53 | CP.PCM.PN ---
Subjective - Date & Time of Evaluation Date of Evaluation: 06/05/18 Time of Evaluation: 06:50 - Subjective Subjective: Awake, alert, no distress, lying in bed Reason for consultation and follow up: Cardiac evaluation altered mental status/ lethargy, post rapid response , history of coronary artery disease post stents, history of hypertension, dizziness, [place], coronary artery disease with cardiac stents. diabetes, hypothyroidism. PPM, gastric ulcer, gastroparesis,hiatal hernia. Seen and examined by me and Dr. Torrez Objective - Vital Signs/Intake and Output Vital Signs (last 24 hours): Temp Pulse Resp BP Pulse Ox 97.5 F L 51 L 18 163/75 H 96 06/04/18 22:00 06/04/18 22:00 06/04/18 22:00 06/04/18 22:00 06/04/18 22:00 Intake and Output: 06/05/18 06/05/18 06:59 18:59 Intake Total 600 Balance 600 - Medications Medications: Current Medications Albuterol/Ipratropium (Duoneb 3 Mg/0.5 Mg (3 Ml) Ud) 3 ml IH Q6H PRN PRN Reason: Shortness of Breath Aspirin (Ecotrin) 81 mg PO 0800 [facility] Last Admin: 06/04/18 11:09 Dose: 81 mg Atorvastatin Calcium (Lipitor) 40 mg PO HS [facility] Last Admin: 06/04/18 22:23 Dose: 40 mg Clopidogrel Bisulfate (Plavix) 75 mg PO DAILY [facility] Last Admin: 06/04/18 11:09 Dose: 75 mg Fluticasone Propionate (Flonase) 1 actuation NS BID [facility] Last Admin: 06/04/18 18:00 Dose: 1 spr Gemfibrozil (Lopid) 600 mg PO 0630,1700 [facility] Last Admin: 06/05/18 07:45 Dose: 600 mg Glimepiride (Amaryl) 1 mg PO BID [facility] Last Admin: 06/04/18 20:02 Dose: Not Given Guaifenesin/Dextromethorphan (Robitussin Dm) 5 ml PO TID PRN PRN Reason: Cough Last Admin: 06/04/18 11:09 Dose: 5 ml Sodium Chloride (Sodium Chloride 0.9%) 1,000 mls @ 60 mls/hr IV .[id number] [facility] Insulin Human Regular (Humulin R Low) 0 units SC ACHS [facility] PRN Reason: Protocol Last Admin: 06/04/18 20:04 Dose: Not Given Latanoprost (Xalatan Opht) 0.05 ml OD HS [facility] Last Admin: 06/04/18 22:24 Dose: 0.05 ml Levothyroxine Sodium (Synthroid) 50 mcg PO ACB [facility] Last Admin: 06/04/18 11:09 Dose: 50 mcg Meclizine HCl (Antivert) 12.5 mg PO TID PRN PRN Reason: DIZZINESS Last Admin: 06/04/18 11:09 Dose: 12.5 mg Metformin HCl (Glucophage) 1,000 mg PO BID [facility] Last Admin: 06/04/18 18:00 Dose: Not Given Montelukast Sodium (Singulair) 10 mg PO HS [facility] Last Admin: 06/04/18 22:24 Dose: 10 mg Pantoprazole Sodium (Protonix Ec Tab) 40 mg PO 0600 [facility] Last Admin: 06/05/18 07:45 Dose: 40 mg Sitagliptin Phosphate (Januvia) 50 mg PO BID [facility] Last Admin: 06/04/18 18:00 Dose: Not Given - Labs Labs: 06/04/18 11:30 06/04/18 11:30 - Constitutional Appears: No Acute Distress - Eye Exam Eye Exam: Normal appearance - ENT Exam ENT Exam: Mucous Membranes Moist - Respiratory Exam Respiratory Exam: Clear to Ausculation Bilateral, NORMAL BREATHING PATTERN - Cardiovascular Exam Cardiovascular Exam: +S1, +S2 Additional comments: PPM - GI/Abdominal Exam GI & Abdominal Exam: Soft, Normal Bowel Sounds - Extremities Exam Extremities Exam: Normal Capillary Refill - Neurological Exam Neurological Exam: Alert, Awake, Oriented x3 - Psychiatric Exam Psychiatric exam: Normal Affect - Skin Skin Exam: Warm Assessment and Plan - Assessment and Plan (Free Text) Assessment: A 87 year old female who was admitted from TCU due to altered mental status/ lethargy. status post rapid response. History of hypertension, dizziness, [place], coronary artery disease with cardiac stents. diabetes, hypothyroidism. PPM, gastric ulcer, gastroparesis,hiatal hernia. Plan: Now awake, alert and responsive Carotid duplex done- 20-30% proximal ICA stenosis Heart rate and blood pressure stable CT of head negative for hemorrhage Continue current treatment Continue current medications Orthostatic vital signs Will follow up Plan and treatment discussed with Dr. Torrez
--- NOTE | 2018-06-05 09:38 | CARD ---
APPROVED REPORT Date of service: 06/05/2018 EKG Measurement Heart [id number] SD 172P6 [id number] <Conclusion> Normal sinus rhythm Minimal voltage criteria for LVH, may be normal variant Abnormal QRS-T angle, consider primary T wave abnormality Prolonged QT Abnormal ECG
[2018-06-05] MEDS: Fluticasone Nasal 50 mcg/Spray NS SCH ×2 (09:40→17:49)
[2018-06-05] MEDS: Levothyroxine 50 MCG TAB PO SCH (09:43)
--- NOTE | 2018-06-05 13:03 | PN ---
DATE: 06/04/2018 SUBJECTIVE: The patient is 87-year-old female. The patient was seen and examined at bedside on 06/04/2018. Son and ajekfreo-wz-gbo were sitting at the bedside also. The patient is looking comfortable. No nausea, vomiting, diarrhea. No hematuria, no hematochezia. No headache, no dizziness. No chest pain, no palpitations. No fever, no chills. PHYSICAL EXAMINATION: VITAL SIGNS: The patient is afebrile, heart rate 80, blood pressure 150/50, respiratory rate 20. HEENT: Head normocephalic, atraumatic. Eyes, PERRLA. Extraocular muscles intact. Conjunctivae clear. Nose patent. Mucous membrane moist. NECK: Supple. No carotid bruit. No JVD or thyromegaly. CHEST: Bilaterally symmetrical. HEART: S1, S2 positive. LUNGS: Clear to auscultation. ABDOMEN: Soft. Bowel sounds present. No organomegaly. EXTREMITIES: No edema, no cyanosis. NEUROLOGIC: The patient is awake, alert, moving all 4 extremities. No focal deficit. LABORATORY DATA: White blood cell is 8.2, hemoglobin 11.4, hematocrit 35.3, platelets 263. Sodium 140, potassium 4.5, BUN 29, creatinine 1.1, troponin negative. ASSESSMENT AND PLAN: Ms. April Fabian is an 87-year-old lady with coronary artery disease, status post stent in the past, congestive heart failure, history of oguq-jz-nmobrydn aortic stenosis, aortic regurgitation, mitral regurgitation, history of lethargy, no evidence of acute myocardial infarction as per society reporter. The patient has history of coronary artery disease, history of mycoardial infarction in the past, coronary intervention with 2 stents in the past, history of congestive heart failure, has permanent pacemaker, history of gastric ulcers, duodenal polyp, gastroparesis, hiatal hernia. The patient had echocardiography done on 01/06/2018. Carotid artery ultrasound is done; history of dizziness, diabetes mellitus, fall, joint replacement of the knee, history of chronic obstructive pulmonary disease, asthma, hypothyroidism, has bilateral . proximal internal carotid artery stenosis, antegrade flow in both vertebral. CAT scan of the head reviewed, has chronic microvascular changes. GI and DVT prophylaxis. Repeat labs. Discussion done with the patient's daughter, will need good physical therapy. We will follow up. Mirian Yanez MD [facility] # [id number] [place]
[2018-06-05] MEDS: Latanoprost 2.5 ml Opht Soln OD SCH (22:16)
--- NOTE | 2018-06-06 03:43 | PN ---
DATE: 06/05/2018 SUBJECTIVE: The patient is an 87 years old female. The patient was seen and examined on the bedside. Daughter was sitting on the bedside. Also looking comfortable. No nausea, vomiting or diarrhea. No hematuria, no hematochezia. No swelling of the legs, No chest pain or palpitations. No headache, no dizziness. PHYSICAL EXAMINATION: VITAL SIGNS: Temperature 98.1, pulse 51, blood pressure 141/61 and respiratory rate 18. HEENT: Head normocephalic, atraumatic. Eyes PERRLA. Extraocular muscles intact. Conjunctivae clear. Nose patent. Mucous membrane moist. NECK: Supple. No carotid bruit. No JVD or thyromegaly. CHEST: Bilaterally symmetrical. HEART: S1 and S2 positive. LUNGS: Clear to auscultation. ABDOMEN: Soft. Bowel sounds positive. No organomegaly. EXTREMITIES: No edema. No cyanosis. NEUROLOGICAL: The patient is awake and alert. Moving all four extremities. No focal deficits. MEDICATIONS: Amaryl, Antivert, DuoNeb, Ecotrin, Flonase, Glucophage, insulin, Januvia, Lipitor, Plavix, Protonix, Robitussin, Singulair, Synthroid LABORATORY DATA: White blood cells 8.9, hemoglobin 11.8, hematocrit 37.2 and platelets 253. Glucose 114, 183, 152. ASSESSMENT AND PLAN: Ms. Rui Chen is 87 years old lady with anemia, hyperglycemia, glucosuria, seen by the ekg monitor Dr. Torrez, history of altered mental status, lethargy, post rapid response, history of coronary artery disease, hypertension, dizziness, myocardial infarction, coronary artery disease with history of cardiac stents, hypothyroidism, gastric ulcers, gastroesophageal reflux disease, hiatal hernia, waiting for Dr. Dubon's input and discussion done with Dr. Dubon by waiting for his progress notes. Gastrointestinal and deep venous thrombosis prophylaxis, physical therapy, repeat labs, we will follow up. Mirian Yanez MD [facility]
[2018-06-06] MEDS: Pantoprazole 40 mg EC Tab PO SCH (06:13)
--- NOTE | 2018-06-06 06:50 | CP.PCM.PN ---
Subjective - Date & Time of Evaluation Date of Evaluation: 06/06/18 Time of Evaluation: 06:15 - Subjective Subjective: no distress, lying in bed, easily awaken Reason for consultation and follow up: Cardiac evaluation altered mental status/ lethargy, post rapid response , history of coronary artery disease post stents, history of hypertension, dizziness, [place], coronary artery disease with cardiac stents. diabetes, hypothyroidism. PPM, gastric ulcer, gastroparesis,hiatal hernia. Seen and examined by me and Dr. Torrez Objective - Vital Signs/Intake and Output Vital Signs (last 24 hours): Temp Pulse Resp BP Pulse Ox 98.1 F 51 L 18 141/61 98 06/05/18 21:52 06/05/18 21:52 06/05/18 21:52 06/05/18 21:52 06/05/18 21:52 Intake and Output: 06/05/18 06/06/18 18:59 06:59 Intake Total 960 120 Balance 960 120 - Medications Medications: Current Medications Albuterol/Ipratropium (Duoneb 3 Mg/0.5 Mg (3 Ml) Ud) 3 ml IH Q6H PRN PRN Reason: Shortness of Breath Aspirin (Ecotrin) 81 mg PO 0800 [facility] Last Admin: 06/05/18 09:40 Dose: 81 mg Atorvastatin Calcium (Lipitor) 40 mg PO HS [facility] Last Admin: 06/05/18 22:16 Dose: 40 mg Clopidogrel Bisulfate (Plavix) 75 mg PO DAILY [facility] Last Admin: 06/05/18 09:40 Dose: 75 mg Fluticasone Propionate (Flonase) 1 actuation NS BID [facility] Last Admin: 06/05/18 17:49 Dose: 1 spr Gemfibrozil (Lopid) 600 mg PO 0630,1700 [facility] Last Admin: 06/06/18 06:13 Dose: 600 mg Glimepiride (Amaryl) 1 mg PO BID [facility] Last Admin: 06/05/18 17:48 Dose: 1 mg Guaifenesin/Dextromethorphan (Robitussin Dm) 5 ml PO TID PRN PRN Reason: Cough Last Admin: 06/04/18 11:09 Dose: 5 ml Insulin Human Regular (Humulin R Low) 0 units SC ACHS [facility] PRN Reason: Protocol Last Admin: 06/05/18 22:15 Dose: Not Given Latanoprost (Xalatan Opht) 0.05 ml OD HS [facility] Last Admin: 06/05/18 22:16 Dose: 0.05 ml Levothyroxine Sodium (Synthroid) 50 mcg PO ACB [facility] Last Admin: 06/05/18 09:43 Dose: 50 mcg Meclizine HCl (Antivert) 12.5 mg PO TID PRN PRN Reason: DIZZINESS Last Admin: 06/04/18 11:09 Dose: 12.5 mg Metformin HCl (Glucophage) 1,000 mg PO BID [facility] Last Admin: 06/05/18 17:49 Dose: 1,000 mg Montelukast Sodium (Singulair) 10 mg PO HS [facility] Last Admin: 06/05/18 22:16 Dose: 10 mg Pantoprazole Sodium (Protonix Ec Tab) 40 mg PO 0600 [facility] Last Admin: 06/06/18 06:13 Dose: 40 mg Sitagliptin Phosphate (Januvia) 50 mg PO BID [facility] Last Admin: 06/05/18 17:48 Dose: 50 mg - Labs Labs: 06/04/18 11:30 06/04/18 11:30 - Constitutional Appears: No Acute Distress - Eye Exam Eye Exam: Normal appearance - ENT Exam ENT Exam: Mucous Membranes Moist - Respiratory Exam Respiratory Exam: Clear to Ausculation Bilateral, NORMAL BREATHING PATTERN - Cardiovascular Exam Cardiovascular Exam: +S1, +S2 Additional comments: PPM - GI/Abdominal Exam GI & Abdominal Exam: Soft, Normal Bowel Sounds - Extremities Exam Extremities Exam: Normal Capillary Refill - Neurological Exam Neurological Exam: Alert, Oriented x3 - Psychiatric Exam Psychiatric exam: Normal Affect - Skin Skin Exam: Dry, Intact, Warm Assessment and Plan - Assessment and Plan (Free Text) Assessment: A 87 year old female who was admitted from TCU due to altered mental status/ lethargy. status post rapid response. History of hypertension, dizziness, [place], coronary artery disease with cardiac stents. diabetes, hypothyroidism. PPM, gastric ulcer, gastroparesis,hiatal hernia.Carotid duplex done- 20-30% proximal ICA stenosis,CT of head negative for hemorrhage,Orthostatic vital signs normal. Plan: Cardiac status stable Orthostatic vital signs normal Heart rate and blood pressure stable Continue current treatment Continue current medications Awaiting placement to Rehab discharge planning Will follow up Plan and treatment discussed with Dr. Torrez
[2018-06-06] MEDS: Insulin Reg-LOW-Coverage SC SCH ×2 (08:00→14:02)
--- NOTE | 2018-06-06 08:07 | CON ---
DATE: 06/05/2018 HISTORY OF PRESENT ILLNESS: This is an 87-year-old female with a past medical history of hypertension; glaucoma; coronary artery disease, status post stents; and found to be lethargic and was transferred from TCU to for further evaluation and I spoke with daughter at bedside, spoke to her in detail. The patient has just generalized weakness, otherwise able to answer the questions. Past medical history of hypertension, dizziness, coronary artery disease, and congestive heart failure. She is a little bit more awake, sitting on the chair comfortably, and called to evaluate the patient. PAST MEDICAL HISTORY: As above. SOCIAL HISTORY: Does not smoke, does not drink. ALLERGIES: NO KNOWN DRUG ALLERGY. CURRENT MEDICATIONS: Januvia, Zofran, Glucophage, Antivert, Cozaar, Synthroid, Lopid, and Flonase. PAST SURGICAL HISTORY: The patient also has a permanent pacemaker. PHYSICAL EXAMINATION NEUROLOGICAL: Awake, oriented to self, mild slurred speech. Cranial nerves II through XII are tested. Bilateral iridectomy. No facial asymmetry. Tongue is midline. Motor examination; spontaneous movement of the extremities noted. Deep tendon reflexes are 1+. Both plantars are downgoing. Sensory appears intact. Cerebellar, gait deferred. 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 Carotid Doppler, mild stenoses of the carotid arteries, no new infarct. Continue present management. We will order EEG. The patient needs more physical therapy. Dale Dubon MD
--- NOTE | 2018-06-06 08:19 | EEG ---
DATE: 06/05/2018 CONDITION OF THE RECORDING: Awake, drowsy, more lethargic. PAST MEDICAL HISTORY: COPD, dizziness, diabetes, hypothyroidism and asthma. MEDICATIONS: Plavix, levothyroxine, Lipitor. DESCRIPTION: Background activity of this tracing was composed of 8 cycles per second alpha-like activity and small amount of beta activity, 16 to 20 cycles per second was noted in the tracing. Theta activity of 5 to 7 cycles per second was seen in the records. Drowsiness was composed of mixed beta and theta activity. Photic stimulation did not change the record. No paroxysmal activity. Some isolated sharp waves were noted in the tracing. IMPRESSION: Abnormal electroencephalogram, presence of isolated sharp waves and bilateral cerebral dysfunction, and we will follow up. Dale Dubon MD
[2018-06-06] MEDS: Levothyroxine 50 MCG TAB PO SCH (09:17)
[2018-06-06] MEDS: Fluticasone Nasal 50 mcg/Spray NS SCH (09:20)
[2018-06-06 14:42] VITALS: BP 144/86; PULSE 89; TEMP 99; O2SAT 95
--- NOTE | 2018-06-07 09:13 | DS ---
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 CHIEF COMPLAINT: Dizziness, weakness, fatigue, lethargy. HISTORY OF PRESENT ILLNESS: Ms. April Fabian is 87 years old lady with history of multiple medical problems, was admitted in the [facility] on 05/29/2018 on the acute side, discharged to TCU on 06/02/2018 and has rapid response there, was transferred to emergency room and from there, the patient was admitted to medical floor again. The patient has feeling about fatigue and tired, dizziness. No hematuria or hematochezia. No headache. No dizziness. No chest pain. No palpitation. No fever. No chills. Seen by neurologist, Dr. Dubon and Salvager Helper, Dr. Torrez, improved. Bilateral carotid artery Doppler was done and CAT scan of the head was done, sent the patient to [facility] as per daughter's request. Discussion done with the daughter, the son and the [id number]. The [place] [facility] [place] [facility]. We will follow up there. PAST MEDICAL HISTORY: Dizziness, diabetes mellitus, fall, history of joint replacement of the knee, history of COPD, asthma, and hypothyroidism. FAMILY HISTORY: Father and mother, noncontributory. HABITS: Never smoked. No drugs. No ethanol. ALLERGIES: THE PATIENT IS NOT ALLERGIC WITH ANY MEDICATIONS. HOME MEDICATIONS: Reviewed by me. REVIEW OF SYSTEMS: The patient was seen and examined at the bedside on 06/06/2018, looking comfortable. No nausea, vomiting or diarrhea. No hematuria or hematochezia. No swelling of the legs. No chest pain. No palpitation. No headache. No dizziness, not in distress. PHYSICAL EXAMINATION: VITAL SIGNS: Temperature 98.1, pulse 51, respiratory rate 18, blood pressure 120/80 , pulse oximetry of 98. HEENT: Head normocephalic, atraumatic. Eyes, PERRLA. Extraocular muscles intact. Conjunctivae clear. Nose patent. Mucous membranes moist. NECK: Supple. No carotid bruit. No JVD or thyromegaly. CHEST: Bilaterally symmetrical. HEART: S1 and S2 positive. LUNGS: Clear to auscultation. ABDOMEN: Soft. Bowel sounds present. No organomegaly. EXTREMITIES: No edema. No cyanosis. NEUROLOGIC: Patient is awake and alert. Moving all four extremities. No focal deficits, obey simple orders. MEDICATIONS: DuoNeb, aspirin, Lipitor, Plavix, Flonase, Lopid, Amaryl, Robitussin, insulin, Synthroid, Antivert, Glucophage, Januvia, Protonix, Singulair. LABORATORY DATA: White blood cells 8.9, hemoglobin 11.8, hematocrit 37.2, platelets 253. Sodium 143, potassium 4.5, BUN 23, creatinine 0.9, glucose 171. ASSESSMENT AND PLAN: Ms. April Fabian is 87 years old lady with anemia, hyperglycemia, who came with altered mental status and lethargy, there was couple of rapid response, history of hypertension, dizziness, myocardial infarction, coronary artery disease, cardiac stenting, diabetes mellitus, hypothyroidism, gastric ulcer, gastroesophageal reflux disease, hiatal hernia. Carotid duplex done and she was 20% to 30% proximal internal carotid artery stenosis. CAT scan of the head negative for hemorrhage. Orthostatic blood pressure is within normal limits. According to paper guillotine operator, the patient is stable for cardiac standpoint. Her blood pressures are stable. Continue current medications. The patient was cleared by the Cardiology for discharge. Seen by Dr. Dale Dubon. According to him, the patient has encephalopathy, possibly toxic metabolic. 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 According to him, continue present management. The patient needs good physical therapy discussion done with Dr. Dubon. We will followup there. Mirian Yanez MD MTDD
== END 2018-06-06 16:55 | DRG 93 ==
LOC: ED 12:26 → ERH 14:09 → OBSVTOIN 14:09 → ERH 15:45 → 5RSO 17:17
PROVIDERS: ADMIT Internal Medicine; ATTEND Internal Medicine
DX: G92 Toxic encephalopathy (principal); I65.23 Occlusion and stenosis of bilateral carotid arteries; K25.9 Gastric ulcer, unspecified as acute or chronic, without hemorrhage or perforation; K31.84 Gastroparesis; D64.9 Anemia, unspecified; E03.9 Hypothyroidism, unspecified; E11.43 Type 2 diabetes mellitus with diabetic autonomic (poly)neuropathy; E11.65 Type 2 diabetes mellitus with hyperglycemia; H40.9 Unspecified glaucoma; I11.0 Hypertensive heart disease with heart failure; I25.10 Atherosclerotic heart disease of native coronary artery without angina pectoris; I50.9 Heart failure, unspecified; I08.3 Combined rheumatic disorders of mitral, aortic and tricuspid valves; J44.9 Chronic obstructive pulmonary disease, unspecified; K21.9 Gastro-esophageal reflux disease without esophagitis; K44.9 Diaphragmatic hernia without obstruction or gangrene; R41.82 Altered mental status, unspecified; Z96.653 Presence of artificial knee joint, bilateral; Z86.73 Personal history of transient ischemic attack (TIA), and cerebral infarction without residual deficits; Z95.5 Presence of coronary angioplasty implant and graft; I25.2 Old myocardial infarction; Z79.4 Long term (current) use of insulin; Z95.0 Presence of cardiac pacemaker